=== PATIENT | female | born 1940 | race Native Hawaiian/Other Pacific Islander ===

== ENCOUNTER 2017-12-24 08:54 | Inpatient (IN) | payer MEDICARE, OTHER ==
[2017-12-24 10:58] LABS: BASO # 0.1 K/uL (0.0-0.2); BASO % 0.4 % (0.0-2.0); EOS % 0.1 % (0.0-4.0); HEMOGLOBIN 8.8 g/dL (12.0-16.0); LYMPH # 1.6 K/uL (1.0-4.3); LYMPH % 10.6 % (20.0-40.0); MEAN CELL VOLUME 83.2 fl (81.0-99.0); MEAN CORPUSCULAR HEMOGLOBIN 26.5 pg (27.0-31.0); MEAN CORPUSCULAR HGB CONC 31.9 g/dL (33.0-37.0); MEAN PLATELET VOLUME 9.1 fl (7.2-11.7); MONO # 0.5 K/uL (0.0-0.8); MONO % 3.7 % (0.0-10.0); NEUT # 12.5 K/uL (1.8-7.0); NEUT % 85.2 % (50.0-75.0); RBC 3.3 Mil/uL (3.80-5.20); RED CELL DISTRIBUTION WIDTH 20.7 % (11.5-14.5); WHITE BLOOD COUNT 14.6 K/uL (4.8-10.8)
[2017-12-24 11:05] LABS: PARTIAL THROMBOPLASTIN TIME 22.6 Seconds (25.6-37.1)
--- NOTE | 2017-12-24 11:16 | ED PDOC ---
Upper Extremity Pain/Injury Time Seen by Provider: 12/24/17 09:02 Chief Complaint (Nursing): Upper Extremity Problem/Injury Chief Complaint (Provider): Right Shoulder Pain, Right Arm Pain History Per: Patient History/Exam Limitations: no limitations Onset/Duration Of Symptoms: Days (x1) Current Symptoms Are (Timing): Still Present Additional Complaint(s): 70-year-old female presenting for evaluation of right shoulder and right arm pain s/p fall this morning. Of note, patient is not a [place] Amharic speaker and is hard of hearing. Translation service was ineffective because patient cannot hear. Difficult to obtain HPI and some information obtained from at bedside. Patient states shes been having episodes of dizziness, diaphoresis , abdominal pain, and diarrhea x2 weeks. Patient states she had an episode of diarrhea this morning, felt dizzy, fell, and her found her on the ground. Unclear if patient suffered LOC. Patients reports compliance with all medications and good follow up with PMD. PMD: Dr. Trevor Shields Past Medical History Reviewed: Historical Data, Nursing Documentation, Vital Signs Vital Signs: Last Vital Signs Temp 98.1 F 12/24/17 09:05 Pulse 70 12/24/17 09:05 Resp 18 12/24/17 09:05 BP 142/45 L 12/24/17 09:05 Pulse Ox 98 12/24/17 09:05 - Medical History PMH: Diabetes, HTN - Surgical History Other surgeries: Heart valve bypass - Family History Family History: States: Unknown Family Hx - Home Medications Home Medications: Ambulatory Orders Medication Instructions Recorded Atorvastatin Calcium [Lipitor] 80 mg PO DAILY 12/24/17 Cilostazol [Pletal] 100 mg PO BID 12/24/17 Clopidogrel [Plavix] 75 mg PO DAILY 12/24/17 Glimepiride [amaRYL] 4 mg PO BID 12/24/17 Labetalol [Trandate] 100 mg PO BID 12/24/17 Patiromer Calcium Sorbitex 8.4 gm PO BID 12/24/17 [Veltassa] Vitamin B Complex [Super B-50 1 tab PO DAILY 12/24/17 Complex] amLODIPine [Norvasc] 10 mg PO DAILY 12/24/17 metFORMIN [glucOPHAGE] 1,000 mg PO BID 12/24/17 - Allergies Allergies/Adverse Reactions: Allergies Allergy/AdvReac Type Severity Reaction Status Date / Time No Known Allergies Allergy Verified 12/24/17 09:25 Review of Systems ROS Statement: Except As Marked, All Systems Reviewed And Found Negative Constitutional: Positive for: Sweats Eyes: Negative for: Vision Change Cardiovascular: Negative for: Chest Pain, Palpitations, Light Headedness Gastrointestinal: Positive for: Abdominal Pain, Diarrhea Musculoskeletal: Positive for: Shoulder Pain (right), Arm Pain (right) Neurological: Positive for: Dizziness Physical Exam - Reviewed Nursing Documentation Reviewed: Yes Vital Signs Reviewed: Yes - Physical Exam Appears: Positive for: Non-toxic, No Acute Distress Head Exam: Positive for: ATRAUMATIC, NORMAL INSPECTION, NORMOCEPHALIC Skin: Positive for: Normal Color, Warm. Negative for: Rash Eye Exam: Positive for: Normal appearance, EOMI, PERRL Neck: Positive for: Normal, Painless ROM, Supple Cardiovascular/Chest: Positive for: Regular Rate, Rhythm. Negative for: Murmur Respiratory: Positive for: Normal Breath Sounds. Negative for: Respiratory Distress Pulses-Dorsalis Pedis (L): 2+ Pulses-Dorsalis Pedis (R): 2+ Pulses-Radial (L): 2+ Pulses-Radial (R): 2+ Gastrointestinal/Abdominal: Positive for: Normal Exam, Soft. Negative for: Tenderness Back: Positive for: Normal Inspection. Negative for: L CVA Tenderness, R CVA Tenderness, Vertebral Tenderness Extremity: Positive for: Tenderness (tenderness to palpation at right superior scapula, right shoulder (worse on anterior shoulder), right humerus, right elbow ; no tenderness to palpation over the right forearm, wrist, or hand), Other ( exam limited due to pain, patient refusing to move the arm or allow it to be moved) Neurologic/Psych: Positive for: Alert, Oriented (x3). Negative for: Motor/ Sensory Deficits - Laboratory Results Result Diagrams: 12/24/17 16:18 12/24/17 17:00 - ECG O2 Sat by Pulse Oximetry: 98 (RA) Pulse Ox Interpretation: Normal - Radiology X-Ray: Interpreted by Me, Read By Radiologist X-Ray Interpretation: No Acute Disease, Other (right humeral head fracture) - Critical Care Total Time (In Min): 120 Medical Decision Making Medical Decision Making: Plan: Workup for trauma injury to the right upper extremity, scapula, and clavicle. Syncope workup and infectious workup for episodes of dizziness, possible syncope , and diarrhea. Morphine for pain control. Will order X-rays of upper extremities, IV fluids, and reassess patient. During workup for right arm pain and dizziness the lab called and informed RN that the pt has potassium >7. RN and MD went bedside and noted the pt's HR dropped from upper 50s to low 30s. Pacer pads were placed, right EJ was placed. Pt given Calcium, D50, insulin, and bicarb with almost immediate improvement in rhythm and HR. Pt given I L of IV fluids. At this point, cardiology was paged (approximately 10:55am). Within several minutes, the pt's HR again dropped. With drop in HR, rhythm showed atrial fibrillation with QRS widening. Lasix was given and Hyper K meds (as above) were again pushed. ICU Dr. Deleon was consulted. A third round of Hyper K medications were pushed as HR dropped again. Pt was given rectal ASA. During each event of arrhythmia/ bradycardia, pt remained alert and responsive. During 3rd episode of arrhythmia , pt complained of chest pain. Pt was seen bedside by geothermal installer, Dr. Arellano, and coal deliverer Dr. Centeno. Manager Search was consulted at 12:58pm as labs showed renal failure with BUN 50/creat 2.3. POC ABG showed potassium of 4.6 and repeat BMP showed potassium of 5.2. Xrays showed right humeral comminuted fracture. Splint/sling placement was delayed as additional blood draws and EKGS were being performed. Orthopedics was paged at 2:23pm and Dr. Castaneda returned page at 4:00pm (delay in return page due to Dr. Castaneda being in OR). Dr. Garcia was consulted and pt admitted to the ICU. ECHO was arranged and would be performed in the unit. Nephrology and orthopedics to see the patient in the unit. Pt was in sinus rhythm with HR of 61 when leaving the ED. Scribe Attestation: Documented by Surinder Paez, acting as a scribe for Ana Garcia MD. Provider Scribe Attestation: All medical record entries made by the Scribe were at my direction and personally dictated by me. I have reviewed the chart and agree that the record accurately reflects my personal performance of the history, physical exam, medical decision making, and the department course for this patient. I have also personally directed, reviewed, and agree with the discharge instructions and disposition. Disposition - Clinical Impression Clinical Impression: Bradycardia, Hyperkalemia, Renal failure, Cardiac arrhythmia, Shoulder injury, Broken shoulder - Patient ED Disposition Is Patient to be Admitted: Yes - Disposition Disposition Time: 13:30 Condition: CRITICAL
[2017-12-24] MEDS ORDERED: Dextrose 50% SYRINGE Inj (50 ml) ONE (11:37)
[2017-12-24 11:54] LABS: ALB/GLOB RATIO 1.2 (1.0-2.1); CALCIUM 9.7 mg/dL (8.4-10.2)
[2017-12-24] MEDS ORDERED: Aspirin 325 mg EC Tablets PO STA (11:56)
[2017-12-24] MEDS ORDERED: Nitroglycerin 2% Ointment Foilpak UD TOP ONE (11:59)
[2017-12-24 12:08] LABS: INR 0.9; PROTHROMBIN TIME 10.2 Seconds (9.8-13.1)
[2017-12-24 12:12] LABS: ALB/GLOB RATIO 1.2 (1.0-2.1); ALBUMIN 3.8 g/dL (3.5-5.0); CALCIUM 9.6 mg/dL (8.4-10.2)
[2017-12-24] MEDS ORDERED: Calcium Chloride 1000 mg/10 ml Syringe IV STA ×2 (12:16→12:52)
[2017-12-24] MEDS ORDERED: Calcium Chloride 1000 mg/10 ml Syringe IV ONE (12:19)
[2017-12-24] MEDS ORDERED: Dextrose 50% SYRINGE Inj (50 ml) IVP ONE ×2 (12:22→12:54)
[2017-12-24 12:33] LABS: TROPONIN I 0.072 ng/mL (0.00-0.120)
[2017-12-24 12:52] LABS: ALB/GLOB RATIO 1.3 (1.0-2.1); ALBUMIN 3.7 g/dL (3.5-5.0); CALCIUM 9.3 mg/dL (8.4-10.2)
[2017-12-24] MEDS ORDERED: Sod Polystyrene Sulf 15 gm/60 ml Susp PO ONE (13:00)
[2017-12-24] MEDS ORDERED: Insulin Regular 100 units/ml IV STA ×2 (13:03→13:43)
[2017-12-24 13:04] LABS: URINE BACTERIA RARE (<OCC); URINE BILIRUBIN NEGATIVE (NEGATIVE); URINE BLOOD NEGATIVE (NEGATIVE); URINE CLARITY SLIGHTY-CLOUDY (Clear); URINE COLOR YELLOW (YELLOW); URINE GLUCOSE (UA) >=500 mg/dL (Normal); URINE HYALINE CAST 0-2 /hpf (0-2); URINE LEUKOCYTE ESTERASE NEG Leu/uL (Negative); URINE PROTEIN 30 mg/dL (NEGATIVE); URINE UROBILINOGEN 0.2-1.0 mg/dL (0.2-1.0)
[2017-12-24] MEDS ORDERED: Nitroglycerin 2% Ointment Foilpak UD TOP STA (13:04)
[2017-12-24] MEDS ORDERED: Sodium Bicarbonate 7.5% (0.9 MEQ/ML) 50ML INJ IV ONE ×3 (13:08→13:09)
[2017-12-24] MEDS ORDERED: Albuterol 0.083% Inhal Sol (2.5 mg/3 mL) UD INH ONE ×2 (13:10)
--- NOTE | 2017-12-24 13:21 | RAD ---
Date of service: 12/24/2017 HISTORY: abd pain COMPARISON: No prior. FINDINGS: BOWEL: Normal. No obstruction. No free air. Abdomen obscured partially by monitoring leads. BONES: Normal. OTHER FINDINGS: None. IMPRESSION: No active disease.
--- NOTE | 2017-12-24 13:23 | RAD ---
Date of service: 12/24/2017 HISTORY: bradycardia COMPARISON: No prior. FINDINGS: LUNGS: No active pulmonary disease. PLEURA: No significant pleural effusion identified, no pneumothorax apparent. CARDIOVASCULAR: Mild cardiomegaly. Sternotomy wires. CABG. OSSEOUS STRUCTURES: Comminuted displaced fracture right subcapital humerus and humeral head. VISUALIZED UPPER ABDOMEN: Normal. OTHER FINDINGS: None. IMPRESSION: Comminuted fracture right proximal humerus, displaced. No infiltrate.
[2017-12-24 14:09] LABS: CALCIUM 12.8 mg/dL (8.4-10.2)
--- NOTE | 2017-12-24 15:15 | CT ---
Date of service: 12/24/2017 PROCEDURE: CT HEAD WITHOUT CONTRAST. HISTORY: fall with dizziness COMPARISON: None available. TECHNIQUE: Axial computed tomography images were obtained through the head/brain without intravenous contrast. Radiation dose: Total exam DLP = 806.59 mGy-cm. This CT exam was performed using one or more of the following dose reduction techniques: Automated exposure control, adjustment of the mA and/or kV according to patient size, and/or use of iterative reconstruction technique. FINDINGS: HEMORRHAGE: No intracranial hemorrhage. BRAIN: No mass effect or edema. Mild atrophy. Moderate patchy and confluent periventricular and deep/ subcortical white matter lucency consistent with chronic microvascular ischemic change. No evidence of acute infarct. 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 VENTRICLES: Unremarkable. No hydrocephalus. CALVARIUM: Unremarkable. PARANASAL SINUSES: Chronic sphenoid sinusitis. MASTOID AIR CELLS: Unremarkable as visualized. No inflammatory changes. OTHER FINDINGS: None. IMPRESSION: No intracranial mass, hemorrhage or evidence of acute infarct. Age related involutional change. 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 Chronic sphenoid sinusitis.
--- NOTE | 2017-12-24 15:27 | RAD ---
Date of service: 12/24/2017 PROCEDURE: Radiographs of the right elbow. HISTORY: right arm/shoulder/clavicle pain s/p fall COMPARISON: No prior. FINDINGS: BONES: Normal. No fracture. JOINTS: Normal. No osteoarthritis. SOFT TISSUES: Normal. JOINT EFFUSION: None. OTHER FINDINGS: None. IMPRESSION: Unremarkable radiographs of the right elbow.
--- NOTE | 2017-12-24 15:28 | RAD ---
PROCEDURE: Radiographs of the right humerus. HISTORY: right arm/shoulder/clavicle pain s/p fall COMPARISON: None. FINDINGS: BONES: Displaced comminuted fracture right proximal humerus involving subcapital humerus and greater tuberosity. Large displaced fragment from greater tuberosity. No other fracture identified. SOFT TISSUES: Normal. OTHER FINDINGS: None. IMPRESSION: Comminuted displaced proximal humeral fracture.
--- NOTE | 2017-12-24 15:29 | RAD ---
Date of service: 12/24/2017 PROCEDURE: Right scapula HISTORY: right shoulder/scapula/arm pain s/p fall COMPARISON: Not available TECHNIQUE: Two views of the right scapula are provided. FINDINGS: There is no evidence of scapular fracture. No lytic or blastic osseous lesion is identified. IMPRESSION: No evidence of scapular fracture.
--- NOTE | 2017-12-24 15:30 | RAD ---
Date of service: 12/24/2017 PROCEDURE: Radiographs of the right clavicle. HISTORY: right shoulder/elbow/clavicle pain s/p fall COMPARISON: None. FINDINGS: RIGHT CLAVICLE: No fracture or focal lesion. JOINTS: Right acromioclavicular and glenohumeral joints are grossly unremarkable. SOFT TISSUES: Grossly unremarkable. OTHER FINDINGS: None. IMPRESSION: Normal radiographs of the right clavicle.
--- NOTE | 2017-12-24 15:30 | RAD ---
Date of service: 12/24/2017 PROCEDURE: Radiographs of the Right Shoulder HISTORY: right shoulder/clavicle/arm pain s/p fall COMPARISON: No prior. FINDINGS: BONES: Comminuted displaced fracture of the proximal humerus. There is a subcapital fracture. There is a displaced fracture of the greater tuberosity. There is probable fracture of the lesser tuberosity. There is a globular calcification adjacent to the greater tuberosity likely consistent with chronic calcific tendinitis. JOINTS: Normal. Glenohumeral and acromioclavicular joints preserved. No osteoarthritis. SOFT TISSUES: Normal. OTHER FINDINGS: None. IMPRESSION: Comminuted, displaced proximal humeral fracture as described.
--- NOTE | 2017-12-24 15:37 | CP.CCUPN ---
CCU Subjective - Physician Review Events Since Last Encounter (Free Text): 77 female with history of HTN, DM, CAD s/p CABG brought to ER because od dizziness, diarrhea for two weeks and Rt shoulder pain after falling down on her shoulder today, no chest pain, no fever, no reported LOC, patient found to have bradycaria, hyperkalemia, renal insufficiency and Rt humerus fracture, cardiology, renal and orthopedic consults catted from ER CCU Objective - Vital Signs / Intake & Output Vital Signs (Last 4 hours): Vital Signs Temp Pulse Resp BP Pulse Ox 12/24/17 15:05 97.8 F 56 L 16 202/73 H 12/24/17 15:00 61 18 188/73 H 12/24/17 14:00 61 18 188/73 H 100 12/24/17 13:54 60 196/65 H 12/24/17 12:00 52 L 181/61 H 12/24/17 11:48 172/51 H Intake and Output (Last 8hrs): Intake & Output 12/24/17 12/24/17 12/24/17 06:59 14:59 22:59 Output Total 800 Balance -800 Weight 105 lb Output: Urine 800 - Physical Exam Head: Positive for: Atraumatic, Normocephalic Pupils: Positive for: PERRL Conjunctiva: Positive for: Normal Mouth: Positive for: Dry Pharnyx: Positive for: Normal Nose (External): Positive for: Atraumatic Nose (Internal): Positive for: Normal Inspection Neck: Positive for: Normal Range of Motion Respiratory/Chest: Positive for: Clear to Auscultation Cardiovascular: Positive for: Bradycardic Abdomen: Positive for: Normal Bowel Sounds Upper Extremity: Positive for: Other (Rt shouder pain on movements) Neurological: Positive for: GCS=15, Speech Normal Skin: Positive for: Normal Color Psychiatric: Positive for: Alert - Medications Active Medications: Active Medications Generic Name Dose Route Start Last Admin Trade Name Freq PRN Reason Stop Dose Admin Sodium Chloride 1,000 ml/ IV 1,000 mls @ 250 mls/hr 12/24/17 14:09 12/24/17 14:22 SUPPLIES IV 12/24/17 18:08 250 mls/hr STAT STA Administration - Patient Studies Lab Studies: Lab Studies 08/18/18 08/18/18 08/18/18 Range/Units 13:39 12:45 12:25 WBC (4.8-10.8) K/uL RBC (3.80-5.20) Mil/uL Hgb (12.0-16.0) g/dL Hct (34.0-47.0) % MCV (81.0-99.0) fl MCH (27.0-31.0) pg MCHC (33.0-37.0) g/dL RDW (11.5-14.5) % Plt Count (130-400) K/uL MPV (7.2-11.7) fl Neut % (Auto) (50.0-75.0) % Lymph % (Auto) (20.0-40.0) % [place] % (Auto) (0.0-10.0) % Eos % (Auto) (0.0-4.0) % Baso % (Auto) (0.0-2.0) % Neut # (Auto) (1.8-7.0) K/uL Lymph # (Auto) (1.0-4.3) K/uL [place] # (Auto) (0.0-0.8) K/uL Eos # (Auto) (0.0-0.7) K/uL Baso # (Auto) (0.0-0.2) K/uL PT (9.8-13.1) Seconds INR APTT (25.6-37.1) Seconds Sodium 136 (132-148) mmol/l Potassium 5.2 H (3.6-5.0) MMOL/L Chloride 106 (98-107) mmol/L Carbon Dioxide 16 L (22-30) mmol/L Anion Gap 19 (10-20) BUN 48 H (7-17) mg/dl Creatinine 2.1 H (0.7-1.2) mg/dl Est GFR ( Amer) 27 Est GFR (Non-Af Amer) 23 Random Glucose 268 H (65-105) mg/dL Calcium 12.8 H (8.4-10.2) mg/dL Phosphorus (2.5-4.5) mg/dl Magnesium (1.6-2.3) MG/DL Total Bilirubin (0.2-1.3) mg/dl AST (14-36) U/L ALT (9-52) U/L Alkaline Phosphatase (38-126) U/L Troponin I (0.00-0.120) ng/mL Total Protein (6.3-8.2) G/DL Albumin (3.5-5.0) g/dL Globulin (2.2-3.9) gm/dL Albumin/Globulin Ratio (1.0-2.1) Urine Color Yellow (YELLOW) Urine Clarity Slighty-cloudy (Clear) Urine pH 5.0 (5.0-8.0) Ur Specific [place] 1.009 (1.003-1.030) Urine Protein 30 (NEGATIVE) mg/dL Urine Glucose (UA) >=500 (Normal) mg/dL Urine Ketones Negative (NEGATIVE) mg/dL Urine Blood Negative (NEGATIVE) Urine Nitrate Negative (NEGATIVE) Urine Bilirubin Negative (NEGATIVE) Urine Urobilinogen 0.2-1.0 (0.2-1.0) mg/dL Ur Leukocyte Esterase Neg (Negative) Karla/uL Urine RBC (Auto) < 1 (0-3) /hpf Urine Microscopic WBC < 1 (0-5) /hpf Urine Bacteria Rare (<OCC) Hyaline Casts 0-2 (0-2) /hpf Blood Type B POSITIVE Antibody Screen Negative BBK History Checked No verified bt 12/24/17 12/24/17 12/24/17 Range/Units 12:10 12:05 11:20 WBC 13.5 H (4.8-10.8) K/uL RBC 3.08 L (3.80-5.20) Mil/uL Hgb 8.1 L (12.0-16.0) g/dL Hct 25.3 L (34.0-47.0) % MCV 82.2 (81.0-99.0) fl MCH 26.5 L (27.0-31.0) pg MCHC 32.2 L (33.0-37.0) g/dL RDW 58.2 H (11.5-14.5) % Plt Count 252 (130-400) K/uL MPV 8.9 (7.2-11.7) fl Neut % (Auto) (50.0-75.0) % Lymph % (Auto) 10.6 L (20.0-40.0) % [place] % (Auto) 3.6 (0.0-10.0) % Eos % (Auto) 0.1 (0.0-4.0) % Baso % (Auto) 0.3 (0.0-2.0) % Neut # (Auto) (1.8-7.0) K/uL Lymph # (Auto) 1.4 (1.0-4.3) K/uL [place] # (Auto) 0.5 (0.0-0.8) K/uL Eos # (Auto) 0.0 (0.0-0.7) K/uL Baso # (Auto) 0.3 H (0.0-0.2) K/uL PT (9.8-13.1) Seconds INR APTT (25.6-37.1) Seconds Sodium 131 L 129 L (132-148) mmol/l Potassium 7.2 H* 7.1 H* (3.6-5.0) MMOL/L Chloride 103 104 (98-107) mmol/L Carbon Dioxide 16 L 12 L (22-30) mmol/L Anion Gap 19 20 (10-20) BUN 51 H 50 H (7-17) mg/dl Creatinine 2.2 H 2.3 H (0.7-1.2) mg/dl Est GFR ( Amer) 26 25 Est GFR (Non-Af Amer) 22 20 Random Glucose 267 H 265 H (65-105) mg/dL Calcium 9.3 9.6 (8.4-10.2) mg/dL Phosphorus (2.5-4.5) mg/dl Magnesium (1.6-2.3) MG/DL Total Bilirubin 0.5 0.7 (0.2-1.3) mg/dl AST 87 H 79 H (14-36) U/L ALT 110 H 104 H (9-52) U/L Alkaline Phosphatase 113 116 (38-126) U/L Troponin I 0.0720 (0.00-0.120) ng/mL Total Protein 6.6 7.1 (6.3-8.2) G/DL Albumin 3.7 3.8 (3.5-5.0) g/dL Globulin 2.9 3.3 (2.2-3.9) gm/dL Albumin/Globulin Ratio 1.3 1.2 (1.0-2.1) Urine Color (YELLOW) Urine Clarity (Clear) Urine pH (5.0-8.0) Ur Specific [place] (1.003-1.030) Urine Protein (NEGATIVE) mg/dL Urine Glucose (UA) (Normal) mg/dL Urine Ketones (NEGATIVE) mg/dL Urine Blood (NEGATIVE) Urine Nitrate (NEGATIVE) Urine Bilirubin (NEGATIVE) Urine Urobilinogen (0.2-1.0) mg/dL Ur Leukocyte Esterase (Negative) Karla/uL Urine RBC (Auto) (0-3) /hpf Urine Microscopic WBC (0-5) /hpf Urine Bacteria (<OCC) Hyaline Casts (0-2) /hpf Blood Type Antibody Screen BBK History Checked 12/24/17 12/24/17 12/24/17 Range/Units 10:30 10:30 10:30 WBC 14.6 H (4.8-10.8) K/uL RBC 3.30 L (3.80-5.20) Mil/uL Hgb 8.8 L (12.0-16.0) g/dL Hct 27.5 L (34.0-47.0) % MCV 83.2 (81.0-99.0) fl MCH 26.5 L (27.0-31.0) pg MCHC 31.9 L (33.0-37.0) g/dL RDW 20.7 H (11.5-14.5) % Plt Count 263 (130-400) K/uL MPV 9.1 (7.2-11.7) fl Neut % (Auto) 85.2 H (50.0-75.0) % Lymph % (Auto) 10.6 L (20.0-40.0) % [place] % (Auto) 3.7 (0.0-10.0) % Eos % (Auto) 0.1 (0.0-4.0) % Baso % (Auto) 0.4 (0.0-2.0) % Neut # (Auto) 12.5 H (1.8-7.0) K/uL Lymph # (Auto) 1.6 (1.0-4.3) K/uL [place] # (Auto) 0.5 (0.0-0.8) K/uL Eos # (Auto) 0.0 (0.0-0.7) K/uL Baso # (Auto) 0.1 (0.0-0.2) K/uL PT 10.2 (9.8-13.1) Seconds INR 0.9 APTT 22.6 L (25.6-37.1) Seconds Sodium 131 L (132-148) mmol/l Potassium 7.3 H* (3.6-5.0) MMOL/L Chloride 103 (98-107) mmol/L Carbon Dioxide 14 L (22-30) mmol/L Anion Gap 21 H (10-20) BUN 50 H (7-17) mg/dl Creatinine 2.3 H (0.7-1.2) mg/dl Est GFR ( Amer) 25 Est GFR (Non-Af Amer) 20 Random Glucose 256 H (65-105) mg/dL Calcium 9.7 (8.4-10.2) mg/dL Phosphorus 4.9 H (2.5-4.5) mg/dl Magnesium 2.3 (1.6-2.3) MG/DL Total Bilirubin 0.5 (0.2-1.3) mg/dl AST 77 H (14-36) U/L ALT 111 H (9-52) U/L Alkaline Phosphatase 124 (38-126) U/L Troponin I (0.00-0.120) ng/mL Total Protein 7.1 (6.3-8.2) G/DL Albumin 4.0 (3.5-5.0) g/dL Globulin 3.2 (2.2-3.9) gm/dL Albumin/Globulin Ratio 1.2 (1.0-2.1) Urine Color (YELLOW) Urine Clarity (Clear) Urine pH (5.0-8.0) Ur Specific [place] (1.003-1.030) Urine Protein (NEGATIVE) mg/dL Urine Glucose (UA) (Normal) mg/dL Urine Ketones (NEGATIVE) mg/dL Urine Blood (NEGATIVE) Urine Nitrate (NEGATIVE) Urine Bilirubin (NEGATIVE) Urine Urobilinogen (0.2-1.0) mg/dL Ur Leukocyte Esterase (Negative) Karla/uL Urine RBC (Auto) (0-3) /hpf Urine Microscopic WBC (0-5) /hpf Urine Bacteria (<OCC) Hyaline Casts (0-2) /hpf Blood Type Antibody Screen BBK History Checked Laboratory Results - last 24 hr 12/24/17 12/24/17 12/24/17 10:30 10:30 10:30 WBC 14.6 H RBC 3.30 L Hgb 8.8 L Hct 27.5 L MCV 83.2 MCH 26.5 L MCHC 31.9 L RDW 20.7 H Plt Count 263 MPV 9.1 Neut % (Auto) 85.2 H Lymph % (Auto) 10.6 L [place] % (Auto) 3.7 Eos % (Auto) 0.1 Baso % (Auto) 0.4 Neut # (Auto) 12.5 H Lymph # (Auto) 1.6 [place] # (Auto) 0.5 Eos # (Auto) 0.0 Baso # (Auto) 0.1 PT 10.2 INR 0.9 APTT 22.6 L Sodium 131 L Potassium 7.3 H* Chloride 103 Carbon Dioxide 14 L Anion Gap 21 H BUN 50 H Creatinine 2.3 H Est GFR ( Amer) 25 Est GFR (Non-Af Amer) 20 Random Glucose 256 H Calcium 9.7 Phosphorus 4.9 H Magnesium 2.3 Total Bilirubin 0.5 AST 77 H ALT 111 H Alkaline Phosphatase 124 Troponin I Total Protein 7.1 Albumin 4.0 Globulin 3.2 Albumin/Globulin Ratio 1.2 Urine Color Urine Clarity Urine pH Ur Specific [place] Urine Protein Urine Glucose (UA) Urine Ketones Urine Blood Urine Nitrate Urine Bilirubin Urine Urobilinogen Ur Leukocyte Esterase Urine RBC (Auto) Urine Microscopic WBC Urine Bacteria Hyaline Casts Blood Type Antibody Screen BBK History Checked 12/24/17 12/24/17 12/24/17 11:20 12:05 12:10 WBC 13.5 H RBC 3.08 L Hgb 8.1 L Hct 25.3 L MCV 82.2 MCH 26.5 L MCHC 32.2 L RDW 58.2 H Plt Count 252 MPV 8.9 Neut % (Auto) Lymph % (Auto) 10.6 L [place] % (Auto) 3.6 Eos % (Auto) 0.1 Baso % (Auto) 0.3 Neut # (Auto) Lymph # (Auto) 1.4 [place] # (Auto) 0.5 Eos # (Auto) 0.0 Baso # (Auto) 0.3 H PT INR APTT Sodium 129 L 131 L Potassium 7.1 H* 7.2 H* Chloride 104 103 Carbon Dioxide 12 L 16 L Anion Gap 20 19 BUN 50 H 51 H Creatinine 2.3 H 2.2 H Est GFR ( Amer) 25 26 Est GFR (Non-Af Amer) 20 22 Random Glucose 265 H 267 H Calcium 9.6 9.3 Phosphorus Magnesium Total Bilirubin 0.7 0.5 AST 79 H 87 H ALT 104 H 110 H Alkaline Phosphatase 116 113 Troponin I 0.0720 Total Protein 7.1 6.6 Albumin 3.8 3.7 Globulin 3.3 2.9 Albumin/Globulin Ratio 1.2 1.3 Urine Color Urine Clarity Urine pH Ur Specific [place] Urine Protein Urine Glucose (UA) Urine Ketones Urine Blood Urine Nitrate Urine Bilirubin Urine Urobilinogen Ur Leukocyte Esterase Urine RBC (Auto) Urine Microscopic WBC Urine Bacteria Hyaline Casts Blood Type Antibody Screen BBK History Checked 12/24/17 12/24/17 12/24/17 12:25 12:45 13:39 WBC RBC Hgb Hct MCV MCH MCHC RDW Plt Count MPV Neut % (Auto) Lymph % (Auto) [place] % (Auto) Eos % (Auto) Baso % (Auto) Neut # (Auto) Lymph # (Auto) [place] # (Auto) Eos # (Auto) Baso # (Auto) PT INR APTT Sodium 136 Potassium 5.2 H Chloride 106 Carbon Dioxide 16 L Anion Gap 19 BUN 48 H Creatinine 2.1 H Est GFR ( Amer) 27 Est GFR (Non-Af Amer) 23 Random Glucose 268 H Calcium 12.8 H Phosphorus Magnesium Total Bilirubin AST ALT Alkaline Phosphatase Troponin I Total Protein Albumin Globulin Albumin/Globulin Ratio Urine Color Yellow Urine Clarity Slighty-cloudy Urine pH 5.0 Ur Specific [place] 1.009 Urine Protein 30 Urine Glucose (UA) >=500 Urine Ketones Negative Urine Blood Negative Urine Nitrate Negative Urine Bilirubin Negative Urine Urobilinogen 0.2-1.0 Ur Leukocyte Esterase Neg Urine RBC (Auto) < 1 Urine Microscopic WBC < 1 Urine Bacteria Rare Hyaline Casts 0-2 Blood Type B POSITIVE Antibody Screen Negative BBK History Checked No verified bt EKG/Cardiology Studies: Cardiology / EKG Studies 12/24/17 09:50 EKG [ELECTROCARDIOGRAM] Stat Comment: Mode Of Transportation: Reason For Exam: chest pain 12/24/17 14:20 EKG [ELECTROCARDIOGRAM] Stat Comment: Mode Of Transportation: Reason For Exam: bradycardia 12/24/17 14:22 EKG [ELECTROCARDIOGRAM] Stat Comment: Mode Of Transportation: Reason For Exam: chest pain 12/24/17 14:23 EKG [ELECTROCARDIOGRAM] Stat Comment: Mode Of Transportation: Reason For Exam: chest pain EKG [ELECTROCARDIOGRAM] Stat Comment: Mode Of Transportation: Reason For Exam: chest pain EKG [ELECTROCARDIOGRAM] Stat Comment: Mode Of Transportation: Reason For Exam: chest pain 12/24/17 14:25 EKG [ELECTROCARDIOGRAM] Stat Comment: Mode Of Transportation: Reason For Exam: chest pain 12/24/17 14:26 EKG [ELECTROCARDIOGRAM] Stat Comment: Mode Of Transportation: Reason For Exam: chest pain EKG [ELECTROCARDIOGRAM] Stat Comment: Mode Of Transportation: Reason For Exam: chest pain 12/24/17 14:27 EKG [ELECTROCARDIOGRAM] Stat Comment: Mode Of Transportation: Reason For Exam: chest pain EKG [ELECTROCARDIOGRAM] Stat Comment: Mode Of Transportation: Reason For Exam: chest pain EKG [ELECTROCARDIOGRAM] Stat Comment: Mode Of Transportation: Reason For Exam: chest pain 12/24/17 14:28 EKG [ELECTROCARDIOGRAM] Stat Comment: Mode Of Transportation: Reason For Exam: chest pain 12/24/17 14:37 EKG [ELECTROCARDIOGRAM] Stat Comment: Mode Of Transportation: Reason For Exam: chest pain EKG [ELECTROCARDIOGRAM] Stat Comment: Mode Of Transportation: Reason For Exam: chest pain Fingerstick Blood Sugar Results: 262 Assessment/Plan - Assessment and Plan (Free Text) Assessment: A/P Dizziness, bradycardia ?sick sinus syndrome, hyperkalemia, renal insufficiency, Rt humerus fracture, HTN, DM, CAD s/p CABG, R/O MICardiac enzymes - Correct K - IV fluid - Echocardiogram - Cardiology follow up - Renal follow up - Orthopedic follow up - BP control - Cardiac enzymes - DVT prophylaxis Critical care 40 min
--- NOTE | 2017-12-24 15:51 | CP.PCM.CON ---
History of Present Illness - History of Present Illness History of Present Illness: RENAL CONSULT CC: ARF/Hyperkalemia 77 female with history of HTN, DM, CAD and ? CKD and hyperkalemia that presented intially to ER today w/ a fall. She had a fall at home -where she landed on her shoulder. She came in to the ER and became bradycardic. Her labs were significant for K of 7.2 and was subsequently given fluids, hyperkalemia cocktail and admitted to ICU. She endorses dizziness and diarrhea x 2 weeks or so. Its not clear if she was taking NSAID's at home as she had given her list to the ER and I can not find. Veltassa is on her home medication list but when I asked about this medication she could not tell me if she takes or not. She denies any fever or chills. A full detailed ROs is negative except as in my hpi pmh: as below famhx: no esrd in family sochx: no active smoke etoh or ivdu mes: as below nkda pe: vs as below gen: nad sclera: anicteric op: clear neck: supple no thyromegaly cv: +s1+s2 no rub lungs: cta b/l abd: soft nt/nd/ no r/g no organomegaly ext: no edema neuro: a+Ox3 no focal deficity psych: nml affect skin no rash ms: pain r shoulder limited ROM labs reviewed imp: ARF/Hyperkalemia/Acidosis/ Diabetes/ R shoulder fracture/Bradycardia/ Hypertensive kidney disease / hypercalcemia plan: CORDELIA v CKD - its still not clear to me if she has any baseline CKD. She is unaware of any however she is reportedly on veltassa at home which is a potassium lowering agent that is typically used in patients w/ chronic hyperkalemia and later stages of ckd. Recommend contact her PCP and get records to see what baseline renal function is. Its not clear if there was any degree obstruction in the ER - she had 800 cc of uop in ER and is still making quite a bit of urine at this point. Will check Urine prot and cr. Suspect she has some element of diabetic kidney disease. Will check renal US to assess for any echogenecity K is improving at this point would continue IVF as your doing will check cpk acidosis is improved suspect the hypercalcemia is related to ca being given during hyperkaelmic episode, will need to be recheck. Will check ipth. serial bmp. can resume home antihypertensives but would avoid NEL/ARB discused w/ ICU hopper attendant Past Patient History - Past Social History Smoking Status: Unknown If Ever Smoked - CARDIAC Hx Cardiac Disorders: Yes - ENDOCRINE/METABOLIC Hx Endocrine Disorders: Yes - MUSCULOSKELETAL/RHEUMATOLOGICAL Hx Falls: No - PSYCHIATRIC Hx Substance Use: No - SURGICAL HISTORY Other/Comment: Heart valve bypass - ANESTHESIA Hx Anesthesia: Yes Hx Anesthesia Reactions: No Meds Allergies/Adverse Reactions: Allergies Allergy/AdvReac Type Severity Reaction Status Date / Time No Known Allergies Allergy Verified 12/24/17 09:25 - Medications Medications: Current Medications Sodium Chloride 1,000 ml/ IV (SUPPLIES) 1,000 mls @ 250 mls/hr IV STAT STA Stop: 12/24/17 18:08 Last Admin: 12/24/17 14:22 Dose: 250 mls/hr Sodium Chloride (Sodium Chloride 0.9%) 1,000 mls @ 50 mls/hr IV .Q20H SHEILA Stop: 12/25/17 15:36 Results - Vital Signs Recent Vital Signs: Last Vital Signs Temp 97.8 F 12/24/17 15:05 Pulse 56 L 12/24/17 15:05 Resp 16 12/24/17 15:05 BP 202/73 H 12/24/17 15:05 Pulse Ox 100 12/24/17 14:00 - Labs Result Diagrams: 12/24/17 12:10 12/24/17 13:39 Labs: Laboratory Results - last 24 hr 12/24/17 12/24/17 12/24/17 10:30 10:30 10:30 WBC 14.6 H RBC 3.30 L Hgb 8.8 L Hct 27.5 L MCV 83.2 MCH 26.5 L MCHC 31.9 L RDW 20.7 H Plt Count 263 MPV 9.1 Neut % (Auto) 85.2 H Lymph % (Auto) 10.6 L [place] % (Auto) 3.7 Eos % (Auto) 0.1 Baso % (Auto) 0.4 Neut # (Auto) 12.5 H Lymph # (Auto) 1.6 [place] # (Auto) 0.5 Eos # (Auto) 0.0 Baso # (Auto) 0.1 PT 10.2 INR 0.9 APTT 22.6 L Sodium 131 L Potassium 7.3 H* Chloride 103 Carbon Dioxide 14 L Anion Gap 21 H BUN 50 H Creatinine 2.3 H Est GFR ( Amer) 25 Est GFR (Non-Af Amer) 20 Random Glucose 256 H Calcium 9.7 Phosphorus 4.9 H Magnesium 2.3 Total Bilirubin 0.5 AST 77 H ALT 111 H Alkaline Phosphatase 124 Troponin I Total Protein 7.1 Albumin 4.0 Globulin 3.2 Albumin/Globulin Ratio 1.2 Urine Color Urine Clarity Urine pH Ur Specific [place] Urine Protein Urine Glucose (UA) Urine Ketones Urine Blood Urine Nitrate Urine Bilirubin Urine Urobilinogen Ur Leukocyte Esterase Urine RBC (Auto) Urine Microscopic WBC Urine Bacteria Hyaline Casts Blood Type Antibody Screen BBK History Checked 12/24/17 12/24/17 12/24/17 11:20 12:05 12:10 WBC 13.5 H RBC 3.08 L Hgb 8.1 L Hct 25.3 L MCV 82.2 MCH 26.5 L MCHC 32.2 L RDW 58.2 H Plt Count 252 MPV 8.9 Neut % (Auto) Lymph % (Auto) 10.6 L [place] % (Auto) 3.6 Eos % (Auto) 0.1 Baso % (Auto) 0.3 Neut # (Auto) Lymph # (Auto) 1.4 [place] # (Auto) 0.5 Eos # (Auto) 0.0 Baso # (Auto) 0.3 H PT INR APTT Sodium 129 L 131 L Potassium 7.1 H* 7.2 H* Chloride 104 103 Carbon Dioxide 12 L 16 L Anion Gap 20 19 BUN 50 H 51 H Creatinine 2.3 H 2.2 H Est GFR ( Amer) 25 26 Est GFR (Non-Af Amer) 20 22 Random Glucose 265 H 267 H Calcium 9.6 9.3 Phosphorus Magnesium Total Bilirubin 0.7 0.5 AST 79 H 87 H ALT 104 H 110 H Alkaline Phosphatase 116 113 Troponin I 0.0720 Total Protein 7.1 6.6 Albumin 3.8 3.7 Globulin 3.3 2.9 Albumin/Globulin Ratio 1.2 1.3 Urine Color Urine Clarity Urine pH Ur Specific [place] Urine Protein Urine Glucose (UA) Urine Ketones Urine Blood Urine Nitrate Urine Bilirubin Urine Urobilinogen Ur Leukocyte Esterase Urine RBC (Auto) Urine Microscopic WBC Urine Bacteria Hyaline Casts Blood Type Antibody Screen BBK History Checked 12/24/17 12/24/17 12/24/17 12:25 12:45 13:39 WBC RBC Hgb Hct MCV MCH MCHC RDW Plt Count MPV Neut % (Auto) Lymph % (Auto) [place] % (Auto) Eos % (Auto) Baso % (Auto) Neut # (Auto) Lymph # (Auto) [place] # (Auto) Eos # (Auto) Baso # (Auto) PT INR APTT Sodium 136 Potassium 5.2 H Chloride 106 Carbon Dioxide 16 L Anion Gap 19 BUN 48 H Creatinine 2.1 H Est GFR ( Amer) 27 Est GFR (Non-Af Amer) 23 Random Glucose 268 H Calcium 12.8 H Phosphorus Magnesium Total Bilirubin AST ALT Alkaline Phosphatase Troponin I Total Protein Albumin Globulin Albumin/Globulin Ratio Urine Color Yellow Urine Clarity Slighty-cloudy Urine pH 5.0 Ur Specific [place] 1.009 Urine Protein 30 Urine Glucose (UA) >=500 Urine Ketones Negative Urine Blood Negative Urine Nitrate Negative Urine Bilirubin Negative Urine Urobilinogen 0.2-1.0 Ur Leukocyte Esterase Neg Urine RBC (Auto) < 1 Urine Microscopic WBC < 1 Urine Bacteria Rare Hyaline Casts 0-2 Blood Type B POSITIVE Antibody Screen Negative BBK History Checked No verified bt
[2017-12-24] MEDS ORDERED: Sodium Chloride 0.9% 1,000 ML IV SCH (16:00)
[2017-12-24] MEDS: Sodium Chloride 0.9% 1,000 ML IV SCH (16:08)
[2017-12-24 16:21] LABS: BASO % 0.3 % (0.0-2.0); EOS % 0.1 % (0.0-4.0); HEMOGLOBIN 8.1 g/dL (12.0-16.0); LYMPH # 1.4 K/uL (1.0-4.3); LYMPH % 10.6 % (20.0-40.0); MEAN CELL VOLUME 82.2 fl (81.0-99.0); MEAN CORPUSCULAR HEMOGLOBIN 26.5 pg (27.0-31.0); MEAN CORPUSCULAR HGB CONC 32.2 g/dL (33.0-37.0); MEAN PLATELET VOLUME 8.9 fl (7.2-11.7); MONO # 0.5 K/uL (0.0-0.8); MONO % 3.6 % (0.0-10.0); NEUT # 11.5 K/uL (1.8-7.0); NEUT % 85.4 % (50.0-75.0); RBC 3.08 Mil/uL (3.80-5.20); RED CELL DISTRIBUTION WIDTH 20.7 % (11.5-14.5); WHITE BLOOD COUNT 13.5 K/uL (4.8-10.8)
[2017-12-24 17:31] LABS: CALCIUM 12.4 mg/dL (8.4-10.2)
[2017-12-24 17:47] LABS: TROPONIN I 0.125 ng/mL (0.00-0.120)
--- NOTE | 2017-12-24 21:14 | CP.PCM.HP ---
History of Present Illness - History of Present Illness History of Present Illness: This is a 77 y/o female admitted through the ER for bradycardia, hyperkalemia and fracture of the right humerus. She apparently had a fall at home and sustained the fracture. Claims that she has been having diarrhea for almost two weeks and this morning had another episode of diarrhea , felt dizzy and fell. She was seen initially in another hospital and was sent home on medications however information is inadequate. She has a hx of DM 2 , HTN , CAD and CABG. At the ER she was noted to have a creatinine of 2.2 and GFR of 22.potassium of 7.7 and Hgb of 8.[address] scan of the head showed no evidence of trauma, hemorrhage or mass. Present on Admission - Present on Admission Any Indicators Present on Admission: No History of DVT/PE: No History of Uncontrolled Diabetes: No Urinary Catheter: No Decubitus Ulcer Present: No Past Patient History - Past Social History Smoking Status: Unknown If Ever Smoked - CARDIAC Hx Hypertension: Yes - ENDOCRINE/METABOLIC Hx Endocrine Disorders: Yes - MUSCULOSKELETAL/RHEUMATOLOGICAL Hx Falls: No - PSYCHIATRIC Hx Substance Use: No - SURGICAL HISTORY Other/Comment: Heart valve bypass - ANESTHESIA Hx Anesthesia: Yes Hx Anesthesia Reactions: No Meds Allergies/Adverse Reactions: Allergies Allergy/AdvReac Type Severity Reaction Status Date / Time No Known Allergies Allergy Verified 12/24/17 09:25 Physical Exam - Head Exam Head Exam: NORMAL INSPECTION - Eye Exam Eye Exam: Normal appearance - ENT Exam ENT Exam: Mucous Membranes Moist - Respiratory Exam Respiratory Exam: Clear to Auscultation Bilateral - Cardiovascular Exam Cardiovascular Exam: REGULAR RHYTHM - GI/Abdominal Exam GI & Abdominal Exam: Normal Bowel Sounds - Extremities Exam Extremities exam: Positive for: joint swelling Additional comments: right shoulder upper arm on cast - Neurological Exam Neurological exam: CN II-XII Intact - Psychiatric Exam Psychiatric exam: Normal Mood - Skin Skin Exam: Normal Color Results - Vital Signs Recent Vital Signs: Last Vital Signs Temp 98.7 F 12/24/17 20:00 Pulse 55 L 12/24/17 20:00 Resp 16 12/24/17 20:00 BP 154/48 H 12/24/17 20:00 Pulse Ox 100 12/24/17 20:00 - Labs Result Diagrams: 12/25/17 04:28 12/25/17 04:28 Labs: Laboratory Results - last 24 hr 12/24/17 12/24/17 12/24/17 10:30 10:30 10:30 WBC 14.6 H RBC 3.30 L Hgb 8.8 L Hct 27.5 L MCV 83.2 MCH 26.5 L MCHC 31.9 L RDW 20.7 H Plt Count 263 MPV 9.1 Gran % Neut % (Auto) 85.2 H Lymph % (Auto) 10.6 L [place] % (Auto) 3.7 Eos % (Auto) 0.1 Baso % (Auto) 0.4 Gran # Neut # (Auto) 12.5 H Lymph # (Auto) 1.6 [place] # (Auto) 0.5 Eos # (Auto) 0.0 Baso # (Auto) 0.1 PT 10.2 INR 0.9 APTT 22.6 L Sodium 131 L Potassium 7.3 H* Chloride 103 Carbon Dioxide 14 L Anion Gap 21 H BUN 50 H Creatinine 2.3 H Est GFR ( Amer) 25 Est GFR (Non-Af Amer) 20 Random Glucose 256 H Calcium 9.7 Phosphorus 4.9 H Magnesium 2.3 Total Bilirubin 0.5 AST 77 H ALT 111 H Alkaline Phosphatase 124 Total Creatine Kinase Troponin I Total Protein 7.1 Albumin 4.0 Globulin 3.2 Albumin/Globulin Ratio 1.2 Urine Color Urine Clarity Urine pH Ur Specific [place] Urine Protein Urine Glucose (UA) Urine Ketones Urine Blood Urine Nitrate Urine Bilirubin Urine Urobilinogen Ur Leukocyte Esterase Urine RBC (Auto) Urine Microscopic WBC Urine Bacteria Hyaline Casts Ur Random Creatinine Blood Type Antibody Screen BBK History Checked 12/24/17 12/24/17 12/24/17 11:20 12:05 12:10 WBC Cancelled RBC Cancelled Hgb Cancelled Hct Cancelled MCV Cancelled MCH Cancelled MCHC Cancelled RDW Cancelled Plt Count Cancelled MPV Cancelled Gran % Cancelled Neut % (Auto) Lymph % (Auto) Cancelled [place] % (Auto) Cancelled Eos % (Auto) Cancelled Baso % (Auto) Cancelled Gran # Cancelled Neut # (Auto) Lymph # (Auto) Cancelled [place] # (Auto) Cancelled Eos # (Auto) Cancelled Baso # (Auto) Cancelled PT INR APTT Sodium 129 L 131 L Potassium 7.1 H* 7.2 H* Chloride 104 103 Carbon Dioxide 12 L 16 L Anion Gap 20 19 BUN 50 H 51 H Creatinine 2.3 H 2.2 H Est GFR ( Amer) 25 26 Est GFR (Non-Af Amer) 20 22 Random Glucose 265 H 267 H Calcium 9.6 9.3 Phosphorus Magnesium Total Bilirubin 0.7 0.5 AST 79 H 87 H ALT 104 H 110 H Alkaline Phosphatase 116 113 Total Creatine Kinase Troponin I 0.0720 Total Protein 7.1 6.6 Albumin 3.8 3.7 Globulin 3.3 2.9 Albumin/Globulin Ratio 1.2 1.3 Urine Color Urine Clarity Urine pH Ur Specific [place] Urine Protein Urine Glucose (UA) Urine Ketones Urine Blood Urine Nitrate Urine Bilirubin Urine Urobilinogen Ur Leukocyte Esterase Urine RBC (Auto) Urine Microscopic WBC Urine Bacteria Hyaline Casts Ur Random Creatinine Blood Type Antibody Screen BBK History Checked 12/24/17 12/24/17 12/24/17 12:25 12:45 13:39 WBC RBC Hgb Hct MCV MCH MCHC RDW Plt Count MPV Gran % Neut % (Auto) Lymph % (Auto) [place] % (Auto) Eos % (Auto) Baso % (Auto) Gran # Neut # (Auto) Lymph # (Auto) [place] # (Auto) Eos # (Auto) Baso # (Auto) PT INR APTT Sodium 136 Potassium 5.2 H Chloride 106 Carbon Dioxide 16 L Anion Gap 19 BUN 48 H Creatinine 2.1 H Est GFR ( Amer) 27 Est GFR (Non-Af Amer) 23 Random Glucose 268 H Calcium 12.8 H Phosphorus Magnesium Total Bilirubin AST ALT Alkaline Phosphatase Total Creatine Kinase Troponin I Total Protein Albumin Globulin Albumin/Globulin Ratio Urine Color Yellow Urine Clarity Slighty-cloudy Urine pH 5.0 Ur Specific [place] 1.009 Urine Protein 30 Urine Glucose (UA) >=500 Urine Ketones Negative Urine Blood Negative Urine Nitrate Negative Urine Bilirubin Negative Urine Urobilinogen 0.2-1.0 Ur Leukocyte Esterase Neg Urine RBC (Auto) < 1 Urine Microscopic WBC < 1 Urine Bacteria Rare Hyaline Casts 0-2 Ur Random Creatinine Blood Type B POSITIVE Antibody Screen Negative BBK History Checked No verified bt 12/24/17 12/24/17 12/24/17 16:18 17:00 17:00 WBC 13.5 H RBC 3.08 L Hgb 8.1 L Hct 25.3 L MCV 82.2 MCH 26.5 L MCHC 32.2 L RDW 20.7 H Plt Count 252 MPV 8.9 Gran % Neut % (Auto) 85.4 H Lymph % (Auto) 10.6 L [place] % (Auto) 3.6 Eos % (Auto) 0.1 Baso % (Auto) 0.3 Gran # Neut # (Auto) 11.5 H Lymph # (Auto) 1.4 [place] # (Auto) 0.5 Eos # (Auto) 0.0 Baso # (Auto) 0.0 PT INR APTT Sodium 134 Potassium 5.9 H Chloride 105 Carbon Dioxide 19 L Anion Gap 16 BUN 49 H Creatinine 2.2 H Est GFR ( Amer) 26 Est GFR (Non-Af Amer) 22 Random Glucose 198 H Calcium 12.4 H Phosphorus 4.9 H Magnesium 2.1 Total Bilirubin AST ALT Alkaline Phosphatase Total Creatine Kinase 37 Troponin I 0.1250 H* Total Protein Albumin Globulin Albumin/Globulin Ratio Urine Color Urine Clarity Urine pH Ur Specific [place] Urine Protein Urine Glucose (UA) Urine Ketones Urine Blood Urine Nitrate Urine Bilirubin Urine Urobilinogen Ur Leukocyte Esterase Urine RBC (Auto) Urine Microscopic WBC Urine Bacteria Hyaline Casts Ur Random Creatinine Blood Type Antibody Screen BBK History Checked 12/24/17 19:00 WBC RBC Hgb Hct MCV MCH MCHC RDW Plt Count MPV Gran % Neut % (Auto) Lymph % (Auto) [place] % (Auto) Eos % (Auto) Baso % (Auto) Gran # Neut # (Auto) Lymph # (Auto) [place] # (Auto) Eos # (Auto) Baso # (Auto) PT INR APTT Sodium Potassium Chloride Carbon Dioxide Anion Gap BUN Creatinine Est GFR ( Amer) Est GFR (Non-Af Amer) Random Glucose Calcium Phosphorus Magnesium Total Bilirubin AST ALT Alkaline Phosphatase Total Creatine Kinase Troponin I Total Protein Albumin Globulin Albumin/Globulin Ratio Urine Color Urine Clarity Urine pH Ur Specific [place] Urine Protein Urine Glucose (UA) Urine Ketones Urine Blood Urine Nitrate Urine Bilirubin Urine Urobilinogen Ur Leukocyte Esterase Urine RBC (Auto) Urine Microscopic WBC Urine Bacteria Hyaline Casts Ur Random Creatinine 25.0 Blood Type Antibody Screen BBK History Checked Assessment & Plan (1) Cardiac arrhythmia Status: Acute (2) Bradycardia Status: Acute (3) Fracture, humerus Status: Acute (4) Hyperkalemia Status: Acute (5) CKD (chronic kidney disease) stage 4, GFR 15-29 ml/min Status: Acute - Assessment and Plan (Free Text) Plan: ICU lower potassium IV flluids pain meds Cardiology eval Renal eval will transfer to telemetry once stable. Ortho eval.
[2017-12-24] MEDS: Insulin Lispro (humaLOG) 100 Units/ml Inj SC SCH (21:30)
[2017-12-24] MEDS ORDERED: Insulin Lispro (humaLOG) 100 Units/ml Inj SC SCH (22:00)
[2017-12-25 00:17] LABS: CALCIUM 11.9 mg/dL (8.4-10.2)
[2017-12-25 00:19] LABS: TROPONIN I 0.399 ng/mL (0.00-0.120)
[2017-12-25] MEDS ORDERED: Sod Polystyrene Sulf 15 gm/60 ml Susp PO ONE (00:19)
--- NOTE | 2017-12-25 02:04 | CARD ---
APPROVED REPORT Date of service: 12/24/2017 <Conclusion> Idioventricular rhythm with occasional junctional narrow complexes Left bundle branch block Abnormal ECG
--- NOTE | 2017-12-25 02:07 | CARD ---
APPROVED REPORT Date of service: 12/24/2017 <Conclusion> Wide QRS rhythm/ junctional rhythm Right bundle branch block Left posterior fascicular block Bifascicular block Abnormal ECG
--- NOTE | 2017-12-25 02:08 | CARD ---
APPROVED REPORT Date of service: 12/24/2017 <Conclusion> Wide QRS rhythm/ accelerated junctional rhythm Right bundle branch block Left posterior fascicular block Bifascicular block Abnormal ECG
--- NOTE | 2017-12-25 02:08 | CON ---
Copied To: Wei Arellano MD Attending MD: Wei Arellano MD DATE: 12/24/2017 CARDIOLOGY CONSULTATION REASON FOR CONSULTATION: Bradycardia. HISTORY OF PRESENT ILLNESS: The patient is a 77-year-old [place] female who has a history of coronary artery disease, status post coronary artery bypass surgery in the past. She was recently evaluated in the hospital who was admitted for three days for diarrhea. The patient was brought into the emergency room today because of a fall that was witnessed by the and according to the emergency room team who spoke to the was not available at this time. The patient did not lose consciousness. The patient was experiencing right shoulder and arm pain. The patient denies any chest pain or abdominal pain, but she does report complaining of diarrhea; however since the patient's presentation to the emergency room a few hours ago, there was no reported incident of diarrhea. The patient was found to have significant renal insufficiency and was hyperkalemic. The initial potassium level was 7.3. The patient did receive calcium chloride, dextrose 50 and regular insulin and during that period, the patient was noted to have sinus bradycardia in the 30s, and a standby external pacemaker was placed. The patient denies any dizziness at this time. The patient is currently in sinus rhythm on the monitor, and admitting EKG revealed an ectopic atrial rhythm with a heart rate of 55 without any acute EKG changes pertaining to hyperkalemia. SOCIAL HISTORY: Nonsmoker. MEDICATIONS: The patient's home medications include Pletal 100 mg twice a day, Amaryl 4 mg twice a day, metformin 1 g twice a day, Lipitor 80 mg once a day, Plavix 75 mg once a day, Norvasc 10 mg once a day, and labetalol 100 mg once a day. REVIEW OF SYSTEMS: The patient complains of diarrhea. She denies any chest pain or dizziness. PHYSICAL EXAMINATION: GENERAL: The patient is an elderly female who does not appear to be in acute distress. VITAL SIGNS: Blood pressure 188/73, heart rate 61, respirations 18, and temperature 98.1. HEENT: Pale conjunctivae. NECK: No JVD. CHEST: Minimal rhonchi. HEART: S1, S2, regular. ABDOMEN: Soft. EXTREMITIES: No edema. DIAGNOSTIC DATA: Chest x-ray revealed cardiomegaly with prominent bronchovascular markings, no infiltrate or effusion noted. Abdomen x-ray, no active disease. Scapula x-ray, right shoulder, right humerus, right elbow x-rays and cervical x-ray were all performed, but the reports are still pending. LABORATORY DATA: Hemoglobin and hematocrit on admission 8.8 and 27.5, white count 14.6, platelet count 236,000. INR 0.9, PTT 22.6. The latest SMA-7 at 01:39 p.m. revealed the potassium level 5.2, compared to 7.3 on admission; BUN and creatinine are 48 and 2.1 respectively; calcium is elevated at 12.8, although calcium level was within normal limit on admission. INR 0.9, PTT 22.6. The most recent EKG at around 12 p.m. revealed junctional rhythm at rate of 30 with a period of atrioventricular escape rhythm; however following that when I saw the patient in the emergency room, she was in sinus rhythm in the 60s with normal QRS complex. EKG at 11:55 revealed an atrioventricular rhythm with a pause of about 3 seconds; however, that can also be an atrial fibrillation. ASSESSMENT: 1. Status post fall and comminuted right humerus head fracture 2. Periods of significant bradycardia and complete atrioventricular block. 3. Hyperkalemia. 4. Renal insufficiency, most likely a chronic one. 5. History of coronary artery disease, status post coronary artery bypass surgery. RECOMMENDATIONS: Case was discussed at length with emergency room physician. The patient will be admitted to the ICU with a standby external pacemaker. Electrophysiology consult will be requested. Nephrology consult has been requested. The patient will be given atropine 0.5 IV push for any periods of significant bradycardia and below 35 beats per minute. I will obtain an echocardiogram, TSH level as well as stool for C. difficile. Wei Arellano MD VIKKI
--- NOTE | 2017-12-25 02:10 | CARD ---
APPROVED REPORT Date of service: 12/24/2017 <Conclusion> Ventricular escape rhythm with occasional junctional beats Left bundle branch block Abnormal ECG
--- NOTE | 2017-12-25 02:13 | CARD ---
APPROVED REPORT Date of service: 12/24/2017 <Conclusion> Wide QRS rhythm Right bundle branch block Left posterior fascicular block Bifascicular block T wave abnormality, consider inferior ischemia Abnormal ECG
--- NOTE | 2017-12-25 02:13 | CARD ---
APPROVED REPORT Date of service: 12/24/2017 <Conclusion> Atrial fibrillation with slow ventricular response Left bundle branch block Abnormal ECG
--- NOTE | 2017-12-25 02:13 | CARD ---
APPROVED REPORT Date of service: 12/24/2017 <Conclusion> Atrial fibrillation with slow ventricular response with premature ventricular or aberrantly conducted complexes Nonspecific intraventricular block Cannot rule out Septal infarct, age undetermined Abnormal ECG
--- NOTE | 2017-12-25 02:14 | CARD ---
APPROVED REPORT Date of service: 12/24/2017 <Conclusion> Junctional bradycardia Incomplete right bundle branch block Abnormal ECG
--- NOTE | 2017-12-25 02:14 | CARD ---
APPROVED REPORT Date of service: 12/24/2017 <Conclusion> Junctional bradycardia Incomplete right bundle branch block Nonspecific ST abnormality Abnormal ECG
--- NOTE | 2017-12-25 02:15 | CARD ---
APPROVED REPORT Date of service: 12/24/2017 <Conclusion> Unusual P axis, possible ectopic atrial rhythm Incomplete right bundle branch block Abnormal ECG
--- NOTE | 2017-12-25 02:15 | CARD ---
APPROVED REPORT Date of service: 12/24/2017 <Conclusion> Idioventricular rhythm Right bundle branch block Abnormal ECG
--- NOTE | 2017-12-25 02:15 | CARD ---
APPROVED REPORT Date of service: 12/24/2017 <Conclusion> Idioventricular rhythm Right bundle branch block Abnormal ECG
--- NOTE | 2017-12-25 02:15 | CARD ---
APPROVED REPORT Date of service: 12/24/2017 <Conclusion> Unusual P axis, possible ectopic atrial rhythm Abnormal ECG
--- NOTE | 2017-12-25 02:16 | CARD ---
APPROVED REPORT Date of service: 12/24/2017 <Conclusion> Normal sinus rhythm Normal ECG
--- NOTE | 2017-12-25 02:16 | CARD ---
APPROVED REPORT Date of service: 12/24/2017 <Conclusion> Unusual P axis, possible ectopic atrial bradycardia Abnormal ECG
[2017-12-25] MEDS ORDERED: Dextrose 50% SYRINGE Inj (50 ml) IVP ONE (04:38)
[2017-12-25 05:38] LABS: BASO # 0.1 K/uL (0.0-0.2); BASO % 0.5 % (0.0-2.0); EOS % 0.1 % (0.0-4.0); HEMOGLOBIN 7.9 g/dL (12.0-16.0); LYMPH # 1.9 K/uL (1.0-4.3); LYMPH % 18.3 % (20.0-40.0); MEAN CELL VOLUME 80.7 fl (81.0-99.0); MEAN CORPUSCULAR HEMOGLOBIN 27.6 pg (27.0-31.0); MEAN CORPUSCULAR HGB CONC 34.2 g/dL (33.0-37.0); MEAN PLATELET VOLUME 8.8 fl (7.2-11.7); MONO # 1.1 K/uL (0.0-0.8); MONO % 10.3 % (0.0-10.0); NEUT # 7.3 K/uL (1.8-7.0); NEUT % 70.8 % (50.0-75.0); RBC 2.87 Mil/uL (3.80-5.20); WHITE BLOOD COUNT 10.4 K/uL (4.8-10.8)
[2017-12-25 06:00] LABS: ALB/GLOB RATIO 1.1 (1.0-2.1); ALBUMIN 3.4 g/dL (3.5-5.0); CALCIUM 11.3 mg/dL (8.4-10.2)
--- NOTE | 2017-12-25 07:15 | CP.CCUPN ---
CCU Subjective - Physician Review Events Since Last Encounter (Free Text): Patient awake, no distress, no fever, follow commands, events reviewed CCU Objective - Vital Signs / Intake & Output Vital Signs (Last 4 hours): Vital Signs Temp Pulse Resp BP Pulse Ox 12/25/17 06:00 66 12 171/57 H 100 12/25/17 05:00 68 12 180/55 H 100 12/25/17 04:00 98.3 F 77 16 166/52 H 100 Intake and Output (Last 8hrs): Intake & Output 12/24/17 12/25/17 12/25/17 22:59 06:59 14:59 Intake Total 750 460 Output Total 1600 800 Balance -850 -340 Intake: IV 700 400 Oral 50 60 Output: Urine 1600 800 Urethral (Barrera) 1600 800 - Physical Exam Head: Positive for: Atraumatic, Normocephalic Pupils: Positive for: PERRL Conjunctiva: Positive for: Normal Mouth: Positive for: Dry Pharnyx: Positive for: Normal Nose (External): Positive for: Atraumatic Nose (Internal): Positive for: Normal Inspection Neck: Positive for: Normal Range of Motion Respiratory/Chest: Positive for: Clear to Auscultation Cardiovascular: Positive for: Bradycardic Abdomen: Positive for: Normal Bowel Sounds Upper Extremity: Positive for: Other (Rt shouder pain on movements) Neurological: Positive for: GCS=15, Speech Normal Skin: Positive for: Normal Color Psychiatric: Positive for: Alert - Medications Active Medications: Active Medications Generic Name Dose Route Start Last Admin Trade Name Freq PRN Reason Stop Dose Admin Atorvastatin Calcium 80 mg 12/25/17 09:00 Lipitor PO DAILY SHEILA Cilostazol 100 mg 12/25/17 09:00 Pletal PO BID SHEILA Clopidogrel Bisulfate 75 mg 12/25/17 09:00 Plavix PO DAILY SHEILA Hydralazine HCl 10 mg 12/25/17 01:00 12/25/17 00:37 Apresoline PO 10 mg Q8 SHEILA Administration Sodium Chloride 1,000 mls @ 50 mls/hr 12/24/17 15:45 12/24/17 16:08 Sodium Chloride 0.9% IV 12/25/17 15:36 50 mls/hr .Q20H SHEILA Administration Sodium Chloride 1,000 mls @ 50 mls/hr 12/24/17 16:00 12/24/17 19:00 Sodium Chloride 0.9% IV 12/25/17 15:48 50 mls/hr .Q20H SHEILA Administration Insulin Human Lispro 0 units 12/24/17 22:00 12/24/17 21:30 Humalog SC Not Given ACHS [facility] Protocol Morphine Sulfate 2 mg 12/24/17 20:35 12/25/17 05:02 Morphine IVP 2 mg Q4 PRN Administration Pain, severe (8-10) Morphine Sulfate 1 mg 12/24/17 20:36 Morphine IVP Q4 PRN Pain, moderate (4-7) Pantoprazole Sodium 40 mg 12/24/17 17:48 12/24/17 18:01 Protonix Inj IVP 40 mg DAILY SHEILA Administration Pneumococcal Polyvalent Vaccine 0.5 ml 12/25/17 09:00 Pneumovax 23 Vaccine IM 12/25/17 09:01 .ONCE ONE - Patient Studies Lab Studies: Lab Studies 12/25/17 12/25/17 12/24/17 Range/Units 04:28 04:28 23:48 WBC 10.4 (4.8-10.8) K/uL RBC 2.87 L (3.80-5.20) Mil/uL Hgb 7.9 L (12.0-16.0) g/dL Hct 23.2 L (34.0-47.0) % MCV 80.7 L (81.0-99.0) fl MCH 27.6 (27.0-31.0) pg MCHC 34.2 (33.0-37.0) g/dL RDW 21.0 H (11.5-14.5) % Plt Count 248 (130-400) K/uL MPV 8.8 (7.2-11.7) fl Gran % Neut % (Auto) 70.8 (50.0-75.0) % Lymph % (Auto) 18.3 L (20.0-40.0) % Price % (Auto) 10.3 H (0.0-10.0) % Eos % (Auto) 0.1 (0.0-4.0) % Baso % (Auto) 0.5 (0.0-2.0) % Gran # Neut # (Auto) 7.3 H (1.8-7.0) K/uL Lymph # (Auto) 1.9 (1.0-4.3) K/uL Price # (Auto) 1.1 H (0.0-0.8) K/uL Eos # (Auto) 0.0 (0.0-0.7) K/uL Baso # (Auto) 0.1 (0.0-0.2) K/uL PT (9.8-13.1) Seconds INR APTT (25.6-37.1) Seconds Sodium 140 136 (132-148) mmol/l Potassium 5.2 H 5.8 H (3.6-5.0) MMOL/L Chloride 109 H 105 (98-107) mmol/L Carbon Dioxide 24 24 (22-30) mmol/L Anion Gap 12 13 (10-20) BUN 45 H 47 H (7-17) mg/dl Creatinine 2.4 H 2.4 H (0.7-1.2) mg/dl Est GFR ( Amer) 24 24 Est GFR (Non-Af Amer) 19 19 Random Glucose 51 L 124 H (65-105) mg/dL Calcium 11.3 H 11.9 H (8.4-10.2) mg/dL Phosphorus (2.5-4.5) mg/dl Magnesium (1.6-2.3) MG/DL Total Bilirubin 0.5 (0.2-1.3) mg/dl AST 57 H D (14-36) U/L ALT 88 H (9-52) U/L Alkaline Phosphatase 96 (38-126) U/L Total Creatine Kinase (30-135) U/L Troponin I 0.3990 H* (0.00-0.120) ng/mL Total Protein 6.4 (6.3-8.2) G/DL Albumin 3.4 L (3.5-5.0) g/dL Globulin 3.0 (2.2-3.9) gm/dL Albumin/Globulin Ratio 1.1 (1.0-2.1) Urine Color (YELLOW) Urine Clarity (Clear) Urine pH (5.0-8.0) Ur Specific [place] (1.003-1.030) Urine Protein (NEGATIVE) mg/dL Urine Glucose (UA) (Normal) mg/dL Urine Ketones (NEGATIVE) mg/dL Urine Blood (NEGATIVE) Urine Nitrate (NEGATIVE) Urine Bilirubin (NEGATIVE) Urine Urobilinogen (0.2-1.0) mg/dL Ur Leukocyte Esterase (Negative) Karla/uL Urine RBC (Auto) (0-3) /hpf Urine Microscopic WBC (0-5) /hpf Urine Bacteria (<OCC) Hyaline Casts (0-2) /hpf Ur Random Creatinine mg/dL Blood Type Antibody Screen BBK History Checked 12/24/17 12/24/17 12/24/17 Range/Units 19:00 17:00 17:00 WBC (4.8-10.8) K/uL RBC (3.80-5.20) Mil/uL Hgb (12.0-16.0) g/dL Hct (34.0-47.0) % MCV (81.0-99.0) fl MCH (27.0-31.0) pg MCHC (33.0-37.0) g/dL RDW (11.5-14.5) % Plt Count (130-400) K/uL MPV (7.2-11.7) fl Gran % Neut % (Auto) (50.0-75.0) % Lymph % (Auto) (20.0-40.0) % Price % (Auto) (0.0-10.0) % Eos % (Auto) (0.0-4.0) % Baso % (Auto) (0.0-2.0) % Gran # Neut # (Auto) (1.8-7.0) K/uL Lymph # (Auto) (1.0-4.3) K/uL Price # (Auto) (0.0-0.8) K/uL Eos # (Auto) (0.0-0.7) K/uL Baso # (Auto) (0.0-0.2) K/uL PT (9.8-13.1) Seconds INR APTT (25.6-37.1) Seconds Sodium 134 (132-148) mmol/l Potassium 5.9 H (3.6-5.0) MMOL/L Chloride 105 (98-107) mmol/L Carbon Dioxide 19 L (22-30) mmol/L Anion Gap 16 (10-20) BUN 49 H (7-17) mg/dl Creatinine 2.2 H (0.7-1.2) mg/dl Est GFR ( Amer) 26 Est GFR (Non-Af Amer) 22 Random Glucose 198 H (65-105) mg/dL Calcium 12.4 H (8.4-10.2) mg/dL Phosphorus 4.9 H (2.5-4.5) mg/dl Magnesium 2.1 (1.6-2.3) MG/DL Total Bilirubin (0.2-1.3) mg/dl AST (14-36) U/L ALT (9-52) U/L Alkaline Phosphatase (38-126) U/L Total Creatine Kinase 37 (30-135) U/L Troponin I 0.1250 H* (0.00-0.120) ng/mL Total Protein (6.3-8.2) G/DL Albumin (3.5-5.0) g/dL Globulin (2.2-3.9) gm/dL Albumin/Globulin Ratio (1.0-2.1) Urine Color (YELLOW) Urine Clarity (Clear) Urine pH (5.0-8.0) Ur Specific [place] (1.003-1.030) Urine Protein (NEGATIVE) mg/dL Urine Glucose (UA) (Normal) mg/dL Urine Ketones (NEGATIVE) mg/dL Urine Blood (NEGATIVE) Urine Nitrate (NEGATIVE) Urine Bilirubin (NEGATIVE) Urine Urobilinogen (0.2-1.0) mg/dL Ur Leukocyte Esterase (Negative) Karla/uL Urine RBC (Auto) (0-3) /hpf Urine Microscopic WBC (0-5) /hpf Urine Bacteria (<OCC) Hyaline Casts (0-2) /hpf Ur Random Creatinine 25.0 mg/dL Blood Type Antibody Screen BBK History Checked 12/24/17 12/24/17 12/24/17 Range/Units 16:18 13:39 12:45 WBC 13.5 H (4.8-10.8) K/uL RBC 3.08 L (3.80-5.20) Mil/uL Hgb 8.1 L (12.0-16.0) g/dL Hct 25.3 L (34.0-47.0) % MCV 82.2 (81.0-99.0) fl MCH 26.5 L (27.0-31.0) pg MCHC 32.2 L (33.0-37.0) g/dL RDW 20.7 H (11.5-14.5) % Plt Count 252 (130-400) K/uL MPV 8.9 (7.2-11.7) fl Gran % Neut % (Auto) 85.4 H (50.0-75.0) % Lymph % (Auto) 10.6 L (20.0-40.0) % Price % (Auto) 3.6 (0.0-10.0) % Eos % (Auto) 0.1 (0.0-4.0) % Baso % (Auto) 0.3 (0.0-2.0) % Gran # Neut # (Auto) 11.5 H (1.8-7.0) K/uL Lymph # (Auto) 1.4 (1.0-4.3) K/uL Price # (Auto) 0.5 (0.0-0.8) K/uL Eos # (Auto) 0.0 (0.0-0.7) K/uL Baso # (Auto) 0.0 (0.0-0.2) K/uL PT (9.8-13.1) Seconds INR APTT (25.6-37.1) Seconds Sodium 136 (132-148) mmol/l Potassium 5.2 H (3.6-5.0) MMOL/L Chloride 106 (98-107) mmol/L Carbon Dioxide 16 L (22-30) mmol/L Anion Gap 19 (10-20) BUN 48 H (7-17) mg/dl Creatinine 2.1 H (0.7-1.2) mg/dl Est GFR ( Amer) 27 Est GFR (Non-Af Amer) 23 Random Glucose 268 H (65-105) mg/dL Calcium 12.8 H (8.4-10.2) mg/dL Phosphorus (2.5-4.5) mg/dl Magnesium (1.6-2.3) MG/DL Total Bilirubin (0.2-1.3) mg/dl AST (14-36) U/L ALT (9-52) U/L Alkaline Phosphatase (38-126) U/L Total Creatine Kinase (30-135) U/L Troponin I (0.00-0.120) ng/mL Total Protein (6.3-8.2) G/DL Albumin (3.5-5.0) g/dL Globulin (2.2-3.9) gm/dL Albumin/Globulin Ratio (1.0-2.1) Urine Color Yellow (YELLOW) Urine Clarity Slighty-cloudy (Clear) Urine pH 5.0 (5.0-8.0) Ur Specific [place] 1.009 (1.003-1.030) Urine Protein 30 (NEGATIVE) mg/dL Urine Glucose (UA) >=500 (Normal) mg/dL Urine Ketones Negative (NEGATIVE) mg/dL Urine Blood Negative (NEGATIVE) Urine Nitrate Negative (NEGATIVE) Urine Bilirubin Negative (NEGATIVE) Urine Urobilinogen 0.2-1.0 (0.2-1.0) mg/dL Ur Leukocyte Esterase Neg (Negative) Karla/uL Urine RBC (Auto) < 1 (0-3) /hpf Urine Microscopic WBC < 1 (0-5) /hpf Urine Bacteria Rare (<OCC) Hyaline Casts 0-2 (0-2) /hpf Ur Random Creatinine mg/dL Blood Type Antibody Screen BBK History Checked 12/24/17 12/24/17 12/24/17 Range/Units 12:25 12:10 12:05 WBC Cancelled (4.8-10.8) K/uL RBC Cancelled (3.80-5.20) Mil/uL Hgb Cancelled (12.0-16.0) g/dL Hct Cancelled (34.0-47.0) % MCV Cancelled (81.0-99.0) fl MCH Cancelled (27.0-31.0) pg MCHC Cancelled (33.0-37.0) g/dL RDW Cancelled (11.5-14.5) % Plt Count Cancelled (130-400) K/uL MPV Cancelled (7.2-11.7) fl Gran % Cancelled Neut % (Auto) (50.0-75.0) % Lymph % (Auto) Cancelled (20.0-40.0) % Price % (Auto) Cancelled (0.0-10.0) % Eos % (Auto) Cancelled (0.0-4.0) % Baso % (Auto) Cancelled (0.0-2.0) % Gran # Cancelled Neut # (Auto) (1.8-7.0) K/uL Lymph # (Auto) Cancelled (1.0-4.3) K/uL Price # (Auto) Cancelled (0.0-0.8) K/uL Eos # (Auto) Cancelled (0.0-0.7) K/uL Baso # (Auto) Cancelled (0.0-0.2) K/uL PT (9.8-13.1) Seconds INR APTT (25.6-37.1) Seconds Sodium 131 L (132-148) mmol/l Potassium 7.2 H* (3.6-5.0) MMOL/L Chloride 103 (98-107) mmol/L Carbon Dioxide 16 L (22-30) mmol/L Anion Gap 19 (10-20) BUN 51 H (7-17) mg/dl Creatinine 2.2 H (0.7-1.2) mg/dl Est GFR ( Amer) 26 Est GFR (Non-Af Amer) 22 Random Glucose 267 H (65-105) mg/dL Calcium 9.3 (8.4-10.2) mg/dL Phosphorus (2.5-4.5) mg/dl Magnesium (1.6-2.3) MG/DL Total Bilirubin 0.5 (0.2-1.3) mg/dl AST 87 H (14-36) U/L ALT 110 H (9-52) U/L Alkaline Phosphatase 113 (38-126) U/L Total Creatine Kinase (30-135) U/L Troponin I 0.0720 (0.00-0.120) ng/mL Total Protein 6.6 (6.3-8.2) G/DL Albumin 3.7 (3.5-5.0) g/dL Globulin 2.9 (2.2-3.9) gm/dL Albumin/Globulin Ratio 1.3 (1.0-2.1) Urine Color (YELLOW) Urine Clarity (Clear) Urine pH (5.0-8.0) Ur Specific [place] (1.003-1.030) Urine Protein (NEGATIVE) mg/dL Urine Glucose (UA) (Normal) mg/dL Urine Ketones (NEGATIVE) mg/dL Urine Blood (NEGATIVE) Urine Nitrate (NEGATIVE) Urine Bilirubin (NEGATIVE) Urine Urobilinogen (0.2-1.0) mg/dL Ur Leukocyte Esterase (Negative) Karla/uL Urine RBC (Auto) (0-3) /hpf Urine Microscopic WBC (0-5) /hpf Urine Bacteria (<OCC) Hyaline Casts (0-2) /hpf Ur Random Creatinine mg/dL Blood Type B POSITIVE Antibody Screen Negative BBK History Checked No verified bt 12/24/17 12/24/17 12/24/17 Range/Units 11:20 10:30 10:30 WBC (4.8-10.8) K/uL RBC (3.80-5.20) Mil/uL Hgb (12.0-16.0) g/dL Hct (34.0-47.0) % MCV (81.0-99.0) fl MCH (27.0-31.0) pg MCHC (33.0-37.0) g/dL RDW (11.5-14.5) % Plt Count (130-400) K/uL MPV (7.2-11.7) fl Gran % Neut % (Auto) (50.0-75.0) % Lymph % (Auto) (20.0-40.0) % Price % (Auto) (0.0-10.0) % Eos % (Auto) (0.0-4.0) % Baso % (Auto) (0.0-2.0) % Gran # Neut # (Auto) (1.8-7.0) K/uL Lymph # (Auto) (1.0-4.3) K/uL Price # (Auto) (0.0-0.8) K/uL Eos # (Auto) (0.0-0.7) K/uL Baso # (Auto) (0.0-0.2) K/uL PT 10.2 (9.8-13.1) Seconds INR 0.9 APTT 22.6 L (25.6-37.1) Seconds Sodium 129 L 131 L (132-148) mmol/l Potassium 7.1 H* 7.3 H* (3.6-5.0) MMOL/L Chloride 104 103 (98-107) mmol/L Carbon Dioxide 12 L 14 L (22-30) mmol/L Anion Gap 20 21 H (10-20) BUN 50 H 50 H (7-17) mg/dl Creatinine 2.3 H 2.3 H (0.7-1.2) mg/dl Est GFR ( Amer) 25 25 Est GFR (Non-Af Amer) 20 20 Random Glucose 265 H 256 H (65-105) mg/dL Calcium 9.6 9.7 (8.4-10.2) mg/dL Phosphorus 4.9 H (2.5-4.5) mg/dl Magnesium 2.3 (1.6-2.3) MG/DL Total Bilirubin 0.7 0.5 (0.2-1.3) mg/dl AST 79 H 77 H (14-36) U/L ALT 104 H 111 H (9-52) U/L Alkaline Phosphatase 116 124 (38-126) U/L Total Creatine Kinase (30-135) U/L Troponin I (0.00-0.120) ng/mL Total Protein 7.1 7.1 (6.3-8.2) G/DL Albumin 3.8 4.0 (3.5-5.0) g/dL Globulin 3.3 3.2 (2.2-3.9) gm/dL Albumin/Globulin Ratio 1.2 1.2 (1.0-2.1) Urine Color (YELLOW) Urine Clarity (Clear) Urine pH (5.0-8.0) Ur Specific [place] (1.003-1.030) Urine Protein (NEGATIVE) mg/dL Urine Glucose (UA) (Normal) mg/dL Urine Ketones (NEGATIVE) mg/dL Urine Blood (NEGATIVE) Urine Nitrate (NEGATIVE) Urine Bilirubin (NEGATIVE) Urine Urobilinogen (0.2-1.0) mg/dL Ur Leukocyte Esterase (Negative) Karla/uL Urine RBC (Auto) (0-3) /hpf Urine Microscopic WBC (0-5) /hpf Urine Bacteria (<OCC) Hyaline Casts (0-2) /hpf Ur Random Creatinine mg/dL Blood Type Antibody Screen BBK History Checked 12/24/17 Range/Units 10:30 WBC 14.6 H (4.8-10.8) K/uL RBC 3.30 L (3.80-5.20) Mil/uL Hgb 8.8 L (12.0-16.0) g/dL Hct 27.5 L (34.0-47.0) % MCV 83.2 (81.0-99.0) fl MCH 26.5 L (27.0-31.0) pg MCHC 31.9 L (33.0-37.0) g/dL RDW 20.7 H (11.5-14.5) % Plt Count 263 (130-400) K/uL MPV 9.1 (7.2-11.7) fl Gran % Neut % (Auto) 85.2 H (50.0-75.0) % Lymph % (Auto) 10.6 L (20.0-40.0) % Price % (Auto) 3.7 (0.0-10.0) % Eos % (Auto) 0.1 (0.0-4.0) % Baso % (Auto) 0.4 (0.0-2.0) % Gran # Neut # (Auto) 12.5 H (1.8-7.0) K/uL Lymph # (Auto) 1.6 (1.0-4.3) K/uL Price # (Auto) 0.5 (0.0-0.8) K/uL Eos # (Auto) 0.0 (0.0-0.7) K/uL Baso # (Auto) 0.1 (0.0-0.2) K/uL PT (9.8-13.1) Seconds INR APTT (25.6-37.1) Seconds Sodium (132-148) mmol/l Potassium (3.6-5.0) MMOL/L Chloride (98-107) mmol/L Carbon Dioxide (22-30) mmol/L Anion Gap (10-20) BUN (7-17) mg/dl Creatinine (0.7-1.2) mg/dl Est GFR ( Amer) Est GFR (Non-Af Amer) Random Glucose (65-105) mg/dL Calcium (8.4-10.2) mg/dL Phosphorus (2.5-4.5) mg/dl Magnesium (1.6-2.3) MG/DL Total Bilirubin (0.2-1.3) mg/dl AST (14-36) U/L ALT (9-52) U/L Alkaline Phosphatase (38-126) U/L Total Creatine Kinase (30-135) U/L Troponin I (0.00-0.120) ng/mL Total Protein (6.3-8.2) G/DL Albumin (3.5-5.0) g/dL Globulin (2.2-3.9) gm/dL Albumin/Globulin Ratio (1.0-2.1) Urine Color (YELLOW) Urine Clarity (Clear) Urine pH (5.0-8.0) Ur Specific [place] (1.003-1.030) Urine Protein (NEGATIVE) mg/dL Urine Glucose (UA) (Normal) mg/dL Urine Ketones (NEGATIVE) mg/dL Urine Blood (NEGATIVE) Urine Nitrate (NEGATIVE) Urine Bilirubin (NEGATIVE) Urine Urobilinogen (0.2-1.0) mg/dL Ur Leukocyte Esterase (Negative) Karla/uL Urine RBC (Auto) (0-3) /hpf Urine Microscopic WBC (0-5) /hpf Urine Bacteria (<OCC) Hyaline Casts (0-2) /hpf Ur Random Creatinine mg/dL Blood Type Antibody Screen BBK History Checked Laboratory Results - last 24 hr 12/24/17 12/24/17 12/24/17 10:30 10:30 10:30 WBC 14.6 H RBC 3.30 L Hgb 8.8 L Hct 27.5 L MCV 83.2 MCH 26.5 L MCHC 31.9 L RDW 20.7 H Plt Count 263 MPV 9.1 Gran % Neut % (Auto) 85.2 H Lymph % (Auto) 10.6 L Price % (Auto) 3.7 Eos % (Auto) 0.1 Baso % (Auto) 0.4 Gran # Neut # (Auto) 12.5 H Lymph # (Auto) 1.6 Price # (Auto) 0.5 Eos # (Auto) 0.0 Baso # (Auto) 0.1 PT 10.2 INR 0.9 APTT 22.6 L Sodium 131 L Potassium 7.3 H* Chloride 103 Carbon Dioxide 14 L Anion Gap 21 H BUN 50 H Creatinine 2.3 H Est GFR ( Amer) 25 Est GFR (Non-Af Amer) 20 Random Glucose 256 H Calcium 9.7 Phosphorus 4.9 H Magnesium 2.3 Total Bilirubin 0.5 AST 77 H ALT 111 H Alkaline Phosphatase 124 Total Creatine Kinase Troponin I Total Protein 7.1 Albumin 4.0 Globulin 3.2 Albumin/Globulin Ratio 1.2 Urine Color Urine Clarity Urine pH Ur Specific [place] Urine Protein Urine Glucose (UA) Urine Ketones Urine Blood Urine Nitrate Urine Bilirubin Urine Urobilinogen Ur Leukocyte Esterase Urine RBC (Auto) Urine Microscopic WBC Urine Bacteria Hyaline Casts Ur Random Creatinine Blood Type Antibody Screen BBK History Checked 12/24/17 12/24/17 12/24/17 11:20 12:05 12:10 WBC Cancelled RBC Cancelled Hgb Cancelled Hct Cancelled MCV Cancelled MCH Cancelled MCHC Cancelled RDW Cancelled Plt Count Cancelled MPV Cancelled Gran % Cancelled Neut % (Auto) Lymph % (Auto) Cancelled Price % (Auto) Cancelled Eos % (Auto) Cancelled Baso % (Auto) Cancelled Gran # Cancelled Neut # (Auto) Lymph # (Auto) Cancelled Price # (Auto) Cancelled Eos # (Auto) Cancelled Baso # (Auto) Cancelled PT INR APTT Sodium 129 L 131 L Potassium 7.1 H* 7.2 H* Chloride 104 103 Carbon Dioxide 12 L 16 L Anion Gap 20 19 BUN 50 H 51 H Creatinine 2.3 H 2.2 H Est GFR ( Amer) 25 26 Est GFR (Non-Af Amer) 20 22 Random Glucose 265 H 267 H Calcium 9.6 9.3 Phosphorus Magnesium Total Bilirubin 0.7 0.5 AST 79 H 87 H ALT 104 H 110 H Alkaline Phosphatase 116 113 Total Creatine Kinase Troponin I 0.0720 Total Protein 7.1 6.6 Albumin 3.8 3.7 Globulin 3.3 2.9 Albumin/Globulin Ratio 1.2 1.3 Urine Color Urine Clarity Urine pH Ur Specific [place] Urine Protein Urine Glucose (UA) Urine Ketones Urine Blood Urine Nitrate Urine Bilirubin Urine Urobilinogen Ur Leukocyte Esterase Urine RBC (Auto) Urine Microscopic WBC Urine Bacteria Hyaline Casts Ur Random Creatinine Blood Type Antibody Screen BBK History Checked 12/24/17 12/24/17 12/24/17 12:25 12:45 13:39 WBC RBC Hgb Hct MCV MCH MCHC RDW Plt Count MPV Gran % Neut % (Auto) Lymph % (Auto) Price % (Auto) Eos % (Auto) Baso % (Auto) Gran # Neut # (Auto) Lymph # (Auto) Price # (Auto) Eos # (Auto) Baso # (Auto) PT INR APTT Sodium 136 Potassium 5.2 H Chloride 106 Carbon Dioxide 16 L Anion Gap 19 BUN 48 H Creatinine 2.1 H Est GFR ( Amer) 27 Est GFR (Non-Af Amer) 23 Random Glucose 268 H Calcium 12.8 H Phosphorus Magnesium Total Bilirubin AST ALT Alkaline Phosphatase Total Creatine Kinase Troponin I Total Protein Albumin Globulin Albumin/Globulin Ratio Urine Color Yellow Urine Clarity Slighty-cloudy Urine pH 5.0 Ur Specific [place] 1.009 Urine Protein 30 Urine Glucose (UA) >=500 Urine Ketones Negative Urine Blood Negative Urine Nitrate Negative Urine Bilirubin Negative Urine Urobilinogen 0.2-1.0 Ur Leukocyte Esterase Neg Urine RBC (Auto) < 1 Urine Microscopic WBC < 1 Urine Bacteria Rare Hyaline Casts 0-2 Ur Random Creatinine Blood Type B POSITIVE Antibody Screen Negative BBK History Checked No verified bt 12/24/17 12/24/17 12/24/17 16:18 17:00 17:00 WBC 13.5 H RBC 3.08 L Hgb 8.1 L Hct 25.3 L MCV 82.2 MCH 26.5 L MCHC 32.2 L RDW 20.7 H Plt Count 252 MPV 8.9 Gran % Neut % (Auto) 85.4 H Lymph % (Auto) 10.6 L Price % (Auto) 3.6 Eos % (Auto) 0.1 Baso % (Auto) 0.3 Gran # Neut # (Auto) 11.5 H Lymph # (Auto) 1.4 Price # (Auto) 0.5 Eos # (Auto) 0.0 Baso # (Auto) 0.0 PT INR APTT Sodium 134 Potassium 5.9 H Chloride 105 Carbon Dioxide 19 L Anion Gap 16 BUN 49 H Creatinine 2.2 H Est GFR ( Amer) 26 Est GFR (Non-Af Amer) 22 Random Glucose 198 H Calcium 12.4 H Phosphorus 4.9 H Magnesium 2.1 Total Bilirubin AST ALT Alkaline Phosphatase Total Creatine Kinase 37 Troponin I 0.1250 H* Total Protein Albumin Globulin Albumin/Globulin Ratio Urine Color Urine Clarity Urine pH Ur Specific [place] Urine Protein Urine Glucose (UA) Urine Ketones Urine Blood Urine Nitrate Urine Bilirubin Urine Urobilinogen Ur Leukocyte Esterase Urine RBC (Auto) Urine Microscopic WBC Urine Bacteria Hyaline Casts Ur Random Creatinine Blood Type Antibody Screen BBK History Checked 12/24/17 12/24/17 12/25/17 19:00 23:48 04:28 WBC 10.4 RBC 2.87 L Hgb 7.9 L Hct 23.2 L MCV 80.7 L MCH 27.6 MCHC 34.2 RDW 21.0 H Plt Count 248 MPV 8.8 Gran % Neut % (Auto) 70.8 Lymph % (Auto) 18.3 L Price % (Auto) 10.3 H Eos % (Auto) 0.1 Baso % (Auto) 0.5 Gran # Neut # (Auto) 7.3 H Lymph # (Auto) 1.9 Price # (Auto) 1.1 H Eos # (Auto) 0.0 Baso # (Auto) 0.1 PT INR APTT Sodium 136 Potassium 5.8 H Chloride 105 Carbon Dioxide 24 Anion Gap 13 BUN 47 H Creatinine 2.4 H Est GFR ( Amer) 24 Est GFR (Non-Af Amer) 19 Random Glucose 124 H Calcium 11.9 H Phosphorus Magnesium Total Bilirubin AST ALT Alkaline Phosphatase Total Creatine Kinase Troponin I 0.3990 H* Total Protein Albumin Globulin Albumin/Globulin Ratio Urine Color Urine Clarity Urine pH Ur Specific [place] Urine Protein Urine Glucose (UA) Urine Ketones Urine Blood Urine Nitrate Urine Bilirubin Urine Urobilinogen Ur Leukocyte Esterase Urine RBC (Auto) Urine Microscopic WBC Urine Bacteria Hyaline Casts Ur Random Creatinine 25.0 Blood Type Antibody Screen BBK History Checked 12/25/17 04:28 WBC RBC Hgb Hct MCV MCH MCHC RDW Plt Count MPV Gran % Neut % (Auto) Lymph % (Auto) Price % (Auto) Eos % (Auto) Baso % (Auto) Gran # Neut # (Auto) Lymph # (Auto) Price # (Auto) Eos # (Auto) Baso # (Auto) PT INR APTT Sodium 140 Potassium 5.2 H Chloride 109 H Carbon Dioxide 24 Anion Gap 12 BUN 45 H Creatinine 2.4 H Est GFR ( Amer) 24 Est GFR (Non-Af Amer) 19 Random Glucose 51 L Calcium 11.3 H Phosphorus Magnesium Total Bilirubin 0.5 AST 57 H D ALT 88 H Alkaline Phosphatase 96 Total Creatine Kinase Troponin I Total Protein 6.4 Albumin 3.4 L Globulin 3.0 Albumin/Globulin Ratio 1.1 Urine Color Urine Clarity Urine pH Ur Specific [place] Urine Protein Urine Glucose (UA) Urine Ketones Urine Blood Urine Nitrate Urine Bilirubin Urine Urobilinogen Ur Leukocyte Esterase Urine RBC (Auto) Urine Microscopic WBC Urine Bacteria Hyaline Casts Ur Random Creatinine Blood Type Antibody Screen BBK History Checked EKG/Cardiology Studies: Cardiology / EKG Studies 12/24/17 09:50 EKG [ELECTROCARDIOGRAM] Stat Comment: Mode Of Transportation: Reason For Exam: chest pain 12/24/17 14:20 EKG [ELECTROCARDIOGRAM] Stat Comment: Mode Of Transportation: Reason For Exam: bradycardia 12/24/17 14:22 EKG [ELECTROCARDIOGRAM] Stat Comment: Mode Of Transportation: Reason For Exam: chest pain 12/24/17 14:23 EKG [ELECTROCARDIOGRAM] Stat Comment: Mode Of Transportation: Reason For Exam: chest pain EKG [ELECTROCARDIOGRAM] Stat Comment: Mode Of Transportation: Reason For Exam: chest pain EKG [ELECTROCARDIOGRAM] Stat Comment: Mode Of Transportation: Reason For Exam: chest pain 12/24/17 14:25 EKG [ELECTROCARDIOGRAM] Stat Comment: Mode Of Transportation: Reason For Exam: chest pain 12/24/17 14:26 EKG [ELECTROCARDIOGRAM] Stat Comment: Mode Of Transportation: Reason For Exam: chest pain EKG [ELECTROCARDIOGRAM] Stat Comment: Mode Of Transportation: Reason For Exam: chest pain 12/24/17 14:27 EKG [ELECTROCARDIOGRAM] Stat Comment: Mode Of Transportation: Reason For Exam: chest pain EKG [ELECTROCARDIOGRAM] Stat Comment: Mode Of Transportation: Reason For Exam: chest pain EKG [ELECTROCARDIOGRAM] Stat Comment: Mode Of Transportation: Reason For Exam: chest pain 12/24/17 14:28 EKG [ELECTROCARDIOGRAM] Stat Comment: Mode Of Transportation: Reason For Exam: chest pain 12/24/17 14:37 EKG [ELECTROCARDIOGRAM] Stat Comment: Mode Of Transportation: Reason For Exam: chest pain EKG [ELECTROCARDIOGRAM] Stat Comment: Mode Of Transportation: Reason For Exam: chest pain Fingerstick Blood Sugar Results: 171 Critical Care Progress Note - Nutrition Nutrition: Nutrition Category Date Time Status Heart Healthy Diet [DIET] Diets 12/25/17 Breakfast Active Assessment/Plan - Assessment and Plan (Free Text) Assessment: A/P Dizziness, bradycardia ?sick sinus syndrome, hyperkalemia, renal insufficiency, Rt humerus fracture, HTN, DM, CAD s/p CABG, R/O PR, ?diarrhea - Correct K - IV fluid - Cardiology follow up - Renal follow up - Orthopedic follow up - BP control - Follow up stools studies - Cardiac enzymes - DVT prophylaxis
[2017-12-25] MEDS: Insulin Lispro (humaLOG) 100 Units/ml Inj SC SCH ×4 (08:46→22:25)
[2017-12-25] MEDS ORDERED: Cilostazol 50 mg Tab UD PO SCH (09:00)
[2017-12-25] MEDS ORDERED: Pneumococcal 23-Valent Vaccine IM ONE (09:00)
[2017-12-25] MEDS: Cilostazol 100 mg Tab UD PO SCH (10:27)
[2017-12-25] MEDS: Sodium Chloride 0.9% 1,000 ML IV SCH (12:17)
--- NOTE | 2017-12-25 13:14 | CP.PCM.PN ---
Subjective - Date & Time of Evaluation Date of Evaluation: 12/25/17 Time of Evaluation: 13:09 - Subjective Subjective: RENAL FOLLOW UP S: pt feels good she wants to go home pe: vs as below gen: nad sclera: anicteric op: clear neck: supple no thyromegaly cv: +s1+s2 no rub lungs: cta b/l abd: soft nt/nd/ no r/g no organomegaly ext: no edema neuro: a+Ox3 no focal deficity psych: nml affect skin no rash ms: pain r shoulder limited ROM labs reviewed imp: ARF/Hyperkalemia/Acidosis/ Diabetes/ R shoulder fracture/Bradycardia/ Hypertensive kidney disease / hypercalcemia plan: CORDELIA v CKD - suspect has underlying CKD Asked RN to contact PCP office tomorrow to get most recent outpt labs. Appears to have signficant proteinuria at least by dipstick. K appears to be controlled at this point awaiting renal US results awaiting upcr calcium remains elevated- awaiting pth level , received 3000 mg calcium gluconate in er calcium was normal on admission. Will also check spep and sflc avoid lizabeth/arb f/u cardiology re: [place] Objective - Vital Signs/Intake and Output Vital Signs (last 24 hours): Temp Pulse Resp BP Pulse Ox 98.7 F 76 13 159/61 H 95 12/25/17 12:00 12/25/17 12:00 12/25/17 12:00 12/25/17 12:00 12/25/17 12:00 Intake and Output: 12/25/17 12/25/17 06:59 18:59 Intake Total 660 Output Total 950 Balance -290 - Medications Medications: Current Medications Atorvastatin Calcium (Lipitor) 80 mg PO DAILY [facility] Last Admin: 12/25/17 08:45 Dose: 80 mg Cilostazol (Pletal) 100 mg PO BID [facility] Last Admin: 12/25/17 10:27 Dose: 100 mg Clopidogrel Bisulfate (Plavix) 75 mg PO DAILY [facility] Hydralazine HCl (Apresoline) 10 mg PO Q8 [facility] Last Admin: 12/25/17 08:45 Dose: 10 mg Sodium Chloride (Sodium Chloride 0.9%) 1,000 mls @ 50 mls/hr IV .Q20H [facility] Stop: 12/25/17 15:36 Last Admin: 12/25/17 12:17 Dose: 50 mls/hr Sodium Chloride (Sodium Chloride 0.9%) 1,000 mls @ 50 mls/hr IV .Q20H [facility] Stop: 12/25/17 15:48 Last Admin: 12/24/17 19:00 Dose: 50 mls/hr Insulin Human Lispro (Humalog) 0 units SC ACHS [facility] PRN Reason: Protocol Last Admin: 12/25/17 12:14 Dose: 2 units Morphine Sulfate (Morphine) 2 mg IVP Q4 PRN PRN Reason: Pain, severe (8-10) Last Admin: 12/25/17 05:02 Dose: 2 mg Morphine Sulfate (Morphine) 1 mg IVP Q4 PRN PRN Reason: Pain, moderate (4-7) Pantoprazole Sodium (Protonix Inj) 40 mg IVP DAILY [facility] Last Admin: 12/25/17 08:46 Dose: 40 mg - Labs Labs: 12/25/17 04:28 12/25/17 04:28 PT 10.2 Seconds (9.8-13.1) 12/24/17 10:30 INR 0.9 12/24/17 10:30 APTT 22.6 Seconds (25.6-37.1) L 12/24/17 10:30
--- NOTE | 2017-12-25 14:56 | US ---
Date of service: 12/25/2017 PROCEDURE: Ultrasound of the Kidneys HISTORY: arf COMPARISON: None available. TECHNIQUE: Sonogram of the kidneys. FINDINGS: RIGHT KIDNEY: Measures: 10.8 cm. Normal in size, contour and echogenicity. No stone, solid mass lesion or hydronephrosis visualized. LEFT KIDNEY: Measures: 9.5 cm. Normal in size, contour and echogenicity. No stone, solid mass lesion or hydronephrosis visualized. Simple mid renal cortical cyst, 6 mm. OTHER FINDINGS: None. IMPRESSION: 6 mm mid left renal cortical cyst. Otherwise unremarkable examination.
--- NOTE | 2017-12-25 15:07 | PN ---
Copied To: Wei Arellano MD Attending MD: Wei Arellano MD DATE: 12/25/2017 SUBJECTIVE: The patient has no reported significant bradycardia since her presentation to the ICU. However, she does complain of dizziness on and off while in bed. PHYSICAL EXAMINATION: VITAL SIGNS: Blood pressure 159/61, heart rate 76, temperature 98.7, respirations 13. HEENT: Pale conjunctivae. CHEST: Minimal rhonchi. HEART: S1 and S2 are regular. EXTREMITIES: No edema. LABORATORY DATA: Hemoglobin and hematocrit 7.9 and 23.2, white count 10.4, and platelet count 23,000. Today's SMA-7: Sodium 140, potassium 5.2, chloride 109, CO2 of 24, glucose 51, BUN 45, creatinine 2.4, and calcium is 11.3. Troponin 0.[address] scan without contrast. No acute findings. Right scapular x-ray. No evidence of scapular fracture. Right shoulder x-ray: Comminuted displaced proximal humerus fracture. Right leg x-ray is unremarkable. Cervical spine x-ray normal. Echocardiographic study was reviewed and it revealed normal ejection fraction and dilated left atrium and [id number] pulmonary hypertension. The aortic valve area was measured at 1.09 cm. ASSESSMENT: 1. Symptomatic bradycardia. 2. Status post fall, right humerus neck fracture. 3. Hypercalcemia, rule out metastatic carcinoma. 4. Hyperkalemia and acute renal insufficiency. 5. Borderline troponin elevation. RECOMMENDATIONS: Continue hydralazine 10 mg every 8 hours, Lipitor 80 mg once a day, morphine sulfate 2 mg/mL every 4 hours p.r.n. May discontinue Pletal for now. Continue Romycin infusion at 50 mL an hour. The plan is to have a permanent pacemaker placement on Tuesday. The case was discussed with the emergency specialist, Dr. Talbot and with the patient's at the bedside. Even though the patient was hyperkalemic on presentation, the sequence of resting event did not relate monitor hyperkalemia, but rather to sick sinus syndrome with periods of of junctional rhythm, atrial fibrillation, and slow ventricular rhythm at the heart rate of 30. Wei Arellano MD [facility] # [id number]
[2017-12-25] MEDS ORDERED: Artificial Tears Opht Soln OU PRN (16:12)
[2017-12-25] MEDS: Lubricant Eye Drops UD OU PRN (17:14)
--- NOTE | 2017-12-25 17:36 | CP.PCM.PN ---
Subjective - Date & Time of Evaluation Date of Evaluation: 12/25/17 Time of Evaluation: 13:00 - Subjective Subjective: Patient is much more awake. At times confused potassium is 5.2 BP m noted to be elevated On Hydralazine 10 mg tid Objective - Vital Signs/Intake and Output Vital Signs (last 24 hours): Temp Pulse Resp BP Pulse Ox 98.7 F 86 17 169/58 H 94 L 12/25/17 12:00 12/25/17 16:13 12/25/17 15:00 12/25/17 16:13 12/25/17 15:00 Intake and Output: 12/25/17 12/25/17 06:59 18:59 Intake Total 660 Output Total 950 Balance -290 - Medications Medications: Current Medications Amlodipine Besylate (Norvasc) 5 mg PO DAILY [facility] Artificial Tears (Refresh Opth Soln) 0.2 ml OU Q6 PRN PRN Reason: Dry eyes Last Admin: 12/25/17 17:14 Dose: 1 drop Atorvastatin Calcium (Lipitor) 80 mg PO DAILY [facility] Last Admin: 12/25/17 08:45 Dose: 80 mg Cilostazol (Pletal) 100 mg PO BID [facility] Last Admin: 12/25/17 10:27 Dose: 100 mg Clopidogrel Bisulfate (Plavix) 75 mg PO DAILY [facility] Hydralazine HCl (Apresoline) 10 mg PO Q8 [facility] Last Admin: 12/25/17 16:13 Dose: 10 mg Insulin Human Lispro (Humalog) 0 units SC ACHS [facility] PRN Reason: Protocol Last Admin: 12/25/17 16:13 Dose: Not Given Morphine Sulfate (Morphine) 2 mg IVP Q4 PRN PRN Reason: Pain, severe (8-10) Last Admin: 12/25/17 05:02 Dose: 2 mg Morphine Sulfate (Morphine) 1 mg IVP Q4 PRN PRN Reason: Pain, moderate (4-7) Pantoprazole Sodium (Protonix Inj) 40 mg IVP DAILY [facility] Last Admin: 12/25/17 08:46 Dose: 40 mg - Labs Labs: 12/25/17 04:28 12/25/17 04:28 PT 10.2 Seconds (9.8-13.1) 12/24/17 10:30 INR 0.9 12/24/17 10:30 APTT 22.6 Seconds (25.6-37.1) L 12/24/17 10:30 - Head Exam Head Exam: NORMAL INSPECTION - Eye Exam Eye Exam: Normal appearance - Respiratory Exam Respiratory Exam: Clear to Ausculation Bilateral - Cardiovascular Exam Cardiovascular Exam: REGULAR RHYTHM - GI/Abdominal Exam GI & Abdominal Exam: Soft, Normal Bowel Sounds - Neurological Exam Neurological Exam: Awake, Oriented x3 - Psychiatric Exam Psychiatric exam: Normal Mood Assessment and Plan (1) Cardiac arrhythmia Status: Acute (2) Bradycardia Status: Acute (3) Fracture, humerus Status: Acute (4) Hyperkalemia Status: Acute (5) CKD (chronic kidney disease) stage 4, GFR 15-29 ml/min Status: Acute - Assessment and Plan (Free Text) Plan: Con tmeds Con thydration start PT in am Add amlodipine to regimen Con ttx. transfer to telemetry
[2017-12-25 23:12] LABS: CALCIUM 9.6 mg/dL (8.4-10.2)
[2017-12-26 05:46] LABS: HEMOGLOBIN 9.1 g/dL (12.0-16.0); MEAN CELL VOLUME 81.8 fl (81.0-99.0); MEAN CORPUSCULAR HEMOGLOBIN 26.9 pg (27.0-31.0); MEAN CORPUSCULAR HGB CONC 32.9 g/dL (33.0-37.0); RBC 3.39 Mil/uL (3.80-5.20); RED CELL DISTRIBUTION WIDTH 21.1 % (11.5-14.5); WHITE BLOOD COUNT 11.6 K/uL (4.8-10.8)
[2017-12-26 05:49] LABS: PROTHROMBIN TIME 10.8 Seconds (9.8-13.1)
[2017-12-26 05:51] LABS: PARTIAL THROMBOPLASTIN TIME 29.8 Seconds (25.6-37.1)
[2017-12-26 05:53] LABS: ALB/GLOB RATIO 1.1 (1.0-2.1); ALBUMIN 3.3 g/dL (3.5-5.0); CALCIUM 9.3 mg/dL (8.4-10.2)
[2017-12-26] MEDS ORDERED: Liquid Adhesive TOP ONE (07:26)
[2017-12-26] MEDS ORDERED: Midazolam 2 MG/2 ML VIAL ONE (07:37)
[2017-12-26] MEDS ORDERED: Propofol 10 mg/ml Inj (20 ML) ONE (07:37)
[2017-12-26] MEDS ORDERED: Sodium Chloride 0.9% 500 ML IV ONE (07:50)
--- NOTE | 2017-12-26 08:05 | CP.PCM.CON ---
History of Present Illness - History of Present Illness History of Present Illness: Orthopedic consult Patient is a 77 y/o female with PMH of HTN, CAD, hypercholesterolemia, CABG and NIDDM admitted s/p fall on 12/24/17, being evaluated and treated for bradycardia and hyperkalemia. The patient c/o R shoulder after landing onto her R side. She denies LOC but notes dizziness recently following multiple episodes of diarrhea which caused her recent fall. Dr. Castaneda was consulted for orthopedic evaluation of her right proximal humerus fracture. Currently, her pain is moderate and located diffuse about the right shoulder. Any movement worsens the pain and rest and immobilization within her sling alleviates it. There is swelling associated with the pain. She denies any radiation of pain/ numbness/tingling. She also currently denies CP/SOB/N/V/fever/dysuria/melena. Review of Systems - Review of Systems All systems: reviewed and no additional remarkable complaints except Review of Systems: as per HPI Past Patient History - Past Medical History & Family History Past Family History: Reviewed and not pertinent - Past Social History Smoking Status: Unknown If Ever Smoked Alcohol: None Drugs: Denies - CARDIAC Hx Cardiac Disorders: Yes Hx Hypertension: Yes - PULMONARY Hx Respiratory Disorders: No - NEUROLOGICAL Hx Neurological Disorder: No - HEENT Hx HEENT Problems: Yes Other/Comment: Hard of hearing - ENDOCRINE/METABOLIC Hx Endocrine Disorders: Yes Hx Diabetes Mellitus Type 2: Yes - HEMATOLOGICAL/ONCOLOGICAL Hx Blood Disorders: No - INTEGUMENTARY Hx Dermatological Problems: No - MUSCULOSKELETAL/RHEUMATOLOGICAL Hx Falls: Yes - GASTROINTESTINAL Hx Gastrointestinal Disorders: No - GENITOURINARY/GYNECOLOGICAL Hx Genitourinary Disorders: No - PSYCHIATRIC Hx Psychophysiologic Disorder: No Hx Substance Use: No - SURGICAL HISTORY Hx Coronary Artery Bypass Graft: Yes Other/Comment: Heart valve bypass - ANESTHESIA Hx Anesthesia: Yes Hx Anesthesia Reactions: No Meds Allergies/Adverse Reactions: Allergies Allergy/AdvReac Type Severity Reaction Status Date / Time No Known Allergies Allergy Verified 12/24/17 09:25 - Medications Medications: Current Medications Amlodipine Besylate (Norvasc) 5 mg PO DAILY [facility] Artificial Tears (Refresh Opth Soln) 0.2 ml OU Q6 PRN PRN Reason: Dry eyes Last Admin: 12/25/17 17:14 Dose: 1 drop Atorvastatin Calcium (Lipitor) 80 mg PO DAILY [facility] Last Admin: 12/25/17 08:45 Dose: 80 mg Cilostazol (Pletal) 100 mg PO BID [facility] Last Admin: 12/25/17 10:27 Dose: 100 mg Clopidogrel Bisulfate (Plavix) 75 mg PO DAILY [facility] Hydralazine HCl (Apresoline) 10 mg PO Q8 [facility] Last Admin: 12/26/17 00:34 Dose: 10 mg Insulin Human Lispro (Humalog) 0 units SC ACHS [facility] PRN Reason: Protocol Last Admin: 12/25/17 22:25 Dose: Not Given Morphine Sulfate (Morphine) 2 mg IVP Q4 PRN PRN Reason: Pain, severe (8-10) Last Admin: 12/26/17 05:00 Dose: 2 mg Morphine Sulfate (Morphine) 1 mg IVP Q4 PRN PRN Reason: Pain, moderate (4-7) Pantoprazole Sodium (Protonix Inj) 40 mg IVP DAILY [facility] Last Admin: 12/25/17 08:46 Dose: 40 mg Physical Exam - Constitutional Appears: Well, No Acute Distress - Head Exam Head Exam: ATRAUMATIC, NORMOCEPHALIC - Eye Exam Eye Exam: EOMI, Normal appearance, PERRL - ENT Exam ENT Exam: Mucous Membranes Moist - Respiratory Exam Respiratory Exam: Clear to Auscultation Bilateral, NORMAL BREATHING PATTERN - GI/Abdominal Exam GI & Abdominal Exam: Normal Bowel Sounds, Soft - Extremities Exam Additional comments: RUE: sling intact mild shoulder swelling, diffuse shoulder tenderness sensation intact MN/UN/RN motor intact MN/UN/RN radial pulse intact LUE: no shoulder swelling, no shoulder tenderness sensation intact MN/UN/RN motor intact MN/UN/RN radial pulse intact - Neurological Exam Neurological exam: Alert, Oriented x3 - Psychiatric Exam Psychiatric exam: Normal Affect, Normal Mood - Skin Skin Exam: Normal Color, Warm Results - Vital Signs Recent Vital Signs: Last Vital Signs Temp 99.5 F 12/26/17 04:00 Pulse 80 12/26/17 07:00 Resp 25 H 12/26/17 07:00 BP 181/79 H 12/26/17 07:00 Pulse Ox 97 12/26/17 07:00 - Labs Result Diagrams: 12/26/17 04:40 12/26/17 04:40 Labs: Laboratory Results - last 24 hr 12/24/17 12/25/17 12/26/17 16:19 22:54 04:40 WBC 11.6 H RBC 3.39 L Hgb 9.1 L Hct 27.7 L MCV 81.8 MCH 26.9 L MCHC 32.9 L RDW 21.1 H Plt Count 275 PT INR APTT Sodium 137 Potassium 4.3 Chloride 105 Carbon Dioxide 25 Anion Gap 11 BUN 38 H Creatinine 2.1 H Est GFR ( Amer) 27 Est GFR (Non-Af Amer) 23 Random Glucose 119 H Calcium 9.6 Phosphorus 3.8 Magnesium 1.6 Total Bilirubin AST ALT Alkaline Phosphatase Total Protein Albumin Globulin Albumin/Globulin Ratio C. difficile Ag & Toxin Positive antigen 12/26/17 12/26/17 04:40 04:40 WBC RBC Hgb Hct MCV MCH MCHC RDW Plt Count PT 10.8 INR 1.0 APTT 29.8 Sodium 138 Potassium 4.0 Chloride 105 Carbon Dioxide 26 Anion Gap 11 BUN 33 H Creatinine 2.0 H Est GFR ( Amer) 29 Est GFR (Non-Af Amer) 24 Random Glucose 123 H Calcium 9.3 Phosphorus Magnesium Total Bilirubin 0.5 AST 46 H ALT 71 H Alkaline Phosphatase 100 Total Protein 6.4 Albumin 3.3 L Globulin 3.1 Albumin/Globulin Ratio 1.1 C. difficile Ag & Toxin Assessment & Plan (1) Proximal humeral fracture Assessment and Plan: Patient is a 77 y/o female with a proximal humerus fx -Surgical fixation is likely as per Dr. Castaneda. However, due to patient multiple comorbidities, she will need to be cleared medically prior to surgical intervention. -Scheduled for pacemaker today -CT R shoulder -Keep immobilized in sling -will follow -above d/w Dr. Castaneda in agreement Status: Acute Radiology Interpretation - Pipe Smoking Machine Offbearer Pipe Smoking Machine Offbearer:: Radiologist - Study type Study type:: Plain films - Notes: Notes:: Accession No. : [id number] Patient Name / ID : ARUNA Naik / [id number] Exam Date : 12/24/2017 10:27:25 ( Approved ) Study Comment : Sex / Age : F / 77Y Creator : Albaro Katz MD Dictator : Albaro Katz MD Lead Systems Analyst : Cushion Mat Maker : Albaro Katz MD Approver2 : Report Date : 12/24/2017 15:28:41 My Comment : Date of service: 12/24/2017 PROCEDURE: Radiographs of the Right Shoulder HISTORY: right shoulder/clavicle/arm pain s/p fall COMPARISON: No prior. FINDINGS: BONES: Comminuted displaced fracture of the proximal humerus. There is a subcapital fracture. There is a displaced fracture of the greater tuberosity. There is probable fracture of the lesser tuberosity. There is a globular calcification adjacent to the greater tuberosity likely consistent with chronic calcific tendinitis. JOINTS: Normal. Glenohumeral and acromioclavicular joints preserved. No osteoarthritis. SOFT TISSUES: Normal. OTHER FINDINGS: None. IMPRESSION: Comminuted, displaced proximal humeral fracture as described. - Radiology Interpretation #2 Interpretation: Accession No. : [id number] Patient Name / ID : ARUNA Naik / [id number] Exam Date : 12/24/2017 10:33:38 ( Approved ) Study Comment : Sex / Age : F / 77Y Creator : Albaro Katz MD Dictator : Albaro Katz MD Lead Systems Analyst : Cushion Mat Maker : Albaro Katz MD Approver2 : Report Date : 12/24/2017 15:26:14 My Comment : PROCEDURE: Radiographs of the right humerus. HISTORY: right arm/shoulder/clavicle pain s/p fall COMPARISON: None. FINDINGS: BONES: Displaced comminuted fracture right proximal humerus involving subcapital humerus and greater tuberosity. Large displaced fragment from greater tuberosity. No other fracture identified. SOFT TISSUES: Normal. OTHER FINDINGS: None. IMPRESSION: Comminuted displaced proximal humeral fracture.
[2017-12-26] MEDS ORDERED: Lidocaine 1% Inj (20ml) INFIL ONE ×2 (08:22)
[2017-12-26 08:45] LABS: ABG ALLEN TEST YES; ARTERIAL BLOOD GAS HCO3 34.5 mmol/L (21-28); ARTERIAL BLOOD GAS PCO2 42 mm/Hg (35-45); ARTERIAL BLOOD GAS PH 7.54 (7.35-7.45); ARTERIAL BLOOD GAS PO2 116 mm/Hg (80-100); ARTERIAL BLOOD GAS TCO2 37.2 mmol/L (22-28)
[2017-12-26] MEDS: Cilostazol 100 mg Tab UD PO SCH ×2 (09:00→16:10)
--- NOTE | 2017-12-26 11:38 | PN ---
Copied To: Willi Ryder MD Attending MD: Willi Ryder MD DATE: 12/26/2017 CRITICAL CARE PROGRESS NOTE LOCATION: The patient in ICU, bed 422. TIME SPENT: 35 minutes. The patient is seen and evaluated at the bedside. Case discussed in multidisciplinary a.m. rounds in ICU. Past medical, surgical and social and family history reviewed. SUBJECTIVE: 77-year-old female with diabetes type 2, hypertension, coronary artery disease status post CABG, admitted on 12/24/2017, status post fall at home, sustained fracture right humerus noted to be in hyperkalemia, renal insufficiency with wide QRS complex. The patient was then treated with IV fluid, kayexalate, calcium gluconate, with subsequent reduction in K+ leve. Seen by Nephrology and Cardiology consult. The patient underwent permanent pacemaker insertion. This morning remains alert and awake. Follows commands appropriately. Complaining of pain at the site of the permanent pacemaker insertion. Denies shortness of breath. No chest pain or palpitation. No abdominal pain. No further diarrhea noted. PHYSICAL EXAMINATION: VITAL SIGNS: Temperature 99.5, heart rate 80, blood pressure 163 to 181/108 to 79, respiratory rate 25, oxygen saturation 97% on room air. Intake 1620, output 2350. Negative balance,730, weight of 105 pounds. HEAD, EYES, EARS, NOSE AND THROAT: Pupils are reactive. Conjunctivae pink. Sclerae white. NECK: Supple. Trachea central. CHEST: Bilateral breath sounds. Clear to auscultation. HEART: Rhythm regular. S1 and S2 normal. ABDOMEN: Bowel sounds present. Soft. EXTREMITIES: No edema. NEUROLOGIC: Oriented to name, place, and time. PSYCHIATRIC: Normal affect. CURRENT MEDICATIONS: Norvasc 5 mg p.o. daily, Artificial Tears 0.2 mL OU every six p.r.n., Lipitor 80 mg daily, Pletal 100 mg p.o. twice daily, Plavix 75 mg daily, hydralazine 10 mg every 8 hours, Humalog based on Accu-Chek, Lopressor 25 mg p.o. every 6 hours, morphine 2 mg IV every 4 p.r.n., and Protonix 40 IV daily. LABORATORY DATA: WBC 11.6, hemoglobin 9.1, hematocrit 27.7, MCV 81.8, platelet count of 275,000. PT 10.8, INR 1, PTT 29.8. SMA-7: Sodium 138, potassium 40, chloride 105, CO2 of 26, blood urea nitrogen was 33, creatinine 2 random glucose 173, calcium 9.3, total bilirubin 0.05, AST 46, ALT 71, alkaline phosphatase 100, total protein 6.4, albumin 3.3. Urinalysis negative. Serology: C. diff antigen positive, toxin negative.. Renal ultrasound 6 mm midlevel renal cortical cyst, otherwise unremarkable. No stone, solid mass lesion, or hydronephrosis. Head CT unremarkable. Abdominal x-ray negative. NEUROLOGIC: Alert and awake, follows commands appropriately. PULMONARY: No acute issues noted. CARDIAC: Admitted with sick sinus syndrome, status post permanent pacemaker insertion. Dizziness resolved, history of hypertension and coronary artery disease status post coronary artery bypass graft surgery on hydralazine 10 mg p.o. every 8, Plavix 75 mg daily, amlodipine 5 mg daily, Lipitor 80 mg daily. GASTROINTESTINAL: Abnormal LFT, unclear the serology, trending down. Follow the course. RENAL: Status post hydration, improved renal function. Renal ultrasound negative. Appreciate Nephrology input. Closely monitor trending a BUN and creatinine. Calcium is within normal range. ENDOCRINE: history of for diabetes mellitus type 2 on Accu-Chek with regular insulin coverage. We will follow TSH, T3 and T4 level. PSYCHIATRIC: normal affect. INFECTIOUS DISEASE: Nasal smear MRSA negative. Serology shows positive C. diff antigen,but negative. The patient had a history of diarrhea. Consider adding Flagyl 500 mg p.o. every 8 hours, if diarrhea persists Willi Ryder MD MTDKomal
[2017-12-26] MEDS: Insulin Lispro (humaLOG) 100 Units/ml Inj SC SCH ×3 (11:47→21:28)
--- NOTE | 2017-12-26 11:48 | CARD ---
APPROVED REPORT Date of service: 12/26/2017 EKG Measurement Heart [id number] <Conclusion> Sinus rhythm with premature atrial complexes Nonspecific T wave abnormality Abnormal ECG
--- NOTE | 2017-12-26 12:54 | RAD ---
Date of service: 12/26/2017 PROCEDURE: CHEST RADIOGRAPH, 1 VIEW HISTORY: POST PPM COMPARISON: Comparison chest 12/24/2017 FINDINGS: LUNGS: Mild persistent the the the the the the the increased pulmonary vascularity likely related to chronic compensated pulmonary edema/ CHF. More confluent opacity in the left lower lobe could represent some mild atelectasis and or developing alveolar-type infiltrate. PLEURA: No pneumothorax or pleural fluid seen. CARDIOVASCULAR: Sternotomy wires and CABG clips again noted. Interval placement bipolar pacemaker/ defibrillator. Heart remains mildly enlarged OSSEOUS STRUCTURES: Comminuted fracture of right humerus poorly seen on this study due to patient positioning VISUALIZED UPPER ABDOMEN: Normal. OTHER FINDINGS: None. IMPRESSION: Interval placement bipolar pacemaker/defibrillator. Mild cardiomegaly. Mild persistent increased pulmonary vascularity likely related to chronic compensated pulmonary edema/ CHF. More confluent opacity in the left lower lobe could represent some mild atelectasis and or developing alveolar-type infiltrate.
--- NOTE | 2017-12-26 13:31 | OP ---
Copied To: Maurizio Talbot MD Attending MD: Maurizio Talbot MD PROCEDURE DATE: 12/26/2017 PREPROCEDURE DIAGNOSES: Sick sinus syndrome, symptomatic bradycardia. PROCEDURE: Implantation of dual chamber permanent pacemaker. SURGEON: Maurizio Talbot MD BRIEF HISTORY: Carlos Quijano is a pleasant 77-year-old Turkish female with past medical history significant for coronary artery disease, status post coronary artery bypass graft surgery, hypertension, severe peripheral vascular disease, hyperlipidemia, who presents to [facility] on the day of admission 12/24/2017, with intermittent symptoms of chest discomfort, shortness of breath, as well as a fall of unclear cause resulting ultimately in a right humeral fracture. The patient was found to have profound bradycardia, which appeared to be sinus in the 30s. In addition, the patient was found to have significant renal insufficiency and hyperkalemia with a presenting potassium of 7.3. The patient's electrolyte status was normalized using dextrose insulin despite normalization of electrolyte status. The patient remained bradycardic with both atrial and ventricular ectopy resulting in a slow rhythm in the 50s. The patient was seen by Dr. Wei Arellano, in Cardiology consultation and setting of noncoronary artery disease it was felt that the patient would require ongoing medical therapy, preoperative clearance, and would benefit from a permanent pacemaker. After a much discussion with the managing banbury operator, the patient's and the patient herself, it was felt we would proceed with permanent pacemaker implantation. The patient was able to give consent which was witnessed for the aforementioned procedure. DESCRIPTION OF PROCEDURE: Ms. Carlos Quijano was brought to the operating room at [facility] for the aforementioned procedure. The left pectoral area was draped and prepped in the sterile fashion. A 2% lidocaine solution was injected into the surgical site. A 3.5 cm incision was made two fingerbreadth below the clavicle using blunt dissection electrocautery. The fascial planes were dissected and cephalic vein was identified itself and cutdown was then performed without difficulty. A 0.035 guidewire was followed along its course to the superior vena cava. Subsequently, 9-Azerbaijani SafeSheath was then inserted without difficulty to the access point. The right ventricular lead, which is a 5076 Capsurefix lead, serial number [id number] was inserted via the sheath, manipulated into the left ventricular apex without difficulty. Active tip was extended. Parameters were obtained through the program system analyzer using 04:38 device are as follows: R-waves measured 13, threshold is 0.5 V to 0.4 milliseconds programmed output is 3.5 V to 0.4 milliseconds. Impedance on this lead was 530 ohms which is within normal limits. Similarly through routine access, a 7-Azerbaijani 6 sheath was inserted once the 9-Azerbaijani SafeSheath was torn, the right atrial lead which is a Medtronic 5076 Capsurefix lead, serial number [id number] was inserted via the sheath and manipulated into the right atrium. A few locations were trailed secondary to the patient being status post CABG and having amputation of her right atrial appendage. From his ultimate location which is again in the high right atrium, satisfactory parameters were obtained. Threshold is 1.25 Volts to 0.4 milliseconds. Output is set at 3.5 V at 0.4 milliseconds. Lead impedance is 342. P-waves were variable, last documented at 0.8 millivolts as high as 1.4 millivolts. Both leads were then finalized in terms of position under fluoroscopy. Both leads were tied down using multiple sutures. Additional ligatures were applied to achieve hemostasis. A subfascial pocket was made using blunt dissection with electrocautery. The device which is a [employer] DR device serial number [id number] was connected. The device and lead systems were then coiled and placed in the pocket. A retention suture was then applied without difficulty. The skin and fascial layers were then brought together using layers of 2-0 Vicryl. Final layer was closed with Mastisol and Steri-Strips. The patient remained hemodynamically stable throughout the procedure and was taken out of the room in hemodynamically stable and satisfactory condition. PLAN: The patient should undergo normal postop checks. We will go to the PACU. Subsequently, will go to the ICU from where she can be downgraded to telemetry floor. If everything is within normal limits, the patient can be discharged perhaps as early as tomorrow. My understanding is however the patient is to be medically optimized from an electrolyte and hematologic standpoint for possible right humeral fixation surgery. Further workup and recommendations will come from Dr. Wei Arellano. The patient's final setting is [id number] with a max sensor rate and track rate of 100. Thank you for allowing me to participate in the care of the patient. Please do not hesitate to call with further questions in regards to her care. Maurizio Talbot MD cc: Wei Arellano MD; Sesar Tang MD
--- NOTE | 2017-12-26 14:25 | CARD ---
APPROVED REPORT Date of service: 12/24/2017 EXAM: Two-dimensional and M-mode echocardiogram with Doppler and color Doppler. Other Information Quality : GoodRhythm : NSR INDICATION Abnormal EKG/Arrhythmia 2D DIMENSIONS IVSd0.90 (0.7-1.1cm)LVDd4.94 (3.9-5.9cm) LVOT Diameter2.03 (1.8-2.4cm)PWd0.85 (0.7-1.1cm) IVSs1.36 (0.8-1.2cm)LVDs2.84 (2.5-4.0cm) FS (%) 42.5 %PWs1.47 (0.8-1.2cm) M-Mode DIMENSIONS Left Atrium (MM)5.09 (2.5-4.0cm)IVSd0.82 (0.7-1.1cm) Aortic Root2.97 (2.2-3.7cm)LVDd5.26 (4.0-5.6cm) Aortic Cusp Exc.1.76 (1.5-2.0cm)PWd0.85 (0.7-1.1cm) IVSs1.50 cmFS (%) 56 % LVDs2.32 (2.0-3.8cm)PWs1.82 cm Aortic Valve AoV VTI46.4cmAO Peak GR.16mmHgLVOT Peak Vrcqrntj68.6cm/s LVOT VTI22.05cmAO Mean GR.8mmHg Mitral Valve MV E Jfcbzffb529.4cm/sMV DECEL BMUL861ysMC A Nypcugmc479.4cm/s MV JEV83anZ/A ratio1.4MVA (PHT)3.52cm2 TDI Lateral E' Peak V10.19cm/sMedial E' Peak V6.68cm/sE/Lateral E'14.5 E/Medial E'22.1 Pulmonary Valve PV Peak Uemvasgw865.3cm/s Tricuspid Valve TR Peak Whhwauqf610lr/sRAP EAOZQKLG84eyZnNG Peak Gr.37mmHg BUPK83etMq LEFT VENTRICLE The left ventricle is normal size. There is normal left ventricular wall thickness. The left ventricular ejection fraction is within the normal range. The Ejection Fraction is 60-65%. No regional wall motion abnormalities noted.. The left ventricular diastolic function is normal. No left ventricle thrombus noted on this study. There is no ventricular septal defect visualized. There is no mass noted in the left ventricle. RIGHT VENTRICLE The right ventricle is normal size. There is normal right ventricular wall thickness. The right ventricular systolic function is normal. ATRIA The left atrium size is moderately dilated The right atrium size is normal. The interatrial septum is intact with no evidence for an atrial septal defect. AORTIC VALVE The aortic valve is normal in structure. The aortic valve is mildly sclerotic. No aortic regurgitation is present. There is no aortic valvular stenosis. MITRAL VALVE The mitral valve is normal in structure. There is no mitral valve stenosis. There is mild mitral valve regurgitation noted. TRICUSPID VALVE The tricuspid valve is normal in structure. There is mild tricuspid valve regurgitation noted. Moderate pulmonary hypertension present PULMONIC VALVE The pulmonary valve is normal in structure. There is no pulmonic valvular regurgitation. GREAT VESSELS The aortic root is normal in size. The ascending aorta is normal in size. The pulmonary artery is normal. The IVC is normal in size and collapses >50% with inspiration. PERICARDIAL EFFUSION There is no pericardial effusion. <Conclusion> Mild mitral insufficiency Mild TR with moderate pulmonary hypertension Dilated left atrium Normal LV function The Ejection Fraction is 60-65%.
[2017-12-26 14:49] LABS: IRON 16 ug/dL (37-170)
[2017-12-26 14:59] LABS: % IRON SATURATION 5 % (20-55); TOTAL IRON BINDING CAPACITY 309 ug/dL (250-450)
--- NOTE | 2017-12-26 15:17 | RAD ---
Date of service: 12/26/2017 PROCEDURE: Intraoperative Fluoroscopy. HISTORY: PACEMAKER INSERTION FINDINGS: Fluoroscopic assistance was provided. Fluoroscopy time = 314.8 seconds. Radiation dose = 45.73 mGy-cm. Please refer to the operative report for additional details
[2017-12-26] MEDS: Lubricant Eye Drops UD OU PRN (16:11)
[2017-12-26] MEDS: Multivitamin Vitamin B Complex (Nephro-Vite) Tab PO SCH (16:16)
--- NOTE | 2017-12-26 16:25 | PN ---
Copied To: Wei Arellano MD Attending MD: Wei Arellano MD DATE: 12/26/2017 SUBJECTIVE: The patient underwent biventricular pacemaker placement by Dr. Carrillo this morning in the operating room. She is in the recovery room comfortable. No reported arrhythmia. PHYSICAL EXAMINATION: VITAL SIGNS: Blood pressure 181/79, heart rate 80, temperature 99.5, respirations 25. HEENT: Pale conjunctivae. CHEST: Clear. HEART: S1 and S2 regular. EXTREMITIES: No edema. LABORATORY DATA: Hemoglobin and hematocrit 9.1 and 27.7, white count 11.6, platelet count 175,000. Today's SMA-7; sodium 138, potassium 4, chloride 105, CO2 of 26, glucose 123, BUN 33, creatinine 2. Today's PT/INR and PTT are within normal limits. Today's EKG at 10:14 a.m. revealed sinus rhythm with APCs with nonspecific T-wave changes. ASSESSMENT: 1. Symptomatic bradycardia, status post fall with comminuted right fracture. 2. Chronic kidney disease, status post surgery. 3. Borderline troponin elevation. 4. Chronic renal insufficiency. 5. Anemia. 6. Hypertension. RECOMMENDATIONS: Increase hydralazine to 25 mg every eight hours. Continue Lipitor at 80 mg once a day, Lopressor 25 mg every six hours, Plavix 75 mg once a day, Pletal 100 mg twice a day. Wei Arellano MD
--- NOTE | 2017-12-26 16:47 | CP.PCM.PN ---
Subjective - Date & Time of Evaluation Date of Evaluation: 12/26/17 Time of Evaluation: 16:45 - Subjective Subjective: Nephrology Consultation Note Assessment: Stable Acute Kidney Injury (N17.9) improved hyperkalemia, bradycardia, left humeral fracture Diabetic chronic Kidney Disease (E11.22) Hypertensive Chronic Kidney Disease (I12.9) Chronic Kidney Disease (N18.4) Stage 4 with ? mg proteinuria (R80.9) likely due to DM/HTN Anemia (D64.9), HTN (I12.9) Plan No acute need for renal replacement therapy at this time. Hypertension control with meds as ordered. Maintain hemodynamics stable. Avoid hypotension. Patient not on ACEI/ARB due to recent CORDELIA and hyperkalemia. BP meds being adjusted Monitor Input/Output, daily weights and renal function with basic metabolic panel started iron supplement and MVI work up as ordered Dose meds/antibiotics for reduced GFR. Avoid fleets enema/magnesium based laxatives. Avoid nephrotoxins/NSAIDs/ iodinated contrast (unless needed emergently) Glycemic control. metformin contraindicated at this time due to low GFR Further work up for as per primary team Thanks for allowing me to participate in care of your patient. Will follow patient with you. Please call if any Qs Dr Ayo Taylor Office: [phone] Subjective: Noted events overnight. Patients feels okay. Denies chest pain, palpitation, shortness of breath, leg swelling. All other negative Physical Examination: General Appearance: Comfortable, in no acute respiratory distress, co-operative . Vitals reviewed and noted as below Head; Atraumatic, normocephalic ENT: no ulcers no thrush. Tongue is midline. Oropharynx: no rash or ulcers. EYES: Pupils are equal, round and reactive to light accommodation. Eye muscles and extraocular movement intact. Sclera is anicteric. Neck; supple no lymphadenopathy, no thyromegaly or bruit Lungs: Normal respiratory rate/effort. Breath sounds bilateral equal and clear Heart: Normal rate. s1s2 normal. No rub or gallop. Extremities: no edema. No varicose veins Neurological: Patient is alert, awake and oriented to person, place and time. No focal deficit. Strength bilateral appropriate and equal Skin: Warm and dry. Normal turgor. No rash. Palpitation: Normal elasticity for age Abdomen: Abdomen is soft. Bowel sounds +. There is no abdominal tenderness, no guarding/rigidity no organomegaly Psych: normal insight and normal affect/mood MSK: no joint tenderness or swelling. Digits and nails normal, no deformity : kidney or bladder not palpable Labs/imaging reviewed. Past medical history, past surgical history, family history, social history, allergy reviewed and noted as below Family hx: no hx of CKD. Rest non-contributory Objective - Vital Signs/Intake and Output Vital Signs (last 24 hours): Temp Pulse Resp BP Pulse Ox 98.7 F 84 16 176/75 H 100 12/26/17 16:00 12/26/17 16:12 12/26/17 16:00 12/26/17 16:12 12/26/17 16:00 Intake and Output: 12/26/17 12/26/17 06:59 18:59 Intake Total 600 1350 Output Total 1650 750 Balance -1050 600 - Medications Medications: Current Medications Amlodipine Besylate (Norvasc) 5 mg PO DAILY [facility] Last Admin: 12/26/17 11:48 Dose: 5 mg Artificial Tears (Refresh Opth Soln) 0.2 ml OU Q6 PRN PRN Reason: Dry eyes Last Admin: 12/26/17 16:11 Dose: 1 drop Atorvastatin Calcium (Lipitor) 80 mg PO DAILY [facility] Last Admin: 12/26/17 11:47 Dose: 80 mg Cilostazol (Pletal) 100 mg PO BID [facility] Last Admin: 12/26/17 16:10 Dose: 100 mg Clopidogrel Bisulfate (Plavix) 75 mg PO DAILY [facility] Ferrous Gluconate (Fergon) 324 mg PO TID [facility] Last Admin: 12/26/17 16:09 Dose: 324 mg Hydralazine HCl (Apresoline) 25 mg PO Q8 [facility] Last Admin: 12/26/17 16:09 Dose: 25 mg Insulin Human Lispro (Humalog) 0 units SC ACHS [facility] PRN Reason: Protocol Last Admin: 12/26/17 16:09 Dose: 2 units Metoprolol Tartrate (Lopressor) 25 mg PO Q6 [facility] Last Admin: 12/26/17 16:12 Dose: 25 mg Morphine Sulfate (Morphine) 2 mg IVP Q4 PRN PRN Reason: Pain, severe (8-10) Last Admin: 12/26/17 05:00 Dose: 2 mg Morphine Sulfate (Morphine) 1 mg IVP Q4 PRN PRN Reason: Pain, moderate (4-7) Pantoprazole Sodium (Protonix Inj) 40 mg IVP DAILY [facility] Last Admin: 12/26/17 11:49 Dose: 40 mg Vitamin B Complex/Vit C/Folic Acid (Nephro-Catrachito) 1 tab PO DAILY [facility] Last Admin: 12/26/17 16:16 Dose: 1 tab - Labs Labs: 12/26/17 04:40 12/26/17 04:40 PT 10.8 Seconds (9.8-13.1) 12/26/17 04:40 INR 1.0 12/26/17 04:40 APTT 29.8 Seconds (25.6-37.1) 12/26/17 04:40
[2017-12-27 05:32] LABS: HEMOGLOBIN 9.2 g/dL (12.0-16.0); MEAN CELL VOLUME 81.8 fl (81.0-99.0); RBC 3.4 Mil/uL (3.80-5.20); RED CELL DISTRIBUTION WIDTH 20.6 % (11.5-14.5); WHITE BLOOD COUNT 9.9 K/uL (4.8-10.8)
[2017-12-27 05:46] LABS: CALCIUM 8.7 mg/dL (8.4-10.2)
[2017-12-27] MEDS: Insulin Lispro (humaLOG) 100 Units/ml Inj SC SCH ×4 (06:34→21:42)
--- NOTE | 2017-12-27 08:13 | CP.PCM.PN ---
Subjective - Date & Time of Evaluation Date of Evaluation: 12/27/17 Time of Evaluation: 07:30 - Subjective Subjective: Patient seen and examined at bedside comfortable. Mild pain to right shoulder, controlled with medication. Tolerated pacemaker procedure well yesterday. No acute events overnight. Objective - Vital Signs/Intake and Output Vital Signs (last 24 hours): Temp Pulse Resp BP Pulse Ox 99.1 F 61 15 135/56 L 100 12/27/17 08:00 12/27/17 08:00 12/27/17 08:00 12/27/17 08:00 12/27/17 08:00 Intake and Output: 12/27/17 12/27/17 06:59 18:59 Intake Total 170 Output Total 1000 Balance -830 - Medications Medications: Current Medications Amlodipine Besylate (Norvasc) 5 mg PO DAILY [facility] Last Admin: 12/26/17 11:48 Dose: 5 mg Artificial Tears (Refresh Opth Soln) 0.2 ml OU Q6 PRN PRN Reason: Dry eyes Last Admin: 12/26/17 16:11 Dose: 1 drop Atorvastatin Calcium (Lipitor) 80 mg PO DAILY [facility] Last Admin: 12/26/17 11:47 Dose: 80 mg Cilostazol (Pletal) 100 mg PO BID [facility] Last Admin: 12/26/17 16:10 Dose: 100 mg Clopidogrel Bisulfate (Plavix) 75 mg PO DAILY [facility] Ferrous Gluconate (Fergon) 324 mg PO TID [facility] Last Admin: 12/26/17 16:09 Dose: 324 mg Hydralazine HCl (Apresoline) 25 mg PO Q8 [facility] Last Admin: 12/27/17 01:31 Dose: 25 mg Hydralazine HCl (Apresoline) 10 mg IV Q6 PRN PRN Reason: htn Insulin Human Lispro (Humalog) 0 units SC ACHS [facility] PRN Reason: Protocol Last Admin: 12/27/17 06:34 Dose: 2 units Metoprolol Tartrate (Lopressor) 25 mg PO Q6 [facility] Last Admin: 12/27/17 04:31 Dose: 25 mg Morphine Sulfate (Morphine) 2 mg IVP Q4 PRN PRN Reason: Pain, severe (8-10) Last Admin: 12/27/17 04:30 Dose: 2 mg Morphine Sulfate (Morphine) 1 mg IVP Q4 PRN PRN Reason: Pain, moderate (4-7) Last Admin: 12/26/17 19:53 Dose: 1 mg Pantoprazole Sodium (Protonix Inj) 40 mg IVP DAILY [facility] Last Admin: 12/26/17 11:49 Dose: 40 mg Vitamin B Complex/Vit C/Folic Acid (Nephro-Catrachito) 1 tab PO DAILY [facility] Last Admin: 12/26/17 16:16 Dose: 1 tab - Labs Labs: 12/27/17 04:30 12/27/17 04:30 PT 10.8 Seconds (9.8-13.1) 12/26/17 04:40 INR 1.0 12/26/17 04:40 APTT 29.8 Seconds (25.6-37.1) 12/26/17 04:40 - Extremities Exam Additional comments: RUE: sling intact mild shoulder swelling, diffuse shoulder tenderness sensation intact MN/UN/RN motor intact MN/UN/RN radial pulse intact Assessment and Plan (1) Proximal humeral fracture Assessment & Plan: Patient is a 77 y/o female with comminuted proximal humerus fx -CT R shoulder -awaiting medical clearance -Keep immobilized in sling -will continue follow -above d/w Dr. Castaneda in agreement Status: Acute
[2017-12-27] MEDS: Multivitamin Vitamin B Complex (Nephro-Vite) Tab PO SCH (08:21)
[2017-12-27] MEDS: Cilostazol 100 mg Tab UD PO SCH ×2 (08:22→16:26)
--- NOTE | 2017-12-27 10:15 | CP.PCM.PN ---
Subjective - Date & Time of Evaluation Date of Evaluation: 12/26/17 Time of Evaluation: 15:25 - Subjective Subjective: patient still with elevated BP Has no fever. Objective - Vital Signs/Intake and Output Vital Signs (last 24 hours): Temp Pulse Resp BP Pulse Ox 99.1 F 62 15 135/56 L 100 12/27/17 08:00 12/27/17 08:22 12/27/17 08:00 12/27/17 08:22 12/27/17 08:00 Intake and Output: 12/27/17 12/27/17 06:59 18:59 Intake Total 170 Output Total 1000 Balance -830 - Medications Medications: Current Medications Amlodipine Besylate (Norvasc) 5 mg PO DAILY [facility] Last Admin: 12/27/17 08:22 Dose: 5 mg Artificial Tears (Refresh Opth Soln) 0.2 ml OU Q6 PRN PRN Reason: Dry eyes Last Admin: 12/26/17 16:11 Dose: 1 drop Atorvastatin Calcium (Lipitor) 80 mg PO DAILY [facility] Last Admin: 12/27/17 08:22 Dose: 80 mg Cilostazol (Pletal) 100 mg PO BID [facility] Last Admin: 12/27/17 08:22 Dose: 100 mg Clopidogrel Bisulfate (Plavix) 75 mg PO DAILY [facility] Ferrous Gluconate (Fergon) 324 mg PO TID [facility] Last Admin: 12/27/17 08:22 Dose: 324 mg Hydralazine HCl (Apresoline) 10 mg IV Q6 PRN PRN Reason: htn Hydralazine HCl (Apresoline) 10 mg PO Q8 [facility] Insulin Human Lispro (Humalog) 0 units SC ACHS [facility] PRN Reason: Protocol Last Admin: 12/27/17 06:34 Dose: 2 units Metoprolol Tartrate (Lopressor) 25 mg PO Q6 [facility] Last Admin: 12/27/17 04:31 Dose: 25 mg Morphine Sulfate (Morphine) 2 mg IVP Q4 PRN PRN Reason: Pain, severe (8-10) Last Admin: 12/27/17 04:30 Dose: 2 mg Morphine Sulfate (Morphine) 1 mg IVP Q4 PRN PRN Reason: Pain, moderate (4-7) Last Admin: 12/26/17 19:53 Dose: 1 mg Pantoprazole Sodium (Protonix Inj) 40 mg IVP DAILY [facility] Last Admin: 12/27/17 08:21 Dose: 40 mg Vitamin B Complex/Vit C/Folic Acid (Nephro-Catrachito) 1 tab PO DAILY [facility] Last Admin: 12/27/17 08:21 Dose: 1 tab - Labs Labs: 12/27/17 04:30 12/27/17 04:30 PT 10.8 Seconds (9.8-13.1) 12/26/17 04:40 INR 1.0 12/26/17 04:40 APTT 29.8 Seconds (25.6-37.1) 12/26/17 04:40 - Head Exam Head Exam: NORMAL INSPECTION - Eye Exam Eye Exam: Normal appearance - ENT Exam ENT Exam: Mucous Membranes Moist - Respiratory Exam Respiratory Exam: Clear to Ausculation Bilateral - Cardiovascular Exam Cardiovascular Exam: REGULAR RHYTHM - Neurological Exam Neurological Exam: Awake, Oriented x3 Assessment and Plan (1) Cardiac arrhythmia Status: Acute (2) Bradycardia Status: Acute (3) Fracture, humerus Status: Acute (4) Hyperkalemia Status: Acute (5) CKD (chronic kidney disease) stage 4, GFR 15-29 ml/min Status: Acute - Assessment and Plan (Free Text) Plan: Cont meds Cont tx hydralazine tid cont tx.
--- NOTE | 2017-12-27 10:18 | CP.PCM.PN ---
Subjective - Date & Time of Evaluation Date of Evaluation: 12/27/17 Time of Evaluation: 10:15 - Subjective Subjective: Patient is noted too have some dizziness. Noted BP to be 110/70 On amlodipine 5 mg hydralazine 25 tid and metoprool. Has no headaches. Objective - Vital Signs/Intake and Output Vital Signs (last 24 hours): Temp Pulse Resp BP Pulse Ox 99.1 F 62 15 135/56 L 100 12/27/17 08:00 12/27/17 08:22 12/27/17 08:00 12/27/17 08:22 12/27/17 08:00 Intake and Output: 12/27/17 12/27/17 06:59 18:59 Intake Total 170 Output Total 1000 Balance -830 - Medications Medications: Current Medications Amlodipine Besylate (Norvasc) 5 mg PO DAILY [facility] Last Admin: 12/27/17 08:22 Dose: 5 mg Artificial Tears (Refresh Opth Soln) 0.2 ml OU Q6 PRN PRN Reason: Dry eyes Last Admin: 12/26/17 16:11 Dose: 1 drop Atorvastatin Calcium (Lipitor) 80 mg PO DAILY [facility] Last Admin: 12/27/17 08:22 Dose: 80 mg Cilostazol (Pletal) 100 mg PO BID [facility] Last Admin: 12/27/17 08:22 Dose: 100 mg Clopidogrel Bisulfate (Plavix) 75 mg PO DAILY [facility] Ferrous Gluconate (Fergon) 324 mg PO TID [facility] Last Admin: 12/27/17 08:22 Dose: 324 mg Hydralazine HCl (Apresoline) 10 mg IV Q6 PRN PRN Reason: htn Hydralazine HCl (Apresoline) 10 mg PO Q8 [facility] Insulin Human Lispro (Humalog) 0 units SC ACHS [facility] PRN Reason: Protocol Last Admin: 12/27/17 06:34 Dose: 2 units Metoprolol Tartrate (Lopressor) 25 mg PO Q6 [facility] Last Admin: 12/27/17 04:31 Dose: 25 mg Morphine Sulfate (Morphine) 2 mg IVP Q4 PRN PRN Reason: Pain, severe (8-10) Last Admin: 12/27/17 04:30 Dose: 2 mg Morphine Sulfate (Morphine) 1 mg IVP Q4 PRN PRN Reason: Pain, moderate (4-7) Last Admin: 12/26/17 19:53 Dose: 1 mg Pantoprazole Sodium (Protonix Inj) 40 mg IVP DAILY [facility] Last Admin: 12/27/17 08:21 Dose: 40 mg Vitamin B Complex/Vit C/Folic Acid (Nephro-Catrachito) 1 tab PO DAILY [facility] Last Admin: 12/27/17 08:21 Dose: 1 tab - Labs Labs: 12/27/17 04:30 12/27/17 04:30 PT 10.8 Seconds (9.8-13.1) 12/26/17 04:40 INR 1.0 12/26/17 04:40 APTT 29.8 Seconds (25.6-37.1) 12/26/17 04:40 - Head Exam Head Exam: NORMAL INSPECTION - Eye Exam Eye Exam: Normal appearance - ENT Exam ENT Exam: Mucous Membranes Moist - Respiratory Exam Respiratory Exam: Clear to Ausculation Bilateral - Cardiovascular Exam Cardiovascular Exam: REGULAR RHYTHM - GI/Abdominal Exam GI & Abdominal Exam: Normal Bowel Sounds - Neurological Exam Neurological Exam: Awake, Oriented x3 Assessment and Plan (1) Cardiac arrhythmia Status: Acute (2) Bradycardia Status: Acute (3) Fracture, humerus Status: Acute (4) Hyperkalemia Status: Acute (5) CKD (chronic kidney disease) stage 4, GFR 15-29 ml/min Status: Acute - Assessment and Plan (Free Text) Plan: Cont meds Cont tx Cont PT decerase hydralazine to 10 mg tid prn keep amlodipine and metoprolol Transfer to telemetry.
[2017-12-27] MEDS: Lubricant Eye Drops UD OU PRN (12:21)
--- NOTE | 2017-12-27 13:11 | PQF ---
PROVIDER RESPONSE TEXT: Diabetes with renal and hyperglycemic manifestations REVIEWER QUERY TEXT: Diabetic Associated Manifestations Please specify any manifestations associated / due to diabetes Such as: -- Diabetes with Hyperglycemia --Diabetes with Hypoglycemia -- Diabetes with renal manifestation -- Diabetes with neurologic manifestation -- Diabetes with ophthalmic manifestation -- Diabetes with peripheral circulatory manifestation -- Other, please specify The patient's Clinical Indicators include: Documentation of a history of DM II. Glucose runnin-- 268. Accuchecks with insulin coverage Query created by: Rosalva Gibbons on 12/26/2017 9:33 AM Electronically signed by: Rubén Garcia MD 12/27/2017 1:08 PM
--- NOTE | 2017-12-27 15:15 | PN ---
Copied To: Willi Ryder MD Attending MD: Willi Ryder MD DATE: 12/27/2017 CRITICAL CARE PROGRESS NOTE LOCATION: The patient is in ICU, bed 422. TIME SPENT: 35 minutes. SUBJECTIVE: The patient is seen and evaluated at the bedside. Case discussed in multidisciplinary a.m. rounds in ICU overnight status post permanent pacemaker insertion. Past medical, surgical, social, and family history are reviewed. A 77-year-old female with diabetes mellitus type 2, hypertension, coronary artery disease, status post coronary artery bypass graft surgery, admitted on 12/24/2017, status post fall at home, sustained comminuted fracture in right arm humerus, hyperkalemia, renal insufficiency, noted to have wide QRS complex and bradycardia. This morning, alert, awake, follows commands appropriate. Complaining of feeling dizzy. No pain in the chest. No palpitation. No abdominal pain or diarrhea. The patient is seen by [employer] and permanent pacemaker interrogated and within normal range. PHYSICAL EXAMINATION: VITAL SIGNS: Temperature 99.1, heart rate 62 and regular, blood pressure 135/56, respiratory rate 15 to 18, thoracoabdominal saturation 100% on oxygen supplement two liters nasal cannula. Intake 1520, output 1815, negative balance 330. Weight 105 pounds. HEAD, EYES, EARS, NOSE, AND THROAT: Pupils are reactive. Conjunctivae pink. Sclerae white. NECK: Supple. Pacemaker insertion site clean without drainage. Right arm in sling. Radialis pulse palpable. CHEST: Bilateral breath sounds. No subcutaneous emphysema. Clear to auscultation anteriorly and laterally. HEART: Rhythm regular. S1 and S2 normal in intensity. No S3, S4 or gallop. No audible murmur. ABDOMEN: Bowel sounds present. Soft. Liver and spleen not palpable. Abdomen nondistended. EXTREMITIES: As noted in sling. NEUROLOGIC: Nonfocal. PSYCHIATRIC: Normal affect. CURRENT MEDICATIONS: Include amlodipine 5 mg p.o. daily, artificial tears 0.2 mL both eyes every six hours p.r.n., Lipitor 80 mg p.o. daily, Pletal 100 mg b.i.d., Plavix 75 mg p.o. daily, ferrous gluconate 324 mg p.o. three times daily, hydralazine 25 mg p.o. every eight hours, Accu-Chek with Humalog coverage before meals and at bedtime, Lopressor 25 mg p.o. every six hours, morphine 2 mg IV every four hours p.r.n. for severe pain, Protonix 40 IV daily, Nephro-Catrachito one tablet p.o. daily. LABORATORY DATA: WBC 9.9, hemoglobin 9.2, hematocrit 27.8, platelet count of 260. PT 10.8, INR 1, PTT 29.8, serum lactate 2.9. SMA-7: Sodium 135, potassium 4.1, chloride 101, CO2 of 24 with normal anion gap, BUN 32, creatinine 2, random glucose 189, INR 16, TIBC 309, percentage iron saturation low_, ferritin 38.3. Urinalysis negative. Serology: C. diff antigen positive, toxin negative. MICROBIOLOGY DATA: Nasal smear MRSA negative. X-ray of clavicle, elbow, scapula unremarkable. X-ray of the humerus was displaced comminuted fracture. CT head negative. Chest x-ray, mild pulmonary vascular congestion. IMPRESSION AND PLAN: 1. Neurologic: Alert, awake, follows commands appropriate. 2. Pulmonary: No acute issues noted. 3. Orthopedic: Displaced comminuted fracture, right humerus. 4. Cardiac: Status post permanent pacemaker insertion. Possible sick sinus syndrome. History of coronary artery bypass graft surgery. Hypertension. Continue hydralazine 10 mg p.o. every eight hours. Hold Plavix until repair, open reduction and internal fixation of right humerus is completed. Amlodipine 5 mg p.o. daily, Lipitor 80 mg p.o. daily. 5. Gastrointestinal: Abnormal liver function test, unclear, trending down. Follow the course. 6. Renal: Status post hydration, renal function improved. Renal ultrasound negative. Possible chronic kidney disease. Appreciate Nephrology output. We would obtain renal evaluation prior to open reduction and internal fixation of right humerus. 7. Endocrine: History of diabetes mellitus type 2, on Accu-Chek with regular insulin coverage. Follow thyroid-stimulating hormone, T3, and T4. 8. Psychiatric: Normal affect. 9. Infectious disease: Nasal smear methicillin-resistant Staphylococcus aureus negative. Serology shows positive Clostridium difficile antigen, but negative toxin. No further diarrhea noted. Continue deep vein thrombosis and gastrointestinal prophylaxis. Willi Ryder MD [facility] # [id number]
--- NOTE | 2017-12-27 19:24 | PN ---
Copied To: Wei Arellano MD Attending MD: Wei Arellano MD DATE: 12/27/2017 SUBJECTIVE: The patient denies any chest pain or shortness of breath at this time. The patient required a single dose of hydralazine 10 mg IV for uncontrolled hypertension. PHYSICAL EXAMINATION VITAL SIGNS: Blood pressure 132/54, heart rate 72, temperature 98.3, and respirations 14. HEENT: Mild conjunctival pallor. NECK: No JVD. CHEST: Clear. HEART: S1 and S2 regular. ABDOMEN: Soft. EXTREMITIES: No edema. LABORATORY DATA: Today's SMA-7; sodium 135, potassium 4.1, chloride 101, CO2 of 24, glucose 181, BUN 32, and creatinine 2. Today's hemoglobin and hematocrit 9.2 and 27.8. White count and platelet count are within normal limits. Official echocardiographic study report revealed mild mitral insufficiency, moderate pulmonary hypertension, dilated left atrium, and normal ejection fraction. Today's calcium level is 8.7. ASSESSMENT: 1. Status post fall. 2. Symptomatic bradycardia, status post dual-chamber pacemaker placement. 3. Chronic renal insufficiency. 4. Coronary artery disease, status post coronary artery bypass surgery. 5. Mild anemia. 6. Improved hypercalcemia. RECOMMENDATIONS: Continue current hydralazine 10 mg every 8 hours, ferrous gluconate 325 mg t.i.d., iron sucrose infusion, Lipitor 8 mg once a day, Lopressor 25 mg every 6 hours, Norvasc 5 mg once a day, Plavix 75 mg once a day, and Pletal 100 mg twice a day. I will follow CT scan of the right upper extremity; however, the patient can undergo ortho surgery if needed with acceptable cardiac risks. Wei Arellano MD
--- NOTE | 2017-12-27 20:35 | CP.PCM.PN ---
Subjective - Date & Time of Evaluation Date of Evaluation: 12/27/17 Time of Evaluation: 20:31 - Subjective Subjective: Nephrology Consultation Note Assessment: Stable Acute Kidney Injury (N17.9) improved hyperkalemia, bradycardia, left humeral fracture Diabetic chronic Kidney Disease (E11.22) Hypertensive Chronic Kidney Disease (I12.9) Chronic Kidney Disease (N18.4) Stage 4 with ? mg proteinuria (R80.9) likely due to DM/HTN Anemia (D64.9), HTN (I12.9) Plan No acute need for renal replacement therapy at this time. renal function stable lytes ok anemia iron low, will start iv irong Hypertension control with meds as ordered. Maintain hemodynamics stable. Avoid hypotension. Patient not on ACEI/ARB due to recent CORDELIA and hyperkalemia. Physical Examination: General Appearance: Comfortable, in no acute respiratory distress, co-operative . Vitals reviewed Head; Atraumatic, normocephalic ENT: no ulcers no thrush. h or ulcers. EYES: Eye muscles and extraocular movement intact. Sclera is anicteric. Neck; supple no jvd Lungs: Normal respiratory rate/effort. Breath sounds bilateral equal and clear Heart: Normal rate. s1s2 normal. No rub or gallop. Extremities: no edema. Neurological: Patient is alert, awake and oriented to person, place and time. No focal deficit. Strength bilateral appropriate and equal Skin: Warm and dry. Normal turgor. Abdomen: Abdomen is soft. Bowel sounds +. There is no abdominal tenderness, no guarding/rigidity no organomegaly Psych: normal insight and normal affect/mood MSK: no joint tenderness Objective - Vital Signs/Intake and Output Vital Signs (last 24 hours): Temp Pulse Resp BP Pulse Ox 99.1 F 62 25 H 141/52 L 100 12/27/17 16:00 12/27/17 19:58 12/27/17 19:58 12/27/17 19:58 12/27/17 19:58 Intake and Output: 12/27/17 12/28/17 18:59 06:59 Intake Total 430 230 Output Total 650 100 Balance -220 130 - Medications Medications: Current Medications Amlodipine Besylate (Norvasc) 5 mg PO DAILY [facility] Last Admin: 12/27/17 08:22 Dose: 5 mg Artificial Tears (Refresh Opth Soln) 0.2 ml OU Q6 PRN PRN Reason: Dry eyes Last Admin: 12/27/17 12:21 Dose: 1 drop Atorvastatin Calcium (Lipitor) 80 mg PO DAILY [facility] Last Admin: 12/27/17 08:22 Dose: 80 mg Cilostazol (Pletal) 100 mg PO BID [facility] Last Admin: 12/27/17 16:26 Dose: 100 mg Clopidogrel Bisulfate (Plavix) 75 mg PO DAILY [facility] Ferrous Gluconate (Fergon) 324 mg PO TID [facility] Last Admin: 12/27/17 16:26 Dose: 324 mg Hydralazine HCl (Apresoline) 10 mg IV Q6 PRN PRN Reason: htn Hydralazine HCl (Apresoline) 10 mg PO Q8 [facility] Last Admin: 12/27/17 16:26 Dose: 10 mg Iron Sucrose 200 mg/ Sodium (Chloride) 110 mls @ 110 mls/hr IVPB DAILY [facility] Insulin Human Lispro (Humalog) 0 units SC ACHS [facility] PRN Reason: Protocol Last Admin: 12/27/17 17:03 Dose: 3 units Metoprolol Tartrate (Lopressor) 25 mg PO Q6 [facility] Last Admin: 12/27/17 16:27 Dose: 25 mg Morphine Sulfate (Morphine) 2 mg IVP Q4 PRN PRN Reason: Pain, severe (8-10) Last Admin: 12/27/17 04:30 Dose: 2 mg Morphine Sulfate (Morphine) 1 mg IVP Q4 PRN PRN Reason: Pain, moderate (4-7) Last Admin: 12/26/17 19:53 Dose: 1 mg Morphine Sulfate (Morphine) 1 mg IVP Q4 PRN PRN Reason: Pain, moderate (4-7) Pantoprazole Sodium (Protonix Inj) 40 mg IVP DAILY [facility] Last Admin: 12/27/17 08:21 Dose: 40 mg Vitamin B Complex/Vit C/Folic Acid (Nephro-Catrachito) 1 tab PO DAILY [facility] Last Admin: 12/27/17 08:21 Dose: 1 tab - Labs Labs: 12/27/17 04:30 12/27/17 04:30 PT 10.8 Seconds (9.8-13.1) 12/26/17 04:40 INR 1.0 12/26/17 04:40 APTT 29.8 Seconds (25.6-37.1) 12/26/17 04:40
[2017-12-28 05:49] LABS: HEMOGLOBIN 8.7 g/dL (12.0-16.0); MEAN CELL VOLUME 81.8 fl (81.0-99.0); MEAN CORPUSCULAR HEMOGLOBIN 27.3 pg (27.0-31.0); MEAN CORPUSCULAR HGB CONC 33.4 g/dL (33.0-37.0); RBC 3.18 Mil/uL (3.80-5.20); RED CELL DISTRIBUTION WIDTH 20.4 % (11.5-14.5); WHITE BLOOD COUNT 9.1 K/uL (4.8-10.8)
[2017-12-28 05:56] LABS: CALCIUM 8.1 mg/dL (8.4-10.2)
[2017-12-28] MEDS: Insulin Lispro (humaLOG) 100 Units/ml Inj SC SCH ×4 (06:52→22:00)
--- NOTE | 2017-12-28 08:11 | CP.PCM.PN ---
Subjective - Date & Time of Evaluation Date of Evaluation: 12/28/17 Time of Evaluation: 08:00 - Subjective Subjective: Patient seen and examined at bedside. Patient seems agitated this AM stating will take her home today. No acute events overnight. Awaiting transfer to telemetry. Objective - Vital Signs/Intake and Output Vital Signs (last 24 hours): Temp Pulse Resp BP Pulse Ox 98.3 F 70 16 161/81 H 100 12/28/17 04:00 12/28/17 06:00 12/28/17 06:00 12/28/17 06:00 12/28/17 06:00 Intake and Output: 12/28/17 12/28/17 06:59 18:59 Intake Total 900 Output Total 1400 Balance -500 - Medications Medications: Current Medications Amlodipine Besylate (Norvasc) 5 mg PO DAILY [facility] Last Admin: 12/27/17 08:22 Dose: 5 mg Artificial Tears (Refresh Opth Soln) 0.2 ml OU Q6 PRN PRN Reason: Dry eyes Last Admin: 12/27/17 12:21 Dose: 1 drop Atorvastatin Calcium (Lipitor) 80 mg PO DAILY [facility] Last Admin: 12/27/17 08:22 Dose: 80 mg Cilostazol (Pletal) 100 mg PO BID [facility] Last Admin: 12/27/17 16:26 Dose: 100 mg Clopidogrel Bisulfate (Plavix) 75 mg PO DAILY [facility] Ferrous Gluconate (Fergon) 324 mg PO TID [facility] Last Admin: 12/27/17 16:26 Dose: 324 mg Glipizide (Glucotrol Xl) 10 mg PO BRK [facility] Heparin Sodium (Porcine) (Heparin) 5,000 units SC Q8 [facility] PRN Reason: Protocol Last Admin: 12/28/17 00:33 Dose: 5,000 units Hydralazine HCl (Apresoline) 10 mg IV Q6 PRN PRN Reason: htn Hydralazine HCl (Apresoline) 10 mg PO Q8 [facility] Last Admin: 12/28/17 00:26 Dose: 10 mg Iron Sucrose 200 mg/ Sodium (Chloride) 110 mls @ 110 mls/hr IVPB DAILY [facility] Insulin Human Lispro (Humalog) 0 units SC ACHS [facility] PRN Reason: Protocol Last Admin: 12/28/17 06:52 Dose: 2 units Metoprolol Tartrate (Lopressor) 25 mg PO Q6 [facility] Last Admin: 12/28/17 04:13 Dose: 25 mg Morphine Sulfate (Morphine) 1 mg IVP Q4 PRN PRN Reason: Pain, moderate (4-7) Pantoprazole Sodium (Protonix Inj) 40 mg IVP DAILY [facility] Last Admin: 12/27/17 08:21 Dose: 40 mg Vitamin B Complex/Vit C/Folic Acid (Nephro-Catrachito) 1 tab PO DAILY [facility] Last Admin: 12/27/17 08:21 Dose: 1 tab - Labs Labs: 12/28/17 04:30 12/28/17 04:30 PT 10.8 Seconds (9.8-13.1) 12/26/17 04:40 INR 1.0 12/26/17 04:40 APTT 29.8 Seconds (25.6-37.1) 12/26/17 04:40 - Extremities Exam Additional comments: RUE: sling intact mild shoulder swelling, diffuse shoulder tenderness sensation intact MN/UN/RN motor intact MN/UN/RN radial pulse intact Assessment and Plan (1) Proximal humeral fracture Assessment & Plan: Patient is a 77 y/o female with comminuted proximal humerus fx -cardiac and renal clearance obtained -awaiting medical clearance, decreased Na and HGB, will receive 2 units PRBC's today -Keep immobilized in sling -plan for R reverse TSR vs proximal humerus fx ORIF tomorrow pending clearance -NPO pMN -above d/w Dr. Castaneda in agreement Status: Acute
[2017-12-28] MEDS: GlipiZIDE 10 mg SR Tab PO SCH (08:55)
[2017-12-28] MEDS: Cilostazol 100 mg Tab UD PO SCH (08:56)
[2017-12-28] MEDS: Multivitamin Vitamin B Complex (Nephro-Vite) Tab PO SCH (08:58)
--- NOTE | 2017-12-28 09:41 | CP.PCM.PN ---
Subjective - Date & Time of Evaluation Date of Evaluation: 12/28/17 Time of Evaluation: 09:39 - Subjective Subjective: Nephrology Consultation Note Assessment: Stable Acute Kidney Injury (N17.9) improved hyperkalemia, bradycardia, left humeral fracture Diabetic chronic Kidney Disease (E11.22) Hypertensive Chronic Kidney Disease (I12.9) Chronic Kidney Disease (N18.4) Stage 4 with ? mg proteinuria (R80.9) likely due to DM/HTN Anemia (D64.9), HTN (I12.9) agitation Plan No acute need for renal replacement therapy at this time. renal function stable likely her baseline k remains well controlled anemia - continue IV Iron will hold oral iron bp stable agitation will defer to primary team S: seen and examined, very agitated Physical Examination: General Appearance: Comfortable, in no acute respiratory distress, co-operative . Vitals reviewed Head; Atraumatic, normocephalic ENT: no ulcers no thrush. EYES: Eye muscles and extraocular movement intact. Sclera is anicteric. Neck; supple no jvd Lungs: Normal respiratory rate/effort. Breath sounds bilateral equal and clear Heart: Normal rate. s1s2 normal. No rub or gallop. Extremities: no edema. Neurological: Patient is alert, awake and oriented to person, place and time. No focal deficit. Skin: Warm and dry. Normal turgor. Abdomen: Abdomen is soft. Bowel sounds +. There is no abdominal tenderness, no guarding/rigidity no organomegaly Psych: very agitated MSK: no joint tenderness Objective - Vital Signs/Intake and Output Vital Signs (last 24 hours): Temp Pulse Resp BP Pulse Ox 99.4 F 71 27 H 151/63 H 100 12/28/17 08:00 12/28/17 08:57 12/28/17 08:00 12/28/17 08:57 12/28/17 08:00 Intake and Output: 12/28/17 12/28/17 06:59 18:59 Intake Total 900 Output Total 1400 Balance -500 - Medications Medications: Current Medications Amlodipine Besylate (Norvasc) 5 mg PO DAILY [facility] Last Admin: 12/28/17 08:57 Dose: 5 mg Artificial Tears (Refresh Opth Soln) 0.2 ml OU Q6 PRN PRN Reason: Dry eyes Last Admin: 12/27/17 12:21 Dose: 1 drop Atorvastatin Calcium (Lipitor) 80 mg PO DAILY [facility] Last Admin: 12/28/17 08:55 Dose: 80 mg Cilostazol (Pletal) 100 mg PO BID [facility] Last Admin: 12/28/17 08:56 Dose: 100 mg Clopidogrel Bisulfate (Plavix) 75 mg PO DAILY [facility] Ferrous Gluconate (Fergon) 324 mg PO TID [facility] Last Admin: 12/28/17 08:57 Dose: 324 mg Glipizide (Glucotrol Xl) 10 mg PO BRK [facility] Last Admin: 12/28/17 08:55 Dose: 10 mg Heparin Sodium (Porcine) (Heparin) 5,000 units SC Q8 [facility] PRN Reason: Protocol Last Admin: 12/28/17 00:33 Dose: 5,000 units Hydralazine HCl (Apresoline) 10 mg IV Q6 PRN PRN Reason: htn Hydralazine HCl (Apresoline) 10 mg PO Q8 [facility] Last Admin: 12/28/17 08:56 Dose: 10 mg Iron Sucrose 200 mg/ Sodium (Chloride) 110 mls @ 110 mls/hr IVPB DAILY [facility] Insulin Human Lispro (Humalog) 0 units SC ACHS [facility] PRN Reason: Protocol Last Admin: 12/28/17 06:52 Dose: 2 units Lorazepam (Ativan) 1 mg IVP ONCE PRN PRN Reason: Agitation Metoprolol Tartrate (Lopressor) 25 mg PO Q6 [facility] Last Admin: 12/28/17 04:13 Dose: 25 mg Morphine Sulfate (Morphine) 1 mg IVP Q4 PRN PRN Reason: Pain, moderate (4-7) Pantoprazole Sodium (Protonix Inj) 40 mg IVP DAILY [facility] Last Admin: 12/28/17 08:55 Dose: 40 mg Vitamin B Complex/Vit C/Folic Acid (Nephro-Catrachito) 1 tab PO DAILY [facility] Last Admin: 12/28/17 08:58 Dose: 1 tab - Labs Labs: 12/28/17 04:30 12/28/17 04:30 PT 10.8 Seconds (9.8-13.1) 12/26/17 04:40 INR 1.0 12/26/17 04:40 APTT 29.8 Seconds (25.6-37.1) 12/26/17 04:40
--- NOTE | 2017-12-28 12:18 | CP.PCM.PN ---
<Angelito Bradley - Last Filed: 12/28/17 12:11> Subjective - Date & Time of Evaluation Date of Evaluation: 12/28/17 Time of Evaluation: 09:00 - Subjective Subjective: 77 y/o F was evaluated this morning, ~8 am, due to agitation. Pt explained she wanted to go home and wanted to talk to . was reached an reported he will be coming after 10 am. -Pt still c/o of R shoulder and arm pain and inability to move her R arm. Pt afebrile overnight. Hgb is 8.7, needs to be at 10 for optimization of surgery. Consent for blood transfusion obtained and signed by with patient present next to him. Risk and benefits explained, with verbal confirmation of understanding by patient. Objective - Vital Signs/Intake and Output Vital Signs (last 24 hours): Temp Pulse Resp BP Pulse Ox 97.6 F 74 20 158/56 H 96 12/28/17 10:45 12/28/17 10:45 12/28/17 10:45 12/28/17 10:45 12/28/17 10:45 Intake and Output: 12/28/17 12/28/17 06:59 18:59 Intake Total 900 350 Output Total 1400 Balance -500 350 - Medications Medications: Current Medications Amlodipine Besylate (Norvasc) 5 mg PO DAILY [facility] Last Admin: 12/28/17 08:57 Dose: 5 mg Artificial Tears (Refresh Opth Soln) 0.2 ml OU Q6 PRN PRN Reason: Dry eyes Last Admin: 12/27/17 12:21 Dose: 1 drop Atorvastatin Calcium (Lipitor) 80 mg PO DAILY [facility] Last Admin: 12/28/17 08:55 Dose: 80 mg Cilostazol (Pletal) 100 mg PO BID [facility] Last Admin: 12/28/17 08:56 Dose: 100 mg Clopidogrel Bisulfate (Plavix) 75 mg PO DAILY [facility] Glipizide (Glucotrol Xl) 10 mg PO BRK [facility] Last Admin: 12/28/17 08:55 Dose: 10 mg Heparin Sodium (Porcine) (Heparin) 5,000 units SC Q8 [facility] PRN Reason: Protocol Last Admin: 12/28/17 09:43 Dose: Not Given Hydralazine HCl (Apresoline) 10 mg IV Q6 PRN PRN Reason: htn Hydralazine HCl (Apresoline) 10 mg PO Q8 [facility] Last Admin: 12/28/17 08:56 Dose: 10 mg Iron Sucrose 200 mg/ Sodium (Chloride) 110 mls @ 110 mls/hr IVPB DAILY [facility] Last Admin: 12/28/17 09:00 Dose: 110 mls/hr Insulin Human Lispro (Humalog) 0 units SC ACHS [facility] PRN Reason: Protocol Last Admin: 12/28/17 12:03 Dose: 4 units Lorazepam (Ativan) 1 mg IVP ONCE PRN PRN Reason: Agitation Metoprolol Tartrate (Lopressor) 25 mg PO Q6 [facility] Last Admin: 12/28/17 10:05 Dose: 25 mg Morphine Sulfate (Morphine) 1 mg IVP Q4 PRN PRN Reason: Pain, moderate (4-7) Pantoprazole Sodium (Protonix Inj) 40 mg IVP DAILY [facility] Last Admin: 12/28/17 08:55 Dose: 40 mg Vitamin B Complex/Vit C/Folic Acid (Nephro-Catrachito) 1 tab PO DAILY [facility] Last Admin: 12/28/17 08:58 Dose: 1 tab - Labs Labs: 12/28/17 04:30 12/28/17 04:30 PT 10.8 Seconds (9.8-13.1) 12/26/17 04:40 INR 1.0 12/26/17 04:40 APTT 29.8 Seconds (25.6-37.1) 12/26/17 04:40 - Constitutional Appears: No Acute Distress - Head Exam Head Exam: NORMAL INSPECTION - Eye Exam Eye Exam: EOMI - ENT Exam ENT Exam: Mucous Membranes Moist - Neck Exam Neck Exam: Full ROM. absent: Meningismus - Respiratory Exam Respiratory Exam: NORMAL BREATHING PATTERN. absent: Rhonchi, Wheezes - Cardiovascular Exam Cardiovascular Exam: +S1, +S2 - GI/Abdominal Exam GI & Abdominal Exam: Soft. absent: Distended, Guarding, Tenderness - Extremities Exam Additional comments: RUE: Presence of a sling, tender on R shoulder and upper arm, reduced ROM due to pain. SILT. - Neurological Exam Neurological Exam: Alert, Awake, Oriented x3 Assessment and Plan (1) Fracture, humerus Status: Acute (2) Bradycardia Status: Inactive (3) CKD (chronic kidney disease) stage 4, GFR 15-29 ml/min Status: Chronic - Assessment and Plan (Free Text) Assessment: 77 y/o F with a PMhx of DM 2 , HTN , CAD and CABG admitted for management bradycardia, hyperkalemia and right proximal humerus fracture. --Continue with hypertensive management. --Ativan 1mg PRN ordered for agitation. --Pt being optimized for surgical procedure. --2 PRBC's being transfused. --Heparin, Cilostazol adn Plavix on hold for upcoming surgery. --Continue management as ordered. <Rubén Garcia - Last Filed: 12/29/17 16:57> Objective - Vital Signs/Intake and Output Vital Signs (last 24 hours): Temp Pulse Resp BP Pulse Ox 97.8 F 69 20 170/62 H 97 12/29/17 15:37 12/29/17 16:55 12/29/17 15:37 12/29/17 16:55 12/29/17 15:37 Intake and Output: 12/29/17 12/29/17 06:59 18:59 Intake Total 1700 Balance 1700 - Medications Medications: Current Medications Amlodipine Besylate (Norvasc) 10 mg PO DAILY [facility] Artificial Tears (Refresh Opth Soln) 0.2 ml OU Q6 PRN PRN Reason: Dry eyes Last Admin: 12/27/17 12:21 Dose: 1 drop Atorvastatin Calcium (Lipitor) 80 mg PO DAILY [facility] Last Admin: 12/29/17 08:13 Dose: Not Given Cilostazol (Pletal) 100 mg PO BID [facility] Last Admin: 12/28/17 08:56 Dose: 100 mg Clopidogrel Bisulfate (Plavix) 75 mg PO DAILY [facility] Glipizide (Glucotrol Xl) 10 mg PO BRK [facility] Last Admin: 12/29/17 08:13 Dose: Not Given Heparin Sodium (Porcine) (Heparin) 5,000 units SC Q8 [facility] PRN Reason: Protocol Last Admin: 12/29/17 09:03 Dose: Not Given Hydralazine HCl (Apresoline) 10 mg IV Q6 PRN PRN Reason: htn Last Admin: 12/29/17 08:09 Dose: 10 mg Hydralazine HCl (Apresoline) 10 mg PO Q8 [facility] Last Admin: 12/29/17 16:55 Dose: 10 mg Iron Sucrose 200 mg/ Sodium (Chloride) 110 mls @ 110 mls/hr IVPB DAILY [facility] Last Admin: 12/29/17 12:32 Dose: 110 mls/hr Sodium Chloride (Sodium Chloride 0.9%) 1,000 mls @ 60 mls/hr IV .[id number] [facility] Stop: 12/30/17 06:24 Last Admin: 12/29/17 06:52 Dose: 60 mls/hr Insulin Human Lispro (Humalog) 0 units SC ACHS [facility] PRN Reason: Protocol Last Admin: 12/29/17 12:26 Dose: Not Given Lorazepam (Ativan) 1 mg IVP ONCE PRN PRN Reason: Agitation Metoprolol Tartrate (Lopressor) 25 mg PO Q6 [facility] Last Admin: 12/29/17 15:30 Dose: 25 mg Morphine Sulfate (Morphine) 1 mg IVP Q4 PRN PRN Reason: Pain, moderate (4-7) Last Admin: 12/28/17 18:30 Dose: 1 mg Pantoprazole Sodium (Protonix Inj) 40 mg IVP DAILY [facility] Last Admin: 12/29/17 08:13 Dose: 40 mg Vitamin B Complex/Vit C/Folic Acid (Nephro-Catrachito) 1 tab PO DAILY [facility] Last Admin: 12/29/17 08:13 Dose: Not Given - Labs Labs: 12/29/17 07:05 12/29/17 07:05 PT 10.8 Seconds (9.8-13.1) 12/26/17 04:40 INR 1.0 12/26/17 04:40 APTT 29.8 Seconds (25.6-37.1) 12/26/17 04:40 Assessment and Plan (1) Cardiac arrhythmia Status: Acute (2) Bradycardia Status: Inactive (3) Fracture, humerus Status: Acute (4) Hyperkalemia Status: Acute (5) CKD (chronic kidney disease) stage 4, GFR 15-29 ml/min Status: Chronic - Assessment and Plan (Free Text) Plan: I was present during evaluation and discussed with DR Deutsch re plans of care and mgt. Rubén Garcia M.D.
[2017-12-29] MEDS: Insulin Lispro (humaLOG) 100 Units/ml Inj SC SCH ×4 (06:30→21:27)
[2017-12-29] MEDS ORDERED: Sodium Chloride 0.9% 1,000 ML IV SCH (06:30)
[2017-12-29 07:11] LABS: HEMOGLOBIN 12.5 g/dL (12.0-16.0); MEAN CELL VOLUME 83.2 fl (81.0-99.0); MEAN CORPUSCULAR HEMOGLOBIN 27.5 pg (27.0-31.0); MEAN CORPUSCULAR HGB CONC 33.1 g/dL (33.0-37.0); RBC 4.53 Mil/uL (3.80-5.20); RED CELL DISTRIBUTION WIDTH 18.1 % (11.5-14.5); WHITE BLOOD COUNT 9.7 K/uL (4.8-10.8)
[2017-12-29 07:49] LABS: ALB/GLOB RATIO 1.1 (1.0-2.1); ALBUMIN 3.8 g/dL (3.5-5.0); CALCIUM 8.4 mg/dL (8.4-10.2)
[2017-12-29] MEDS: GlipiZIDE 10 mg SR Tab PO SCH (08:13)
[2017-12-29] MEDS: Multivitamin Vitamin B Complex (Nephro-Vite) Tab PO SCH (08:13)
[2017-12-29] MEDS ORDERED: Bacitracin Ointment 30 GM TUBE ONE (11:27)
[2017-12-29] MEDS ORDERED: Thrombin Topical 5,000 Int Units Spray Kit ONE (11:27)
[2017-12-29] MEDS ORDERED: Absorbable Gelatin Sponge Size 12-7 ONE (11:27)
[2017-12-29] MEDS ORDERED: Lidocaine 1% w Epi 1:100,000 Inj ONE (11:28)
[2017-12-29] MEDS ORDERED: EPINEPHrine 1 mg/ml (1:1000) Inj ONE (11:28)
[2017-12-29] MEDS ORDERED: Propofol 10 mg/ml Inj (20 ML) ONE (12:48)
[2017-12-29] MEDS ORDERED: Etomidate 20 mg/10ml Inj IV ONE (12:48)
[2017-12-29] MEDS ORDERED: Succinylcholine 200 mg/10 ml Inj IV ONE (12:48)
[2017-12-29] MEDS ORDERED: Lidocaine 1% 5ml Abboject IV ONE (12:53)
[2017-12-29] MEDS ORDERED: Lidocaine 2% Jelly (5 ml) TOP ONE (12:54)
[2017-12-29] MEDS ORDERED: Ropivacaine 0.5% 30ML IV ONE (12:58)
--- NOTE | 2017-12-29 15:21 | CP.PCM.PN ---
Subjective - Date & Time of Evaluation Date of Evaluation: 12/29/17 Time of Evaluation: 15:19 - Subjective Subjective: Nephrology Consultation Note Assessment: Stable Acute Kidney Injury (N17.9) improved hyperkalemia, bradycardia s/p PPM, left humeral fracture Diabetic chronic Kidney Disease (E11.22) Hypertensive Chronic Kidney Disease (I12.9) Chronic Kidney Disease (N18.4) Stage 4 with ? mg proteinuria (R80.9) likely due to DM/HTN Anemia (D64.9), HTN (I12.9) Plan No acute need for renal replacement therapy at this time. Hypertension control with meds as ordered. Maintain hemodynamics stable. Avoid hypotension. Patient not on ACEI/ARB due to recent CORDELIA and hyperkalemia. Increase norvasc to 10 mg Monitor Input/Output, daily weights and renal function with basic metabolic panel continue with iron supplement and MVI work up as ordered Dose meds/antibiotics for reduced GFR. Avoid fleets enema/magnesium based laxatives. Avoid nephrotoxins/NSAIDs/ iodinated contrast (unless needed emergently) Glycemic control. prefer to avoid metformin at this time due to low GFR Further work up for as per primary team Thanks for allowing me to participate in care of your patient. Will follow patient with you. Please call if any Qs Dr Ayo Taylor Office: [phone] Subjective: Noted events overnight. Patients feels okay. Denies chest pain, palpitation, shortness of breath, leg swelling. overall upset Physical Examination: General Appearance: Comfortable, in no acute respiratory distress, co-operative . Vitals reviewed and noted as below Head; Atraumatic, normocephalic ENT: no ulcers no thrush. Tongue is midline. Oropharynx: no rash or ulcers. EYES: Pupils are equal, round and reactive to light accommodation. Eye muscles and extraocular movement intact. Sclera is anicteric. Neck; supple no lymphadenopathy, no thyromegaly or bruit Lungs: Normal respiratory rate/effort. Breath sounds bilateral equal and clear Heart: Normal rate. s1s2 normal. No rub or gallop. left side PPM + Extremities: no edema. No varicose veins Neurological: Patient is alert, awake and oriented to person, place and time. No focal deficit. Strength bilateral appropriate and equal Skin: Warm and dry. Normal turgor. No rash. Palpitation: Normal elasticity for age Abdomen: Abdomen is soft. Bowel sounds +. There is no abdominal tenderness, no guarding/rigidity no organomegaly Psych: limited insight and upset affect/mood MSK: no joint tenderness or swelling. Digits and nails normal, no deformity : kidney or bladder not palpable Labs/imaging reviewed. Past medical history, past surgical history, family history, social history, allergy reviewed and noted as below Family hx: no hx of CKD. Rest non-contributory Objective - Vital Signs/Intake and Output Vital Signs (last 24 hours): Temp Pulse Resp BP Pulse Ox 98.7 F 70 20 149/69 99 12/29/17 12:00 12/29/17 12:30 12/29/17 12:00 12/29/17 12:30 12/29/17 12:00 Intake and Output: 12/29/17 12/29/17 06:59 18:59 Intake Total 1700 Balance 1700 - Medications Medications: Current Medications Amlodipine Besylate (Norvasc) 10 mg PO DAILY [facility] Artificial Tears (Refresh Opth Soln) 0.2 ml OU Q6 PRN PRN Reason: Dry eyes Last Admin: 12/27/17 12:21 Dose: 1 drop Atorvastatin Calcium (Lipitor) 80 mg PO DAILY [facility] Last Admin: 12/29/17 08:13 Dose: Not Given Cilostazol (Pletal) 100 mg PO BID [facility] Last Admin: 12/28/17 08:56 Dose: 100 mg Clopidogrel Bisulfate (Plavix) 75 mg PO DAILY [facility] Glipizide (Glucotrol Xl) 10 mg PO BRK [facility] Last Admin: 12/29/17 08:13 Dose: Not Given Heparin Sodium (Porcine) (Heparin) 5,000 units SC Q8 [facility] PRN Reason: Protocol Last Admin: 12/29/17 09:03 Dose: Not Given Hydralazine HCl (Apresoline) 10 mg IV Q6 PRN PRN Reason: htn Last Admin: 12/29/17 08:09 Dose: 10 mg Hydralazine HCl (Apresoline) 10 mg PO Q8 [facility] Last Admin: 12/29/17 08:13 Dose: Not Given Iron Sucrose 200 mg/ Sodium (Chloride) 110 mls @ 110 mls/hr IVPB DAILY [facility] Last Admin: 12/29/17 12:32 Dose: 110 mls/hr Sodium Chloride (Sodium Chloride 0.9%) 1,000 mls @ 60 mls/hr IV .[id number] [facility] Stop: 12/30/17 06:24 Last Admin: 12/29/17 06:52 Dose: 60 mls/hr Insulin Human Lispro (Humalog) 0 units SC ACHS [facility] PRN Reason: Protocol Last Admin: 12/29/17 12:26 Dose: Not Given Lorazepam (Ativan) 1 mg IVP ONCE PRN PRN Reason: Agitation Metoprolol Tartrate (Lopressor) 25 mg PO Q6 [facility] Last Admin: 12/29/17 12:30 Dose: 25 mg Morphine Sulfate (Morphine) 1 mg IVP Q4 PRN PRN Reason: Pain, moderate (4-7) Last Admin: 12/28/17 18:30 Dose: 1 mg Pantoprazole Sodium (Protonix Inj) 40 mg IVP DAILY [facility] Last Admin: 12/29/17 08:13 Dose: 40 mg Vitamin B Complex/Vit C/Folic Acid (Nephro-Catrachito) 1 tab PO DAILY [facility] Last Admin: 12/29/17 08:13 Dose: Not Given - Labs Labs: 12/29/17 07:05 12/29/17 07:05 PT 10.8 Seconds (9.8-13.1) 12/26/17 04:40 INR 1.0 12/26/17 04:40 APTT 29.8 Seconds (25.6-37.1) 12/26/17 04:40
--- NOTE | 2017-12-29 17:01 | CP.PCM.PN ---
Subjective - Date & Time of Evaluation Date of Evaluation: 12/29/17 Time of Evaluation: 13:20 - Subjective Subjective: patient remains stable Had two units of BT Hgb is more than 11. Medically stable for surgery. Objective - Vital Signs/Intake and Output Vital Signs (last 24 hours): Temp Pulse Resp BP Pulse Ox 97.8 F 69 20 170/62 H 97 12/29/17 15:37 12/29/17 16:55 12/29/17 15:37 12/29/17 16:55 12/29/17 15:37 Intake and Output: 12/29/17 12/29/17 06:59 18:59 Intake Total 1700 Balance 1700 - Medications Medications: Current Medications Amlodipine Besylate (Norvasc) 10 mg PO DAILY [facility]S [facility] Artificial Tears (Refresh Opth Soln) 0.2 ml OU Q6 PRN PRN Reason: Dry eyes Last Admin: 12/27/17 12:21 Dose: 1 drop Atorvastatin Calcium (Lipitor) 80 mg PO DAILY [facility] 234 [facility]S AT [facility] Last Admin: 12/29/17 08:13 Dose: Not Given Cilostazol (Pletal) 100 mg PO BID [facility] 234 BEDS AT [facility] Last Admin: 12/28/17 08:56 Dose: 100 mg Clopidogrel Bisulfate (Plavix) 75 mg PO DAILY [facility] 234 BEDS AT [facility] Glipizide (Glucotrol Xl) 10 mg PO BRK [facility] 234 B[facility]S AT [facility] Last Admin: 12/29/17 08:13 Dose: Not Given Heparin Sodium (Porcine) (Heparin) 5,000 units SC Q8 [facility] 234 BEDS AT [facility] PRN Reason: Protocol Last Admin: 12/29/17 09:03 Dose: Not Given Hydralazine HCl (Apresoline) 10 mg IV Q6 PRN PRN Reason: htn Last Admin: 12/29/17 08:09 Dose: 10 mg Hydralazine HCl (Apresoline) 10 mg PO Q8 [facility] 234 B[facility]S AT [facility] Last Admin: 12/29/17 16:55 Dose: 10 mg Iron Sucrose 200 mg/ Sodium (Chloride) 110 mls @ 110 mls/hr IVPB DAILY [facility] 234 BEDS AT [facility] Last Admin: 12/29/17 12:32 Dose: 110 mls/hr Sodium Chloride (Sodium Chloride 0.9%) 1,000 mls @ 60 mls/hr IV .[id number] [facility] 234 BEDS AT [facility] Stop: 12/30/17 06:24 Last Admin: 12/29/17 06:52 Dose: 60 mls/hr Insulin Human Lispro (Humalog) 0 units SC ACHS [facility] PRN Reason: Protocol Last Admin: 12/29/17 12:26 Dose: Not Given Lorazepam (Ativan) 1 mg IVP ONCE PRN PRN Reason: Agitation Metoprolol Tartrate (Lopressor) 25 mg PO Q6 [facility] 234 B[facility]S AT [facility] Last Admin: 12/29/17 15:30 Dose: 25 mg Morphine Sulfate (Morphine) 1 mg IVP Q4 PRN PRN Reason: Pain, moderate (4-7) Last Admin: 12/28/17 18:30 Dose: 1 mg Pantoprazole Sodium (Protonix Inj) 40 mg IVP DAILY [facility] 234 B[facility]S AT [facility] Last Admin: 12/29/17 08:13 Dose: 40 mg Vitamin B Complex/Vit C/Folic Acid (Nephro-Catrachito) 1 tab PO DAILY [facility] 234 BEDS AT [facility] Last Admin: 12/29/17 08:13 Dose: Not Given - Labs Labs: 12/29/17 07:05 12/29/17 07:05 PT 10.8 Seconds (9.8-13.1) 12/26/17 04:40 INR 1.0 12/26/17 04:40 APTT 29.8 Seconds (25.6-37.1) 12/26/17 04:40 - Head Exam Head Exam: NORMAL INSPECTION - Eye Exam Eye Exam: Normal appearance - ENT Exam ENT Exam: Mucous Membranes Moist - Respiratory Exam Respiratory Exam: Clear to Ausculation Bilateral - Cardiovascular Exam Cardiovascular Exam: REGULAR RHYTHM - GI/Abdominal Exam GI & Abdominal Exam: Normal Bowel Sounds Assessment and Plan (1) Cardiac arrhythmia Status: Acute (2) Bradycardia Status: Inactive (3) Fracture, humerus Status: Acute (4) Hyperkalemia Status: Acute (5) CKD (chronic kidney disease) stage 4, GFR 15-29 ml/min Assessment & Plan: Cont meds Cont NPO medically stable for surgey Status: Chronic
--- NOTE | 2017-12-29 17:50 | CP.PCM.PN ---
Subjective - Date & Time of Evaluation Date of Evaluation: 12/29/17 Time of Evaluation: 14:00 - Subjective Subjective: Patient seen and examined at bedside comfortable. Pain well controlled. Tolerated PRBC transfusion well. No acute events overnight. Objective - Vital Signs/Intake and Output Vital Signs (last 24 hours): Temp Pulse Resp BP Pulse Ox 97.8 F 69 20 170/62 H 97 12/29/17 15:37 12/29/17 16:55 12/29/17 15:37 12/29/17 16:55 12/29/17 15:37 Intake and Output: 12/29/17 12/29/17 06:59 18:59 Intake Total 1700 Balance 1700 - Medications Medications: Current Medications Amlodipine Besylate (Norvasc) 10 mg PO DAILY [facility] Artificial Tears (Refresh Opth Soln) 0.2 ml OU Q6 PRN PRN Reason: Dry eyes Last Admin: 12/27/17 12:21 Dose: 1 drop Atorvastatin Calcium (Lipitor) 80 mg PO DAILY [facility] Last Admin: 12/29/17 08:13 Dose: Not Given Cilostazol (Pletal) 100 mg PO BID [facility] Last Admin: 12/28/17 08:56 Dose: 100 mg Clopidogrel Bisulfate (Plavix) 75 mg PO DAILY [facility] Glipizide (Glucotrol Xl) 10 mg PO BRK [facility] Last Admin: 12/29/17 08:13 Dose: Not Given Heparin Sodium (Porcine) (Heparin) 5,000 units SC Q8 [facility] PRN Reason: Protocol Last Admin: 12/29/17 09:03 Dose: Not Given Hydralazine HCl (Apresoline) 25 mg PO TID PRN PRN Reason: Other Iron Sucrose 200 mg/ Sodium (Chloride) 110 mls @ 110 mls/hr IVPB DAILY [facility] Last Admin: 12/29/17 12:32 Dose: 110 mls/hr Sodium Chloride (Sodium Chloride 0.9%) 1,000 mls @ 60 mls/hr IV .[id number] [facility] Stop: 12/30/17 06:24 Last Admin: 12/29/17 06:52 Dose: 60 mls/hr Insulin Human Lispro (Humalog) 0 units SC ACHS [facility] PRN Reason: Protocol Last Admin: 12/29/17 17:00 Dose: 2 units Lorazepam (Ativan) 1 mg IVP ONCE PRN PRN Reason: Agitation Losartan Potassium (Cozaar) 100 mg PO DAILY [facility] Metoprolol Tartrate (Lopressor) 25 mg PO Q6 [facility] Last Admin: 12/29/17 15:30 Dose: 25 mg Morphine Sulfate (Morphine) 1 mg IVP Q4 PRN PRN Reason: Pain, moderate (4-7) Last Admin: 12/28/17 18:30 Dose: 1 mg Pantoprazole Sodium (Protonix Inj) 40 mg IVP DAILY [facility] Last Admin: 12/29/17 08:13 Dose: 40 mg Vitamin B Complex/Vit C/Folic Acid (Nephro-Catrachito) 1 tab PO DAILY [facility] Last Admin: 12/29/17 08:13 Dose: Not Given - Labs Labs: 12/29/17 07:05 12/29/17 07:05 PT 10.8 Seconds (9.8-13.1) 12/26/17 04:40 INR 1.0 12/26/17 04:40 APTT 29.8 Seconds (25.6-37.1) 12/26/17 04:40 - Extremities Exam Additional comments: RUE: sling intact mild shoulder swelling, diffuse shoulder tenderness sensation intact MN/UN/RN motor intact MN/UN/RN radial pulse intact Assessment and Plan (1) Proximal humeral fracture Assessment & Plan: Patient is a 77 y/o female with comminuted proximal humerus fx -medical clearance obtained, HGB stable -patient on Platel medication, last dose yesterday -Hold all anticoagulant medication -OR on hold due to anticoagulant medication until Tuesday for R reverse TSR vs proximal humerus fx ORIF -spoke to patient and who agree to hold until Tuesday for TSR -Keep immobilized in sling -above d/w Dr. Castaneda in agreement Status: Acute
--- NOTE | 2017-12-29 21:53 | PN ---
Copied To: Wei Arellano MD Attending MD: Wei Arellano MD DATE: 12/29/2017 FOLLOWUP SUBJECTIVE: The patient denies any dizziness, chest pain or shortness of breath. PHYSICAL EXAMINATION: VITAL SIGNS: Blood pressure 117/62, heart rate 69, temperature 97.8, and respirations 20. HEENT: Normocephalic. CHEST: Clear. HEART: S1 and S2 regular. EXTREMITIES: No edema. LABORATORY DATA: Today's SMA-7: Sodium 138, potassium 3.9, chloride 106, CO2 of 23, glucose 209, BUN 30, and creatinine 1.6. Today's hemoglobin and hematocrit after packed RBC transfusion are 12.5 and 37.7, both are within normal limits. Today's white count and platelet count are within normal limits. ASSESSMENT: 1. Coronary artery disease, status post coronary artery bypass surgery. 2. Symptomatic bradycardia, status post fall and comminuted right humerus fracture. 3. Status post dual-chamber pacemaker placement. 5. Hypertension and diabetes mellitus. RECOMMENDATIONS: Continue current iron sucrose infusion. Continue Lopressor 25 mg orally every 6 hours. Continue p.r.n. IV morphine sulfate. Continue Norvasc 10 mg once a day. Both Plavix and Pletal are on hold. The patient was expected to go to the operating room for her right humerus fracture today this afternoon. Wei Arellano MD
[2017-12-30] MEDS: Insulin Lispro (humaLOG) 100 Units/ml Inj SC SCH ×4 (06:58→21:42)
[2017-12-30] MEDS: Multivitamin Vitamin B Complex (Nephro-Vite) Tab PO SCH (08:22)
[2017-12-30] MEDS: GlipiZIDE 10 mg SR Tab PO SCH (08:23)
--- NOTE | 2017-12-30 10:52 | CP.PCM.PN ---
Subjective - Date & Time of Evaluation Date of Evaluation: 12/30/17 Time of Evaluation: 10:50 - Subjective Subjective: Patient states pain is controlled. Patient offers no new complaints. Objective - Vital Signs/Intake and Output Vital Signs (last 24 hours): Temp Pulse Resp BP Pulse Ox 97.8 F 66 20 168/83 H 98 12/30/17 08:00 12/30/17 08:22 12/30/17 08:00 12/30/17 08:22 12/30/17 08:00 - Medications Medications: Current Medications Amlodipine Besylate (Norvasc) 10 mg PO DAILY [facility] Last Admin: 12/30/17 08:22 Dose: 10 mg Artificial Tears (Refresh Opth Soln) 0.2 ml OU Q6 PRN PRN Reason: Dry eyes Last Admin: 12/27/17 12:21 Dose: 1 drop Atorvastatin Calcium (Lipitor) 80 mg PO DAILY [facility] Last Admin: 12/30/17 08:23 Dose: 80 mg Cilostazol (Pletal) 100 mg PO BID [facility] Last Admin: 12/28/17 08:56 Dose: 100 mg Clopidogrel Bisulfate (Plavix) 75 mg PO DAILY [facility] Glipizide (Glucotrol Xl) 10 mg PO BRK [facility] Last Admin: 12/30/17 08:23 Dose: 10 mg Hydralazine HCl (Apresoline) 25 mg PO TID PRN PRN Reason: Other Iron Sucrose 200 mg/ Sodium (Chloride) 110 mls @ 110 mls/hr IVPB DAILY [facility] Last Admin: 12/30/17 10:16 Dose: 110 mls/hr Insulin Human Lispro (Humalog) 0 units SC ACHS [facility] PRN Reason: Protocol Last Admin: 12/30/17 06:58 Dose: 4 units Lorazepam (Ativan) 1 mg IVP ONCE PRN PRN Reason: Agitation Losartan Potassium (Cozaar) 100 mg PO DAILY [facility] Last Admin: 12/30/17 08:22 Dose: 100 mg Metoprolol Tartrate (Lopressor) 25 mg PO Q6 [facility] Last Admin: 12/30/17 04:07 Dose: 25 mg Morphine Sulfate (Morphine) 1 mg IVP Q4 PRN PRN Reason: Pain, moderate (4-7) Last Admin: 12/30/17 04:01 Dose: 1 mg Pantoprazole Sodium (Protonix Inj) 40 mg IVP DAILY [facility] Last Admin: 12/30/17 08:23 Dose: 40 mg Vitamin B Complex/Vit C/Folic Acid (Nephro-Catrachito) 1 tab PO DAILY [facility] Last Admin: 12/30/17 08:22 Dose: 1 tab - Labs Labs: 12/29/17 07:05 12/29/17 07:05 PT 10.8 Seconds (9.8-13.1) 12/26/17 04:40 INR 1.0 12/26/17 04:40 APTT 29.8 Seconds (25.6-37.1) 12/26/17 04:40 - Extremities Exam Additional comments: RUE: sling intact, +ROM fingers/wirst, sensation intact, +radial pulse, mild swelling to shoulder Assessment and Plan (1) Closed fracture of right proximal humerus Assessment & Plan: plan for OR 01/02 surgery cancelled yesterday as pletal was resumed in error (held for surgery on Tuesday, with restart date of tuesday postop, when surgery was cancelled no new hold order. Pletal now held last dose 12/28) sling pain medication t&C prior to OR d/w Dr. Castaneda, agrees with above Status: Acute
--- NOTE | 2017-12-30 13:13 | CP.PCM.PN ---
Subjective - Date & Time of Evaluation Date of Evaluation: 12/30/17 Time of Evaluation: 13:09 - Subjective Subjective: Nephrology Consultation Note Assessment: Stable Acute Kidney Injury (N17.9) hyperkalemia, bradycardia s/p PPM, left humeral fracture Diabetic chronic Kidney Disease (E11.22) Hypertensive Chronic Kidney Disease (I12.9) Chronic Kidney Disease (N18.4) Stage 4 with ? mg proteinuria (R80.9) likely due to DM/HTN Anemia (D64.9), HTN (I12.9) Plan No acute need for renal replacement therapy at this time. Hypertension control with meds as ordered. Maintain hemodynamics stable. Avoid hypotension. Patient not on ACEI/ARB due to recent CORDELIA and hyperkalemia. norvasc was inc to 10, if bp remains high can inc hydralazine as well Monitor Input/Output, daily weights and renal function with basic metabolic panel continue with iron supplement and MVI f/u ortho Subjective: seen and examined agitated wants pain medication Physical Examination: General Appearance: Comfortable, in no acute respiratory distress. Vitals reviewed and noted as below Head; Atraumatic, normocephalic ENT: no ulcers no thrush. Tongue is midline. Oropharynx: no rash or ulcers. EYES: Pupils are equal, round and reactive to light accommodation. Eye muscles and extraocular movement intact. Sclera is anicteric. Neck; supple no lymphadenopathy, no thyromegaly or bruit Lungs: Normal respiratory rate/effort. Breath sounds bilateral equal and clear Heart: Normal rate. s1s2 normal. No rub or gallop. left side PPM + Extremities: no edema. No varicose veins Neurological: Patient is alert, and oriented, no appreciable focal defecit Skin: Warm and dry. Normal turgor. No rash. Palpitation: Normal elasticity for age Abdomen: Abdomen is soft. Bowel sounds +. There is no abdominal tenderness, no guarding/rigidity no organomegaly Psych: agitated MSK: R shoulder in sling : kidney or bladder not palpable Labs/imaging reviewed. Past medical history, past surgical history, family history, social history, allergy reviewed and noted as below Family hx: no hx of CKD. Rest non-contributory Objective - Vital Signs/Intake and Output Vital Signs (last 24 hours): Temp Pulse Resp BP Pulse Ox 97.7 F 63 20 175/61 H 100 12/30/17 12:00 12/30/17 13:06 12/30/17 12:00 12/30/17 13:06 12/30/17 12:00 - Medications Medications: Current Medications Acetaminophen (Tylenol 325mg Tab) 650 mg PO Q6 PRN PRN Reason: Headache Last Admin: 12/30/17 12:04 Dose: 650 mg Amlodipine Besylate (Norvasc) 10 mg PO DAILY [facility] Last Admin: 12/30/17 08:22 Dose: 10 mg Artificial Tears (Refresh Opth Soln) 0.2 ml OU Q6 PRN PRN Reason: Dry eyes Last Admin: 12/27/17 12:21 Dose: 1 drop Atorvastatin Calcium (Lipitor) 80 mg PO DAILY [facility] Last Admin: 12/30/17 08:23 Dose: 80 mg Cilostazol (Pletal) 100 mg PO BID [facility] Last Admin: 12/28/17 08:56 Dose: 100 mg Clopidogrel Bisulfate (Plavix) 75 mg PO DAILY [facility] Glipizide (Glucotrol Xl) 10 mg PO BRK [facility] Last Admin: 12/30/17 08:23 Dose: 10 mg Hydralazine HCl (Apresoline) 50 mg PO TID PRN PRN Reason: Other Last Admin: 12/30/17 13:06 Dose: 50 mg Iron Sucrose 200 mg/ Sodium (Chloride) 110 mls @ 110 mls/hr IVPB DAILY [facility] Last Admin: 12/30/17 10:16 Dose: 110 mls/hr Insulin Human Lispro (Humalog) 0 units SC ACHS [facility] PRN Reason: Protocol Last Admin: 12/30/17 12:01 Dose: 8 units Lorazepam (Ativan) 1 mg IVP ONCE PRN PRN Reason: Agitation Losartan Potassium (Cozaar) 100 mg PO DAILY [facility] Last Admin: 12/30/17 08:22 Dose: 100 mg Metoprolol Tartrate (Lopressor) 25 mg PO Q6 [facility] Last Admin: 12/30/17 09:02 Dose: 25 mg Morphine Sulfate (Morphine) 1 mg IVP Q4 PRN PRN Reason: Pain, moderate (4-7) Last Admin: 12/30/17 04:01 Dose: 1 mg Pantoprazole Sodium (Protonix Inj) 40 mg IVP DAILY [facility] Last Admin: 12/30/17 08:23 Dose: 40 mg Vitamin B Complex/Vit C/Folic Acid (Nephro-Catrachito) 1 tab PO DAILY [facility] Last Admin: 12/30/17 08:22 Dose: 1 tab - Labs Labs: 12/29/17 07:05 12/29/17 07:05 PT 10.8 Seconds (9.8-13.1) 12/26/17 04:40 INR 1.0 12/26/17 04:40 APTT 29.8 Seconds (25.6-37.1) 12/26/17 04:40
--- NOTE | 2017-12-30 16:05 | PN ---
Copied To: Wei Arellano MD Attending MD: Wei Arellano MD DATE: 12/30/2017 SUBJECTIVE: Orthopedic surgery was postponed until Tuesday because the patient was on Plavix and Pletal and the patient denies any chest pain. She complains of headache. PHYSICAL EXAMINATION: VITAL SIGNS: Blood pressure 168/83, heart rate 66, temperature 97.8, and respiration 20. HEENT: Normocephalic. CHEST: Clear. HEART: S1, S2 regular. EXTREMITIES: No edema. LABORATORY DATA: Today's blood sugar is 273. ASSESSMENT AND PLAN: 1. Coronary artery disease status post coronary artery bypass surgery in the past. 2. Status post recent dual-chamber pacemaker placement for symptomatic bradycardia. 3. Status post fall and comminuted right humerus neck fracture. 4. Chronic insufficiency. 5. Peripheral vascular disease. 6. Uncontrolled hypertension. RECOMMENDATIONS: Increase hydralazine to 50 mg thrice a day, continue Cozaar 100 mg once a day, Glucotrol-XL 10 mg once a day, Lipitor 80 mg once a day, Lopressor 25 mg every 6 hours, Norvasc 10 mg once a day. Wei Arellano MD
--- NOTE | 2017-12-30 16:11 | CP.PCM.PN ---
<Angelito Bradley - Last Filed: 12/30/17 16:09> Subjective - Date & Time of Evaluation Date of Evaluation: 12/30/17 Time of Evaluation: 10:00 - Subjective Subjective: 77 y/o F evaluated and examined by bedside with Dr Garcia. Pt reports feeling well, pain is controlled with medications. Pt is stable, afebrile with No acute events overnight. Objective - Vital Signs/Intake and Output Vital Signs (last 24 hours): Temp Pulse Resp BP Pulse Ox 98.5 F 57 L 16 113/49 L 98 12/30/17 15:58 12/30/17 15:58 12/30/17 15:58 12/30/17 15:58 12/30/17 15:58 - Medications Medications: Current Medications Acetaminophen (Tylenol 325mg Tab) 650 mg PO Q6 PRN PRN Reason: Headache Last Admin: 12/30/17 12:04 Dose: 650 mg Amlodipine Besylate (Norvasc) 10 mg PO DAILY [facility] Last Admin: 12/30/17 08:22 Dose: 10 mg Artificial Tears (Refresh Opth Soln) 0.2 ml OU Q6 PRN PRN Reason: Dry eyes Last Admin: 12/27/17 12:21 Dose: 1 drop Atorvastatin Calcium (Lipitor) 80 mg PO DAILY [facility] Last Admin: 12/30/17 08:23 Dose: 80 mg Cilostazol (Pletal) 100 mg PO BID [facility] Last Admin: 12/28/17 08:56 Dose: 100 mg Clopidogrel Bisulfate (Plavix) 75 mg PO DAILY [facility] Glipizide (Glucotrol Xl) 10 mg PO BRK [facility] Last Admin: 12/30/17 08:23 Dose: 10 mg Hydralazine HCl (Apresoline) 50 mg PO TID PRN PRN Reason: Other Last Admin: 12/30/17 13:06 Dose: 50 mg Iron Sucrose 200 mg/ Sodium (Chloride) 110 mls @ 110 mls/hr IVPB DAILY [facility] Last Admin: 12/30/17 10:16 Dose: 110 mls/hr Insulin Human Lispro (Humalog) 0 units SC ACHS [facility] PRN Reason: Protocol Last Admin: 12/30/17 12:01 Dose: 8 units Lorazepam (Ativan) 1 mg IVP ONCE PRN PRN Reason: Agitation Losartan Potassium (Cozaar) 100 mg PO DAILY [facility] Last Admin: 12/30/17 08:22 Dose: 100 mg Metoprolol Tartrate (Lopressor) 25 mg PO Q6 [facility] Last Admin: 12/30/17 09:02 Dose: 25 mg Morphine Sulfate (Morphine) 1 mg IVP Q4 PRN PRN Reason: Pain, moderate (4-7) Last Admin: 12/30/17 04:01 Dose: 1 mg Pantoprazole Sodium (Protonix Inj) 40 mg IVP DAILY [facility] Last Admin: 12/30/17 08:23 Dose: 40 mg Vitamin B Complex/Vit C/Folic Acid (Nephro-Catrachito) 1 tab PO DAILY [facility] Last Admin: 12/30/17 08:22 Dose: 1 tab - Labs Labs: 12/29/17 07:05 12/29/17 07:05 PT 10.8 Seconds (9.8-13.1) 12/26/17 04:40 INR 1.0 12/26/17 04:40 APTT 29.8 Seconds (25.6-37.1) 12/26/17 04:40 - Constitutional Appears: No Acute Distress - Head Exam Head Exam: NORMAL INSPECTION - Eye Exam Eye Exam: EOMI - ENT Exam ENT Exam: Mucous Membranes Moist - Neck Exam Neck Exam: Full ROM. absent: Meningismus - Respiratory Exam Respiratory Exam: NORMAL BREATHING PATTERN. absent: Rhonchi, Wheezes - Cardiovascular Exam Cardiovascular Exam: +S1, +S2 - GI/Abdominal Exam GI & Abdominal Exam: Soft, Normal Bowel Sounds. absent: Guarding, Tenderness - Neurological Exam Neurological Exam: Alert, Awake, Oriented x3 Assessment and Plan (1) Fracture, humerus Status: Acute (2) CKD (chronic kidney disease) stage 4, GFR 15-29 ml/min Status: Chronic (3) Anemia, unspecified Assessment & Plan: Most probably due to chronic renal disease vs nutritional vs iron deficiency. Status: Acute - Assessment and Plan (Free Text) Assessment: 77 y/o F with a PMhx of DM 2 , HTN , CAD and CABG admitted for management bradycardia, hyperkalemia and right proximal humerus fracture. --Stable --Anemia, normocytic, low iron levels. Cause may be multifactorial as patient has CKD, iron deficiency may due to nutritional factors. --Plan is to have R humerus fracture repaired on Tuesday01/02/18. --Continue with management as ordered. --Ativan 1mg PRN ordered for agitation. --Heparin, Cilostazol adn Plavix on hold for upcoming surgery. --Continue management as ordered. <Rubén Garcia - Last Filed: 01/02/18 06:33> Objective - Vital Signs/Intake and Output Vital Signs (last 24 hours): Temp Pulse Resp BP Pulse Ox 98.4 F 65 18 193/71 H 98 01/02/18 05:25 01/02/18 05:25 01/02/18 05:25 01/02/18 05:25 01/02/18 05:25 Intake and Output: 01/01/18 01/02/18 18:59 06:59 Intake Total 200 Output Total 1000 Balance -800 - Medications Medications: Current Medications Acetaminophen (Tylenol 325mg Tab) 650 mg PO Q6 PRN PRN Reason: Headache Last Admin: 12/30/17 12:04 Dose: 650 mg Amlodipine Besylate (Norvasc) 10 mg PO DAILY [facility] Last Admin: 01/01/18 09:59 Dose: 10 mg Artificial Tears (Refresh Opth Soln) 0.2 ml OU Q6 PRN PRN Reason: Dry eyes Last Admin: 12/27/17 12:21 Dose: 1 drop Atorvastatin Calcium (Lipitor) 80 mg PO DAILY [facility] Last Admin: 01/01/18 09:58 Dose: 80 mg Cilostazol (Pletal) 100 mg PO BID [facility] Last Admin: 12/28/17 08:56 Dose: 100 mg Clopidogrel Bisulfate (Plavix) 75 mg PO DAILY [facility] Docusate Sodium (Colace) 100 mg PO TID [facility] Last Admin: 01/01/18 17:53 Dose: Not Given Ferrous Gluconate (Fergon) 324 mg PO TID [facility] Last Admin: 01/01/18 17:58 Dose: 324 mg Glipizide (Glucotrol Xl) 10 mg PO BRK [facility] Last Admin: 01/01/18 09:58 Dose: 10 mg Hydralazine HCl (Apresoline) 50 mg PO TID PRN PRN Reason: Other Last Admin: 12/31/17 21:14 Dose: 50 mg Insulin Human Lispro (Humalog) 0 units SC [facility] PRN Reason: Protocol Last Admin: 01/01/18 21:33 Dose: Not Given Losartan Potassium (Cozaar) 100 mg PO DAILY [facility] Last Admin: 01/01/18 09:57 Dose: 100 mg Metoprolol Tartrate (Lopressor) 25 mg PO Q6 [facility] Last Admin: 01/02/18 04:54 Dose: 25 mg Morphine Sulfate (Morphine) 1 mg IVP Q4 PRN PRN Reason: Pain, moderate (4-7) Last Admin: 01/01/18 10:06 Dose: 1 mg Pantoprazole Sodium (Protonix Ec Tab) 40 mg PO DAILY [facility] Last Admin: 01/01/18 10:00 Dose: 40 mg Vitamin B Complex/Vit C/Folic Acid (Nephro-Catrachito) 1 tab PO DAILY [facility] Last Admin: 01/01/18 18:01 Dose: 1 tab - Labs Labs: 01/01/18 06:30 01/01/18 06:30 PT 10.3 Seconds (9.8-13.1) 01/01/18 06:30 INR 0.9 01/01/18 06:30 APTT 34.1 Seconds (25.6-37.1) 01/01/18 06:30 Assessment and Plan (1) Cardiac arrhythmia Status: Acute (2) Bradycardia Status: Inactive (3) Fracture, humerus Status: Acute (4) Hyperkalemia Status: Acute (5) CKD (chronic kidney disease) stage 4, GFR 15-29 ml/min Status: Chronic - Assessment and Plan (Free Text) Plan: I was present during evaluation and discussed with Dr Bradley re plans of care and tx. Rubén Garcia M.D.
[2017-12-31] MEDS: Insulin Lispro (humaLOG) 100 Units/ml Inj SC SCH ×5 (06:41→22:35)
[2017-12-31] MEDS: GlipiZIDE 10 mg SR Tab PO SCH (09:55)
[2017-12-31] MEDS: Multivitamin Vitamin B Complex (Nephro-Vite) Tab PO SCH (09:56)
--- NOTE | 2017-12-31 14:03 | CP.PCM.PN ---
Subjective - Date & Time of Evaluation Date of Evaluation: 12/31/17 Time of Evaluation: 13:50 - Subjective Subjective: S- tp comfortable, but very frustrated- awaiting definitive mgmt of L proximal humerus fx (pathologic- osteopenia) Objective - Vital Signs/Intake and Output Vital Signs (last 24 hours): Temp Pulse Resp BP Pulse Ox 98.2 F 63 20 158/55 H 98 12/31/17 12:37 12/31/17 12:37 12/31/17 12:37 12/31/17 12:37 12/31/17 12:37 Intake and Output: 12/31/17 12/31/17 06:59 18:59 Intake Total 720 Output Total 550 Balance 170 - Medications Medications: Current Medications Acetaminophen (Tylenol 325mg Tab) 650 mg PO Q6 PRN PRN Reason: Headache Last Admin: 12/30/17 12:04 Dose: 650 mg Amlodipine Besylate (Norvasc) 10 mg PO DAILY [facility] Last Admin: 12/30/17 08:22 Dose: 10 mg Artificial Tears (Refresh Opth Soln) 0.2 ml OU Q6 PRN PRN Reason: Dry eyes Last Admin: 12/27/17 12:21 Dose: 1 drop Atorvastatin Calcium (Lipitor) 80 mg PO DAILY [facility] Last Admin: 12/31/17 09:55 Dose: 80 mg Cilostazol (Pletal) 100 mg PO BID [facility] Last Admin: 12/28/17 08:56 Dose: 100 mg Clopidogrel Bisulfate (Plavix) 75 mg PO DAILY [facility] Glipizide (Glucotrol Xl) 10 mg PO BRK [facility] Last Admin: 12/31/17 09:55 Dose: 10 mg Hydralazine HCl (Apresoline) 50 mg PO TID PRN PRN Reason: Other Last Admin: 12/31/17 04:29 Dose: 50 mg Iron Sucrose 200 mg/ Sodium (Chloride) 110 mls @ 110 mls/hr IVPB DAILY [facility] Last Admin: 12/31/17 09:56 Dose: 110 mls/hr Insulin Human Lispro (Humalog) 0 units SC ACHS [facility] PRN Reason: Protocol Last Admin: 12/31/17 13:31 Dose: 4 units Lorazepam (Ativan) 1 mg IVP ONCE PRN PRN Reason: Agitation Losartan Potassium (Cozaar) 100 mg PO DAILY [facility] Last Admin: 12/31/17 09:54 Dose: 100 mg Metoprolol Tartrate (Lopressor) 25 mg PO Q6 [facility] Last Admin: 12/31/17 09:55 Dose: Not Given Morphine Sulfate (Morphine) 1 mg IVP Q4 PRN PRN Reason: Pain, moderate (4-7) Last Admin: 12/31/17 04:30 Dose: 1 mg Pantoprazole Sodium (Protonix Ec Tab) 40 mg PO DAILY [facility] Vitamin B Complex/Vit C/Folic Acid (Nephro-Catrachito) 1 tab PO DAILY [facility] Last Admin: 12/31/17 09:56 Dose: 1 tab - Labs Labs: 12/29/17 07:05 12/29/17 07:05 PT 10.8 Seconds (9.8-13.1) 12/26/17 04:40 INR 1.0 12/26/17 04:40 APTT 29.8 Seconds (25.6-37.1) 12/26/17 04:40 - Additional Findings Additional findings: Objective systemic- wnl Musciylosjejltal- unchaged- sling adjusted N/ V intact pt despartely seeking L shoulder rpelacement aime Assessment and Plan - Assessment and Plan (Free Text) Assessment: A- 3 part path fx L prox humerus P- to OR for L shouldr replacemnt in AM
[2017-12-31] MEDS: Pantoprazole 40 mg EC Tab PO SCH (16:36)
--- NOTE | 2017-12-31 17:51 | CP.PCM.PN ---
Subjective - Date & Time of Evaluation Date of Evaluation: 12/31/17 Time of Evaluation: 17:50 - Subjective Subjective: Nephrology Consultation Note Assessment: Stable Acute Kidney Injury (N17.9) improved hyperkalemia, bradycardia s/p PPM, left humeral fracture Diabetic chronic Kidney Disease (E11.22) Hypertensive Chronic Kidney Disease (I12.9) Chronic Kidney Disease (N18.4) Stage 4 with ? mg proteinuria (R80.9) likely due to DM/HTN Anemia (D64.9), HTN (I12.9) Plan No acute need for renal replacement therapy at this time. Hypertension control with meds as ordered. started on raas blcoker, tolerating well. Monitor Input/Output, daily weights and renal function with basic metabolic panel continue with iron supplement and MVI work up as ordered Dose meds/antibiotics for reduced GFR. Avoid fleets enema/magnesium based laxatives. Avoid nephrotoxins/NSAIDs/ iodinated contrast (unless needed emergently) Glycemic control. prefer to avoid metformin at this time due to low GFR Further work up for as per primary team Thanks for allowing me to participate in care of your patient. Will follow patient with you. Please call if any Qs Dr Ayo Taylor Office: [phone] Subjective: Noted events overnight. Patients feels okay. Denies chest pain, palpitation, shortness of breath, leg swelling. overall upset Physical Examination: General Appearance: Comfortable, in no acute respiratory distress, co-operative . Vitals reviewed and noted as below Head; Atraumatic, normocephalic ENT: no ulcers no thrush. Tongue is midline. Oropharynx: no rash or ulcers. she hs hard of hearing EYES: Pupils are equal, round and reactive to light accommodation. Eye muscles and extraocular movement intact. Sclera is anicteric. Neck; supple no lymphadenopathy, no thyromegaly or bruit Lungs: Normal respiratory rate/effort. Breath sounds bilateral equal and clear Heart: Normal rate. s1s2 normal. No rub or gallop. left side PPM + Extremities: no edema. No varicose veins Neurological: Patient is alert, awake and oriented to person, place and time. No focal deficit. Strength bilateral appropriate and equal Skin: Warm and dry. Normal turgor. No rash. Palpitation: Normal elasticity for age Abdomen: Abdomen is soft. Bowel sounds +. There is no abdominal tenderness, no guarding/rigidity no organomegaly Psych: limited insight and upset affect/mood MSK: no joint tenderness or swelling. Digits and nails normal, no deformity : kidney or bladder not palpable Labs/imaging reviewed. Past medical history, past surgical history, family history, social history, allergy reviewed and noted as below Family hx: no hx of CKD. Rest non-contributory Objective - Vital Signs/Intake and Output Vital Signs (last 24 hours): Temp Pulse Resp BP Pulse Ox 98.7 F 62 18 146/69 98 12/31/17 16:00 12/31/17 16:00 12/31/17 16:00 12/31/17 16:00 12/31/17 16:00 Intake and Output: 12/31/17 12/31/17 06:59 18:59 Intake Total 720 Output Total 550 Balance 170 - Medications Medications: Current Medications Acetaminophen (Tylenol 325mg Tab) 650 mg PO Q6 PRN PRN Reason: Headache Last Admin: 12/30/17 12:04 Dose: 650 mg Amlodipine Besylate (Norvasc) 10 mg PO DAILY [facility] Last Admin: 12/31/17 09:00 Dose: Not Given Artificial Tears (Refresh Opth Soln) 0.2 ml OU Q6 PRN PRN Reason: Dry eyes Last Admin: 12/27/17 12:21 Dose: 1 drop Atorvastatin Calcium (Lipitor) 80 mg PO DAILY [facility] Last Admin: 12/31/17 09:55 Dose: 80 mg Cilostazol (Pletal) 100 mg PO BID [facility] Last Admin: 12/28/17 08:56 Dose: 100 mg Clopidogrel Bisulfate (Plavix) 75 mg PO DAILY [facility] Glipizide (Glucotrol Xl) 10 mg PO BRK [facility] Last Admin: 12/31/17 09:55 Dose: 10 mg Hydralazine HCl (Apresoline) 50 mg PO TID PRN PRN Reason: Other Last Admin: 12/31/17 04:29 Dose: 50 mg Iron Sucrose 200 mg/ Sodium (Chloride) 110 mls @ 110 mls/hr IVPB DAILY [facility] Last Admin: 12/31/17 09:56 Dose: 110 mls/hr Insulin Human Lispro (Humalog) 0 units SC ACHS [facility] PRN Reason: Protocol Last Admin: 12/31/17 16:34 Dose: 3 units Lorazepam (Ativan) 1 mg IVP ONCE PRN PRN Reason: Agitation Losartan Potassium (Cozaar) 100 mg PO DAILY [facility] Last Admin: 12/31/17 09:54 Dose: 100 mg Metoprolol Tartrate (Lopressor) 25 mg PO Q6 [facility] Last Admin: 12/31/17 16:36 Dose: 25 mg Morphine Sulfate (Morphine) 1 mg IVP Q4 PRN PRN Reason: Pain, moderate (4-7) Last Admin: 12/31/17 04:30 Dose: 1 mg Pantoprazole Sodium (Protonix Ec Tab) 40 mg PO DAILY [facility] Last Admin: 12/31/17 16:36 Dose: 40 mg Vitamin B Complex/Vit C/Folic Acid (Nephro-Catrachito) 1 tab PO DAILY [facility] Last Admin: 12/31/17 09:56 Dose: 1 tab - Labs Labs: 12/29/17 07:05 12/29/17 07:05 PT 10.8 Seconds (9.8-13.1) 12/26/17 04:40 INR 1.0 12/26/17 04:40 APTT 29.8 Seconds (25.6-37.1) 12/26/17 04:40
[2018-01-01] MEDS: Insulin Lispro (humaLOG) 100 Units/ml Inj SC SCH ×4 (06:32→21:33)
[2018-01-01 07:10] LABS: HEMOGLOBIN 12.2 g/dL (12.0-16.0); MEAN CELL VOLUME 83.4 fl (81.0-99.0); MEAN CORPUSCULAR HEMOGLOBIN 27.9 pg (27.0-31.0); MEAN CORPUSCULAR HGB CONC 33.4 g/dL (33.0-37.0); RBC 4.39 Mil/uL (3.80-5.20); RED CELL DISTRIBUTION WIDTH 19.1 % (11.5-14.5); WHITE BLOOD COUNT 10.5 K/uL (4.8-10.8)
[2018-01-01 07:21] LABS: INR 0.9; PROTHROMBIN TIME 10.3 Seconds (9.8-13.1)
[2018-01-01 07:24] LABS: PARTIAL THROMBOPLASTIN TIME 34.1 Seconds (25.6-37.1)
[2018-01-01 07:38] LABS: CALCIUM 8.2 mg/dL (8.4-10.2)
[2018-01-01] MEDS: GlipiZIDE 10 mg SR Tab PO SCH (09:58)
[2018-01-01] MEDS: Pantoprazole 40 mg EC Tab PO SCH (10:00)
--- NOTE | 2018-01-01 12:09 | CARD ---
APPROVED REPORT Date of service: 12/31/2017 <Conclusion> Normal sinus rhythm Normal ECG
--- NOTE | 2018-01-01 12:13 | CP.PCM.PN ---
Subjective - Date & Time of Evaluation Date of Evaluation: 01/01/18 Time of Evaluation: 12:12 - Subjective Subjective: Nephrology Consultation Note Assessment: Stable Acute Kidney Injury (N17.9) improved hyperkalemia, bradycardia s/p PPM, left humeral fracture Diabetic chronic Kidney Disease (E11.22) Hypertensive Chronic Kidney Disease (I12.9) Chronic Kidney Disease (N18.4) Stage 4 with 2 gram albuminuria (R80.9) likely due to DM/HTN Anemia (D64.9), HTN (I12.9) Plan No acute need for renal replacement therapy at this time. Hypertension control with meds as ordered. started on raas blcoker, tolerating well. Monitor Input/Output, daily weights and renal function with basic metabolic panel continue with iron supplement and MVI low K diet Dose meds/antibiotics for reduced GFR. Avoid fleets enema/magnesium based laxatives. Avoid nephrotoxins/NSAIDs/ iodinated contrast (unless needed emergently) Glycemic control. prefer to avoid metformin at this time due to low GFR Further work up for as per primary team Thanks for allowing me to participate in care of your patient. Will follow patient with you. Please call if any Qs Dr Ayo Taylor Office: [phone] Subjective: Noted events overnight. Patients feels okay. Denies chest pain, palpitation, shortness of breath, leg swelling. overall upset and not coperative. plan for shoulder surgery tomorrow Physical Examination: General Appearance: Comfortable, in no acute respiratory distress, somewhat unco -operative . Vitals reviewed and noted as below Head; Atraumatic, normocephalic ENT: no ulcers no thrush. Tongue is midline. Oropharynx: no rash or ulcers. she hs hard of hearing EYES: Pupils are equal, round and reactive to light accommodation. Eye muscles and extraocular movement intact. Sclera is anicteric. Neck; supple no lymphadenopathy, no thyromegaly or bruit Lungs: Normal respiratory rate/effort. Breath sounds bilateral equal and clear Heart: Normal rate. s1s2 normal. No rub or gallop. left side PPM + Extremities: no edema. No varicose veins Neurological: Patient is alert, awake and oriented to person, place and time. No focal deficit. Strength bilateral appropriate and equal Skin: Warm and dry. Normal turgor. No rash. Palpitation: Normal elasticity for age Abdomen: Abdomen is soft. Bowel sounds +. There is no abdominal tenderness, no guarding/rigidity no organomegaly Psych: limited insight and upset affect/mood MSK: no joint tenderness or swelling. Digits and nails normal, no deformity : kidney or bladder not palpable Labs/imaging reviewed. Past medical history, past surgical history, family history, social history, allergy reviewed and noted as below Family hx: no hx of CKD. Rest non-contributory Objective - Vital Signs/Intake and Output Vital Signs (last 24 hours): Temp Pulse Resp BP Pulse Ox 97.7 F 59 L 20 142/55 L 98 01/01/18 08:35 01/01/18 08:35 01/01/18 08:35 01/01/18 08:35 01/01/18 08:35 Intake and Output: 01/01/18 01/01/18 06:59 18:59 Intake Total 200 Output Total 1000 Balance -800 - Medications Medications: Current Medications Acetaminophen (Tylenol 325mg Tab) 650 mg PO Q6 PRN PRN Reason: Headache Last Admin: 12/30/17 12:04 Dose: 650 mg Amlodipine Besylate (Norvasc) 10 mg PO DAILY [facility] Last Admin: 01/01/18 09:59 Dose: 10 mg Artificial Tears (Refresh Opth Soln) 0.2 ml OU Q6 PRN PRN Reason: Dry eyes Last Admin: 12/27/17 12:21 Dose: 1 drop Atorvastatin Calcium (Lipitor) 80 mg PO DAILY [facility] Last Admin: 01/01/18 09:58 Dose: 80 mg Cilostazol (Pletal) 100 mg PO BID [facility] Last Admin: 12/28/17 08:56 Dose: 100 mg Clopidogrel Bisulfate (Plavix) 75 mg PO DAILY [facility] Docusate Sodium (Colace) 100 mg PO TID [facility] Last Admin: 01/01/18 09:57 Dose: Not Given Ferrous Gluconate (Fergon) 324 mg PO TID [facility] Glipizide (Glucotrol Xl) 10 mg PO BRK [facility] Last Admin: 01/01/18 09:58 Dose: 10 mg Hydralazine HCl (Apresoline) 50 mg PO TID PRN PRN Reason: Other Last Admin: 12/31/17 21:14 Dose: 50 mg Insulin Human Lispro (Humalog) 0 units SC ACHS [facility] PRN Reason: Protocol Last Admin: 01/01/18 06:32 Dose: 2 units Lorazepam (Ativan) 1 mg IVP ONCE PRN PRN Reason: Agitation Losartan Potassium (Cozaar) 100 mg PO DAILY [facility] Last Admin: 01/01/18 09:57 Dose: 100 mg Metoprolol Tartrate (Lopressor) 25 mg PO Q6 [facility] Last Admin: 01/01/18 09:59 Dose: Not Given Morphine Sulfate (Morphine) 1 mg IVP Q4 PRN PRN Reason: Pain, moderate (4-7) Last Admin: 01/01/18 10:06 Dose: 1 mg Pantoprazole Sodium (Protonix Ec Tab) 40 mg PO DAILY [facility] Last Admin: 01/01/18 10:00 Dose: 40 mg Vitamin B Complex/Vit C/Folic Acid (Nephro-Catrachito) 1 tab PO DAILY [facility] Last Admin: 12/31/17 09:56 Dose: 1 tab - Labs Labs: 01/01/18 06:30 01/01/18 06:30 PT 10.3 Seconds (9.8-13.1) 01/01/18 06:30 INR 0.9 01/01/18 06:30 APTT 34.1 Seconds (25.6-37.1) 01/01/18 06:30
--- NOTE | 2018-01-01 15:58 | PN ---
Copied To: Wei Arellano MD Attending MD: Wei Arellano MD DATE: 01/01/2018 SUBJECTIVE: The patient denied any chest pain, headache, or shortness of breath. Yesterday's EKG revealed normal sinus rhythm. PHYSICAL EXAMINATION: VITAL SIGNS: Blood pressure 142/59, heart rate 60, temperature 98.2, and respirations 18. HEENT: Normocephalic. NECK: No JVD. CHEST: Clear. HEART: S1 and S2 regular. EXTREMITIES: No pedal edema. LABORATORY DATA: Today's SMA-7 showed sodium 136, potassium 4.5, chloride 106, CO2 22, glucose 188, BUN 29, and creatinine 1.6. Calcium is slightly below normal at 8.2. Today's hemoglobin, hematocrit, white count, and platelet count are all within normal limits. ASSESSMENT: 1. Symptomatic bradycardia, and status post fall. 2. Status post permanent dual-chamber pacemaker placement. 3. Comminuted right humerus head fracture. 4. Coronary artery disease, status post coronary artery bypass surgery. 5. Anemia, status post packed RBC transfusion. 6. Chronic renal insufficiency. 7. Hypertension. 8. Diabetes mellitus. RECOMMENDATIONS: Continue hydralazine 50 mg t.i.d., Glucotrol XL 10 mg once a day, Lipitor at 80 mg daily. Plavix and Pletal are on hold. Continue Norvasc 10 mg once a day. The patient will undergo her ortho surgery tomorrow. I recommend close perioperative blood pressure with monitoring with postoperative ICU or telemetry depending on the outcome. Wei Arellano MD
[2018-01-01] MEDS: Multivitamin Vitamin B Complex (Nephro-Vite) Tab PO SCH (18:01)
--- NOTE | 2018-01-02 06:35 | CP.PCM.PN ---
Subjective - Date & Time of Evaluation Date of Evaluation: 12/31/17 Time of Evaluation: 10:00 - Subjective Subjective: Patient is fairly stable Has no chest pain or SOB Labs are normal. Objective - Vital Signs/Intake and Output Vital Signs (last 24 hours): Temp Pulse Resp BP Pulse Ox 98.4 F 65 18 193/71 H 98 01/02/18 05:25 01/02/18 05:25 01/02/18 05:25 01/02/18 05:25 01/02/18 05:25 Intake and Output: 01/01/18 01/02/18 18:59 06:59 Intake Total 200 Output Total 1000 Balance -800 - Medications Medications: Current Medications Acetaminophen (Tylenol 325mg Tab) 650 mg PO Q6 PRN PRN Reason: Headache Last Admin: 12/30/17 12:04 Dose: 650 mg Amlodipine Besylate (Norvasc) 10 mg PO DAILY [facility] Last Admin: 01/01/18 09:59 Dose: 10 mg Artificial Tears (Refresh Opth Soln) 0.2 ml OU Q6 PRN PRN Reason: Dry eyes Last Admin: 12/27/17 12:21 Dose: 1 drop Atorvastatin Calcium (Lipitor) 80 mg PO DAILY [facility] Last Admin: 01/01/18 09:58 Dose: 80 mg Cilostazol (Pletal) 100 mg PO BID [facility] Last Admin: 12/28/17 08:56 Dose: 100 mg Clopidogrel Bisulfate (Plavix) 75 mg PO DAILY [facility] Docusate Sodium (Colace) 100 mg PO TID [facility] Last Admin: 01/01/18 17:53 Dose: Not Given Ferrous Gluconate (Fergon) 324 mg PO TID [facility] Last Admin: 01/01/18 17:58 Dose: 324 mg Glipizide (Glucotrol Xl) 10 mg PO BRK [facility] Last Admin: 01/01/18 09:58 Dose: 10 mg Hydralazine HCl (Apresoline) 50 mg PO TID PRN PRN Reason: Other Last Admin: 12/31/17 21:14 Dose: 50 mg Insulin Human Lispro (Humalog) 0 units SC ACHS [facility] PRN Reason: Protocol Last Admin: 01/01/18 21:33 Dose: Not Given Losartan Potassium (Cozaar) 100 mg PO DAILY [facility] Last Admin: 01/01/18 09:57 Dose: 100 mg Metoprolol Tartrate (Lopressor) 25 mg PO Q6 [facility] Last Admin: 01/02/18 04:54 Dose: 25 mg Morphine Sulfate (Morphine) 1 mg IVP Q4 PRN PRN Reason: Pain, moderate (4-7) Last Admin: 01/01/18 10:06 Dose: 1 mg Pantoprazole Sodium (Protonix Ec Tab) 40 mg PO DAILY [facility] Last Admin: 01/01/18 10:00 Dose: 40 mg Vitamin B Complex/Vit C/Folic Acid (Nephro-Catrachito) 1 tab PO DAILY [facility] Last Admin: 01/01/18 18:01 Dose: 1 tab - Labs Labs: 01/01/18 06:30 01/01/18 06:30 PT 10.3 Seconds (9.8-13.1) 01/01/18 06:30 INR 0.9 01/01/18 06:30 APTT 34.1 Seconds (25.6-37.1) 01/01/18 06:30 - Head Exam Head Exam: NORMAL INSPECTION - Eye Exam Eye Exam: Normal appearance - Respiratory Exam Respiratory Exam: Clear to Ausculation Bilateral - Cardiovascular Exam Cardiovascular Exam: REGULAR RHYTHM - GI/Abdominal Exam GI & Abdominal Exam: Normal Bowel Sounds - Neurological Exam Neurological Exam: Awake, Oriented x3 Assessment and Plan (1) Cardiac arrhythmia Status: Acute (2) Bradycardia Status: Inactive (3) Fracture, humerus Status: Acute (4) Hyperkalemia Status: Acute (5) CKD (chronic kidney disease) stage 4, GFR 15-29 ml/min Status: Chronic - Assessment and Plan (Free Text) Plan: Cont meds Cont tx Cont PT Medically stable for surgery
--- NOTE | 2018-01-02 06:36 | CP.PCM.PN ---
Subjective - Date & Time of Evaluation Date of Evaluation: 01/01/18 Time of Evaluation: 11:00 - Subjective Subjective: Patient remains stable Has minimal pain Labs are normal Noted slightly elevated FBS Objective - Vital Signs/Intake and Output Vital Signs (last 24 hours): Temp Pulse Resp BP Pulse Ox 98.4 F 65 18 193/71 H 98 01/02/18 05:25 01/02/18 05:25 01/02/18 05:25 01/02/18 05:25 01/02/18 05:25 Intake and Output: 01/01/18 01/02/18 18:59 06:59 Intake Total 200 Output Total 1000 Balance -800 - Medications Medications: Current Medications Acetaminophen (Tylenol 325mg Tab) 650 mg PO Q6 PRN PRN Reason: Headache Last Admin: 12/30/17 12:04 Dose: 650 mg Amlodipine Besylate (Norvasc) 10 mg PO DAILY [facility] Last Admin: 01/01/18 09:59 Dose: 10 mg Artificial Tears (Refresh Opth Soln) 0.2 ml OU Q6 PRN PRN Reason: Dry eyes Last Admin: 12/27/17 12:21 Dose: 1 drop Atorvastatin Calcium (Lipitor) 80 mg PO DAILY [facility] Last Admin: 01/01/18 09:58 Dose: 80 mg Cilostazol (Pletal) 100 mg PO BID [facility] Last Admin: 12/28/17 08:56 Dose: 100 mg Clopidogrel Bisulfate (Plavix) 75 mg PO DAILY [facility] Docusate Sodium (Colace) 100 mg PO TID [facility] Last Admin: 01/01/18 17:53 Dose: Not Given Ferrous Gluconate (Fergon) 324 mg PO TID [facility] Last Admin: 01/01/18 17:58 Dose: 324 mg Glipizide (Glucotrol Xl) 10 mg PO BRK [facility] Last Admin: 01/01/18 09:58 Dose: 10 mg Hydralazine HCl (Apresoline) 50 mg PO TID PRN PRN Reason: Other Last Admin: 12/31/17 21:14 Dose: 50 mg Insulin Human Lispro (Humalog) 0 units SC ACHS [facility] PRN Reason: Protocol Last Admin: 01/01/18 21:33 Dose: Not Given Losartan Potassium (Cozaar) 100 mg PO DAILY [facility] Last Admin: 01/01/18 09:57 Dose: 100 mg Metoprolol Tartrate (Lopressor) 25 mg PO Q6 [facility] Last Admin: 01/02/18 04:54 Dose: 25 mg Morphine Sulfate (Morphine) 1 mg IVP Q4 PRN PRN Reason: Pain, moderate (4-7) Last Admin: 01/01/18 10:06 Dose: 1 mg Pantoprazole Sodium (Protonix Ec Tab) 40 mg PO DAILY [facility] Last Admin: 01/01/18 10:00 Dose: 40 mg Vitamin B Complex/Vit C/Folic Acid (Nephro-Catrachito) 1 tab PO DAILY [facility] Last Admin: 01/01/18 18:01 Dose: 1 tab - Labs Labs: 01/01/18 06:30 01/01/18 06:30 PT 10.3 Seconds (9.8-13.1) 01/01/18 06:30 INR 0.9 01/01/18 06:30 APTT 34.1 Seconds (25.6-37.1) 01/01/18 06:30 - Head Exam Head Exam: NORMAL INSPECTION - Eye Exam Eye Exam: Normal appearance - ENT Exam ENT Exam: Mucous Membranes Moist - Respiratory Exam Respiratory Exam: Clear to Ausculation Bilateral - Cardiovascular Exam Cardiovascular Exam: REGULAR RHYTHM - GI/Abdominal Exam GI & Abdominal Exam: Normal Bowel Sounds - Neurological Exam Neurological Exam: Awake, Oriented x3 Assessment and Plan (1) Cardiac arrhythmia Status: Acute (2) Bradycardia Status: Inactive (3) Fracture, humerus Status: Acute (4) Hyperkalemia Status: Acute (5) CKD (chronic kidney disease) stage 4, GFR 15-29 ml/min Status: Chronic - Assessment and Plan (Free Text) Plan: Cont meds Cont tx Cont PT Pain meds Medically stable for surgey
[2018-01-02] MEDS: Insulin Lispro (humaLOG) 100 Units/ml Inj SC SCH ×4 (06:44→21:46)
[2018-01-02] MEDS: GlipiZIDE 10 mg SR Tab PO SCH (08:27)
[2018-01-02] MEDS: Multivitamin Vitamin B Complex (Nephro-Vite) Tab PO SCH (08:28)
[2018-01-02] MEDS: Pantoprazole 40 mg EC Tab PO SCH (08:28)
--- NOTE | 2018-01-02 08:31 | PN ---
Copied To: Wei Arellano MD Attending MD: Wei Arellano MD DATE: 12/31/2017 SUBJECTIVE: The patient denies headache today. She denies any chest pain or shortness of breath. PHYSICAL EXAMINATION VITAL SIGNS: Blood pressure 156/55, heart rate 63, temperature 98.2, and respirations 20. HEENT: Normocephalic. CHEST: Clear. HEART: S1, S2, regular. ABDOMEN: Soft. EXTREMITIES: No edema. LABORATORY DATA: Today's blood sugars are 243 and 295 respectively. The patient was evaluated by Dr. Castaneda today and the plan is to go to the OR in a.m. ASSESSMENT: 1. Status post fall and comminuted right humerus head fracture. 2. Uncontrolled diabetes mellitus. 3. Symptomatic bradycardia, status post dual-chamber pacemaker placement. 4. Coronary artery disease, status post coronary artery bypass surgery. 5. Hypertension. 6. Occasional PVCs RECOMMENDATIONS: Continue hydralazine 50 mg t.i.d., Cozaar 100 mg once a day, Lipitor 80 mg once a day, and Toprol XL 25 mg every 6 hours. Both Plavix and Pletal are on hold. The patient can undergo surgery under general anesthesia from the cardiac point of view with postoperative telemetry monitoring. Wei Arellano MD [facility]
--- NOTE | 2018-01-02 09:12 | CP.PCM.PN ---
Subjective - Date & Time of Evaluation Date of Evaluation: 01/02/18 Time of Evaluation: 09:12 - Subjective Subjective: patient in bed No nausea no vomiting No acute events reported Objective - Vital Signs/Intake and Output Vital Signs (last 24 hours): Temp Pulse Resp BP Pulse Ox 98.3 F 62 20 186/68 H 98 01/02/18 08:24 01/02/18 08:24 01/02/18 08:24 01/02/18 08:24 01/02/18 08:24 - Medications Medications: Current Medications Acetaminophen (Tylenol 325mg Tab) 650 mg PO Q6 PRN PRN Reason: Headache Last Admin: 12/30/17 12:04 Dose: 650 mg Amlodipine Besylate (Norvasc) 10 mg PO DAILY [facility] Last Admin: 01/01/18 09:59 Dose: 10 mg Artificial Tears (Refresh Opth Soln) 0.2 ml OU Q6 PRN PRN Reason: Dry eyes Last Admin: 12/27/17 12:21 Dose: 1 drop Atorvastatin Calcium (Lipitor) 80 mg PO DAILY [facility] Last Admin: 01/02/18 08:28 Dose: Not Given Cilostazol (Pletal) 100 mg PO BID [facility] Last Admin: 12/28/17 08:56 Dose: 100 mg Clopidogrel Bisulfate (Plavix) 75 mg PO DAILY [facility] Docusate Sodium (Colace) 100 mg PO TID [facility] Last Admin: 01/02/18 08:27 Dose: Not Given Ferrous Gluconate (Fergon) 324 mg PO TID [facility] Last Admin: 01/02/18 08:27 Dose: Not Given Glipizide (Glucotrol Xl) 10 mg PO BRK [facility] Last Admin: 01/02/18 08:27 Dose: Not Given Hydralazine HCl (Apresoline) 50 mg PO TID PRN PRN Reason: Other Last Admin: 12/31/17 21:14 Dose: 50 mg Insulin Human Lispro (Humalog) 0 units SC [facility] PRN Reason: Protocol Last Admin: 01/02/18 06:44 Dose: Not Given Losartan Potassium (Cozaar) 100 mg PO DAILY [facility] Last Admin: 01/01/18 09:57 Dose: 100 mg Metoprolol Tartrate (Lopressor) 25 mg PO Q6 [facility] Last Admin: 01/02/18 04:54 Dose: 25 mg Pantoprazole Sodium (Protonix Ec Tab) 40 mg PO DAILY [facility] Last Admin: 01/02/18 08:28 Dose: Not Given Vitamin B Complex/Vit C/Folic Acid (Nephro-Catrachito) 1 tab PO DAILY [facility] Last Admin: 01/02/18 08:28 Dose: Not Given - Labs Labs: 01/01/18 06:30 01/01/18 06:30 PT 10.3 Seconds (9.8-13.1) 01/01/18 06:30 INR 0.9 01/01/18 06:30 APTT 34.1 Seconds (25.6-37.1) 01/01/18 06:30 - Constitutional Appears: No Acute Distress - ENT Exam ENT Exam: Mucous Membranes Moist - Respiratory Exam Respiratory Exam: absent: Chest Wall Tenderness, Rhonchi - Cardiovascular Exam Cardiovascular Exam: absent: Gallop, JVD, Rubs - GI/Abdominal Exam GI & Abdominal Exam: Soft, Normal Bowel Sounds - Extremities Exam Extremities Exam: absent: Calf Tenderness - Back Exam Back Exam: absent: CVA tenderness (L), CVA tenderness (R) - Neurological Exam Neurological Exam: Alert - Psychiatric Exam Psychiatric exam: Normal Affect - Skin Skin Exam: absent: Cyanosis Assessment and Plan - Assessment and Plan (Free Text) Assessment: Assessment: Stable Acute Kidney Injury (N17.9) improved perhaps superimposed on CK D stage III hyperkalemia, bradycardia s/p PPM, left humeral fracture Diabetic chronic Kidney Disease (E11.22) Hypertensive Chronic Kidney Disease (I12.9) Chronic Kidney Disease Stage with 2 gram albuminuria (R80.9) likely due to DM/ HTN Anemia (D64.9), HTN (I12.9) Plan No acute need for renal replacement therapy at this time. Hypertension control with meds as ordered. started on raas blcoker, tolerating well. Monitor Input/Output, daily weights and renal function with basic metabolic panel continue with iron supplement and MVI low K diet Dose meds/antibiotics for reduced GFR. Avoid fleets enema/magnesium based laxatives. Avoid nephrotoxins/NSAIDs/ iodinated contrast (unless needed emergently) Glycemic control. prefer to avoid metformin at this time due to low GFR Further work up for as per primary team
[2018-01-02] MEDS ORDERED: Propofol 10 mg/ml Inj (20 ML) ONE (13:21)
[2018-01-02] MEDS ORDERED: Bupivacaine HCl 0.25% PF (30 ml) Inj ONE (13:24)
[2018-01-02] MEDS ORDERED: Dexamethasone 4 mg/1 ml ONE (13:25)
[2018-01-02] MEDS ORDERED: Thrombin Topical 5,000 Int Units Spray Kit ONE (13:27)
[2018-01-02] MEDS ORDERED: Bacitracin Ointment 30 GM TUBE ONE ×2 (13:27→13:52)
[2018-01-02] MEDS ORDERED: EPINEPHrine 1 mg/ml (1:1000) Inj ONE (13:27)
[2018-01-02] MEDS ORDERED: GELATIN SPONGE,ABSORB/PORCINE 1 EACH SPONGE TP ONE (13:27)
[2018-01-02] MEDS ORDERED: Rocuronium 10 mg/ml (5 ml) ONE (13:34)
[2018-01-02] MEDS ORDERED: ceFAZolin IV 1 gm in Dextrose 2 GM/100 ML BAG IVPB ONE (13:52)
[2018-01-02] MEDS ORDERED: Lidocaine 1% 5ml Abboject IV ONE ×2 (13:53→17:51)
[2018-01-02] MEDS ORDERED: Neostigmine 1:1000 (1 mg/ml) Inj ONE (14:07)
[2018-01-02] MEDS ORDERED: Sodium Chloride 0.9% 1,000 ML IV ONE ×2 (14:35→16:00)
[2018-01-02] MEDS ORDERED: Succinylcholine 200 mg/10 ml Inj IV ONE (14:41)
[2018-01-02] MEDS ORDERED: ePHEDrine 50 mg/ml Inj ONE (15:06)
[2018-01-02] MEDS ORDERED: Ciprofloxacin 400mg/200ml D5W IVPB ONE (15:25)
[2018-01-02] MEDS ORDERED: Ciprofloxacin 400mg/200ml D5W 400 MG/200 ML BAG IVPB ONE (15:27)
[2018-01-02] MEDS ORDERED: EPINEPHrine 1 mg/ml (1:1000) Inj IV ONE (15:31)
--- NOTE | 2018-01-02 17:17 | PCM.SURG1 ---
Surgeon's Initial Post Op Note - Surgeon's Notes Surgeon: Leonel Surgical Pathologist: PURA Hampton Type of Anesthesia: General Endo, Block Regional Anesthesia Administered By: DR Dean Lindsay Pre-Operative Diagnosis: Displaced/comminuted proximal humerus fracture ( pathologic- severe osteopenia) Operative Findings: as above. Rotator cuff injury. Biceps tendon attenuation Post-Operative Diagnosis: as above Operation Performed: R Reverse Total shoulder replacement arthroplasty. repair R rotator cuff. intrarticular biceps tenodesis. appl;x shoulder immobilizer Specimen/Specimens Removed: bone humeral head and tuberosity Estimated Blood Loss: EBL {In ML}: 170 Blood Products Given: N/A Drains Used: No Drains Post-Op Condition: Fair Date of Surgery/Procedure: 01/02/18 Time of Surgery/Procedure: 15:40 (time in room 1425/aneasthesia indcution time 1425)
[2018-01-02] MEDS ORDERED: HYDROmorphone 1 mg/ml ISec IVP PRN (17:37)
[2018-01-02] MEDS ORDERED: Sodium Chloride 0.9% 1,000 ML IV SCH (17:45)
[2018-01-02] MEDS ORDERED: Ropivacaine 0.5% 30ML IV ONE (17:48)
--- NOTE | 2018-01-02 18:03 | RAD ---
Date of service: 01/02/2018 PROCEDURE: Radiographs of the Right Shoulder HISTORY: s/p R reverse TSR COMPARISON: Right shoulder radiographs dated 12/24/2017. FINDINGS: The patient is status post reverse total shoulder arthroplasty with prosthetic components seen in good alignment. A small amount expected air and fluid is seen adjacent to the surgical bed. IMPRESSION: Interval reverse right total shoulder arthroplasty.
--- NOTE | 2018-01-02 18:12 | PCM.ANESB1 ---
Interscalene Block - Brachial Plexus Date of Procedure: 01/02/18 Anesthesiologist: Boby Fine Pre-Procedure Diagnosis: R shoulder replacement Post-Procedure Diagnosis: same Procedure Performed: Interscalene Block of Brachial Plexus Right - Procedure Interscalene Block of Brachial Plexus: This procedure was explained to the patient that it is for post-operative pain management. Consent was obtained after a thorough discussion with the patient regarding the benefits and possible complications of local anesthetic block of the Brachial Plexus at the Interscalene area. The patient was brought to the Operating Room and standard monitors were applied. Time out was held with the circulating nurse to confirm the correct surgery and appropriate block. After applying Oxygen by nasal cannula and administering IV Sedation, the patient's head was gently rotated away from the _right operative shoulder and the anterior scalene groove was carefully palpated. The ultrasound transducer was then applied to the skin in the transverse plane and the brachial plexus was visualized lateral to the carotid artery and in between the anterior and middle scalene muscles. After identification,the anterior lateral portion of the neck was prepped with Betadine solution three times and Lidocaine 1% was injected subcutaneously for topical analgesia. At this point, a # 22 gauge Stimuplex 2 inches insulated needle was inserted into the interscalene groove and directed in a caudal and midline direction. The needle was inserted lateral to the ultrasound transducer in-plane towards the brachial plexus in a [id number] direction. Needle advancement was performed carefully under direct ultrasound visualization. Nerve stimulator was used and twitched of the affected extremity including the hand brachialis muscles, biceps and the deltoid was obtained at a current of _0.3____MA. After repeated negative aspiration,__5___cc of__0.25%___,__bupiv were injected and this was followed with __25___cc of _0.25____% __bupiv . Under ultrasound guidance the local anesthetics were observed surrounding the roots of the brachial plexus. The needle was removed intact and sterile dressing was applied. The patient had stable vital signs, was conscious and in no apparent distress. The patient tolerated the interscalene block of the bracheal plexus well with stable vital signs and was prepared for subsequent surgery.
[2018-01-02] MEDS: Sodium Chloride 0.9% 1,000 ML IV SCH (20:00)
[2018-01-03] MEDS ORDERED: ceFAZolin 2 GM in Sodium Chloride 0.9% 100 ML IVPB SCH (01:00)
[2018-01-03 06:14] LABS: CALCIUM 8.1 mg/dL (8.4-10.2)
[2018-01-03 06:25] LABS: HEMOGLOBIN 10.6 g/dL (12.0-16.0); MEAN CELL VOLUME 83.6 fl (81.0-99.0); MEAN CORPUSCULAR HEMOGLOBIN 27.8 pg (27.0-31.0); MEAN CORPUSCULAR HGB CONC 33.3 g/dL (33.0-37.0); RBC 3.82 Mil/uL (3.80-5.20); RED CELL DISTRIBUTION WIDTH 18.4 % (11.5-14.5); WHITE BLOOD COUNT 9.9 K/uL (4.8-10.8)
[2018-01-03] MEDS: Insulin Lispro (humaLOG) 100 Units/ml Inj SC SCH ×4 (07:37→22:32)
[2018-01-03] MEDS: GlipiZIDE 10 mg SR Tab PO SCH (09:10)
[2018-01-03] MEDS: Sodium Chloride 0.9% 1,000 ML IV SCH ×2 (09:11→21:56)
[2018-01-03] MEDS: Multivitamin Vitamin B Complex (Nephro-Vite) Tab PO SCH (09:11)
[2018-01-03] MEDS: Pantoprazole 40 mg EC Tab PO SCH (09:11)
[2018-01-03] MEDS: Oxycodone/Acetaminophen 5/325 mg Tab PO PRN ×3 (09:15→21:52)
--- NOTE | 2018-01-03 09:28 | CP.PCM.PN ---
Subjective - Date & Time of Evaluation Date of Evaluation: 01/03/18 Time of Evaluation: 07:30 - Subjective Subjective: Patient seen and examined at bedside comfortable. Pain well controlled. C/o numbness and inability to move finger overnight likely due to nerve block. Symptoms have improved this AM. No other complaints. Denies CP/SOB/N/V/D/fever. Objective - Vital Signs/Intake and Output Vital Signs (last 24 hours): Temp Pulse Resp BP Pulse Ox 97.7 F 60 20 178/69 H 98 01/03/18 08:56 01/03/18 09:11 01/03/18 08:56 01/03/18 09:11 01/03/18 08:56 Intake and Output: 01/03/18 01/03/18 06:59 18:59 Intake Total 897 Output Total 650 Balance 247 - Medications Medications: Current Medications Acetaminophen (Tylenol 325mg Tab) 650 mg PO Q6 PRN PRN Reason: Headache Last Admin: 12/30/17 12:04 Dose: 650 mg Amlodipine Besylate (Norvasc) 10 mg PO DAILY [facility] Last Admin: 01/03/18 09:11 Dose: 10 mg Artificial Tears (Refresh Opth Soln) 0.2 ml OU Q6 PRN PRN Reason: Dry eyes Last Admin: 12/27/17 12:21 Dose: 1 drop Atorvastatin Calcium (Lipitor) 80 mg PO DAILY [facility] Last Admin: 01/03/18 09:11 Dose: 80 mg Cilostazol (Pletal) 100 mg PO BID [facility] Last Admin: 12/28/17 08:56 Dose: 100 mg Clopidogrel Bisulfate (Plavix) 75 mg PO DAILY [facility] Docusate Sodium (Colace) 100 mg PO TID [facility] Last Admin: 01/03/18 09:10 Dose: 100 mg Ferrous Gluconate (Fergon) 324 mg PO TID [facility] Last Admin: 01/03/18 09:10 Dose: 324 mg Glipizide (Glucotrol Xl) 10 mg PO BRK [facility] Last Admin: 01/03/18 09:10 Dose: 10 mg Hydralazine HCl (Apresoline) 50 mg PO TID PRN PRN Reason: Other Last Admin: 12/31/17 21:14 Dose: 50 mg Hydromorphone HCl (Dilaudid) 2 mg IVP Q4 PRN PRN Reason: Pain, severe (8-10) Sodium Chloride (Sodium Chloride 0.9%) 1,000 mls @ 75 mls/hr IV .[id number] [facility] Last Admin: 01/03/18 09:11 Dose: 75 mls/hr Cefazolin Sodium 2 gm/ Sodium (Chloride) 100 mls @ 100 mls/hr IVPB Q8 [facility] PRN Reason: Protocol Stop: 01/03/18 17:59 Last Admin: 01/03/18 01:55 Dose: 100 mls/hr Sodium Chloride (Sodium Chloride 0.9%) 1,000 mls @ 75 mls/hr IV .[id number] [facility] Stop: 01/03/18 17:37 Last Admin: 01/03/18 09:12 Dose: Not Given Insulin Human Lispro (Humalog) 0 units SC ACHS [facility] PRN Reason: Protocol Last Admin: 01/03/18 07:37 Dose: 6 units Losartan Potassium (Cozaar) 100 mg PO DAILY [facility] Last Admin: 01/03/18 09:10 Dose: 100 mg Metoprolol Tartrate (Lopressor) 25 mg PO Q6 [facility] Last Admin: 01/03/18 09:10 Dose: 25 mg Ondansetron HCl (Zofran Inj) 4 mg IVP ONCE PRN PRN Reason: Nausea/Vomiting Oxycodone/Acetaminophen (Percocet 5/325 Mg Tab) 2 tab PO Q4 PRN PRN Reason: Pain, moderate (4-7) Stop: 01/05/18 17:46 Last Admin: 01/03/18 09:15 Dose: 2 tab Pantoprazole Sodium (Protonix Ec Tab) 40 mg PO DAILY [facility] Last Admin: 01/03/18 09:11 Dose: 40 mg Vitamin B Complex/Vit C/Folic Acid (Nephro-Catrachito) 1 tab PO DAILY [facility] Last Admin: 01/03/18 09:11 Dose: 1 tab - Labs Labs: 01/03/18 04:20 01/03/18 04:20 PT 10.3 Seconds (9.8-13.1) 01/01/18 06:30 INR 0.9 01/01/18 06:30 APTT 34.1 Seconds (25.6-37.1) 01/01/18 06:30 - Extremities Exam Additional comments: RUE: sling intact, Aquacel dressings CDI + shoulder swelling and diffuse shoulder tenderness secondary to surgery sensation diminished but intact MN/UN/RN motor intact MN/UN/RN radial pulse intact, 2 sec cap refill all fingers Assessment and Plan (1) Proximal humeral fracture Assessment & Plan: POD#1 s/p R reverse TSR -Keep immobilized in sling -effects of nerve block wearing off, will check NV status for continued improvement -PT/OT NWB RUE, encourage OOB with assistance -UA, urine culture, d/c moody this AM, ID on consult Dr. Hitchcock for UTI -orthopedically stable -above d/w Dr. Castaneda in agreement Status: Acute
--- NOTE | 2018-01-03 11:08 | CP.PCM.PN ---
Subjective - Date & Time of Evaluation Date of Evaluation: 01/03/18 Time of Evaluation: 11:07 - Subjective Subjective: patient M bed she appeared to be comfortable complaining of pain in the right shoulder Objective - Vital Signs/Intake and Output Vital Signs (last 24 hours): Temp Pulse Resp BP Pulse Ox 97.7 F 60 20 178/69 H 98 01/03/18 08:56 01/03/18 09:11 01/03/18 08:56 01/03/18 09:11 01/03/18 08:56 Intake and Output: 01/03/18 01/03/18 06:59 18:59 Intake Total 897 Output Total 650 Balance 247 - Medications Medications: Current Medications Acetaminophen (Tylenol 325mg Tab) 650 mg PO Q6 PRN PRN Reason: Headache Last Admin: 12/30/17 12:04 Dose: 650 mg Amlodipine Besylate (Norvasc) 10 mg PO DAILY [facility] Last Admin: 01/03/18 09:11 Dose: 10 mg Artificial Tears (Refresh Opth Soln) 0.2 ml OU Q6 PRN PRN Reason: Dry eyes Last Admin: 12/27/17 12:21 Dose: 1 drop Atorvastatin Calcium (Lipitor) 80 mg PO DAILY [facility] Last Admin: 01/03/18 09:11 Dose: 80 mg Cilostazol (Pletal) 100 mg PO BID [facility] Last Admin: 12/28/17 08:56 Dose: 100 mg Clopidogrel Bisulfate (Plavix) 75 mg PO DAILY [facility] Docusate Sodium (Colace) 100 mg PO TID [facility] Last Admin: 01/03/18 09:10 Dose: 100 mg Ferrous Gluconate (Fergon) 324 mg PO TID [facility] Last Admin: 01/03/18 09:10 Dose: 324 mg Glipizide (Glucotrol Xl) 10 mg PO BRK [facility] Last Admin: 01/03/18 09:10 Dose: 10 mg Hydralazine HCl (Apresoline) 50 mg PO TID PRN PRN Reason: Other Last Admin: 12/31/17 21:14 Dose: 50 mg Hydromorphone HCl (Dilaudid) 2 mg IVP Q4 PRN PRN Reason: Pain, severe (8-10) Last Admin: 01/03/18 10:42 Dose: 2 mg Sodium Chloride (Sodium Chloride 0.9%) 1,000 mls @ 75 mls/hr IV .[id number] [facility] Last Admin: 01/03/18 09:11 Dose: 75 mls/hr Sodium Chloride (Sodium Chloride 0.9%) 1,000 mls @ 75 mls/hr IV .[id number] [facility] Stop: 01/03/18 17:37 Last Admin: 01/03/18 09:12 Dose: Not Given Cefazolin Sodium 0.5 gm/ (Sodium Chloride) 100 mls @ 100 mls/hr IVPB Q12 [facility] PRN Reason: Protocol Stop: 01/04/18 09:59 Insulin Human Lispro (Humalog) 0 units SC ACHS [facility] PRN Reason: Protocol Last Admin: 01/03/18 07:37 Dose: 6 units Metoprolol Tartrate (Lopressor) 25 mg PO Q6 [facility] Last Admin: 01/03/18 09:10 Dose: 25 mg Ondansetron HCl (Zofran Inj) 4 mg IVP ONCE PRN PRN Reason: Nausea/Vomiting Oxycodone/Acetaminophen (Percocet 5/325 Mg Tab) 2 tab PO Q4 PRN PRN Reason: Pain, moderate (4-7) Stop: 01/05/18 17:46 Last Admin: 01/03/18 09:15 Dose: 2 tab Pantoprazole Sodium (Protonix Ec Tab) 40 mg PO DAILY [facility] Last Admin: 01/03/18 09:11 Dose: 40 mg Vitamin B Complex/Vit C/Folic Acid (Nephro-Catrachito) 1 tab PO DAILY [facility] Last Admin: 01/03/18 09:11 Dose: 1 tab - Labs Labs: 01/03/18 04:20 01/03/18 04:20 PT 10.3 Seconds (9.8-13.1) 01/01/18 06:30 INR 0.9 01/01/18 06:30 APTT 34.1 Seconds (25.6-37.1) 01/01/18 06:30 - Constitutional Appears: No Acute Distress - Eye Exam Eye Exam: Conjunctival injection - ENT Exam ENT Exam: Mucous Membranes Moist - Neck Exam Neck Exam: absent: Lymphadenopathy - Respiratory Exam Respiratory Exam: NORMAL BREATHING PATTERN. absent: Chest Wall Tenderness - Cardiovascular Exam Cardiovascular Exam: absent: Gallop, JVD, Rubs - GI/Abdominal Exam GI & Abdominal Exam: Soft, Normal Bowel Sounds - Extremities Exam Extremities Exam: absent: Calf Tenderness - Back Exam Back Exam: absent: CVA tenderness (L), CVA tenderness (R) - Neurological Exam Neurological Exam: Alert - Psychiatric Exam Psychiatric exam: Normal Affect - Skin Skin Exam: absent: Cyanosis Assessment and Plan (1) Hyperkalemia Assessment & Plan: Acute Kidney Injury (N17.9) improved perhaps superimposed on CK D stage III hyperkalemia, left humeral fracture/status post repair of the shoulder January 02 Diabetic chronic Kidney Disease (E11.22) Hypertensive Chronic Kidney Disease (I12.9) Chronic Kidney Disease Stage with 2 gram albuminuria (R80.9) likely due to DM/ HTN Anemia (D64.9), HTN (I12.9) the plan Patient appears to have hyperkalemia this morning we will give Kayexalate stat also it was discussed with the nurse practitioner the patient receiving 2 gram Ancef every 8 hours which appeared to be somewhat high to the level of the renal failure tocall Orthopedic and see if they can decrease the dose of the Ancef as per renal doses perhaps 1 gram every 12 hours Status: Acute
[2018-01-03] MEDS ORDERED: Sod Polystyrene Sulf 15 gm/60 ml Susp PO ONE (11:28)
[2018-01-03 12:19] LABS: URINE BACTERIA RARE (<OCC); URINE BILIRUBIN NEGATIVE (NEGATIVE); URINE BLOOD SMALL (NEGATIVE); URINE CLARITY CLOUDY (Clear); URINE COLOR YELLOW (YELLOW); URINE GLUCOSE (UA) >=500 mg/dL (Normal); URINE LEUKOCYTE ESTERASE LARGE Leu/uL (Negative); URINE PROTEIN 100 mg/dL (NEGATIVE); URINE UROBILINOGEN 0.2-1.0 mg/dL (0.2-1.0)
--- NOTE | 2018-01-03 16:44 | CP.PCM.PN ---
Subjective - Date & Time of Evaluation Date of Evaluation: 01/02/18 Time of Evaluation: 16:38 - Subjective Subjective: I D NOTE DISCUSSED c URINE CULTURES SENT CEFEPEME STARTED IN ADJUSTED RENAL DOSE Objective - Vital Signs/Intake and Output Vital Signs (last 24 hours): Temp Pulse Resp BP Pulse Ox 97.6 F 59 L 17 165/67 H 98 01/03/18 16:21 01/03/18 16:21 01/03/18 16:21 01/03/18 16:21 01/03/18 16:21 Intake and Output: 01/03/18 01/03/18 06:59 18:59 Intake Total 897 Output Total 650 Balance 247 - Medications Medications: Current Medications Acetaminophen (Tylenol 325mg Tab) 650 mg PO Q6 PRN PRN Reason: Headache Last Admin: 12/30/17 12:04 Dose: 650 mg Amlodipine Besylate (Norvasc) 10 mg PO DAILY [facility] Last Admin: 01/03/18 09:11 Dose: 10 mg Artificial Tears (Refresh Opth Soln) 0.2 ml OU Q6 PRN PRN Reason: Dry eyes Last Admin: 12/27/17 12:21 Dose: 1 drop Atorvastatin Calcium (Lipitor) 80 mg PO DAILY [facility] Last Admin: 01/03/18 09:11 Dose: 80 mg Cilostazol (Pletal) 100 mg PO BID [facility] Last Admin: 12/28/17 08:56 Dose: 100 mg Clopidogrel Bisulfate (Plavix) 75 mg PO DAILY [facility] Docusate Sodium (Colace) 100 mg PO TID [facility] Last Admin: 01/03/18 13:31 Dose: 100 mg Ferrous Gluconate (Fergon) 324 mg PO TID [facility] Last Admin: 01/03/18 13:31 Dose: 324 mg Glipizide (Glucotrol Xl) 10 mg PO BRK [facility] Last Admin: 01/03/18 09:10 Dose: 10 mg Hydralazine HCl (Apresoline) 50 mg PO TID PRN PRN Reason: Other Last Admin: 01/03/18 13:32 Dose: 50 mg Hydromorphone HCl (Dilaudid) 2 mg IVP Q4 PRN PRN Reason: Pain, severe (8-10) Last Admin: 01/03/18 10:42 Dose: 2 mg Sodium Chloride (Sodium Chloride 0.9%) 1,000 mls @ 75 mls/hr IV .[id number] [facility] Last Admin: 01/03/18 09:11 Dose: 75 mls/hr Sodium Chloride (Sodium Chloride 0.9%) 1,000 mls @ 75 mls/hr IV .[id number] [facility] Stop: 01/03/18 17:37 Last Admin: 01/03/18 09:12 Dose: Not Given Cefepime HCl 1 gm/ Sodium (Chloride) 100 mls @ 100 mls/hr IVPB DAILY [facility] PRN Reason: Protocol Insulin Human Lispro (Humalog) 0 units SC ACHS [facility] PRN Reason: Protocol Last Admin: 01/03/18 13:31 Dose: 4 units Metoprolol Tartrate (Lopressor) 25 mg PO Q6 [facility] Last Admin: 01/03/18 09:10 Dose: 25 mg Ondansetron HCl (Zofran Inj) 4 mg IVP ONCE PRN PRN Reason: Nausea/Vomiting Oxycodone/Acetaminophen (Percocet 5/325 Mg Tab) 2 tab PO Q4 PRN PRN Reason: Pain, moderate (4-7) Stop: 01/05/18 17:46 Last Admin: 01/03/18 09:15 Dose: 2 tab Pantoprazole Sodium (Protonix Ec Tab) 40 mg PO DAILY [facility] Last Admin: 01/03/18 09:11 Dose: 40 mg Vitamin B Complex/Vit C/Folic Acid (Nephro-Catrachito) 1 tab PO DAILY [facility] Last Admin: 01/03/18 09:11 Dose: 1 tab - Labs Labs: 01/03/18 04:20 01/03/18 04:20 PT 10.3 Seconds (9.8-13.1) 01/01/18 06:30 INR 0.9 01/01/18 06:30 APTT 34.1 Seconds (25.6-37.1) 01/01/18 06:30
--- NOTE | 2018-01-03 17:48 | CP.PCM.PN ---
Subjective - Date & Time of Evaluation Date of Evaluation: 01/03/18 Time of Evaluation: 09:00 - Subjective Subjective: 77 y/o F seen adn examined by bedside. Pt complains of pain in her R shoulder, medications help. Pt afebrile overnight. After moody catheter was extracted, bad strong odor came from urine. Urinalysis showed UTI. Pt afebrile with No acute events overnight. Objective - Vital Signs/Intake and Output Vital Signs (last 24 hours): Temp Pulse Resp BP Pulse Ox 97.6 F 59 L 17 165/67 H 98 01/03/18 16:21 01/03/18 16:21 01/03/18 16:21 01/03/18 16:21 01/03/18 16:21 Intake and Output: 01/03/18 01/03/18 06:59 18:59 Intake Total 897 Output Total 650 Balance 247 - Medications Medications: Current Medications Acetaminophen (Tylenol 325mg Tab) 650 mg PO Q6 PRN PRN Reason: Headache Last Admin: 12/30/17 12:04 Dose: 650 mg Amlodipine Besylate (Norvasc) 10 mg PO DAILY [facility] Last Admin: 01/03/18 09:11 Dose: 10 mg Artificial Tears (Refresh Opth Soln) 0.2 ml OU Q6 PRN PRN Reason: Dry eyes Last Admin: 12/27/17 12:21 Dose: 1 drop Atorvastatin Calcium (Lipitor) 80 mg PO DAILY [facility] Last Admin: 01/03/18 09:11 Dose: 80 mg Cilostazol (Pletal) 100 mg PO BID [facility] Last Admin: 12/28/17 08:56 Dose: 100 mg Clopidogrel Bisulfate (Plavix) 75 mg PO DAILY [facility] Docusate Sodium (Colace) 100 mg PO TID [facility] Last Admin: 01/03/18 13:31 Dose: 100 mg Ferrous Gluconate (Fergon) 324 mg PO TID [facility] Last Admin: 01/03/18 13:31 Dose: 324 mg Glipizide (Glucotrol Xl) 10 mg PO BRK [facility] Last Admin: 01/03/18 09:10 Dose: 10 mg Hydralazine HCl (Apresoline) 50 mg PO TID PRN PRN Reason: Other Last Admin: 01/03/18 13:32 Dose: 50 mg Hydromorphone HCl (Dilaudid) 2 mg IVP Q4 PRN PRN Reason: Pain, severe (8-10) Last Admin: 01/03/18 10:42 Dose: 2 mg Sodium Chloride (Sodium Chloride 0.9%) 1,000 mls @ 75 mls/hr IV .[id number] [facility] Last Admin: 01/03/18 09:11 Dose: 75 mls/hr Cefepime HCl 1 gm/ Sodium (Chloride) 100 mls @ 100 mls/hr IVPB DAILY [facility] PRN Reason: Protocol Insulin Human Lispro (Humalog) 0 units SC ACHS [facility] PRN Reason: Protocol Last Admin: 01/03/18 13:31 Dose: 4 units Metoprolol Tartrate (Lopressor) 25 mg PO Q6 [facility] Last Admin: 01/03/18 09:10 Dose: 25 mg Ondansetron HCl (Zofran Inj) 4 mg IVP ONCE PRN PRN Reason: Nausea/Vomiting Oxycodone/Acetaminophen (Percocet 5/325 Mg Tab) 2 tab PO Q4 PRN PRN Reason: Pain, moderate (4-7) Stop: 01/05/18 17:46 Last Admin: 01/03/18 09:15 Dose: 2 tab Pantoprazole Sodium (Protonix Ec Tab) 40 mg PO DAILY [facility] Last Admin: 01/03/18 09:11 Dose: 40 mg Vitamin B Complex/Vit C/Folic Acid (Nephro-Catrachito) 1 tab PO DAILY [facility] Last Admin: 01/03/18 09:11 Dose: 1 tab - Labs Labs: 01/03/18 04:20 01/03/18 04:20 PT 10.3 Seconds (9.8-13.1) 01/01/18 06:30 INR 0.9 01/01/18 06:30 APTT 34.1 Seconds (25.6-37.1) 01/01/18 06:30 - Constitutional Appears: No Acute Distress - Head Exam Head Exam: ATRAUMATIC, NORMAL INSPECTION - Eye Exam Eye Exam: EOMI, Normal appearance - ENT Exam ENT Exam: Mucous Membranes Dry - Neck Exam Neck Exam: Full ROM. absent: Meningismus - Respiratory Exam Respiratory Exam: NORMAL BREATHING PATTERN. absent: Rhonchi, Wheezes - Cardiovascular Exam Cardiovascular Exam: +S1, +S2 - GI/Abdominal Exam GI & Abdominal Exam: Soft. absent: Guarding, Rigid, Tenderness - Extremities Exam Extremities Exam: Full ROM. absent: Calf Tenderness, Pedal Edema - Neurological Exam Neurological Exam: Alert, Awake Assessment and Plan (1) Fracture, humerus Status: Acute (2) CKD (chronic kidney disease) stage 4, GFR 15-29 ml/min Status: Chronic (3) Anemia, unspecified Status: Acute (4) UTI (urinary tract infection), bacterial Status: Acute - Assessment and Plan (Free Text) Assessment: --ID consult, Dr Hitchcock. on board. --Cefepime initiated by ID. --POD #1 --Hypokalemia today, Kayexalate given. --Orthopedic Surgery team on board --Continue management as ordered. --F/U labs.
[2018-01-03] MEDS: Cefepime 1 GM in Sodium Chloride 0.9% 100 ML IVPB SCH (18:44)
--- NOTE | 2018-01-03 19:03 | PN ---
Copied To: Wei Arellano MD Attending MD: Wei Arellano MD DATE: 01/03/2018 SUBJECTIVE: The patient underwent total right shoulder replacement yesterday. She denies any chest pain. She is experiencing pain at the surgical site as well as dizziness. PHYSICAL EXAMINATION: VITAL SIGNS: Blood pressure 182/74, heart rate 80, temperature 97.1, respirations 18. HEENT: Pale conjunctiva. CHEST: Clear. HEART: S1 and S2 regular. EXTREMITIES: No edema. LABORATORY DATA: Today's SMA-7 showed sodium 133, potassium 5.6, chloride 109, CO2 of 19, glucose 337, BUN 39, and creatinine 1.4. Today's hemoglobin and hematocrit are 10.6 and 32. White count and platelet count are within normal limit. ASSESSMENT: 1. Status post total right shoulder replacement for comminuted fracture of the right humeral head. 2. Uncontrolled hypertension. 3. Coronary artery disease status post coronary artery bypass surgery in the past. RECOMMENDATIONS: Continue hydralazine 50 mg t.i.d., cefazolin 0.5 mg intravenously every 12 hours, glipizide XL 10 mg once a day, Lipitor 80 mg once a day, Lopressor 25 mg every 6 hours, Norvasc 10 mg once a day. Obtain 12-lead EKG. Wei Arellano MD
[2018-01-03] MEDS ORDERED: Cefepime 1 GM in Sodium Chloride 0.9% 100 ML IVPB SCH (21:00)
[2018-01-04 05:29] LABS: HEMOGLOBIN 10.5 g/dL (12.0-16.0); MEAN CELL VOLUME 84.7 fl (81.0-99.0); MEAN CORPUSCULAR HEMOGLOBIN 27.6 pg (27.0-31.0); MEAN CORPUSCULAR HGB CONC 32.6 g/dL (33.0-37.0); RBC 3.79 Mil/uL (3.80-5.20); RED CELL DISTRIBUTION WIDTH 18.8 % (11.5-14.5); WHITE BLOOD COUNT 12.3 K/uL (4.8-10.8)
[2018-01-04] MEDS: Insulin Lispro (humaLOG) 100 Units/ml Inj SC SCH ×4 (06:33→21:42)
[2018-01-04] MEDS ORDERED: Cefepime 1 GM in Sodium Chloride 0.9% 100 ML IVPB SCH (09:00)
[2018-01-04] MEDS: Multivitamin Vitamin B Complex (Nephro-Vite) Tab PO SCH (09:41)
[2018-01-04] MEDS: Pantoprazole 40 mg EC Tab PO SCH (09:43)
[2018-01-04] MEDS: GlipiZIDE 10 mg SR Tab PO SCH (09:43)
[2018-01-04] MEDS: Cefepime 1 GM in Sodium Chloride 0.9% 100 ML IVPB SCH (09:44)
[2018-01-04] MEDS: Sodium Chloride 0.9% 1,000 ML IV SCH (09:46)
--- NOTE | 2018-01-04 10:11 | CP.PCM.PN ---
Subjective - Date & Time of Evaluation Date of Evaluation: 01/04/18 Time of Evaluation: 10:11 - Subjective Subjective: patient awake and conscious not in acute distress appears to be comfortable no nausea no vomiting Objective - Vital Signs/Intake and Output Vital Signs (last 24 hours): Temp Pulse Resp BP Pulse Ox 98.3 F 60 20 178/65 H 97 01/04/18 08:00 01/04/18 09:45 01/04/18 08:00 01/04/18 09:45 01/04/18 08:00 - Medications Medications: Current Medications Acetaminophen (Tylenol 325mg Tab) 650 mg PO Q6 PRN PRN Reason: Headache Last Admin: 12/30/17 12:04 Dose: 650 mg Amlodipine Besylate (Norvasc) 10 mg PO DAILY [facility] Last Admin: 01/04/18 09:41 Dose: 10 mg Artificial Tears (Refresh Opth Soln) 0.2 ml OU Q6 PRN PRN Reason: Dry eyes Last Admin: 12/27/17 12:21 Dose: 1 drop Atorvastatin Calcium (Lipitor) 80 mg PO DAILY [facility] Last Admin: 01/04/18 09:45 Dose: 80 mg Cilostazol (Pletal) 100 mg PO BID [facility] Last Admin: 12/28/17 08:56 Dose: 100 mg Clopidogrel Bisulfate (Plavix) 75 mg PO DAILY [facility] Docusate Sodium (Colace) 100 mg PO TID [facility] Last Admin: 01/04/18 09:41 Dose: 100 mg Ferrous Gluconate (Fergon) 324 mg PO TID [facility] Last Admin: 01/04/18 09:41 Dose: 324 mg Glipizide (Glucotrol Xl) 10 mg PO BRK [facility] Last Admin: 01/04/18 09:43 Dose: 10 mg Hydralazine HCl (Apresoline) 50 mg PO TID PRN PRN Reason: Other Last Admin: 01/03/18 13:32 Dose: 50 mg Hydromorphone HCl (Dilaudid) 2 mg IVP Q4 PRN PRN Reason: Pain, severe (8-10) Last Admin: 01/03/18 10:42 Dose: 2 mg Sodium Chloride (Sodium Chloride 0.9%) 1,000 mls @ 75 mls/hr IV .[id number] [facility] Last Admin: 01/04/18 09:46 Dose: 75 mls/hr Cefepime HCl 1 gm/ Sodium (Chloride) 100 mls @ 100 mls/hr IVPB DAILY [facility] PRN Reason: Protocol Last Admin: 01/04/18 09:44 Dose: 100 mls/hr Insulin Human Lispro (Humalog) 0 units SC ACHS [facility] PRN Reason: Protocol Last Admin: 01/04/18 06:33 Dose: 2 units Metoprolol Tartrate (Lopressor) 25 mg PO Q6 [facility] Last Admin: 01/04/18 09:45 Dose: 25 mg Ondansetron HCl (Zofran Inj) 4 mg IVP ONCE PRN PRN Reason: Nausea/Vomiting Last Admin: 01/03/18 17:54 Dose: 4 mg Oxycodone/Acetaminophen (Percocet 5/325 Mg Tab) 2 tab PO Q4 PRN PRN Reason: Pain, moderate (4-7) Stop: 01/05/18 17:46 Last Admin: 01/03/18 21:52 Dose: 2 tab Pantoprazole Sodium (Protonix Ec Tab) 40 mg PO DAILY [facility] Last Admin: 01/04/18 09:43 Dose: 40 mg Vitamin B Complex/Vit C/Folic Acid (Nephro-Catrachito) 1 tab PO DAILY [facility] Last Admin: 01/04/18 09:41 Dose: 1 tab - Labs Labs: 01/04/18 04:20 01/04/18 04:20 PT 10.3 Seconds (9.8-13.1) 01/01/18 06:30 INR 0.9 01/01/18 06:30 APTT 34.1 Seconds (25.6-37.1) 01/01/18 06:30 - Constitutional Appears: No Acute Distress - ENT Exam ENT Exam: Mucous Membranes Moist - Neck Exam Neck Exam: absent: Lymphadenopathy - Respiratory Exam Respiratory Exam: NORMAL BREATHING PATTERN - Cardiovascular Exam Cardiovascular Exam: absent: JVD, Rubs - GI/Abdominal Exam GI & Abdominal Exam: Normal Bowel Sounds - Extremities Exam Extremities Exam: absent: Calf Tenderness - Back Exam Back Exam: absent: CVA tenderness (L), CVA tenderness (R) - Neurological Exam Neurological Exam: Alert - Psychiatric Exam Psychiatric exam: Normal Affect - Skin Skin Exam: absent: Cyanosis Assessment and Plan (1) Hyperkalemia Assessment & Plan: hyperkalemia,corrected serum potassium is normal this morning left humeral fracture/status post repair of the shoulder January 02 Diabetic chronic Kidney Disease (E11.22) Hypertensive Chronic Kidney Disease (I12.9) Chronic Kidney Disease Stage with 2 gram albuminuria (R80.9) likely due to DM/ HTN Anemia (D64.9), HTN (I12.9) acute kidney injury appears to be recovering serum creatinine continued to come down. Antibiotics as ordered per infectious disease Status: Acute
[2018-01-04] MEDS: Oxycodone/Acetaminophen 5/325 mg Tab PO PRN ×2 (10:31→19:32)
--- NOTE | 2018-01-04 11:25 | CT ---
Date of service: 12/27/2017 PROCEDURE: RIGHT HUMERUS CT WITHOUT CONTRAST HISTORY: R proximal humerus fx COMPARISON: Right humerus and shoulder radiographs 12/24/2017. TECHNIQUE: A volumetric CT acquisition was performed through the right humerus from the shoulder to elbow without intravenous contrast as requested. Reformatted datasets have been performed in multiple planes using various techniques. Radiation dose:Total exam DLP = mGy-cm. This CT exam was performed using one or more of the following dose reduction techniques: Automated exposure control, adjustment of the mA and/or kV according to patient size, and/or use of iterative reconstruction technique. FINDINGS: There is a comminuted mildly impacted fracture of the right humeral head into 6 parts with the largest fragment impacted at the proximal metaphysis right humerus. No underlying destructive bony lesion identified. There is no subluxation or dislocation identified at the glenohumeral joint with the acromioclavicular joint intact though moderately degenerated. No prominent osteophyte development at the acromioclavicular or glenohumeral joints however. There is a mild subacromial subdeltoid effusion and edema is extending into the local soft tissues circumferentially at the right shoulder including the right axilla as well as dorsal lateral proximal right upper extremity subcutaneous fat. A mild hemorrhagic glenohumeral joint effusion is appreciated. The visualized scapula appears intact without fracture as well as the distal clavicle. IMPRESSION: Comminuted impacted right humeral head fracture without dislocation or subluxation. Visualized distal clavicle and scapula appear intact without fracture. Mild subacromial subdeltoid bursal effusion is identified and limited hemarthrosis seen at the glenohumeral joint as well.
--- NOTE | 2018-01-04 13:12 | CP.PCM.PN ---
Subjective - Date & Time of Evaluation Date of Evaluation: 01/04/18 Time of Evaluation: 12:00 - Subjective Subjective: Patient seen and examined at bedside comfortable. Pain well controlled. No acute events overnight. Denies CP/SOB/N/V/D/fever/dysuria/melena. Objective - Vital Signs/Intake and Output Vital Signs (last 24 hours): Temp Pulse Resp BP Pulse Ox 98.3 F 60 20 178/65 H 97 01/04/18 08:00 01/04/18 09:45 01/04/18 08:00 01/04/18 09:45 01/04/18 08:00 - Medications Medications: Current Medications Acetaminophen (Tylenol 325mg Tab) 650 mg PO Q6 PRN PRN Reason: Headache Last Admin: 12/30/17 12:04 Dose: 650 mg Amlodipine Besylate (Norvasc) 10 mg PO DAILY [facility] Last Admin: 01/04/18 09:41 Dose: 10 mg Artificial Tears (Refresh Opth Soln) 0.2 ml OU Q6 PRN PRN Reason: Dry eyes Last Admin: 12/27/17 12:21 Dose: 1 drop Atorvastatin Calcium (Lipitor) 80 mg PO DAILY [facility] Last Admin: 01/04/18 09:45 Dose: 80 mg Cilostazol (Pletal) 100 mg PO BID [facility] Last Admin: 12/28/17 08:56 Dose: 100 mg Clopidogrel Bisulfate (Plavix) 75 mg PO DAILY [facility] Docusate Sodium (Colace) 100 mg PO TID [facility] Last Admin: 01/04/18 09:41 Dose: 100 mg Ferrous Gluconate (Fergon) 324 mg PO TID [facility] Last Admin: 01/04/18 09:41 Dose: 324 mg Glipizide (Glucotrol Xl) 10 mg PO BRK [facility] Last Admin: 01/04/18 09:43 Dose: 10 mg Hydralazine HCl (Apresoline) 50 mg PO TID PRN PRN Reason: Other Last Admin: 01/03/18 13:32 Dose: 50 mg Hydromorphone HCl (Dilaudid) 2 mg IVP Q4 PRN PRN Reason: Pain, severe (8-10) Last Admin: 01/03/18 10:42 Dose: 2 mg Sodium Chloride (Sodium Chloride 0.9%) 1,000 mls @ 75 mls/hr IV .[id number] [facility] Last Admin: 01/04/18 09:46 Dose: 75 mls/hr Cefepime HCl 1 gm/ Sodium (Chloride) 100 mls @ 100 mls/hr IVPB DAILY [facility] PRN Reason: Protocol Last Admin: 01/04/18 09:44 Dose: 100 mls/hr Insulin Human Lispro (Humalog) 0 units SC ACHS [facility] PRN Reason: Protocol Last Admin: 01/04/18 06:33 Dose: 2 units Metoprolol Tartrate (Lopressor) 25 mg PO Q6 [facility] Last Admin: 01/04/18 09:45 Dose: 25 mg Ondansetron HCl (Zofran Inj) 4 mg IVP ONCE PRN PRN Reason: Nausea/Vomiting Last Admin: 01/03/18 17:54 Dose: 4 mg Oxycodone/Acetaminophen (Percocet 5/325 Mg Tab) 2 tab PO Q4 PRN PRN Reason: Pain, moderate (4-7) Stop: 01/05/18 17:46 Last Admin: 01/04/18 10:31 Dose: 2 tab Pantoprazole Sodium (Protonix Ec Tab) 40 mg PO DAILY [facility] Last Admin: 01/04/18 09:43 Dose: 40 mg Vitamin B Complex/Vit C/Folic Acid (Nephro-Catrachito) 1 tab PO DAILY [facility] Last Admin: 01/04/18 09:41 Dose: 1 tab - Labs Labs: 01/04/18 04:20 01/04/18 04:20 PT 10.3 Seconds (9.8-13.1) 01/01/18 06:30 INR 0.9 01/01/18 06:30 APTT 34.1 Seconds (25.6-37.1) 01/01/18 06:30 - Extremities Exam Additional comments: RUE: sling intact, Aquacel dressings CDI, dressings removed revealing wound CDI with carline sensation intact MN/UN/RN motor intact MN/UN/RN radial pulse intact, 2 sec cap refill all fingers Assessment and Plan (1) Proximal humeral fracture Assessment & Plan: POD#2 s/p R reverse TSR -Dressings changed to dry dressings -Keep immobilized in sling -pain control -PT/OT NWB RUE, encourage OOB with assistance -abx as per ID -orthopedically stable for discharge to TCU -above d/w Dr. Castaneda in agreement Status: Acute
[2018-01-04 15:53] VITALS: RESP 18; O2SAT 96
--- NOTE | 2018-01-04 15:53 | OP ---
Copied To: Shimon Castaneda MD Attending MD: Shimon Castaneda MD PROCEDURE DATE: 01/02/2018 LOCATION: [facility]. PREOPERATIVE DIAGNOSIS: Displaced comminuted three-part proximal humeral fracture (pathologic secondary to severe osteopenia). OPERATIVE FINDINGS: As above. 1. Displaced comminuted three-part proximal humerus fracture. 2. Rotator cuff tear. 3. Biceps tendon attenuation. SURGEON: Shimon Castaneda MD PERSONNEL PLACEMENT SPECIALIST: SOPHIA Lopez, certified registered nursing appeals assistant. SECOND PAPERHANGER SUPERVISOR: Sesar Gomez PA-C. ANESTHESIA: General endotracheal anesthesia and regional block. ANESTHESIA ADMINISTERED BY: Dean Fine DO OPERATIONS PERFORMED: 1. Right reverse total shoulder replacement arthroplasty. 2. Repair of right rotator cuff. 3. Intra-articular biceps tenodesis. 4. Application of shoulder immobilizer. BLOOD LOSS: Approximately 170 mL. BLOOD PRODUCTS: No blood products given. DRAINS: No drains used. POSTOPERATIVE CONDITION: Stable/fair. TIME OF SURGERY: Time in the room 14:25, incision time 15:40. OPERATIVE INDICATION: Carlos Quijano is a 77-year-old woman who sustained a fall on an outstretched upper extremity, presented to the emergency room at [facility] with a displaced comminuted three-part proximal humerus fracture. Pros, cons, risks and benefits of surgical approach were discussed. Possibility of mechanical failure, infection, thromboembolic disease, possibility of secondary or tertiary surgery is discussed. The patient can no longer withstand the discomfort. Pros, cons, risks and benefits of open reduction and internal fixation versus primary reverse replacement arthroplasty were discussed. The possibility of secondary or tertiary surgery was discussed. The concept that open reduction and internal fixation of such osteopenic bone may be difficult was discussed. Possibility of mechanical failure, infection, thromboembolic disease, nerve injury, secondary or tertiary surgery was discussed. OPERATIVE PROCEDURE: After having obtained informed consent from the patient and from her , after having identified side, site and procedure and a critical pause/time-out, after the satisfactory induction of the anesthetic, the patient identified as Carlos Quijano, in the modified [place] chair position. The right upper extremity was prepped and free draped in usual fashion for upper extremity surgery. All bony prominences were well padded. The topographic anatomy of the shoulder was marked in scapula, lateral aspect of the acromion, coracoid process. An incision was described from the distal third of the clavicle to the point of the acromion. The skin incision was insufflated with a solution of 1:1000 epinephrine in 250 mL of saline. The skin incision was insufflated. The skin incision was carried down through the skin and subcutaneous tissue. The arm was placed in some external rotation. Dissection was carried out superficial to the fascia to the area of the deltopectoral interval. This having been accomplished, it should be noted that informed consent had been obtained in the above fashion. Stay sutures were placed. The deltopectoral interval was identified and was developed. Great care was taken because of the age of the fracture. It should be noted that the surgery was delayed twice, once because the patient had been on Plavix and the second time because the patient had been involved on a secondary antiplatelet medication, which had not been stopped. This having been accomplished after finding the deltopectoral interval, the clavipectoral fascia was divided. The strap muscles were identified and the retraction was offered at this point in time with the interval having been identified. An incision was accomplished in the area of the greater tuberosity and with external rotation, the rotator cuff was elevated. There was found to be a tear of the rotator cuff as well. Using #1 Vicryl, the rotator cuff was elevated and the biceps tendon was found to be attenuated. A biceps tenotomy was accomplished. The biceps tendon was tagged. At this point in time with further external rotation and upward delivery of the humerus into the wound, retractors were placed and at this point in time, there was found to be a displaced comminuted three-part pathologic fracture of the proximal humerus. There was no attempt to salvage the head since it was very, very osteopenic and gone. The greater tuberosity was very, very osteopenic as well. The rotator cuff attachment to the greater tuberosity was identified and tagged. The bone was carefully debrided since it cannot hold and was extremely osteopenic and crumbly. The osteotomy having been accomplished, the biceps tendon was tagged. The rotator cuff was tagged and at this point in time, attention was turned to the preparation of the glenoid for the glenosphere. This having been accomplished, the wound was thoroughly irrigated. The retractor was placed posteriorly. The retractor was placed anteriorly. The bur was used to smooth the somewhat hook nature of the superior aspect of the glenoid. The small glenoid was used and the guidewire was placed in essentially the bull's-eye position at the intersection of the vectors from the caudad to cephalad plane and the medial and lateral. This having been accomplished, reaming was accomplished with the reamers. The 36-mm glenosphere was chosen, reaming was accomplished into the scapula. Articular cartilage was burred as well to make sure it was down to bleeding bone and subchondral bone. The 36-mm glenosphere was impacted. The wire was removed and screws were placed in the superior aspect of the glenoid and the inferior aspect, 20 mm superiorly, 25 mm inferiorly. The glenoid was attached, impacted and held with the maintenance screw. The humeral shaft at this point in time was prepared with the bur. It was extremely narrow and great care was taken because of the osteopenic nature of the bone. A 14-mm broach was applied, the +3.5 head and the polyethylene insert. The shoulder was reduced and was found to be stable in all planes. At this point in time, the trial was removed and the definitive [place] size 14 mm stem, which is actually 1 mm was introduced in the Press-Fit mode. The position was found to be excellent and the stability was found to be excellent. The proximal aspect of the fracture stem had been impacted and is fixed with a screw. At this point in time, the size 3 polyethylene was impacted. The shoulder was reduced and found to be stable in total elevation, internal and external rotation, actually a very good fit. At this point in time, the rotator cuff was repaired. The wound was thoroughly irrigated with the Pulsavac. The wound was thoroughly irrigated and at that point with the arm in essentially neutral, the posterior leaf of the rotator cuff, which had been attached to the greater tuberosity fragment was placed through the fenestrations in the fracture stem and this was accomplished with the medial aspect of the rotator cuff as well. The rotator cuff repair was found to be excellent. Due to the prosthesis at this point in time, the intra-articular biceps tenodesis was accomplished with the biceps tendon using the #1 Vicryl. Intra-articular biceps tenodesis having been accomplished, bone grafting of the humeral component was accomplished and at this point in time, the construct was reduced and found to be stable in all planes. Rotator cuff having been repaired, intra-articular biceps tenodesis having been accomplished. Closure of the deltopectoral interval was with 0 Quill followed by Vicryl and 2-0 Quill and carline for skin. No drain was employed. Hemostasis had been controlled. Richy Ingram compression dressing and shoulder immobilizers applied. Shimon Castaneda MD
--- NOTE | 2018-01-04 16:06 | CP.PCM.DIS ---
Provider - Provider Date of Admission: 12/24/17 13:32 Attending physician: Rubén Garcia MD Consults: Orthopedics: Dr Castaneda Nephrology: Dr Romero Cardiology: Dr Arellano Time Spent in preparation of Discharge (in minutes): 30 Diagnosis - Discharge Diagnosis (1) Fracture, humerus Status: Acute (2) CKD (chronic kidney disease) stage 4, GFR 15-29 ml/min Status: Chronic (3) Anemia, unspecified Status: Acute (4) UTI (urinary tract infection), bacterial Status: Acute Hospital Course - Lab Results Lab Results: Micro Results 12/28/17 16:09 Naris MRSA Culture (Admit) - Final MRSA NOT DETECTED 12/24/17 16:56 Naris MRSA Culture (Admit) - Final MRSA NOT DETECTED Most Recent Lab Values WBC 12.3 K/uL (4.8-10.8) H 01/04/18 04:20 RBC 3.79 Mil/uL (3.80-5.20) L 01/04/18 04:20 Hgb 10.5 g/dL (12.0-16.0) L 01/04/18 04:20 Hct 32.1 % (34.0-47.0) L 01/04/18 04:20 MCV 84.7 fl (81.0-99.0) 01/04/18 04:20 MCH 27.6 pg (27.0-31.0) 01/04/18 04:20 MCHC 32.6 g/dL (33.0-37.0) L 01/04/18 04:20 RDW 18.8 % (11.5-14.5) H 01/04/18 04:20 Plt Count 228 K/uL (130-400) 01/04/18 04:20 MPV 8.8 fl (7.2-11.7) 12/25/17 04:28 Gran % Cancelled 12/24/17 12:10 Neut % (Auto) 70.8 % (50.0-75.0) 12/25/17 04:28 Lymph % (Auto) 18.3 % (20.0-40.0) L 12/25/17 04:28 [place] % (Auto) 10.3 % (0.0-10.0) H 12/25/17 04:28 Eos % (Auto) 0.1 % (0.0-4.0) 12/25/17 04:28 Baso % (Auto) 0.5 % (0.0-2.0) 12/25/17 04:28 Gran # Cancelled 12/24/17 12:10 Neut # (Auto) 7.3 K/uL (1.8-7.0) H 12/25/17 04:28 Lymph # (Auto) 1.9 K/uL (1.0-4.3) 12/25/17 04:28 [place] # (Auto) 1.1 K/uL (0.0-0.8) H 12/25/17 04:28 Eos # (Auto) 0.0 K/uL (0.0-0.7) 12/25/17 04:28 Baso # (Auto) 0.1 K/uL (0.0-0.2) 12/25/17 04:28 PT 10.3 Seconds (9.8-13.1) 01/01/18 06:30 INR 0.9 01/01/18 06:30 APTT 34.1 Seconds (25.6-37.1) 01/01/18 06:30 pCO2 42 mm/Hg (35-45) 12/24/17 13:11 pO2 116 mm/Hg (80-100) H 12/24/17 13:11 HCO3 34.5 mmol/L (21-28) H 12/24/17 13:11 ABG pH 7.54 (7.35-7.45) H 12/24/17 13:11 ABG Total CO2 37.2 mmol/L (22-28) H 12/24/17 13:11 ABG O2 Saturation 101.0 % (95-98) H 12/24/17 13:11 ABG Base Excess 12.2 mmol/L (-2.0-3.0) H 12/24/17 13:11 Silvano Test Yes 12/24/17 13:11 ABG Potassium 4.6 mmol/L (3.6-5.2) 12/24/17 13:11 A-a O2 Difference 117.0 mm/Hg 12/24/17 13:11 Sodium 141.0 mmol/L (132-148) 12/24/17 13:11 Chloride 108.0 mmol/L (98-107) H 12/24/17 13:11 Glucose 430 mg/dL (65-105) H* 12/24/17 13:11 Lactate 2.9 mmol/L (0.7-2.1) H 12/24/17 13:11 FiO2 40.0 % 12/24/17 13:11 Blood Gas Comments Lac=2.9 12/24/17 13:11 Crit Value Called To rosalee Gomez 12/24/17 13:11 Crit Value Called By 22 12/24/17 13:11 Crit Value Read Back Y 12/24/17 13:11 Blood Gas Notified Time 1243 12/24/17 13:11 Sodium 137 mmol/l (132-148) 01/04/18 04:20 Potassium 4.2 MMOL/L (3.6-5.0) 01/04/18 04:20 Chloride 111 mmol/L (98-107) H 01/04/18 04:20 Carbon Dioxide 17 mmol/L (22-30) L 01/04/18 04:20 Anion Gap 13 (10-20) 01/04/18 04:20 BUN 29 mg/dl (7-17) H 01/04/18 04:20 Creatinine 1.1 mg/dl (0.7-1.2) 01/04/18 04:20 Est GFR ( Amer) 58 01/04/18 04:20 Est GFR (Non-Af Amer) 48 01/04/18 04:20 POC Glucose (mg/dL) 223 mg/dL (65-110) H 01/03/18 22:25 Random Glucose 186 mg/dL (65-105) H 01/04/18 04:20 Hemoglobin A1c 6.1 % (4.2-6.5) 12/29/17 17:23 Calcium 8.0 mg/dL (8.4-10.2) L 01/04/18 04:20 Phosphorus 3.8 mg/dl (2.5-4.5) 12/25/17 22:54 Magnesium 1.6 MG/DL (1.6-2.3) 12/25/17 22:54 Iron 16 ug/dL (37-170) L 12/26/17 12:54 TIBC 309 ug/dL (250-450) 12/26/17 12:54 % Saturation 5 % (20-55) L 12/26/17 12:54 Ferritin 38.3 ng/Ml (11.1-264.0) 12/26/17 12:54 Total Bilirubin 0.8 mg/dl (0.2-1.3) 12/29/17 07:05 AST 43 U/L (14-36) H 12/29/17 07:05 ALT 39 U/L (9-52) 12/29/17 07:05 Alkaline Phosphatase 127 U/L (38-126) H D 12/29/17 07:05 Total Creatine Kinase 37 U/L (30-135) 12/24/17 17:00 Troponin I 0.3990 ng/mL (0.00-0.120) H* 12/24/17 23:48 Total Protein 7.2 G/DL (6.3-8.2) 12/29/17 07:05 Albumin 3.8 g/dL (3.5-5.0) 12/29/17 07:05 Globulin 3.4 gm/dL (2.2-3.9) 12/29/17 07:05 Albumin/Globulin Ratio 1.1 (1.0-2.1) 12/29/17 07:05 25-OH Vitamin D Total 40.9 NG/ML (30.0-100.0) 12/27/17 04:30 PTH Intact Whole Mole[place] 11 pg/mL (14-64) L 12/24/17 17:00 Arterial Blood Potassium 4.6 mmol/L (3.6-5.2) 12/24/17 13:11 Urine Color Yellow (YELLOW) 01/03/18 12:03 Urine Clarity Cloudy (Clear) 01/03/18 12:03 Urine pH 6.0 (5.0-8.0) 01/03/18 12:03 Ur Specific [place] 1.015 (1.003-1.030) 01/03/18 12:03 Urine Protein 100 mg/dL (NEGATIVE) 01/03/18 12:03 Urine Glucose (UA) >=500 mg/dL (Normal) 01/03/18 12:03 Urine Ketones Negative mg/dL (NEGATIVE) 01/03/18 12:03 Urine Blood Small (NEGATIVE) 01/03/18 12:03 Urine Nitrate Positive (NEGATIVE) H 01/03/18 12:03 Urine Bilirubin Negative (NEGATIVE) 01/03/18 12:03 Urine Urobilinogen 0.2-1.0 mg/dL (0.2-1.0) 01/03/18 12:03 Ur Leukocyte Esterase Large Karla/uL (Negative) 01/03/18 12:03 Urine RBC (Auto) 7 /hpf (0-3) H 01/03/18 12:03 Urine Microscopic WBC 106 /hpf (0-5) H 01/03/18 12:03 Urine Bacteria Rare (<OCC) 01/03/18 12:03 Hyaline Casts 0-2 /hpf (0-2) 12/24/17 12:45 Urine Yeast (Budding) Rare /hpf (NEGATIVE) H 01/03/18 12:03 Ur Random Creatinine 32 mg/dL (20-320) 12/26/17 17:00 U Random Total Protein 62 mg/L 12/24/17 04:00 Urine Total Volume 66.5 mg/dL 12/26/17 17:00 Microalb/Creat Ratio 2103 (<30) H 12/26/17 17:00 Stool Sodium TNP 12/24/17 13:32 Stool Potassium TNP 12/24/17 13:32 Stool Chloride TNP 12/24/17 13:32 Serum Immunofixation TNP 12/25/17 15:00 Tot [place]/Lambda Ratio TNP 12/25/17 15:00 [place] Light Chain Anal TNP 12/25/17 15:00 Lambda Light Chain Anal TNP 12/25/17 15:00 C. difficile Ag & Toxin Positive antigen (NEGATIVE) 12/24/17 16:19 Blood Type B POSITIVE 01/01/18 06:30 Antibody Screen Negative 01/01/18 06:30 Crossmatch See Detail 01/01/18 06:30 BBK History Checked Patient has bt 01/01/18 06:30 - Hospital Course Hospital Course: 77 y/o F with a PMhx of DM 2 , HTN , CAD, CKD, and CABG admitted for management normocytic anemia, bradycardia, hyperkalemia and right proximal humerus fracture. Pt received 2 PRBC's. Right reverse total shoulder replacement arthrosplasty and repair of right rotator cuff were perfromed. Pt developed an UTI nd currently receiving IV antibiotics. Pt will be discharged to TCU for IV antibiotics administration and physical therapy as rehabilitation adter orthopedic surgery. - Date & Time of H&P Date of H&P: 12/24/17 Time of H&P: 15:12 Discharge Exam - Head Exam Head Exam: ATRAUMATIC, NORMAL INSPECTION Discharge Plan - Follow Up Plan Condition: CRITICAL Disposition: REHAB FACILITY/REHAB UNIT Additional Instructions: -D/C to TCU for physical therapy and rehab
--- NOTE | 2018-01-04 19:30 | PN ---
Copied To: Wei Arellano MD Attending MD: Wei Arellano MD DATE: 01/04/2018 SUBJECTIVE: The patient denies chest pain. She complains of headache. She denies any dizziness. PHYSICAL EXAMINATION: VITAL SIGNS: Blood pressure 160/53, heart rate 60, temperature 97.8, respirations 20. HEENT: Pale conjunctiva. CHEST: Clear. HEART: S1 and S2 regular. EXTREMITIES: No edema. LABORATORY DATA: Today's SMA-7 showed sodium 137, potassium 4.2, chloride 111, CO2 of 17, glucose 186, BUN 29, and creatinine 1.1. Today's hemoglobin and hematocrit are 10.5 and 32.1. White count 12.3 and platelet count are 128,000. I did ordered an EKG yesterday; however, there is no record of that EKG either in the chart or in the [facility] database. ASSESSMENT: 1. Status post total right shoulder replacement for comminuted right humerus hip fracture. 2. Coronary artery disease status post coronary artery bypass surgery in the past. 3. Status post recent permanent dual-chamber pacemaker placement during this admission for symptomatic bradycardia and complete atrioventricular block. 4. Anemia. 5. Improved hyperkalemia. 6. Improved renal insufficiency. RECOMMENDATIONS: Continue hydralazine 50 mg t.i.d., cefepime at 1 g intravenously daily, Dilaudid 2 g intravenously every 4 hours p.r.n. for pain, Glucophage 30 mg once a day, Lopressor 25 mg every 6 hours, Lipitor 80 mg once a day, Norvasc 10 mg once a day. Start clonidine at 0.1 mg twice a day. Plan is to transfer the patient to Rehab. Wei Arellano MD
[2018-01-04 20:07] VITALS: BP 142/51; PULSE 53; TEMP 98.8
--- NOTE | 2018-01-04 22:46 | CARD ---
APPROVED REPORT Date of service: 01/04/2018 EKG Measurement Heart [id number] <Conclusion> Atrial-paced rhythm with occasional premature ventricular complexes Abnormal ECG
== END 2018-01-05 07:28 | DRG 243 ==
LOC: H.ER 08:54 → H.ERHOLD 13:32 → H.ICU/CCU 15:06 → H.TEL 12-28 10:24
PROVIDERS: ADMIT Family Medicine; ATTEND Family Medicine
PROC: 3E0234Z Introduction of Serum, Toxoid and Vaccine into Muscle, Percutaneous Approach (ICD-10-PCS; 2017-12-25)
PROC: 02H63JZ Insertion of Pacemaker Lead into Right Atrium, Percutaneous Approach (ICD-10-PCS; 2017-12-26)
PROC: 02HK3JZ Insertion of Pacemaker Lead into Right Ventricle, Percutaneous Approach (ICD-10-PCS; 2017-12-26)
PROC: 0JH606Z Insertion of Pacemaker, Dual Chamber into Chest Subcutaneous Tissue and Fascia, Open Approach (ICD-10-PCS; principal; 2017-12-26 07:30)
PROC: 30233N1 Transfusion of Nonautologous Red Blood Cells into Peripheral Vein, Percutaneous Approach (ICD-10-PCS; 2017-12-28)
PROC: 0RRJ00Z Replacement of Right Shoulder Joint with Reverse Ball and Socket Synthetic Substitute, Open Approach (ICD-10-PCS; 2018-01-02)
PROC: 0LS30ZZ Reposition Right Upper Arm Tendon, Open Approach (ICD-10-PCS; 2018-01-02)
PROC: 3E0T3BZ Introduction of Anesthetic Agent into Peripheral Nerves and Plexi, Percutaneous Approach (ICD-10-PCS; 2018-01-02)
PROC: 3E0T33Z Introduction of Anti-inflammatory into Peripheral Nerves and Plexi, Percutaneous Approach (ICD-10-PCS; 2018-01-02)
DX: I44.2 Atrioventricular block, complete (principal); S42.291A Other displaced fracture of upper end of right humerus, initial encounter for closed fracture; N18.4 Chronic kidney disease, stage 4 (severe); N17.9 Acute kidney failure, unspecified; N39.0 Urinary tract infection, site not specified; E87.2 Acidosis; I49.5 Sick sinus syndrome; I25.10 Atherosclerotic heart disease of native coronary artery without angina pectoris; I12.9 Hypertensive chronic kidney disease with stage 1 through stage 4 chronic kidney disease, or unspecified chronic kidney disease; E87.6 Hypokalemia; E87.5 Hyperkalemia; E11.65 Type 2 diabetes mellitus with hyperglycemia; M85.811 Other specified disorders of bone density and structure, right shoulder; E11.22 Type 2 diabetes mellitus with diabetic chronic kidney disease; E11.51 Type 2 diabetes mellitus with diabetic peripheral angiopathy without gangrene; D50.9 Iron deficiency anemia, unspecified; E83.52 Hypercalcemia; E78.5 Hyperlipidemia, unspecified; E78.00 Pure hypercholesterolemia, unspecified; H91.90 Unspecified hearing loss, unspecified ear; W18.30XA Fall on same level, unspecified, initial encounter; Z23 Encounter for immunization; Z95.1 Presence of aortocoronary bypass graft; Z79.84 Long term (current) use of oral hypoglycemic drugs; Z79.02 Long term (current) use of antithrombotics/antiplatelets; Y92.099 Unspecified place in other non-institutional residence as the place of occurrence of the external cause

== ENCOUNTER 2018-01-04 16:28 | Inpatient (IN) | payer MEDICARE, OTHER ==
[2018-01-04 20:54] VITALS: BMI 20.5
[2018-01-04] MEDS: Oxycodone/Acetaminophen 5/325 mg Tab PO PRN (23:48)
[2018-01-05] MEDS: Oxycodone/Acetaminophen 5/325 mg Tab PO PRN ×4 (05:40→22:25)
[2018-01-05] MEDS: Insulin Lispro (humaLOG) 100 Units/ml Inj SC SCH ×4 (07:39→22:18)
[2018-01-05 08:00] VITALS: RESP 20
[2018-01-05] MEDS: GlipiZIDE 10 mg SR Tab PO SCH (08:26)
[2018-01-05] MEDS: Multivitamin Vitamin B Complex (Nephro-Vite) Tab PO SCH (08:26)
[2018-01-05] MEDS: Pantoprazole 40 mg EC Tab PO SCH (08:27)
[2018-01-05 10:56] LABS: BASO % 0.4 % (0.0-2.0); EOS # 0.2 K/uL (0.0-0.7); EOS % 1.8 % (0.0-4.0); HEMOGLOBIN 10.2 g/dL (12.0-16.0); LYMPH # 1.7 K/uL (1.0-4.3); MEAN CELL VOLUME 85.2 fl (81.0-99.0); MEAN CORPUSCULAR HEMOGLOBIN 28.3 pg (27.0-31.0); MEAN CORPUSCULAR HGB CONC 33.2 g/dL (33.0-37.0); MEAN PLATELET VOLUME 8.7 fl (7.2-11.7); MONO # 0.9 K/uL (0.0-0.8); MONO % 8.1 % (0.0-10.0); NEUT # 7.8 K/uL (1.8-7.0); NEUT % 73.7 % (50.0-75.0); NRBC % 0.1 % (0.0-0.0); RBC 3.6 Mil/uL (3.80-5.20); RED CELL DISTRIBUTION WIDTH 19.3 % (11.5-14.5); WHITE BLOOD COUNT 10.6 K/uL (4.8-10.8)
[2018-01-05 11:00] LABS: ALBUMIN 3.1 g/dL (3.5-5.0); ALT/SGPT 28 U/L (9-52); AST/SGOT 81 U/L (14-36); BLOOD UREA NITROGEN 20 mg/dl (7-17); GFR NON-AFRICAN AMERICAN > 60
[2018-01-05] MEDS: Lubricant Eye Drops UD OU PRN (13:08)
--- NOTE | 2018-01-05 16:07 | CP.PCM.PN ---
Subjective - Date & Time of Evaluation Date of Evaluation: 01/05/18 Time of Evaluation: 08:00 - Subjective Subjective: Patient seen and examined at bedside comfortable. Pain well controlled. No new complaints. Objective - Vital Signs/Intake and Output Vital Signs (last 24 hours): Temp Pulse Resp BP Pulse Ox 96.6 F L 61 20 182/60 H 98 01/05/18 07:59 01/05/18 11:18 01/05/18 07:59 01/05/18 11:18 01/05/18 07:59 - Medications Medications: Current Medications Amlodipine Besylate (Norvasc) 10 mg PO DAILY [facility] Last Admin: 01/05/18 10:46 Dose: 10 mg Artificial Tears (Refresh Opth Soln) 0.2 ml OU Q6 PRN PRN Reason: Dry eyes Last Admin: 01/05/18 13:08 Dose: 1 drop Atorvastatin Calcium (Lipitor) 80 mg PO DAILY@2100 [facility] Clonidine HCl (Catapres) 0.1 mg PO BID [facility] Last Admin: 01/05/18 10:46 Dose: 0.1 mg Clopidogrel Bisulfate (Plavix) 75 mg PO DAILY [facility] Last Admin: 01/05/18 08:27 Dose: 75 mg Docusate Sodium (Colace) 100 mg PO TID [facility] Last Admin: 01/05/18 12:15 Dose: 100 mg Ferrous Gluconate (Fergon) 324 mg PO TID [facility] Last Admin: 01/05/18 12:15 Dose: 324 mg Glipizide (Glucotrol Xl) 10 mg PO BRK [facility] Last Admin: 01/05/18 08:26 Dose: 10 mg Cefepime HCl 1 gm/ Sodium (Chloride) 100 mls @ 100 mls/hr IVPB DAILY@1700 [facility] PRN Reason: Protocol Insulin Human Lispro (Humalog) 0 units SC ACHS [facility] PRN Reason: Protocol Last Admin: 01/05/18 12:15 Dose: 2 u Metoprolol Tartrate (Lopressor) 25 mg PO Q6 [facility] Last Admin: 01/05/18 11:18 Dose: 25 mg Oxycodone/Acetaminophen (Percocet 5/325 Mg Tab) 2 tab PO Q4 PRN PRN Reason: Pain, moderate (4-7) Stop: 01/07/18 23:08 Last Admin: 01/05/18 15:08 Dose: 2 tab Pantoprazole Sodium (Protonix Ec Tab) 40 mg PO DAILY [facility] Last Admin: 01/05/18 08:27 Dose: 40 mg Vitamin B Complex/Vit C/Folic Acid (Nephro-Catrachito) 1 tab PO DAILY [facility] Last Admin: 01/05/18 08:26 Dose: 1 tab - Labs Labs: 01/05/18 10:35 01/05/18 10:35 - Extremities Exam Additional comments: RUE: sling intact, dressings CDI sensation intact MN/UN/RN motor intact MN/UN/RN radial pulse intact, 2 sec cap refill all fingers Assessment and Plan (1) Status post total replacement of right shoulder Assessment & Plan: POD#3 s/p R reverse TSR -Maintain dry dressings -Keep immobilized in sling -PT/OT NWB RUE, encourage OOB with assistance -abx as per ID -orthopedically stable -above d/w Dr. Castaneda in agreement Status: Acute
[2018-01-05] MEDS: Cefepime 1 GM in Sodium Chloride 0.9% 100 ML IVPB SCH (16:49)
--- NOTE | 2018-01-05 17:59 | CP.PCM.HP ---
History of Present Illness - History of Present Illness History of Present Illness: 77 y/o F with a PMhx of DM 2 , HTN , CAD, CKD, and CABG admitted for rehabilitation after Right reverse total shoulder replacement arthrosplasty and repair of right rotator cuff. Pt developed an UTI and currently receiving IV antibiotics. --Today, pt was evaluated and examined with Dr Garcia by bedside. Pt reports feeling well, afebrile, tolerating PO, pain is well controlled with medications , no acute events overnight. Present on Admission - Present on Admission Any Indicators Present on Admission: No Review of Systems - Constitutional Constitutional: absent: Chills, Fever - EENT Nose/Mouth/Throat: absent: Nasal Congestion, Hoarsness, Sore Throat, Neck Mass - Cardiovascular Cardiovascular: absent: Chest Pain - Respiratory Respiratory: absent: Cough, Dyspnea - Gastrointestinal Gastrointestinal: absent: Abdominal Pain, Diarrhea, Nausea, Vomiting Past Patient History - Past Social History Smoking Status: Never Smoked - CARDIAC Hx Cardiac Disorders: Yes Hx Hypertension: Yes Hx Pacemaker: Yes - PULMONARY Hx Respiratory Disorders: No - NEUROLOGICAL Hx Neurological Disorder: No - HEENT Hx HEENT Problems: Yes Other/Comment: Hard of hearing - RENAL Hx Chronic Kidney Disease: No - ENDOCRINE/METABOLIC Hx Diabetes Mellitus Type 2: Yes - HEMATOLOGICAL/ONCOLOGICAL Hx Blood Disorders: No - INTEGUMENTARY Hx Dermatological Problems: No - MUSCULOSKELETAL/RHEUMATOLOGICAL Hx Falls: Yes - GASTROINTESTINAL Hx Gastrointestinal Disorders: No - GENITOURINARY/GYNECOLOGICAL Hx Genitourinary Disorders: No - PSYCHIATRIC Hx Psychophysiologic Disorder: No Hx Substance Use: No - SURGICAL HISTORY Hx Coronary Artery Bypass Graft: Yes Other/Comment: Heart valve bypass - ANESTHESIA Hx Anesthesia: Yes Hx Anesthesia Reactions: No Meds Allergies/Adverse Reactions: Allergies Allergy/AdvReac Type Severity Reaction Status Date / Time No Known Allergies Allergy Verified 12/24/17 09:25 Physical Exam - Constitutional Appears: Well, No Acute Distress - Head Exam Head Exam: ATRAUMATIC, NORMAL INSPECTION - Eye Exam Eye Exam: EOMI - ENT Exam ENT Exam: Mucous Membranes Moist - Neck Exam Neck exam: Positive for: Full Rom, Normal Inspection. Negative for: Meningismus - Respiratory Exam Respiratory Exam: Clear to Auscultation Bilateral, NORMAL BREATHING PATTERN - Cardiovascular Exam Cardiovascular Exam: +S1, +S2 - GI/Abdominal Exam GI & Abdominal Exam: Soft. absent: Distended, Firm, Guarding, Tenderness - Extremities Exam Extremities exam: Negative for: calf tenderness, pedal edema - Neurological Exam Neurological exam: Alert, Oriented x3 Results - Vital Signs Recent Vital Signs: Last Vital Signs Temp 98.1 F 01/05/18 16:24 Pulse 60 01/05/18 16:24 Resp 20 01/05/18 16:24 BP 143/67 01/05/18 16:24 Pulse Ox 98 01/05/18 16:24 - Labs Result Diagrams: 01/05/18 10:35 01/05/18 10:35 Labs: Laboratory Results - last 24 hr 01/05/18 01/05/18 01/05/18 05:35 10:35 10:35 WBC 10.6 RBC 3.60 L Hgb 10.2 L Hct 30.7 L MCV 85.2 MCH 28.3 MCHC 33.2 RDW 19.3 H Plt Count 204 MPV 8.7 Neut % (Auto) 73.7 Lymph % (Auto) 16.0 L [place] % (Auto) 8.1 Eos % (Auto) 1.8 Baso % (Auto) 0.4 Neut # (Auto) 7.8 H Lymph # (Auto) 1.7 [place] # (Auto) 0.9 H Eos # (Auto) 0.2 Baso # (Auto) 0.0 Sodium 135 Potassium 4.8 Chloride 108 H Carbon Dioxide 20 L Anion Gap 12 BUN 20 H Creatinine 0.9 Est GFR ( Amer) > 60 Est GFR (Non-Af Amer) > 60 POC Glucose (mg/dL) 182 H Random Glucose 162 H Calcium 8.0 L Total Bilirubin 1.2 AST 81 H D ALT 28 Alkaline Phosphatase 119 Total Protein 6.2 L Albumin 3.1 L Globulin 3.1 Albumin/Globulin Ratio 1.0 01/05/18 01/05/18 01/05/18 10:58 13:06 16:17 WBC RBC Hgb Hct MCV MCH MCHC RDW Plt Count MPV Neut % (Auto) Lymph % (Auto) [place] % (Auto) Eos % (Auto) Baso % (Auto) Neut # (Auto) Lymph # (Auto) [place] # (Auto) Eos # (Auto) Baso # (Auto) Sodium Potassium Chloride Carbon Dioxide Anion Gap BUN Creatinine Est GFR ( Amer) Est GFR (Non-Af Amer) POC Glucose (mg/dL) 158 H 202 H 232 H Random Glucose Calcium Total Bilirubin AST ALT Alkaline Phosphatase Total Protein Albumin Globulin Albumin/Globulin Ratio Assessment & Plan - Assessment and Plan (Free Text) Assessment: 77 y/o F with a PMhx of DM 2 , HTN , CAD, CKD, and CABG admitted for rehabilitation S/P right reverse total shoulder replacement arthrosplasty and repair of right rotator cuff, and completion of IV antibiotics for UTI --Stable --Continue with physical therapy --orthopedic Surgery on board, Dr Castaneda. --Home meds resumed --Continue management as ordered. - Date & Time Date: 01/05/18 Time: 10:00
--- NOTE | 2018-01-06 02:25 | CON ---
Copied To: Wei Arellano MD Attending MD: Wei Arellano MD DATE: 01/05/2018 CARDIOLOGY CONSULTATION HISTORY OF PRESENT ILLNESS: The patient is a 77-year-old [place] female who has a history of hypertension, history of coronary artery disease, status post coronary artery bypass surgery who was admitted on 12/24/2017 because of a fall and comminuted right humerus head fracture. The patient was found to be in periods of complete AV block and required permanent dual-chamber pacemaker placement. Following that, the patient underwent total right shoulder replacement and was transferred to TCU for rehab. The patient has been experiencing uncontrolled hypertension since her presentation to the hospital. She denies any chest pain or shortness of breath. The patient did report dizziness this morning. PAST MEDICAL HISTORY: Hypertension, diabetes mellitus, and coronary artery disease, status post coronary artery bypass surgery. REVIEW OF SYSTEMS: No fever or chills. No nausea or vomiting and no diarrhea. No retrosternal chest pain and no shortness of breath. MEDICATIONS: Clonidine mg once a day, cefepime 1 g intravenously daily,Colace 100 mg t.i.d., Glucotrol XL 10 mg once a day, Lipitor 80 mg once a day, Lopressor 25 mg every 6 hours, Norvasc 10 mg once a day, and Plavix 75 mg once a day. PHYSICAL EXAMINATION: GENERAL: The patient is an elderly female who does not appear to be in acute distress. VITAL SIGNS: Earlier blood pressure was 179/57, the latest one was 140/52 as the patient was undergoing occupational therapy; heart rate 60; temperature 96.6; and respirations 20. HEENT: Normocephalic. NECK: No JVD. CHEST: Clear. HEART: S1 and S2 are regular. ABDOMEN: Soft. EXTREMITIES: No edema. LABORATORY DATA: SMA-7: Sodium 135, potassium 4.8, chloride 108, CO2 of 20, glucose 162, BUN 20, and creatinine 0.9. Today's hemoglobin and hematocrit 10.2 and 30.7. White count and platelet count are 10.6 and 204 respectively. ASSESSMENT: 1. Uncontrolled hypertension. 2. Coronary artery disease, status post coronary artery bypass surgery. 3. Improved renal insufficiency. 4. Status post fall with resulting comminuted right humerus head fracture. 5. Status post dual-chamber pacemaker placement for symptomatic bradycardia. 6. Status post total right shoulder replacement. 7. Mild anemia. RECOMMENDATIONS: Continue clonidine mg twice a day, cefepime 1 g intravenously daily, Glucotrol XL 10 mg once a day, Lipitor 80 mg once a day, Lopressor 25 mg every 6 hours, Norvasc 10 mg once a day, and Plavix 75 mg once a day. If blood pressure remains uncontrolled, I will consider initiating an oral diuretic agent. Wei Arellano MD
[2018-01-06] MEDS: Oxycodone/Acetaminophen 5/325 mg Tab PO PRN ×4 (03:00→17:18)
[2018-01-06] MEDS: Insulin Lispro (humaLOG) 100 Units/ml Inj SC SCH ×4 (07:03→21:36)
[2018-01-06] MEDS: Pantoprazole 40 mg EC Tab PO SCH (08:54)
[2018-01-06] MEDS: GlipiZIDE 10 mg SR Tab PO SCH (08:54)
[2018-01-06] MEDS: Multivitamin Vitamin B Complex (Nephro-Vite) Tab PO SCH (08:54)
--- NOTE | 2018-01-06 11:39 | CP.PCM.PN ---
Subjective - Date & Time of Evaluation Date of Evaluation: 01/06/18 Time of Evaluation: 11:37 - Subjective Subjective: Patient seen at completion of PT. She is refusing to allow immobilizer to be applied. Explained to patient she just had surgery and that she needs to protect arm at this time, she verbalized understanding and again refuses. WIll attempt sling at a minimum, but patient refusing. Denies numbess/tingling. Complaining of shoulder pain. Demonstrated to patient she at least needs to keep her hand elevated and encourage ROM fingers/wrist/elbow Objective - Vital Signs/Intake and Output Vital Signs (last 24 hours): Temp Pulse Resp BP Pulse Ox 98.2 F 60 20 142/51 L 98 01/06/18 10:04 01/06/18 10:04 01/06/18 10:04 01/06/18 10:14 01/06/18 10:04 - Medications Medications: Current Medications Amlodipine Besylate (Norvasc) 10 mg PO DAILY [facility] Last Admin: 01/06/18 08:54 Dose: 10 mg Artificial Tears (Refresh Opth Soln) 0.2 ml OU Q6 PRN PRN Reason: Dry eyes Last Admin: 01/05/18 13:08 Dose: 1 drop Atorvastatin Calcium (Lipitor) 80 mg PO DAILY@2100 [facility] Last Admin: 01/05/18 22:19 Dose: 80 mg Clonidine HCl (Catapres) 0.1 mg PO BID [facility] Last Admin: 01/06/18 08:55 Dose: 0.1 mg Clopidogrel Bisulfate (Plavix) 75 mg PO DAILY [facility] Last Admin: 01/06/18 08:55 Dose: 75 mg Docusate Sodium (Colace) 100 mg PO TID [facility] Last Admin: 01/06/18 08:54 Dose: 100 mg Ferrous Gluconate (Fergon) 324 mg PO TID [facility] Last Admin: 01/06/18 08:54 Dose: 324 mg Glipizide (Glucotrol Xl) 10 mg PO BRK [facility] Last Admin: 01/06/18 08:54 Dose: 10 mg Cefepime HCl 1 gm/ Sodium (Chloride) 100 mls @ 100 mls/hr IVPB DAILY@1700 [facility] PRN Reason: Protocol Last Admin: 01/05/18 16:49 Dose: 100 mls/hr Insulin Human Lispro (Humalog) 0 units SC ACHS [facility] PRN Reason: Protocol Last Admin: 01/06/18 07:03 Dose: 2 u Metoprolol Tartrate (Lopressor) 25 mg PO Q6 [facility] Last Admin: 01/06/18 10:53 Dose: 25 mg Oxycodone/Acetaminophen (Percocet 5/325 Mg Tab) 2 tab PO Q4 PRN PRN Reason: Pain, moderate (4-7) Stop: 01/07/18 23:08 Last Admin: 01/06/18 08:53 Dose: 2 tab Pantoprazole Sodium (Protonix Ec Tab) 40 mg PO DAILY [facility] Last Admin: 01/06/18 08:54 Dose: 40 mg Vitamin B Complex/Vit C/Folic Acid (Nephro-Catrachito) 1 tab PO DAILY [facility] Last Admin: 01/06/18 08:54 Dose: 1 tab - Labs Labs: 01/05/18 10:35 01/05/18 10:35 - Extremities Exam Additional comments: incision intact, dry, no erythema +ROM fingers/wrist/sensation intact, +Radial pulse Assessment and Plan (1) Proximal humeral fracture Assessment & Plan: POD#4 s/p reverse TSA orthopedically stable shoulder immobilizer at all times, patient refused to PT/RN/myself, attempted to reapply and patient refused ice PT/OT encourage OOB d/w DR. Castaneda, agrees with above Status: Acute
--- NOTE | 2018-01-06 12:39 | CP.PCM.CON ---
History of Present Illness - History of Present Illness History of Present Illness: 77 year old female with Right Rotater reverse arthroplasty with history of DM, HTN,CAD,CABG Review of Systems - Musculoskeletal Musculoskeletal: Muscle Weakness Past Patient History - Past Social History Smoking Status: Never Smoked - CARDIAC Hx Cardiac Disorders: Yes Hx Hypertension: Yes Hx Pacemaker: Yes - PULMONARY Hx Respiratory Disorders: No - NEUROLOGICAL Hx Neurological Disorder: No - HEENT Hx HEENT Problems: Yes Other/Comment: Hard of hearing - RENAL Hx Chronic Kidney Disease: No - ENDOCRINE/METABOLIC Hx Diabetes Mellitus Type 2: Yes - HEMATOLOGICAL/ONCOLOGICAL Hx Blood Disorders: No - INTEGUMENTARY Hx Dermatological Problems: No - MUSCULOSKELETAL/RHEUMATOLOGICAL Hx Falls: Yes - GASTROINTESTINAL Hx Gastrointestinal Disorders: No - GENITOURINARY/GYNECOLOGICAL Hx Genitourinary Disorders: No - PSYCHIATRIC Hx Psychophysiologic Disorder: No Hx Substance Use: No - SURGICAL HISTORY Hx Coronary Artery Bypass Graft: Yes Other/Comment: Heart valve bypass - ANESTHESIA Hx Anesthesia: Yes Hx Anesthesia Reactions: No Meds Allergies/Adverse Reactions: Allergies Allergy/AdvReac Type Severity Reaction Status Date / Time No Known Allergies Allergy Verified 12/24/17 09:25 - Medications Medications: Current Medications Amlodipine Besylate (Norvasc) 10 mg PO DAILY [facility] Last Admin: 01/06/18 08:54 Dose: 10 mg Artificial Tears (Refresh Opth Soln) 0.2 ml OU Q6 PRN PRN Reason: Dry eyes Last Admin: 01/05/18 13:08 Dose: 1 drop Atorvastatin Calcium (Lipitor) 80 mg PO DAILY@2100 [facility] Last Admin: 01/05/18 22:19 Dose: 80 mg Clonidine HCl (Catapres) 0.1 mg PO BID [facility] Last Admin: 01/06/18 08:55 Dose: 0.1 mg Clopidogrel Bisulfate (Plavix) 75 mg PO DAILY [facility] Last Admin: 01/06/18 08:55 Dose: 75 mg Docusate Sodium (Colace) 100 mg PO TID [facility] Last Admin: 01/06/18 12:28 Dose: 100 mg Ferrous Gluconate (Fergon) 324 mg PO TID [facility] Last Admin: 01/06/18 12:28 Dose: 324 mg Glipizide (Glucotrol Xl) 10 mg PO BRK [facility] Last Admin: 01/06/18 08:54 Dose: 10 mg Cefepime HCl 1 gm/ Sodium (Chloride) 100 mls @ 100 mls/hr IVPB DAILY@1700 [facility] PRN Reason: Protocol Last Admin: 01/05/18 16:49 Dose: 100 mls/hr Insulin Human Lispro (Humalog) 0 units SC ACHS [facility] PRN Reason: Protocol Last Admin: 01/06/18 12:28 Dose: 2 u Metoprolol Tartrate (Lopressor) 25 mg PO Q6 [facility] Last Admin: 01/06/18 10:53 Dose: 25 mg Oxycodone/Acetaminophen (Percocet 5/325 Mg Tab) 2 tab PO Q4 PRN PRN Reason: Pain, moderate (4-7) Stop: 01/07/18 23:08 Last Admin: 01/06/18 08:53 Dose: 2 tab Pantoprazole Sodium (Protonix Ec Tab) 40 mg PO DAILY [facility] Last Admin: 01/06/18 08:54 Dose: 40 mg Vitamin B Complex/Vit C/Folic Acid (Nephro-Catrachito) 1 tab PO DAILY [facility] Last Admin: 01/06/18 08:54 Dose: 1 tab Physical Exam - Head Exam Head Exam: ATRAUMATIC, NORMAL INSPECTION, NORMOCEPHALIC - Eye Exam Eye Exam: EOMI, Normal appearance, PERRL Pupil Exam: NORMAL ACCOMODATION - ENT Exam ENT Exam: Mucous Membranes Moist, Normal Exam - Neck Exam Neck exam: Positive for: Normal Inspection - Respiratory Exam Respiratory Exam: Clear to Auscultation Bilateral, NORMAL BREATHING PATTERN - Cardiovascular Exam Cardiovascular Exam: REGULAR RHYTHM - GI/Abdominal Exam GI & Abdominal Exam: Normal Bowel Sounds - Rectal Exam Rectal Exam: NORMAL INSPECTION - Exam External exam: NORMAL EXTERNAL EXAM - Extremities Exam Extremities exam: Positive for: normal inspection - Back Exam Back exam: NORMAL INSPECTION Additional comments: right arm weakness - Neurological Exam Neurological exam: Alert, CN II-XII Intact, Normal Gait Results - Vital Signs Recent Vital Signs: Last Vital Signs Temp 98.2 F 01/06/18 10:04 Pulse 60 01/06/18 10:04 Resp 20 01/06/18 10:04 BP 142/51 L 01/06/18 10:14 Pulse Ox 98 01/06/18 10:04 - Labs Result Diagrams: 01/05/18 10:35 01/05/18 10:35 Labs: Laboratory Results - last 24 hr 01/05/18 01/05/18 01/05/18 13:06 16:17 21:20 POC Glucose (mg/dL) 202 H 232 H 114 H 01/06/18 01/06/18 05:41 12:02 POC Glucose (mg/dL) 163 H 173 H Assessment & Plan (1) Status post total replacement of right shoulder Assessment and Plan: plan for physical, occupational therapy program NWB of arm, TCU for patien, use immmobilizer Status: Acute (2) Anemia, unspecified Status: Acute (3) Broken shoulder Status: Acute (4) CKD (chronic kidney disease) Status: Acute (5) CKD (chronic kidney disease) stage 3, GFR 30-59 ml/min Status: Acute (6) Cardiac arrhythmia Status: Acute (7) Closed fracture of right proximal humerus Status: Acute (8) Fracture, humerus Status: Acute
--- NOTE | 2018-01-06 12:49 | CP.PCM.PN ---
Subjective - Date & Time of Evaluation Date of Evaluation: 01/06/18 Time of Evaluation: 12:00 - Subjective Subjective: no acute complaints at present Objective - Vital Signs/Intake and Output Vital Signs (last 24 hours): Temp Pulse Resp BP Pulse Ox 98.2 F 60 20 142/51 L 98 01/06/18 10:04 01/06/18 10:04 01/06/18 10:04 01/06/18 10:14 01/06/18 10:04 - Medications Medications: Current Medications Amlodipine Besylate (Norvasc) 10 mg PO DAILY [facility] Last Admin: 01/06/18 08:54 Dose: 10 mg Artificial Tears (Refresh Opth Soln) 0.2 ml OU Q6 PRN PRN Reason: Dry eyes Last Admin: 01/05/18 13:08 Dose: 1 drop Atorvastatin Calcium (Lipitor) 80 mg PO DAILY@2100 [facility] Last Admin: 01/05/18 22:19 Dose: 80 mg Clonidine HCl (Catapres) 0.1 mg PO BID [facility] Last Admin: 01/06/18 08:55 Dose: 0.1 mg Clopidogrel Bisulfate (Plavix) 75 mg PO DAILY [facility] Last Admin: 01/06/18 08:55 Dose: 75 mg Docusate Sodium (Colace) 100 mg PO TID [facility] Last Admin: 01/06/18 12:28 Dose: 100 mg Ferrous Gluconate (Fergon) 324 mg PO TID [facility] Last Admin: 01/06/18 12:28 Dose: 324 mg Glipizide (Glucotrol Xl) 10 mg PO BRK [facility] Last Admin: 01/06/18 08:54 Dose: 10 mg Cefepime HCl 1 gm/ Sodium (Chloride) 100 mls @ 100 mls/hr IVPB DAILY@1700 [facility] PRN Reason: Protocol Last Admin: 01/05/18 16:49 Dose: 100 mls/hr Insulin Human Lispro (Humalog) 0 units SC ACHS [facility] PRN Reason: Protocol Last Admin: 01/06/18 12:28 Dose: 2 u Metoprolol Tartrate (Lopressor) 25 mg PO Q6 [facility] Last Admin: 01/06/18 10:53 Dose: 25 mg Oxycodone/Acetaminophen (Percocet 5/325 Mg Tab) 2 tab PO Q4 PRN PRN Reason: Pain, moderate (4-7) Stop: 01/07/18 23:08 Last Admin: 01/06/18 08:53 Dose: 2 tab Pantoprazole Sodium (Protonix Ec Tab) 40 mg PO DAILY [facility] Last Admin: 01/06/18 08:54 Dose: 40 mg Vitamin B Complex/Vit C/Folic Acid (Nephro-Catrachito) 1 tab PO DAILY [facility] Last Admin: 01/06/18 08:54 Dose: 1 tab - Labs Labs: 01/05/18 10:35 01/05/18 10:35 - Head Exam Head Exam: ATRAUMATIC, NORMAL INSPECTION, NORMOCEPHALIC - Eye Exam Eye Exam: EOMI, Normal appearance, PERRL Pupil Exam: NORMAL ACCOMODATION - ENT Exam ENT Exam: Mucous Membranes Moist, Normal Exam - Neck Exam Neck Exam: Normal Inspection - Respiratory Exam Respiratory Exam: Clear to Ausculation Bilateral, NORMAL BREATHING PATTERN - Cardiovascular Exam Cardiovascular Exam: REGULAR RHYTHM - GI/Abdominal Exam GI & Abdominal Exam: Soft, Normal Bowel Sounds - Rectal Exam Rectal Exam: NORMAL INSPECTION - Exam External exam: NORMAL EXTERNAL EXAM - Extremities Exam Extremities Exam: Full ROM, Normal Capillary Refill - Back Exam Back Exam: NORMAL INSPECTION - Neurological Exam Neurological Exam: Alert, Awake Neuro motor strength exam: Right Lower Extremity: 3 - Psychiatric Exam Psychiatric exam: Normal Affect, Normal Mood - Skin Skin Exam: Dry, Intact Assessment and Plan (1) Status post total replacement of right shoulder Assessment & Plan: plan for physical, occupational therapy continue with rehab program and still maintain NWB monitor skin and pain Status: Acute (2) Anemia, unspecified Status: Acute (3) Broken shoulder Status: Acute (4) CKD (chronic kidney disease) Status: Acute (5) CKD (chronic kidney disease) stage 3, GFR 30-59 ml/min Status: Acute (6) Cardiac arrhythmia Status: Acute (7) Closed fracture of right proximal humerus Status: Acute (8) Fracture, humerus Status: Acute
[2018-01-06] MEDS: Cefepime 1 GM in Sodium Chloride 0.9% 100 ML IVPB SCH (17:08)
--- NOTE | 2018-01-06 23:15 | PN ---
Copied To: Wei Arellano MD Attending MD: Wei Arellano MD DATE: 01/06/2018 SUBJECTIVE: The patient did physical therapy today without any limiting symptoms. She denies any headache or dizziness. PHYSICAL EXAMINATION: VITAL SIGNS: Most recent blood pressure is 166/60 with heart rate of 61 earlier at 10 o'clock it was 142/61, temperature 97.9, respiration 20. HEENT: Normocephalic. CHEST: Clear. HEART: S1 and S2 regular. ABDOMEN: Soft. EXTREMITIES: No edema. LABORATORY DATA: Today's blood sugars are 163, 173, 235 and 255. ASSESSMENT: 1. Hypertension which is better controlled now. 2. Status post permanent dual-chamber pacemaker placement for symptomatic bradycardia. 3. Status post total right shoulder replacement for comminuted right humerus head fracture. 4. Uncontrolled diabetes mellitus. 5. Mild anemia. 6. Coronary artery disease with history of coronary artery bypass surgery. RECOMMENDATIONS: Continue clonidine 0.1 mg twice a day, IV cefepime 1 gm daily, glipizide 10 mg daily, Lipitor 80 mg once a day, Lopressor 25 mg every 6 hours, Norvasc 10 mg once a day, Plavix 75 mg once a day. Wei Arellano MD
[2018-01-07] MEDS: Oxycodone/Acetaminophen 5/325 mg Tab PO PRN ×6 (00:29→21:04)
[2018-01-07] MEDS: Insulin Lispro (humaLOG) 100 Units/ml Inj SC SCH ×4 (06:47→23:09)
[2018-01-07] MEDS: Multivitamin Vitamin B Complex (Nephro-Vite) Tab PO SCH (08:43)
[2018-01-07] MEDS: GlipiZIDE 10 mg SR Tab PO SCH (08:44)
[2018-01-07] MEDS: Pantoprazole 40 mg EC Tab PO SCH (08:45)
--- NOTE | 2018-01-07 13:13 | CP.PCM.PN ---
Subjective - Date & Time of Evaluation Date of Evaluation: 01/07/18 Time of Evaluation: 13:00 - Subjective Subjective: s- pt imn excellent spirits- has NOT been compliant with shoudr immobilizer Objective - Vital Signs/Intake and Output Vital Signs (last 24 hours): Temp Pulse Resp BP Pulse Ox 98.2 F 62 20 158/55 H 100 01/07/18 08:03 01/07/18 12:21 01/07/18 08:03 01/07/18 12:21 01/07/18 08:03 - Medications Medications: Current Medications Amlodipine Besylate (Norvasc) 10 mg PO DAILY [facility] Last Admin: 01/07/18 08:44 Dose: 10 mg Artificial Tears (Refresh Opth Soln) 0.2 ml OU Q6 PRN PRN Reason: Dry eyes Last Admin: 01/05/18 13:08 Dose: 1 drop Atorvastatin Calcium (Lipitor) 80 mg PO DAILY@2100 [facility] Last Admin: 01/06/18 22:06 Dose: 80 mg Clonidine HCl (Catapres) 0.1 mg PO BID [facility] Last Admin: 01/07/18 08:43 Dose: 0.1 mg Clopidogrel Bisulfate (Plavix) 75 mg PO DAILY [facility] Last Admin: 01/07/18 08:43 Dose: 75 mg Docusate Sodium (Colace) 100 mg PO TID [facility] Last Admin: 01/07/18 12:21 Dose: 100 mg Ferrous Gluconate (Fergon) 324 mg PO TID [facility] Last Admin: 01/07/18 12:21 Dose: 324 mg Glipizide (Glucotrol Xl) 10 mg PO BRK [facility] Last Admin: 01/07/18 08:44 Dose: 10 mg Cefepime HCl 1 gm/ Sodium (Chloride) 100 mls @ 100 mls/hr IVPB DAILY@1700 [facility] PRN Reason: Protocol Last Admin: 01/06/18 17:08 Dose: 100 mls/hr Insulin Human Lispro (Humalog) 0 units SC ACHS [facility] PRN Reason: Protocol Last Admin: 01/07/18 12:20 Dose: 3 u Metoprolol Tartrate (Lopressor) 25 mg PO Q6 [facility] Last Admin: 01/07/18 11:10 Dose: 25 mg Oxycodone/Acetaminophen (Percocet 5/325 Mg Tab) 2 tab PO Q4 PRN PRN Reason: Pain, moderate (4-7) Stop: 01/07/18 23:08 Last Admin: 01/07/18 12:40 Dose: 2 tab Pantoprazole Sodium (Protonix Ec Tab) 40 mg PO DAILY [facility] Last Admin: 01/07/18 08:45 Dose: 40 mg Vitamin B Complex/Vit C/Folic Acid (Nephro-Catrachito) 1 tab PO DAILY [facility] Last Admin: 01/07/18 08:43 Dose: 1 tab - Labs Labs: 01/05/18 10:35 01/05/18 10:35 - Additional Findings Additional findings: [id number] wn; MUSCULOSKELETAL STANCE/GAIT DEFERRED ORTHOPEDICALLY STABLE r SHOULDR WOUND BENIGN n/v INTACT ORTHOPEDICALLYS STABLE Assessment and Plan - Assessment and Plan (Free Text) Assessment: a- S/P l tsr p ORTHOPEDICALLY STABLE FOR D/C
[2018-01-07] MEDS: Cefepime 1 GM in Sodium Chloride 0.9% 100 ML IVPB SCH (16:41)
--- NOTE | 2018-01-07 20:43 | PN ---
Copied To: Wei Arlelano MD Attending MD: Wei Arellano MD DATE: 01/07/2018 SUBJECTIVE: The patient is still hypertensive. She complains of headache at times. She denies any dizziness. PHYSICAL EXAMINATION: VITAL SIGNS: Blood pressure 167/74, heart rate 60, temperature 97.9, respirations 20. HEENT: Normocephalic. CHEST: Clear. HEART: S1 and S2 regular. EXTREMITIES: No edema. LABORATORY DATA: Today's blood sugar is 223 and 224. ASSESSMENT: 1. Uncontrolled hypertension. 2. Status post total right shoulder replacement. 3. Uncontrolled diabetes mellitus. 4. Coronary artery disease, status post coronary artery bypass surgery. 5. Symptomatic bradycardia, status post dual-chamber pacemaker placement. RECOMMENDATIONS: Continue Lipitor at 80 mg once a day, Lopressor 25 mg every 6 hours, Norvasc 10 mg once a day, Plavix 75 mg once a day, clonidine 0.1 mg twice a day, cefepime 1 g intravenously daily. Start hydrochlorothiazide 12.5 mg orally daily with one dose now. Wei Arellano MD
[2018-01-08] MEDS: Oxycodone/Acetaminophen 5/325 mg Tab PO PRN ×5 (00:54→19:20)
[2018-01-08] MEDS: Insulin Lispro (humaLOG) 100 Units/ml Inj SC SCH ×4 (07:54→21:26)
[2018-01-08] MEDS: Pantoprazole 40 mg EC Tab PO SCH (08:10)
[2018-01-08] MEDS: Multivitamin Vitamin B Complex (Nephro-Vite) Tab PO SCH (08:10)
[2018-01-08] MEDS: GlipiZIDE 10 mg SR Tab PO SCH (08:13)
--- NOTE | 2018-01-08 16:24 | PN ---
Copied To: Wei Arellano MD Attending MD: Wei Arellano MD DATE: 01/08/2018 SUBJECTIVE: The patient denied any headache, dizziness, or chest pain. PHYSICAL EXAMINATION: VITAL SIGNS: Blood pressure 162/84, earlier it was 182/66, heart rate 65, temperature 97.7, respirations 20. HEENT: Normocephalic. CHEST: Clear. HEART: S1, S2 regular. EXTREMITIES: No edema. ASSESSMENT: 1. Uncontrolled hypertension. 2. Coronary artery disease, status post coronary artery bypass surgery in the past. 3. Status post total right shoulder replacement. 4. Comminuted right humerus head fracture. 5. Symptomatic bradycardia, status post permanent dual-chamber pacemaker placement. RECOMMENDATIONS: Continue hydralazine 25 mg t.i.d., increase clonidine to 0.1 mg t.i.d., continue IV cefepime at 1 g daily, continue Glucophage 500 mg twice a day, Glucotrol-XL 10 mg once a day, Lipitor 80 mg once a day, Lopressor 50 mg once a day, Norvasc 10 mg once a day. Wei Arellano MD
[2018-01-08] MEDS: Cefepime 1 GM in Sodium Chloride 0.9% 100 ML IVPB SCH (16:40)
[2018-01-08] MEDS: Lubricant Eye Drops UD OU PRN (18:01)
[2018-01-09] MEDS: Oxycodone/Acetaminophen 5/325 mg Tab PO PRN ×3 (01:09→11:34)
[2018-01-09 07:37] VITALS: BP 110/55; PULSE 60; TEMP 97.8; O2SAT 100
[2018-01-09] MEDS: Insulin Lispro (humaLOG) 100 Units/ml Inj SC SCH ×2 (08:02→12:30)
[2018-01-09] MEDS: Multivitamin Vitamin B Complex (Nephro-Vite) Tab PO SCH (08:09)
[2018-01-09] MEDS: Pantoprazole 40 mg EC Tab PO SCH (08:10)
[2018-01-09] MEDS: GlipiZIDE 10 mg SR Tab PO SCH (09:30)
--- NOTE | 2018-01-09 12:33 | CP.PCM.DIS ---
Provider - Provider Date of Admission: 01/04/18 23:00 Attending physician: Rubén Garcia MD Hospital Course - Lab Results Lab Results: Most Recent Lab Values WBC 10.6 K/uL (4.8-10.8) 01/05/18 10:35 RBC 3.60 Mil/uL (3.80-5.20) L 01/05/18 10:35 Hgb 10.2 g/dL (12.0-16.0) L 01/05/18 10:35 Hct 30.7 % (34.0-47.0) L 01/05/18 10:35 MCV 85.2 fl (81.0-99.0) 01/05/18 10:35 MCH 28.3 pg (27.0-31.0) 01/05/18 10:35 MCHC 33.2 g/dL (33.0-37.0) 01/05/18 10:35 RDW 19.3 % (11.5-14.5) H 01/05/18 10:35 Plt Count 204 K/uL (130-400) 01/05/18 10:35 MPV 8.7 fl (7.2-11.7) 01/05/18 10:35 Neut % (Auto) 73.7 % (50.0-75.0) 01/05/18 10:35 Lymph % (Auto) 16.0 % (20.0-40.0) L 01/05/18 10:35 [place] % (Auto) 8.1 % (0.0-10.0) 01/05/18 10:35 Eos % (Auto) 1.8 % (0.0-4.0) 01/05/18 10:35 Baso % (Auto) 0.4 % (0.0-2.0) 01/05/18 10:35 Neut # (Auto) 7.8 K/uL (1.8-7.0) H 01/05/18 10:35 Lymph # (Auto) 1.7 K/uL (1.0-4.3) 01/05/18 10:35 [place] # (Auto) 0.9 K/uL (0.0-0.8) H 01/05/18 10:35 Eos # (Auto) 0.2 K/uL (0.0-0.7) 01/05/18 10:35 Baso # (Auto) 0.0 K/uL (0.0-0.2) 01/05/18 10:35 Sodium 135 mmol/l (132-148) 01/05/18 10:35 Potassium 4.8 MMOL/L (3.6-5.0) 01/05/18 10:35 Chloride 108 mmol/L (98-107) H 01/05/18 10:35 Carbon Dioxide 20 mmol/L (22-30) L 01/05/18 10:35 Anion Gap 12 (10-20) 01/05/18 10:35 BUN 20 mg/dl (7-17) H 01/05/18 10:35 Creatinine 0.9 mg/dl (0.7-1.2) 01/05/18 10:35 Est GFR ( Amer) > 60 01/05/18 10:35 Est GFR (Non-Af Amer) > 60 01/05/18 10:35 POC Glucose (mg/dL) 222 mg/dL (65-110) H 01/09/18 10:58 Random Glucose 162 mg/dL (65-105) H 01/05/18 10:35 Calcium 8.0 mg/dL (8.4-10.2) L 01/05/18 10:35 Total Bilirubin 1.2 mg/dl (0.2-1.3) 01/05/18 10:35 AST 81 U/L (14-36) H D 01/05/18 10:35 ALT 28 U/L (9-52) 01/05/18 10:35 Alkaline Phosphatase 119 U/L (38-126) 01/05/18 10:35 Total Protein 6.2 G/DL (6.3-8.2) L 01/05/18 10:35 Albumin 3.1 g/dL (3.5-5.0) L 01/05/18 10:35 Globulin 3.1 gm/dL (2.2-3.9) 01/05/18 10:35 Albumin/Globulin Ratio 1.0 (1.0-2.1) 01/05/18 10:35 - Hospital Course Hospital Course: This is a 77 y/o female admitted for further PT after a right shoulder fracture repair. Discharge Exam - Head Exam Head Exam: ATRAUMATIC, NORMAL INSPECTION, NORMOCEPHALIC Discharge Plan - Follow Up Plan Condition: GOOD Disposition: HOME/ ROUTINE
[2018-01-09] MEDS ORDERED: GlipiZIDE 5 mg SR Tab PO SCH (12:45)
== END 2018-01-09 14:10 | disposition home or self-care (01) | DRG 560 ==
LOC: H.TCU 23:00
PROVIDERS: ADMIT Family Medicine; ATTEND Family Medicine
PROC: F08Z4FZ Home Management Treatment using Assistive, Adaptive, Supportive or Protective Equipment (ICD-10-PCS; principal; 2018-01-05)
PROC: F07M6FZ Therapeutic Exercise Treatment of Musculoskeletal System - Whole Body using Assistive, Adaptive, Supportive or Protective Equipment (ICD-10-PCS; 2018-01-05)
DX: Z47.1 Aftercare following joint replacement surgery (principal); I44.2 Atrioventricular block, complete; N39.0 Urinary tract infection, site not specified; Z96.611 Presence of right artificial shoulder joint; W19.XXXD Unspecified fall, subsequent encounter; R00.1 Bradycardia, unspecified; D64.9 Anemia, unspecified; E11.22 Type 2 diabetes mellitus with diabetic chronic kidney disease; E11.65 Type 2 diabetes mellitus with hyperglycemia; H91.90 Unspecified hearing loss, unspecified ear; I12.9 Hypertensive chronic kidney disease with stage 1 through stage 4 chronic kidney disease, or unspecified chronic kidney disease; I25.10 Atherosclerotic heart disease of native coronary artery without angina pectoris; N18.3 Chronic kidney disease, stage 3 (moderate); S42.201D Unspecified fracture of upper end of right humerus, subsequent encounter for fracture with routine healing; Z91.19 Patient's noncompliance with other medical treatment and regimen; Z95.0 Presence of cardiac pacemaker; Z95.1 Presence of aortocoronary bypass graft

== ENCOUNTER 2018-03-24 10:31 | Inpatient (IN) | payer MEDICARE, OTHER ==
[2018-03-24 10:32] VITALS: BMI 20.5
[2018-03-24] MEDS ORDERED: Sodium Chloride 0.9% 1,000 ML IV STA (11:24)
[2018-03-24] MEDS ORDERED: Sodium Chloride 0.9% 50 ML IV ONE (12:03)
[2018-03-24] MEDS ORDERED: Iohexol 300 100 ML IJ ONE (12:03)
[2018-03-24 12:05] LABS: BASO # 0.1 K/uL (0.0-0.2); BASO % 0.8 % (0.0-2.0); EOS # 0.1 K/uL (0.0-0.7); HEMOGLOBIN 11.1 g/dL (12.0-16.0); LYMPH # 1.3 K/uL (1.0-4.3); LYMPH % 14.3 % (20.0-40.0); MEAN CELL VOLUME 92.5 fl (81.0-99.0); MEAN CORPUSCULAR HGB CONC 33.5 g/dL (33.0-37.0); MEAN PLATELET VOLUME 8.5 fl (7.2-11.7); MONO # 0.4 K/uL (0.0-0.8); NEUT # 7.1 K/uL (1.8-7.0); NEUT % 78.9 % (50.0-75.0); RBC 3.6 Mil/uL (3.80-5.20); RED CELL DISTRIBUTION WIDTH 15.8 % (11.5-14.5)
--- NOTE | 2018-03-24 12:22 | ED PDOC ---
HPI: General Adult Time Seen by Provider: 03/24/18 10:58 Chief Complaint (Nursing): Shortness Of Breath Chief Complaint (Provider): Abdominal Pain, Shortness Of Breath History Per: Patient History/Exam Limitations: no limitations Onset/Duration Of Symptoms: Days (x2) Current Symptoms Are (Timing): Still Present Additional Complaint(s): 77 year old female presenting via EMS for evaluation of chest pain and shortness of breath x2 days. Patient reports she was just discharged form [facility] on 03/22/2018 after 5 days for diarrhea. Patient otherwise denies any current cough or fever. Patient is also complaining of residual abdominal pain. PMD: Dr. Jim Shields Past Medical History Vital Signs: Last Vital Signs Temp 98.4 F 03/24/18 10:44 Pulse 65 03/24/18 10:44 Resp 20 03/24/18 10:44 BP 111/55 L 03/24/18 10:44 Pulse Ox 100 03/24/18 12:01 - Medical History PMH: CAD, Diabetes, HTN Denies: Chronic Kidney Disease - Surgical History Surgical History: CABG, Pacemaker - Family History Family History: States: Unknown Family Hx - Home Medications Home Medications: Ambulatory Orders Medication Instructions Recorded Calcium Carbonate [Oscal] 500 mg PO DAILY 03/24/18 Cilostazol [Pletal] 50 mg PO Q12 03/24/18 Clopidogrel [Plavix] 75 mg PO DAILY 03/24/18 Labetalol [Trandate] 100 mg PO Q12 03/24/18 Pantoprazole Sodium [Protonix] 40 mg PO DAILY 03/24/18 Vancomycin [Vancocin 25 mg/ml 125 mg PO Q6 03/24/18 (Oral Use)] amLODIPine [Norvasc] 10 mg PO DAILY 03/24/18 hydrALAZINE [Apresoline] 50 mg PO Q12 03/24/18 - Allergies Allergies/Adverse Reactions: Allergies Allergy/AdvReac Type Severity Reaction Status Date / Time No Known Allergies Allergy Verified 03/24/18 11:02 Review of Systems ROS Statement: Except As Marked, All Systems Reviewed And Found Negative Constitutional: Negative for: Fever Cardiovascular: Positive for: Chest Pain Respiratory: Positive for: Shortness of Breath. Negative for: Cough Gastrointestinal: Positive for: Abdominal Pain Physical Exam - Reviewed Nursing Documentation Reviewed: Yes Vital Signs Reviewed: Yes - Physical Exam Appears: Positive for: Non-toxic, No Acute Distress Head Exam: Positive for: ATRAUMATIC, NORMAL INSPECTION, NORMOCEPHALIC Skin: Positive for: Normal Color, Warm, Dry. Negative for: Rash Eye Exam: Positive for: EOMI, Normal appearance, PERRL ENT: Positive for: Other (mucuous membranes dry) Neck: Positive for: Normal, Painless ROM, Supple Cardiovascular/Chest: Positive for: Regular Rate, Rhythm. Negative for: Murmur Respiratory: Positive for: Normal Breath Sounds. Negative for: Respiratory Distress Gastrointestinal/Abdominal: Positive for: Soft, Tenderness (mild RLQ tenderness). Negative for: Guarding, Rebound Back: Positive for: Normal Inspection. Negative for: L CVA Tenderness, Vertebral Tenderness Extremity: Positive for: Normal ROM. Negative for: Pedal Edema Neurologic/Psych: Positive for: Alert, Oriented (x3). Negative for: Motor/Sensory Deficits - Laboratory Results Result Diagrams: 03/24/18 11:59 03/24/18 12:45 - ECG O2 Sat by Pulse Oximetry: 100 (RA) Pulse Ox Interpretation: Normal Medical Decision Making Medical Decision Makin Initial Impression: Chest pain, shortness of breath. Plan: -CT Abdomen and pelvis -EKG -CMP -Troponin -Urine dip -CBC -PTT/PT -CXR -Glucose level -1L NS at 125mL/hour -Blood culture -Urinalysis -Reevaluation Scribe Attestation: Documented by Surinder Paez, acting as a scribe for April Diop MD. Provider Scribe Attestation: All medical record entries made by the Scribe were at my direction and personally dictated by me. I have reviewed the chart and agree that the record accurately reflects my personal performance of the history, physical exam, medical decision making, and the department course for this patient. I have also personally directed, reviewed, and agree with the discharge instructions and disposition. Disposition - Clinical Impression Clinical Impression: NSTEMI (non-ST elevated myocardial infarction), CHF (congestive heart failure), Acute on chronic renal failure - Patient ED Disposition Is Patient to be Admitted: Yes - Disposition Disposition Time: 14:27 Condition: GUARDED - Pt Status Changed To: Hospital Disposition Of: Inpatient - Admit Certification Admit to Inpatient:: After my assessment, the patient will require hospitalization for at least two midnights. This is because of the severity of symptoms shown, intensity of services needed, and/or the medical risk in this patient being treated as an outpatient. - POA Present On Arrival: None
[2018-03-24 13:05] LABS: PROTHROMBIN TIME 10.9 Seconds (9.8-13.1)
[2018-03-24 13:06] LABS: ALB/GLOB RATIO 1.3 (1.0-2.1); ALBUMIN 4.2 g/dL (3.5-5.0); CALCIUM 9.6 mg/dL (8.4-10.2)
[2018-03-24 13:08] LABS: PARTIAL THROMBOPLASTIN TIME 23.5 Seconds (25.6-37.1)
--- NOTE | 2018-03-24 13:19 | RAD ---
Date of service: 03/24/2018 HISTORY: Chest pain. COMPARISON: 12/26/2017 FINDINGS: LUNGS: Pulmonary vascular congestion. PLEURA: No significant pleural effusion identified, no pneumothorax apparent. CARDIOVASCULAR: Cardiomegaly/mild CH Position/ configuration of pacemaker Atherosclerotic calcifications identified primarily aortic arch. OSSEOUS STRUCTURES: No significant abnormalities. VISUALIZED UPPER ABDOMEN: Normal. OTHER FINDINGS: None. IMPRESSION: Acute CH
[2018-03-24 13:26] LABS: TROPONIN I 0.135 ng/mL (0.00-0.120)
[2018-03-24] MEDS ORDERED: Enoxaparin 60 mg Syringe SC STA (13:31)
--- NOTE | 2018-03-24 17:35 | CP.PCM.HP ---
History of Present Illness - History of Present Illness History of Present Illness: CC: Chest Pain History of Present Illness: A 77 year old female presenting via EMS for evaluation of chest pain 12/16, continuous and aggravated by twisting the body and taking deep breath associated with shortness of breath. Patient reports she was just discharged form [facility] on 03/22/2018 after 5 days for diarrhea. Patient otherwise denies any current cough or fever. Patient is also complaining of residual abdominal pain. In the ER, she was found to have Acute on Chronic Renal Failure and NSTEMI, and started on ACS protocol. Present on Admission - Present on Admission Any Indicators Present on Admission: No Review of Systems - Review of Systems All systems: reviewed and no additional remarkable complaints except Review of Systems: as per HPI Past Patient History - Past Medical History & Family History Past Medical History?: Yes Past Family History: Reviewed and not pertinent - Past Social History Smoking Status: Never Smoked Alcohol: None Drugs: Denies - CARDIAC Hx Hypertension: Yes Hx Pacemaker: Yes - PULMONARY Hx Respiratory Disorders: No - NEUROLOGICAL Hx Neurological Disorder: No - HEENT Hx HEENT Problems: Yes Other/Comment: Hard of hearing - RENAL Hx Chronic Kidney Disease: No - ENDOCRINE/METABOLIC Hx Diabetes Mellitus Type 2: Yes - HEMATOLOGICAL/ONCOLOGICAL Hx Blood Disorders: No - INTEGUMENTARY Hx Dermatological Problems: No - MUSCULOSKELETAL/RHEUMATOLOGICAL Hx Falls: Yes - GASTROINTESTINAL Hx Gastrointestinal Disorders: No - GENITOURINARY/GYNECOLOGICAL Hx Genitourinary Disorders: No - PSYCHIATRIC Hx Psychophysiologic Disorder: No Hx Substance Use: No - SURGICAL HISTORY Hx Coronary Artery Bypass Graft: Yes - ANESTHESIA Hx Anesthesia: Yes Hx Anesthesia Reactions: No Meds Allergies/Adverse Reactions: Allergies Allergy/AdvReac Type Severity Reaction Status Date / Time No Known Allergies Allergy Verified 03/24/18 11:02 Physical Exam - Constitutional Appears: Well, No Acute Distress - Head Exam Head Exam: ATRAUMATIC, NORMAL INSPECTION, NORMOCEPHALIC - Eye Exam Eye Exam: EOMI, Normal appearance, PERRL Pupil Exam: NORMAL ACCOMODATION, PERRL - ENT Exam ENT Exam: Mucous Membranes Moist, Normal Exam - Neck Exam Neck exam: Positive for: Normal Inspection - Respiratory Exam Respiratory Exam: Clear to Auscultation Bilateral, NORMAL BREATHING PATTERN - Cardiovascular Exam Cardiovascular Exam: REGULAR RHYTHM, +S1, +S2 - GI/Abdominal Exam GI & Abdominal Exam: Normal Bowel Sounds, Soft. absent: Tenderness - Extremities Exam Extremities exam: Positive for: normal capillary refill, normal inspection - Back Exam Back exam: NORMAL INSPECTION - Neurological Exam Neurological exam: Alert, CN II-XII Intact, Normal Gait, Oriented x3, Reflexes Normal - Psychiatric Exam Psychiatric exam: Normal Affect, Normal Mood - Skin Skin Exam: Dry, Intact, Normal Color, Warm Results - Vital Signs Recent Vital Signs: Last Vital Signs Temp 998.3 F H 03/24/18 15:23 Pulse 64 03/24/18 15:23 Resp 14 03/24/18 15:23 BP 123/54 L 03/24/18 15:23 Pulse Ox 100 03/24/18 15:34 - Labs Result Diagrams: 03/27/18 04:30 03/27/18 04:30 Labs: Laboratory Results - last 24 hr 03/24/18 03/24/18 03/24/18 11:16 11:59 12:45 WBC 9.0 RBC 3.60 L Hgb 11.1 L Hct 33.3 L MCV 92.5 D MCH 31.0 MCHC 33.5 RDW 15.8 H Plt Count 283 MPV 8.5 Neut % (Auto) 78.9 H Lymph % (Auto) 14.3 L [place] % (Auto) 5.0 Eos % (Auto) 1.0 Baso % (Auto) 0.8 Neut # (Auto) 7.1 H Lymph # (Auto) 1.3 [place] # (Auto) 0.4 Eos # (Auto) 0.1 Baso # (Auto) 0.1 PT INR APTT Sodium 135 Potassium 4.4 Chloride 106 Carbon Dioxide 16 L Anion Gap 17 BUN 40 H Creatinine 4.4 H Est GFR ( Amer) 12 Est GFR (Non-Af Amer) 10 POC Glucose (mg/dL) 161 H Random Glucose 175 H Calcium 9.6 Total Bilirubin 0.6 AST 34 ALT 25 Alkaline Phosphatase 129 H Troponin I 0.1350 H* NT-Pro-B Natriuret Pep Total Protein 7.5 Albumin 4.2 Globulin 3.3 Albumin/Globulin Ratio 1.3 03/24/18 03/24/18 12:50 13:51 WBC RBC Hgb Hct MCV MCH MCHC RDW Plt Count MPV Neut % (Auto) Lymph % (Auto) [place] % (Auto) Eos % (Auto) Baso % (Auto) Neut # (Auto) Lymph # (Auto) [place] # (Auto) Eos # (Auto) Baso # (Auto) PT 10.9 INR 1.0 APTT 23.5 L Sodium Potassium Chloride Carbon Dioxide Anion Gap BUN Creatinine Est GFR ( Amer) Est GFR (Non-Af Amer) POC Glucose (mg/dL) Random Glucose Calcium Total Bilirubin AST ALT Alkaline Phosphatase Troponin I NT-Pro-B Natriuret Pep 80475 H Total Protein Albumin Globulin Albumin/Globulin Ratio - Imaging and Cardiology Chest x-ray Status: Report reviewed by me Additional comment: Date of service: 03/24/2018 HISTORY: Chest pain. COMPARISON: 12/26/2017 FINDINGS: LUNGS: Pulmonary vascular congestion. PLEURA: No significant pleural effusion identified, no pneumothorax apparent. CARDIOVASCULAR: Cardiomegaly/mild CH Position/ configuration of pacemaker\AICD device: Satisfactory. Atherosclerotic calcifications identified primarily aortic arch. OSSEOUS STRUCTURES: No significant abnormalities. VISUALIZED UPPER ABDOMEN: Normal. OTHER FINDINGS: None. IMPRESSION: Acute CH CT scan - abdomen Status: Report reviewed by me Additional comment: Date of service: 03/24/2018 PROCEDURE: CT Abdomen and Pelvis with contrast HISTORY: RLQ pain COMPARISON: None. TECHNIQUE: Unenhanced study. Neither oral nor intravenous contrast administered. Radiation dose: Total exam DLP = 216.87 mGy-cm. This CT exam was performed using one or more of the following dose reduction techniques: Automated exposure control, adjustment of the mA and/or kV according to patient size, and/or use of iterative reconstruction technique. FINDINGS: LOWER THORAX: Trace bilateral pleural effusions. Cardiomegaly without pericardial effusion as visualized. LIVER: Unremarkable. No gross lesion or ductal dilatation. GALLBLADDER AND BILE DUCTS: Unremarkable. PANCREAS: Unremarkable. No gross lesion or ductal dilatation. SPLEEN: Unremarkable. ADRENALS: Unremarkable. No mass. KIDNEYS AND URETERS: Unremarkable. No hydronephrosis. No solid mass. VASCULATURE: No aortic aneurysm. Atherosclerotic calcification and mural plaque present. Findings are seen throughout the aorta BOWEL: Fluid-filled colon and small bowel. No obstruction. No gross mural thickening. APPENDIX: Normal appendix is not visible. No abnormalities to suggest acute appendicitis. No right lower quadrant inflammatory processes identified. PERITONEUM: Trace right upper quadrant ascites.. No free air. LYMPH NODES: Unremarkable. No enlarged lymph nodes. BLADDER: Unremarkable. REPRODUCTIVE: Unremarkable. BONES: No acute fracture. OTHER FINDINGS: Innumerable calcified subcutaneous granuloma both gluteal regions IMPRESSION: Cholelithiasis without CT evidence of acute cholecystitis. Assessment & Plan (1) Acute on chronic renal failure Status: Acute Priority: High (2) CHF (congestive heart failure) Status: Acute Priority: High (3) NSTEMI (non-ST elevated myocardial infarction) Status: Acute Priority: High - Assessment and Plan (Free Text) Plan: O2 Via [place] Continue Current Care
[2018-03-24] MEDS ORDERED: Heparin 25,000units in D5W 25,000 UNITS/250 ML BAG IV SCH ×2 (17:45→18:00)
[2018-03-24 17:52] LABS: SQUAMOUS EPITHIAL 2 /hpf (0-5); URINE BILIRUBIN NEGATIVE (NEGATIVE); URINE BLOOD NEGATIVE (NEGATIVE); URINE CLARITY CLOUDY (Clear); URINE COLOR YELLOW (YELLOW); URINE GLUCOSE (UA) 50 mg/dL (Normal); URINE PROTEIN 30 mg/dL (NEGATIVE); URINE UROBILINOGEN 0.2-1.0 mg/dL (0.2-1.0)
[2018-03-24 17:54] LABS: URINE LEUKOCYTE ESTERASE SMALL Leu/uL (Negative)
[2018-03-24] MEDS ORDERED: Heparin 25,000units in D5W 25,000 UNITS/250 ML BAG IV ONE (18:21)
--- NOTE | 2018-03-24 19:25 | CARD ---
APPROVED REPORT Date of service: 03/24/2018 EKG Measurement Heart [id number] <Conclusion> Sinus rhythm with sinus arrhythmia with occasional premature ventricular complexes Nonspecific ST changes Abnormal ECG
[2018-03-24] MEDS: Cilostazol 50 mg Tab UD PO SCH (21:49)
[2018-03-25 09:00] LABS: HEMOGLOBIN 10.6 g/dL (12.0-16.0); MEAN CELL VOLUME 92.7 fl (81.0-99.0); MEAN CORPUSCULAR HEMOGLOBIN 30.8 pg (27.0-31.0); MEAN CORPUSCULAR HGB CONC 33.3 g/dL (33.0-37.0); RBC 3.45 Mil/uL (3.80-5.20); RED CELL DISTRIBUTION WIDTH 15.4 % (11.5-14.5); WHITE BLOOD COUNT 7.2 K/uL (4.8-10.8)
[2018-03-25 09:10] LABS: ALB/GLOB RATIO 1.2 (1.0-2.1); CALCIUM 9.5 mg/dL (8.4-10.2)
[2018-03-25] MEDS: Cilostazol 50 mg Tab UD PO SCH (09:22)
[2018-03-25] MEDS: Pantoprazole 40 mg EC Tab PO SCH (09:23)
--- NOTE | 2018-03-25 13:41 | CARD ---
APPROVED REPORT Date of service: 03/24/2018 EKG Measurement Heart [id number] <Conclusion> Atrial-paced rhythm with occasional sinus complexes and premature ventricular complexes Nonspecific T wave abnormality Abnormal ECG
--- NOTE | 2018-03-25 15:25 | CP.PCM.CON ---
History of Present Illness - History of Present Illness History of Present Illness: ASKED TO SEE PT BY PCP DR STOCK FOR CC OF CHEST PAIN. 77 Y/O HERE SECONDARY TO CP X 3 DAYS. PT DENIES RADIATION OF PAIN. PAIN IS 6/10 AT WORST. COMES ON WITH TWISTING OF UPPER BODY. NO ALLEVIATING FACTORS. NO ASSOCIATED SOB, PALP, DIZZINESS, COUGH, F/C/N/V. PT RECENTLY D/C FROM [facility] WHERE SHE WAS ADMITTED WITH DIARRHEA NAUSEA VOMITING LOSS OF APPETITE AND DEHYDRATION. DENIES CONTINUED N/V/D/C. PT HAS A DRUG AND ALCOHOL COUNSELLOR AT [place]. HER ECHO FROM Dec REVIEWED PERSONALLY AND REVEALS NML EF WITH MR. EKG SHOWS SR WITH PVCS. TROP X 1 BORDERLINE. PT HAS NEW ONSET RENAL FAILURE. SHE STATES THIS WAS DIAGNOSED AT [place]. Review of Systems - Constitutional Constitutional: As Per HPI. absent: Anorexia, Chills, Daytime Sleepiness, Excessive Sweating, Fatigue, Fever, Frequent Falls, Headache, Increased Appetite, Lethargy, Malaise, Night Sweats, Snoring, Sleep Apnea, Weight Gain, Weight Loss, Weakness, Other - EENT Eyes: As Per HPI. absent: Blind Spots, Blurred Vision, Change in Vision, D ecreased Night Vision, Diplopia, Discharge, Dry Eye, Exophthalmos, Floaters, Irritation, Itchy Eyes, Loss of Peripheral Vision, Pain, Photophobia, Requires Corrective Lenses, Sees Flashes, Spots in Vision, Tunnel Vision, Other Visual Disturbances, Loss of Vision, Other Ears: As Per HPI. absent: Decreased Hearing, Ear Discharge, Ear Pain, Tinnitus, Abnormal Hearing, Disequilibrium, Dizziness, Other Nose/Mouth/Throat: As Per HPI. absent: Epistaxis, Nasal Congestion, Nasal Discharge, Nasal Obstruction, Nasal Trauma, Nose Pain, Post Nasal Drip, Sinus Pain, Sinus Pressure, Bleeding Gums, Change in Voice, Dental Pain, Dry Mouth, Dysphagia, Halitosis, Hoarsness, Lip Swelling, Mouth Lesions, Mouth Pain, Odynophagia, Sore Throat, Throat Swelling, Tongue Swelling, Facial Pain, Neck Pain, Neck Mass, Other - Breasts Breasts: As Per HPI. absent: Change in Shape, Mass, Pain, Nipple Discharge, Nipple Inversion, Skin Changes, Swelling, Other - Cardiovascular Cardiovascular: As Per HPI, Chest Pain at Rest. absent: Acrocyanosis, Chest Pain, Chest Pain with Activity, Claudication, Diaphoresis, Dyspnea, Dyspnea on Exertion, Edema, Irregular Heart Rhythm, Pain Radiating to Arm/Neck/Jaw, Leg Edema, Leg Ulcers, Lightheadedness, Orthopnea, Palpitations, Paroxysmal [place] Dyspnea, Pedal Edema, Radiating Pain, Rapid Heart Rate, Slow Heart Rate, Syncope, Other - Respiratory Respiratory: As Per HPI. absent: Cough, Dyspnea, Hemoptysis, Dyspnea on Exertion, Wheezing, Snoring, Stridor, Pain on Inspiration, Chest Congestion, Excessive Mucous Production, Change in Mucous Color, Pain with Coughing, Other - Gastrointestinal Gastrointestinal: As Per HPI. absent: Abdominal Pain, Belching, Bloating, Change in Bowel Habits, Change in Stool Character, Coffee Ground Emesis, Constipation, Cramping, Diarrhea, Dyspepsia, Dysphagia, Early Satiety, Excessive Flatus, Fecal Incontinence, Heartburn, Hematemesis, Hematochezia, Loose Stools, Melena, Nausea, Odynophagia, Temesmus, Vomiting, Other Additional comments: LOSS OF APPETITE - Genitourinary Genitourinary: As Per HPI. absent: Change in Urinary Stream, Difficulty Urinating, Dysuria, Flank Pain, Hematuria, Pyuria, Nocturia, Urinary Incontinence, Urinary Frequency, Urinary Hesitance, Urinary Urgency, Voiding Freq/Small Amts, Freq UTI, Hx Renal/Bladder Calculi, Hx /Renal Surgery, Bladder Distension, Other - Reproductive: Female Reproductive:Female: As Per HPI. absent: Amenorrhea, Amenorrhea/ Control, Currently Menstual, Cycle <21 Days, Cycle >35 Days, Cycle Variable, Menses 1-7 Days, Menses >/= 8 Days, Menses Variable, Cycle > 4 Weeks Between, No Menses for 6 Months, Heavy Menses, Light Menses, Normal Menses, Spotting Between Cycles, S/P Hysterectomy, Menopausal, Post Menopausal, Premenarche, Abnormal Vaginal Bleeding, Dysmenorrhea, Dyspareunia, Genital Lesions, Genital Pruritis, Pelvic Pain, Prolapse Symptoms, Sexual Dysfunction, Vaginal Discharge, Vaginal Dryness, Vaginal Odor, Vaginal Pruritis, Other - Menstruation Menstruation: As Per HPI. absent: Amenorrhea, Amenorrhea/ Control, Currently Menstual, Cycle <21 Days, Cycle >35 Days, Cycle Variable, Menses 1-7 Days, Menses >/= 8 Days, Menses Variable, Cycle > 4 Weeks Between, No Menses for 6 Months, Heavy Menses, Light Menses, Normal Menses, Spotting Between Cycles, S/P Hysterectomy, Menopausal, Post Menopausal, Premenarche, Abnormal Vaginal Bleeding, Dysmenorrhea, Other - Musculoskeletal Musculoskeletal: As Per HPI. absent: Abnormal Gait, Arthralgias, Atrophy, Back Pain, Deformity, Joint Swelling, Limited Range of Motion, Loss of Height, Muscle Cramps, Muscle Weakness, Myalgias, Neck Pain, Numbness, Radiating Pain into Limb, Stiffness, Tingling, Other - Integumentary Integumentary: As Per HPI. absent: Acne, Alopecia, Bleeding Lesions, Change in Hair, Change in Nails, Change in Pigmentation, Changing Lesions, Dry Skin, Er ythema, Furuncle, Hirsutism, Lesions, New Lesions, Non-Healing Lesions, Photosensitivity, Pruritus, Rash, Skin Pain, Skin Ulcer, Sores, Striae, Swelling, Unusual Bruising, Wounds, Jaundice, Other - Neurological Neurological: As Per HPI. absent: Abnormal Gait, Abnormal Hearing, Abnormal Movements, Abnormal Speech, Behavioral Changes, Burning Sensations, Confusion, Convulsions, Disequilibrium, Dizziness, Numbness, Focal Weakness, Frequent Falls, Headaches, Lack of Coordination, Loss of Vision, Memory Loss, Paresthesias, Radicular Pain, Restless Legs, Sensory Deficit, Syncope, Tingling, Tremor, Vertigo, Weakness, Other Visual Disturbances, Other - Psychiatric Psychiatric: As Per HPI. absent: Abnormal Sleep Pattern, Anhedonia, Anxiety, Auditory Hallucinations, Behavioral Changes, Change in Appetite, Change in Paz rachid, Confusion, Depression, Difficulty Concentrating, Hallucinations, Homicidal Ideation, Hopelessness, Irritability, Memory Loss, Mood Swings, Panic Attacks, Paranoia, Suicidal Ideation, Visual Hallucinations, Tactile Hallucinations, Other - Endocrine Endocrine: As Per HPI. absent: Change in Body Appearance, Change in Libido, Cold Intolorance, Deepening of Voice, Excessive Sweating, Fatigue, Flushing, Heat Intolorance, Increase in Ring/Shoe/Hat Size, Palpitations, Polydipsia, Polyphagia, Polyuria, Other - Hematologic/Lymphatic Hematologic: As Per HPI. absent: Easy Bleeding, Easy Bruising, Lymphadenopathy, Other Past Patient History - Tetanus Immunizations Tetanus Immunization: Unknown - Past Medical History & Family History Past Medical History?: Yes - Past Social History Smoking Status: Never Smoked Chewing Tobacco Use: No Cigar Use: No Alcohol: None Drugs: Denies Home Situation {Lives}: With Family Domestic Violence: Negative - CARDIAC Hx Cardiac Disorders: Yes Hx Hypertension: Yes Hx Pacemaker: Yes Hx Peripheral Vascular Disease: Yes Other/Comment: CABG 15 YEARS AGO - PULMONARY Hx Respiratory Disorders: No - NEUROLOGICAL Hx Neurological Disorder: No - HEENT Hx HEENT Problems: Yes Hx Deafness: Yes (left) Other/Comment: [place] right ear - RENAL Hx Chronic Kidney Disease: Yes - ENDOCRINE/METABOLIC Hx Endocrine Disorders: Yes Hx Diabetes Mellitus Type 2: Yes - HEMATOLOGICAL/ONCOLOGICAL Hx Blood Disorders: No Hx AIDS: No Hx Human Immunodeficiency Virus (HIV): No - INTEGUMENTARY Hx Dermatological Problems: No - MUSCULOSKELETAL/RHEUMATOLOGICAL Hx Falls: Yes - GASTROINTESTINAL Hx Gastrointestinal Disorders: No - GENITOURINARY/GYNECOLOGICAL Hx Genitourinary Disorders: No - PSYCHIATRIC Hx Psychophysiologic Disorder: No Hx Substance Use: No - SURGICAL HISTORY Hx Surgeries: Yes Hx Coronary Artery Bypass Graft: Yes Hx Orthopedic Surgery: Yes (right shoulder) Other/Comment: Pacemaker placement - ANESTHESIA Hx Anesthesia: Yes Hx Anesthesia Reactions: No Meds Allergies/Adverse Reactions: Allergies Allergy/AdvReac Type Severity Reaction Status Date / Time No Known Allergies Allergy Verified 03/24/18 11:02 - Medications Medications: Current Medications Amlodipine Besylate (Norvasc) 10 mg PO DAILY [facility] Last Admin: 03/25/18 09:22 Dose: 10 mg Aspirin (Aspirin) 325 mg PO DAILY [facility] Last Admin: 03/25/18 09:20 Dose: 325 mg Atorvastatin Calcium (Lipitor) 40 mg PO DAILY [facility] Last Admin: 03/25/18 09:21 Dose: 40 mg Calcium Carbonate (Oscal) 500 mg PO DAILY [facility] Last Admin: 03/25/18 09:22 Dose: 500 mg Clopidogrel Bisulfate (Plavix) 75 mg PO DAILY [facility] Last Admin: 03/25/18 09:22 Dose: 75 mg Hydralazine HCl (Apresoline) 50 mg PO Q12 [facility] Last Admin: 03/25/18 09:20 Dose: 50 mg Heparin Sodium/Dextrose (Heparin 25,000 Units/250ml In D5w) 25,000 units in 250 mls @ 5 mls/hr IV .Q24H [facility]; Protocol Last Titration: 03/25/18 10:52 Dose: 3 mls/hr Labetalol HCl (Trandate) 100 mg PO Q12 [facility] Last Admin: 03/25/18 09:23 Dose: 100 mg Pantoprazole Sodium (Protonix Ec Tab) 40 mg PO DAILY [facility] Last Admin: 03/25/18 09:23 Dose: 40 mg Physical Exam - Constitutional Appears: Well - Head Exam Head Exam: ATRAUMATIC, NORMAL INSPECTION, NORMOCEPHALIC - Eye Exam Eye Exam: EOMI, Normal appearance, PERRL. absent: Conjunctival injection, Nystagmus, Periorbital swelling, Periorbital tenderness, Scleral icterus Pupil Exam: NORMAL ACCOMODATION, PERRL. absent: Fixed, Irregular, Miosis, Mydriatic, Unequal - ENT Exam ENT Exam: Mucous Membranes Moist, Normal Exam. absent: Mucous Membranes Dry, Normal External Ear Exam, Normal Oropharynx, TM's Normal Bilaterally - Neck Exam Neck exam: Positive for: Normal Inspection. Negative for: Full Rom, Lymphadenopathy, Meningismus, Tenderness, Thyromegaly - Respiratory Exam Respiratory Exam: Chest Wall Tenderness, Clear to Auscultation Bilateral, NORMAL BREATHING PATTERN. absent: Accessory Muscle Use, Decreased Breath Sounds, Prolonged Expiratory Phase, Rales, Rhonchi, Wheezes, Respiratory Distress, Stridor - Cardiovascular Exam Cardiovascular Exam: REGULAR RHYTHM, +S1, +S2, Systolic Murmur. absent: Bradycardia, Tachycardia, Clicks, Diastolic murmur, Gallop, Irregular Rhythm, JVD, RRR, Rubs, +S4 - GI/Abdominal Exam GI & Abdominal Exam: Normal Bowel Sounds, Soft. absent: Bruit, Diminished Bowel Sounds, Distended, Firm, Guarding, Hernia, Hyperactive Bowel Sounds, Hypoactive Bowel Sounds, Mass, Organomegaly, Pulsatile Mass, Rebound, Rigid, Tenderness - Rectal Exam Rectal Exam: Deferred - Extremities Exam Extremities exam: Positive for: normal inspection, pedal pulses present Additional comments: UE PULSES 2+ LE 1+ - Back Exam Back exam: NORMAL INSPECTION. absent: CVA tenderness (L), CVA tenderness (R), FULL ROM, muscle spasm, paraspinal tenderness, rash noted, tenderness, vertebral tenderness - Neurological Exam Neurological exam: Alert, CN II-XII Intact, Normal Gait, Oriented x3, Reflexes Normal - Skin Skin Exam: Dry, Intact, Normal Color, Warm Results - Vital Signs Recent Vital Signs: Last Vital Signs Temp 98.3 F 03/25/18 12:21 Pulse 76 03/25/18 12:21 Resp 18 03/25/18 12:21 BP 130/58 L 03/25/18 12:21 Pulse Ox 97 03/25/18 12:21 - Labs Result Diagrams: 03/25/18 08:45 03/25/18 08:45 Labs: Laboratory Results - last 24 hr 03/24/18 03/24/18 03/24/18 17:40 20:33 21:42 WBC RBC Hgb Hct MCV MCH MCHC RDW Plt Count APTT Sodium Potassium Chloride Carbon Dioxide Anion Gap BUN Creatinine Est GFR ( Amer) Est GFR (Non-Af Amer) POC Glucose (mg/dL) 175 H Random Glucose Calcium Phosphorus Magnesium Total Bilirubin AST ALT Alkaline Phosphatase Troponin I 0.1140 Total Protein Albumin Globulin Albumin/Globulin Ratio Urine Color Yellow Urine Clarity Cloudy Urine pH 5.0 Ur Specific [place] 1.012 Urine Protein 30 Urine Glucose (UA) 50 Urine Ketones Negative Urine Blood Negative Urine Nitrate Negative Urine Bilirubin Negative Urine Urobilinogen 0.2-1.0 Ur Leukocyte Esterase Small Urine RBC (Auto) 2 Urine Microscopic WBC 8 H Ur Squamous Epith Cells 2 03/25/18 03/25/18 03/25/18 00:50 05:14 08:45 WBC RBC Hgb Hct MCV MCH MCHC RDW Plt Count APTT 134.5 H 40.6 H Sodium Potassium Chloride Carbon Dioxide Anion Gap BUN Creatinine Est GFR ( Amer) Est GFR (Non-Af Amer) POC Glucose (mg/dL) 95 Random Glucose Calcium Phosphorus Magnesium Total Bilirubin AST ALT Alkaline Phosphatase Troponin I Total Protein Albumin Globulin Albumin/Globulin Ratio Urine Color Urine Clarity Urine pH Ur Specific [place] Urine Protein Urine Glucose (UA) Urine Ketones Urine Blood Urine Nitrate Urine Bilirubin Urine Urobilinogen Ur Leukocyte Esterase Urine RBC (Auto) Urine Microscopic WBC Ur Squamous Epith Cells 03/25/18 03/25/18 03/25/18 08:45 08:45 10:56 WBC 7.2 RBC 3.45 L Hgb 10.6 L Hct 32.0 L MCV 92.7 MCH 30.8 MCHC 33.3 RDW 15.4 H Plt Count 278 APTT Sodium 137 Potassium 4.2 Chloride 109 H Carbon Dioxide 18 L Anion Gap 14 BUN 36 H Creatinine 3.3 H Est GFR ( Amer) 16 Est GFR (Non-Af Amer) 13 POC Glucose (mg/dL) 259 H Random Glucose 116 H Calcium 9.5 Phosphorus 3.6 Magnesium 1.6 Total Bilirubin 0.7 AST 41 H D ALT 29 Alkaline Phosphatase 123 Troponin I Total Protein 7.3 Albumin 4.0 Globulin 3.3 Albumin/Globulin Ratio 1.2 Urine Color Urine Clarity Urine pH Ur Specific [place] Urine Protein Urine Glucose (UA) Urine Ketones Urine Blood Urine Nitrate Urine Bilirubin Urine Urobilinogen Ur Leukocyte Esterase Urine RBC (Auto) Urine Microscopic WBC Ur Squamous Epith Cells - EKG Data EKG Interpreted by: Myself EKG shows normal: Sinus rhythm Rate: Normal Assessment & Plan (1) Chest pain syndrome Status: Acute (2) Elevated troponin Status: Acute (3) Hx of CABG Status: Acute (4) Carotid bruit Status: Acute (5) Acute on chronic renal failure Status: Acute - Assessment and Plan (Free Text) Plan: D/C CILOSTAZOL PT ON ASA PLAVIX AND NO CLAUDICATIONS D/C HEPARIN INCREASED/BORDERLINE TROP DUE TO RENAL DISEASE CP IS REPRODUCIBLE WITH [facility]P AND IS [facility] PT STABLE FOR D/C F/U WITH HER DRUG AND ALCOHOL COUNSELLOR
[2018-03-26 07:07] LABS: HEMOGLOBIN 10.7 g/dL (12.0-16.0); MEAN CELL VOLUME 93.6 fl (81.0-99.0); MEAN CORPUSCULAR HEMOGLOBIN 31.1 pg (27.0-31.0); MEAN CORPUSCULAR HGB CONC 33.2 g/dL (33.0-37.0); RBC 3.43 Mil/uL (3.80-5.20); RED CELL DISTRIBUTION WIDTH 15.8 % (11.5-14.5); WHITE BLOOD COUNT 5.7 K/uL (4.8-10.8)
[2018-03-26 07:30] LABS: ALB/GLOB RATIO 1.2 (1.0-2.1); ALBUMIN 3.6 g/dL (3.5-5.0); CALCIUM 9.2 mg/dL (8.4-10.2)
[2018-03-26] MEDS: Pantoprazole 40 mg EC Tab PO SCH (08:58)
[2018-03-26] MEDS: Sodium Chloride 0.45% 1,000 ML IV SCH (16:39)
--- NOTE | 2018-03-26 20:00 | CP.PCM.PN ---
Subjective - Date & Time of Evaluation Date of Evaluation: 03/26/18 Time of Evaluation: 20:00 - Subjective Subjective: PT WITH CONTINUED MSK CP. ADMITS TO COUGH AND PAIN WITH COUGH. Objective - Vital Signs/Intake and Output Vital Signs (last 24 hours): Temp Pulse Resp BP Pulse Ox 98.6 F 52 L 20 157/66 H 96 03/26/18 15:48 03/26/18 15:48 03/26/18 15:48 03/26/18 15:48 03/26/18 15:48 Intake and Output: 03/26/18 03/27/18 18:59 06:59 Intake Total 200 Balance 200 - Medications Medications: Current Medications Amlodipine Besylate (Norvasc) 10 mg PO DAILY [facility] Last Admin: 03/26/18 08:56 Dose: 10 mg Aspirin (Aspirin) 325 mg PO DAILY [facility] Last Admin: 03/26/18 08:55 Dose: 325 mg Atorvastatin Calcium (Lipitor) 40 mg PO DAILY [facility] Last Admin: 03/26/18 08:55 Dose: 40 mg Calcium Carbonate (Oscal) 500 mg PO DAILY [facility] Last Admin: 03/26/18 08:56 Dose: 500 mg Clopidogrel Bisulfate (Plavix) 75 mg PO DAILY [facility] Last Admin: 03/26/18 08:57 Dose: 75 mg Hydralazine HCl (Apresoline) 50 mg PO Q12 [facility] Last Admin: 03/26/18 08:55 Dose: 50 mg Sodium Chloride (Sodium Chloride 0.45%) 1,000 mls @ 100 mls/hr IV .Q10H [facility] Stop: 03/27/18 16:22 Last Admin: 03/26/18 16:39 Dose: 100 mls/hr Labetalol HCl (Trandate) 100 mg PO Q12 [facility] Last Admin: 03/26/18 08:57 Dose: 100 mg Pantoprazole Sodium (Protonix Ec Tab) 40 mg PO DAILY [facility] Last Admin: 03/26/18 08:58 Dose: 40 mg - Labs Labs: 03/26/18 05:27 03/26/18 05:27 PT 10.9 Seconds (9.8-13.1) 03/24/18 12:50 INR 1.0 03/24/18 12:50 APTT 43.0 Seconds (25.6-37.1) H 03/25/18 17:07 - Constitutional Appears: Well - Head Exam Head Exam: ATRAUMATIC, NORMAL INSPECTION, NORMOCEPHALIC - Eye Exam Eye Exam: EOMI, Normal appearance, PERRL. absent: Conjunctival injection, Nysta gmus, Periorbital swelling, Periorbital tenderness, Scleral icterus Pupil Exam: NORMAL ACCOMODATION, PERRL - ENT Exam ENT Exam: Mucous Membranes Moist, Normal Exam. absent: Mucous Membranes Dry, Normal External Ear Exam, Normal Oropharynx, TM's Normal Bilaterally - Neck Exam Neck Exam: Full ROM, Normal Inspection. absent: Lymphadenopathy, Meningismus, Tenderness, Thyromegaly - Respiratory Exam Respiratory Exam: Clear to Ausculation Bilateral, NORMAL BREATHING PATTERN. absent: Accessory Muscle Use, Chest Wall Tenderness, Decreased Breath Sounds, Prolonged Expiratory Phase, Rales, Rhonchi, Wheezes, Respiratory Distress, Stridor - Cardiovascular Exam Cardiovascular Exam: REGULAR RHYTHM, +S1, +S2, Murmur. absent: Bradycardia, Tachycardia, Clicks, Diastolic murmur, Gallop, Irregular Rhythm, JVD, RRR, Rubs, +S4 - GI/Abdominal Exam GI & Abdominal Exam: Soft, Normal Bowel Sounds. absent: Bruit, Distended, Firm, Guarding, Rigid, Tenderness, Diminished Bowel Sounds, Hernia, Hyperactive Bowel Sounds, Hypoactive Bowel Sounds, Organomegaly, Pulsatile Mass, Rebound, Mass - Rectal Exam Rectal Exam: Deferred - Extremities Exam Extremities Exam: Full ROM, Normal Capillary Refill, Normal Inspection. absent: Calf Tenderness, Joint Swelling, Pedal Edema, Tenderness - Back Exam Back Exam: NORMAL INSPECTION. absent: CVA tenderness (L), CVA tenderness (R), Full ROM, muscle spasm, paraspinal tenderness, rash noted, tenderness, vertebral tenderness - Neurological Exam Neurological Exam: Alert, Awake, CN II-XII Intact, Normal Gait, Oriented x3. absent: Abnormal Gait, Altered, Motor Sensory Deficit, Reflexes Normal - Psychiatric Exam Psychiatric exam: Normal Affect, Normal Mood. absent: Agitated, Anxious, Depressed, Flat Affect, Homicidal Ideation, Manic, Suicidal Ideation - Skin Skin Exam: Dry, Intact, Normal Color, Warm. absent: Abrasion, Cyanosis, Diaphoretic, Erythema, Mottled, Pallor, Pallor, Petechiae, Rash, Urticaria, Vesi cles Assessment and Plan (1) Chest pain syndrome Status: Acute (2) Elevated troponin Status: Acute (3) Hx of CABG Status: Acute (4) Carotid bruit Status: Acute (5) Acute on chronic renal failure Status: Acute - Assessment and Plan (Free Text) Plan: PT HAS NML EF. IVF STARTED GIVEN RENAL FAILURE. PTS WITH IMPROVED APPETITE. TROP NORMALIZED DESPITE CONTINUED CP (THUS LIKELY DUE TO RENAL FAILURE). CONT MED THERAPY.
--- NOTE | 2018-03-26 20:57 | CP.PCM.PN ---
Subjective - Date & Time of Evaluation Date of Evaluation: 03/25/18 Time of Evaluation: 18:40 - Subjective Subjective: Seen and examined at the bed side. Continue to complain Chest Pain. Renal Function is improving. Cardiology Consulted and awaiting impute. Objective - Vital Signs/Intake and Output Vital Signs (last 24 hours): Temp Pulse Resp BP Pulse Ox 98.4 F 56 L 20 164/55 H 96 03/26/18 20:27 03/26/18 20:27 03/26/18 20:27 03/26/18 20:27 03/26/18 20:27 Intake and Output: 03/26/18 03/27/18 18:59 06:59 Intake Total 200 Balance 200 - Medications Medications: Current Medications Amlodipine Besylate (Norvasc) 10 mg PO DAILY [facility] Last Admin: 03/26/18 08:56 Dose: 10 mg Aspirin (Aspirin) 325 mg PO DAILY [facility] Last Admin: 03/26/18 08:55 Dose: 325 mg Atorvastatin Calcium (Lipitor) 40 mg PO DAILY [facility] Last Admin: 03/26/18 08:55 Dose: 40 mg Calcium Carbonate (Oscal) 500 mg PO DAILY [facility] Last Admin: 03/26/18 08:56 Dose: 500 mg Clopidogrel Bisulfate (Plavix) 75 mg PO DAILY [facility] Last Admin: 03/26/18 08:57 Dose: 75 mg Hydralazine HCl (Apresoline) 50 mg PO Q12 [facility] Last Admin: 03/26/18 08:55 Dose: 50 mg Sodium Chloride (Sodium Chloride 0.45%) 1,000 mls @ 100 mls/hr IV .Q10H [facility] Stop: 03/27/18 16:22 Last Admin: 03/26/18 16:39 Dose: 100 mls/hr Labetalol HCl (Trandate) 100 mg PO Q12 [facility] Last Admin: 03/26/18 08:57 Dose: 100 mg Pantoprazole Sodium (Protonix Ec Tab) 40 mg PO DAILY [facility] Last Admin: 03/26/18 08:58 Dose: 40 mg - Labs Labs: 03/26/18 05:27 03/26/18 05:27 PT 10.9 Seconds (9.8-13.1) 03/24/18 12:50 INR 1.0 03/24/18 12:50 APTT 43.0 Seconds (25.6-37.1) H 03/25/18 17:07 - Constitutional Appears: Well, No Acute Distress - Head Exam Head Exam: ATRAUMATIC, NORMAL INSPECTION, NORMOCEPHALIC - Eye Exam Eye Exam: EOMI, Normal appearance, PERRL Pupil Exam: NORMAL ACCOMODATION, PERRL - ENT Exam ENT Exam: Mucous Membranes Moist, Normal Exam Additional comments: B/L Decreased Hearing. - Neck Exam Neck Exam: Full ROM, Normal Inspection. absent: Lymphadenopathy - Respiratory Exam Respiratory Exam: Clear to Ausculation Bilateral, NORMAL BREATHING PATTERN - Cardiovascular Exam Cardiovascular Exam: REGULAR RHYTHM, +S1, +S2. absent: Murmur Additional comments: Left Chest PPM. - GI/Abdominal Exam GI & Abdominal Exam: Soft, Normal Bowel Sounds. absent: Tenderness - Extremities Exam Extremities Exam: Normal Capillary Refill. absent: Joint Swelling, Pedal Edema - Neurological Exam Neurological Exam: Alert, Awake, CN II-XII Intact, Normal Gait, Oriented x3 - Psychiatric Exam Psychiatric exam: Normal Affect, Normal Mood - Skin Skin Exam: Dry, Intact, Normal Color, Warm Assessment and Plan (1) Acute on chronic renal failure Status: Acute (2) CHF (congestive heart failure) Status: Acute (3) NSTEMI (non-ST elevated myocardial infarction) Status: Acute - Assessment and Plan (Free Text) Plan: Improving Continue Current Care
--- NOTE | 2018-03-26 20:58 | CP.PCM.PN ---
Subjective - Date & Time of Evaluation Date of Evaluation: 03/26/18 Time of Evaluation: 18:25 - Subjective Subjective: Seen and examined at the bed side. Continue to complain Chest Pain. Renal Function is improving. Cardiology Consulted and awaiting impute. Objective - Vital Signs/Intake and Output Vital Signs (last 24 hours): Temp Pulse Resp BP Pulse Ox 98.4 F 56 L 20 164/55 H 96 03/26/18 20:27 03/26/18 20:27 03/26/18 20:27 03/26/18 20:27 03/26/18 20:27 Intake and Output: 03/26/18 03/27/18 18:59 06:59 Intake Total 200 Balance 200 - Medications Medications: Current Medications Amlodipine Besylate (Norvasc) 10 mg PO DAILY [facility] Last Admin: 03/26/18 08:56 Dose: 10 mg Aspirin (Aspirin) 325 mg PO DAILY [facility] Last Admin: 03/26/18 08:55 Dose: 325 mg Atorvastatin Calcium (Lipitor) 40 mg PO DAILY [facility] Last Admin: 03/26/18 08:55 Dose: 40 mg Calcium Carbonate (Oscal) 500 mg PO DAILY [facility] Last Admin: 03/26/18 08:56 Dose: 500 mg Clopidogrel Bisulfate (Plavix) 75 mg PO DAILY [facility] Last Admin: 03/26/18 08:57 Dose: 75 mg Hydralazine HCl (Apresoline) 50 mg PO Q12 [facility] Last Admin: 03/26/18 08:55 Dose: 50 mg Sodium Chloride (Sodium Chloride 0.45%) 1,000 mls @ 100 mls/hr IV .Q10H [facility] Stop: 03/27/18 16:22 Last Admin: 03/26/18 16:39 Dose: 100 mls/hr Labetalol HCl (Trandate) 100 mg PO Q12 [facility] Last Admin: 03/26/18 08:57 Dose: 100 mg Pantoprazole Sodium (Protonix Ec Tab) 40 mg PO DAILY [facility] Last Admin: 03/26/18 08:58 Dose: 40 mg - Labs Labs: 03/26/18 05:27 03/26/18 05:27 PT 10.9 Seconds (9.8-13.1) 03/24/18 12:50 INR 1.0 03/24/18 12:50 APTT 43.0 Seconds (25.6-37.1) H 03/25/18 17:07 Assessment and Plan (1) Acute on chronic renal failure Status: Acute (2) CHF (congestive heart failure) Status: Acute (3) NSTEMI (non-ST elevated myocardial infarction) Status: Acute - Assessment and Plan (Free Text) Plan: Continue Current Care Repeat BMP and CBC with diff
[2018-03-27 01:08] VITALS: O2SAT 97
[2018-03-27] MEDS: Sodium Chloride 0.45% 1,000 ML IV SCH (06:05)
[2018-03-27 06:20] LABS: ALB/GLOB RATIO 1.2 (1.0-2.1); ALBUMIN 3.6 g/dL (3.5-5.0); CALCIUM 9.1 mg/dL (8.4-10.2)
[2018-03-27 06:27] LABS: BASO # 0.1 K/uL (0.0-0.2); BASO % 1.2 % (0.0-2.0); EOS # 0.2 K/uL (0.0-0.7); EOS % 4.8 % (0.0-4.0); HEMOGLOBIN 10.8 g/dL (12.0-16.0); LYMPH # 1.2 K/uL (1.0-4.3); LYMPH % 23.7 % (20.0-40.0); MEAN CELL VOLUME 96.2 fl (81.0-99.0); MEAN CORPUSCULAR HGB CONC 32.2 g/dL (33.0-37.0); MEAN PLATELET VOLUME 8.3 fl (7.2-11.7); MONO # 0.6 K/uL (0.0-0.8); MONO % 13.2 % (0.0-10.0); NEUT # 2.8 K/uL (1.8-7.0); NEUT % 57.1 % (50.0-75.0); NRBC % 0.1 % (0.0-0.0); RBC 3.49 Mil/uL (3.80-5.20); RED CELL DISTRIBUTION WIDTH 15.8 % (11.5-14.5); WHITE BLOOD COUNT 4.9 K/uL (4.8-10.8)
[2018-03-27 07:53] VITALS: BP 162/63; PULSE 86; RESP 18; TEMP 98.4
[2018-03-27] MEDS: Pantoprazole 40 mg EC Tab PO SCH (08:50)
--- NOTE | 2018-03-27 11:28 | CT ---
Date of service: 03/24/2018 PROCEDURE: CT Abdomen and Pelvis with contrast HISTORY: RLQ pain COMPARISON: None. TECHNIQUE: Unenhanced study. Neither oral nor intravenous contrast administered. Radiation dose: Total exam DLP = 216.87 mGy-cm. This CT exam was performed using one or more of the following dose reduction techniques: Automated exposure control, adjustment of the mA and/or kV according to patient size, and/or use of iterative reconstruction technique. FINDINGS: LOWER THORAX: Trace bilateral pleural effusions. Cardiomegaly without pericardial effusion as visualized. LIVER: Unremarkable. No gross lesion or ductal dilatation. GALLBLADDER AND BILE DUCTS: Unremarkable. PANCREAS: Unremarkable. No gross lesion or ductal dilatation. SPLEEN: Unremarkable. ADRENALS: Unremarkable. No mass. KIDNEYS AND URETERS: Unremarkable. No hydronephrosis. No solid mass. VASCULATURE: No aortic aneurysm. Atherosclerotic calcification and mural plaque present. Findings are seen throughout the aorta BOWEL: Fluid-filled colon and small bowel. No obstruction. No gross mural thickening. APPENDIX: Normal appendix is not visible. No abnormalities to suggest acute appendicitis. No right lower quadrant inflammatory processes identified. PERITONEUM: Trace right upper quadrant ascites.. No free air. LYMPH NODES: Unremarkable. No enlarged lymph nodes. BLADDER: Unremarkable. REPRODUCTIVE: Unremarkable. BONES: No acute fracture. OTHER FINDINGS: Innumerable calcified subcutaneous granuloma both gluteal regions IMPRESSION: Cholelithiasis without CT evidence of acute cholecystitis. Additional benign and/or incidental findings described above.
--- NOTE | 2018-03-27 17:44 | CARD ---
APPROVED REPORT Date of service: 03/27/2018 EXAM: Two-dimensional and M-mode echocardiogram with Doppler and color Doppler. Other Information Quality : GoodRhythm : Pacemaker INDICATION Non STEMI Surgery/Intervention Pacemaker: Date: 2017 2D DIMENSIONS IVSd0.89 (0.7-1.1cm)LVDd3.79 (3.9-5.9cm) LVOT Diameter1.99 (1.8-2.4cm)PWd1.57 (0.7-1.1cm) IVSs1.27 (0.8-1.2cm)LVDs4.06 (2.5-4.0cm) FS (%) 7.2 %PWs1.33 (0.8-1.2cm) M-Mode DIMENSIONS Left Atrium (MM)4.97 (2.5-4.0cm)IVSd1.26 (0.7-1.1cm) Aortic Root3.00 (2.2-3.7cm)LVDd5.15 (4.0-5.6cm) Aortic Cusp Exc.1.56 (1.5-2.0cm)PWd1.24 (0.7-1.1cm) IVSs1.47 cmFS (%) 40 % LVDs3.09 (2.0-3.8cm)PWs1.53 cm Aortic Valve AoV Peak Smbokhhk011.9cm/Koko Peak GR.13mmHgLVOT Peak Nzqrrwpv13.7cm/s AYANNA (VMAX)0.99cm2 Mitral Valve MV E Butgbcvd752.5cm/sMV DECEL [id number] A Lpfjlays19.3cm/s MV WAW31jnM/A ratio1.2MVA (PHT)2.63cm2 TDI E/Lateral E'0.0E/Medial E'0.0 Tricuspid Valve TR Peak Omykopnh948at/sRAP OFQJDDAK25wvNsMR Peak Gr.31mmHg [id number] LEFT VENTRICLE The left ventricle is normal size. There is normal left ventricular wall thickness. The left ventricular systolic function is normal. The estimated ejection fraction is 55-60% No regional wall motion abnormalities noted.. Transmitral Doppler flow pattern is Grade II-pseudonormal filling dynamics. No left ventricle thrombus noted on this study. There is no ventricular septal defect visualized. There is no left ventricular aneurysm. There is no mass noted in the left ventricle. RIGHT VENTRICLE The right ventricle is normal size. There is normal right ventricular wall thickness. The right ventricular systolic function is normal. There is a PPM lead noticed in right ventricle. ATRIA The left atrium is mildly dilated. The right atrium size is normal. The interatrial septum is intact with no evidence for an atrial septal defect. AORTIC VALVE The aortic valve is normal in structure. No aortic regurgitation is present. There is no aortic valvular stenosis. There is no aortic valvular vegetation. MITRAL VALVE The mitral valve is normal in structure. There is no evidence of mitral valve prolapse. There is no mitral valve stenosis. There is mild mitral valve regurgitation noted. TRICUSPID VALVE The tricuspid valve is normal in structure. There is mild tricuspid valve regurgitation noted. RVSP is calculated at 42 mm Hg. There is no tricuspid valve prolapse or vegetation. There is no tricuspid valve stenosis. PULMONIC VALVE The pulmonary valve is normal in structure. There is trace pulmonic valvular regurgitation. There is no pulmonic valvular stenosis. GREAT VESSELS The aortic root is normal in size. The ascending aorta is normal in size. The pulmonary artery is normal. The IVC is normal in size and collapses >50% with inspiration. PERICARDIAL EFFUSION There is no pericardial effusion. There is no pleural effusion. <Conclusion> The estimated ejection fraction is 55-60% Transmitral Doppler flow pattern is Grade II-pseudonormal filling dynamics. There is a PPM lead noticed in right ventricle. The left atrium is mildly dilated. There is mild mitral valve regurgitation noted. There is mild tricuspid valve regurgitation noted. RVSP is calculated at 42 mm Hg.
--- NOTE | 2018-03-28 00:02 | CP.PCM.DIS ---
Provider - Provider Date of Admission: 03/24/18 14:27 Attending physician: Lee Boland MD Time Spent in preparation of Discharge (in minutes): 25 Diagnosis - Discharge Diagnosis (1) Acute on chronic renal failure Status: Acute Priority: High (2) CHF (congestive heart failure) Status: Acute Priority: High (3) NSTEMI (non-ST elevated myocardial infarction) Status: Acute Priority: High Hospital Course - Lab Results Lab Results: Micro Results 03/24/18 12:50 Blood-Venous Blood Culture - Preliminary NO GROWTH AFTER 3 DAYS 03/24/18 11:59 Blood-Venous Blood Culture - Preliminary NO GROWTH AFTER 3 DAYS Most Recent Lab Values WBC 4.9 K/uL (4.8-10.8) 03/27/18 04:30 RBC 3.49 Mil/uL (3.80-5.20) L 03/27/18 04:30 Hgb 10.8 g/dL (12.0-16.0) L 03/27/18 04:30 Hct 33.6 % (34.0-47.0) L 03/27/18 04:30 MCV 96.2 fl (81.0-99.0) D 03/27/18 04:30 MCH 31.0 pg (27.0-31.0) 03/27/18 04:30 MCHC 32.2 g/dL (33.0-37.0) L 03/27/18 04:30 RDW 15.8 % (11.5-14.5) H 03/27/18 04:30 Plt Count 221 K/uL (130-400) 03/27/18 04:30 MPV 8.3 fl (7.2-11.7) 03/27/18 04:30 Neut % (Auto) 57.1 % (50.0-75.0) 03/27/18 04:30 Lymph % (Auto) 23.7 % (20.0-40.0) 03/27/18 04:30 [place] % (Auto) 13.2 % (0.0-10.0) H 03/27/18 04:30 Eos % (Auto) 4.8 % (0.0-4.0) H 03/27/18 04:30 Baso % (Auto) 1.2 % (0.0-2.0) 03/27/18 04:30 Neut # (Auto) 2.8 K/uL (1.8-7.0) 03/27/18 04:30 Lymph # (Auto) 1.2 K/uL (1.0-4.3) 03/27/18 04:30 [place] # (Auto) 0.6 K/uL (0.0-0.8) 03/27/18 04:30 Eos # (Auto) 0.2 K/uL (0.0-0.7) 03/27/18 04:30 Baso # (Auto) 0.1 K/uL (0.0-0.2) 03/27/18 04:30 PT 10.9 Seconds (9.8-13.1) 03/24/18 12:50 INR 1.0 03/24/18 12:50 APTT 43.0 Seconds (25.6-37.1) H 03/25/18 17:07 Sodium 139 mmol/l (132-148) 03/27/18 04:30 Potassium 4.2 MMOL/L (3.6-5.0) 03/27/18 04:30 Chloride 107 mmol/L (98-107) 03/27/18 04:30 Carbon Dioxide 22 mmol/L (22-30) 03/27/18 04:30 Anion Gap 14 (10-20) 03/27/18 04:30 BUN 28 mg/dl (7-17) H 03/27/18 04:30 Creatinine 1.9 mg/dl (0.7-1.2) H 03/27/18 04:30 Est GFR ( Amer) 31 03/27/18 04:30 Est GFR (Non-Af Amer) 26 03/27/18 04:30 POC Glucose (mg/dL) 346 mg/dL (65-110) H 03/27/18 10:53 Random Glucose 129 mg/dL (65-105) H 03/27/18 04:30 Calcium 9.1 mg/dL (8.4-10.2) 03/27/18 04:30 Phosphorus 3.3 mg/dl (2.5-4.5) 03/27/18 04:30 Magnesium 1.6 MG/DL (1.6-2.3) 03/27/18 04:30 Total Bilirubin 0.7 mg/dl (0.2-1.3) 03/27/18 04:30 AST 39 U/L (14-36) H D 03/27/18 04:30 ALT 26 U/L (9-52) 03/27/18 04:30 Alkaline Phosphatase 113 U/L (38-126) 03/27/18 04:30 Troponin I 0.0780 ng/mL (0.00-0.120) 03/26/18 18:14 NT-Pro-B Natriuret Pep 32132 pg/ml (0-900) H 03/24/18 13:51 Total Protein 6.7 G/DL (6.3-8.2) 03/27/18 04:30 Albumin 3.6 g/dL (3.5-5.0) 03/27/18 04:30 Globulin 3.1 gm/dL (2.2-3.9) 03/27/18 04:30 Albumin/Globulin Ratio 1.2 (1.0-2.1) 03/27/18 04:30 Triglycerides 99 mg/DL (0-149) 03/27/18 04:30 Cholesterol 140 mg/dL (0-199) 03/27/18 04:30 LDL Cholesterol Direct 49 mg/dL (0-129) 03/27/18 04:30 HDL Cholesterol 75 MG/DL (30-70) H 03/27/18 04:30 TSH 3rd Generation 1.20 mIU/ML (0.46-4.68) 03/27/18 04:30 Urine Color Yellow (YELLOW) 03/24/18 17:40 Urine Clarity Cloudy (Clear) 03/24/18 17:40 Urine pH 5.0 (5.0-8.0) 03/24/18 17:40 Ur Specific [place] 1.012 (1.003-1.030) 03/24/18 17:40 Urine Protein 30 mg/dL (NEGATIVE) 03/24/18 17:40 Urine Glucose (UA) 50 mg/dL (Normal) 03/24/18 17:40 Urine Ketones Negative mg/dL (NEGATIVE) 03/24/18 17:40 Urine Blood Negative (NEGATIVE) 03/24/18 17:40 Urine Nitrate Negative (NEGATIVE) 03/24/18 17:40 Urine Bilirubin Negative (NEGATIVE) 03/24/18 17:40 Urine Urobilinogen 0.2-1.0 mg/dL (0.2-1.0) 03/24/18 17:40 Ur Leukocyte Esterase Small [place]/uL (Negative) 03/24/18 17:40 Urine RBC (Auto) 2 /hpf (0-3) 03/24/18 17:40 Urine Microscopic WBC 8 /hpf (0-5) H 03/24/18 17:40 Ur Squamous Epith Cells 2 /hpf (0-5) 03/24/18 17:40 Discharge Exam - Head Exam Head Exam: ATRAUMATIC, NORMAL INSPECTION, NORMOCEPHALIC Discharge Plan - Follow Up Plan Condition: GUARDED Disposition: AGAINST MEDICAL ADVICE Instructions: Acute Kidney Failure, Heart Failure, Adult (DC), Heart Attack (DC) Additional Instructions: follow up with on tue04/05/18 at 12pm Referrals: Miko Bryant MD [Staff Provider] - Lee Boland MD [Staff Provider] -
--- NOTE | 2018-03-31 22:42 | PQF ---
PROVIDER RESPONSE TEXT: NSTEMI Ruled In REVIEWER QUERY TEXT: Conflicting Documentation Clarification ER: NSTEMI CARDIOLOGY: Chest pain syndrome, elevated troponin. INCREASED/BORDERLINE TROP DUE TO RENAL DISEASE C P IS REPRODUCIBLE WITH PALP AND IS MSK Please clarify which of the above diagnoses are ruled in and which are ruled out. A single mention or documentation of multiple diagnoses for the same clinical presentation appears in the record. Please clarify the diagnosis/diagnoses. Please also document if the condition is: -- Confirmed and current -- Confirmed, treated and resolved -- Ruled out -- Other, please specify The patient's Clinical Indicators include: Admitted with chest pain and sob. EKG: Sinus rhythm with sinus arrhythmia with occasional premature ventricular complexes Nonspecific ST changes . Troponin x 1 elevated. Rx: Heparin drip then d/c, aspirin, Plavix, trandate Query created by: Rosalva Gibbons on 03/27/2018 8:48 AM Electronically signed by: Lee Boland MD 03/31/2018 10:40 PM
--- NOTE | 2018-03-31 22:43 | PQF ---
PROVIDER RESPONSE TEXT: Acute Renal Failure ( Patient signed out AMA Before treatment Completed) REVIEWER QUERY TEXT: Kidney Disease, Chronic CKD Stage Chronic Kidney Disease (CKD) is documented in the Medical Record. AFTER the acute renal failure is re solved please specify the disease stage (includes probable or suspected) Such as: -- Chronic kidney disease Stage 1 -- Chronic kidney disease Stage 2 -- Chronic kidney disease Stage 3 -- Chronic kidney disease Stage 4 -- Chronic kidney disease Stage 5 -- Chronic kidney disease Stage 5, requiring dialysis -- End Stage Renal Disease -- Other, please specify Stages are defined by the [employer] as follows: CKD Stage I GFR >= 90 ml / min per 1.73 m2 and persistent albuminuria CKD Stage 2 GFR between 60 and 89 with persistent albuminuria CKD Stage 3 GFR between 30 and 59 CKD Stage 4 GFR between 15 and 29 CKD Stage 5 GFR between <15 or End Stage Renal Disease The patient's Clinical Indicators include: BUN 40, 36, 32, 28 Creatinine 4.4, 3.3, 2.7, 1.9 GFR 10, 13, 17, 26 Rx: IVF Query created by: Rosalva Gibbons on 03/27/2018 8:55 AM Electronically signed by: Lee Boland MD 03/31/2018 10:40 PM
--- NOTE | 2018-03-31 22:43 | PQF ---
PROVIDER RESPONSE TEXT: No CHF (Last echo- Normal systolic and diastolic Function) REVIEWER QUERY TEXT: Heart Failure Acuity and Type Congestive Heart Failure is documented in the Medical Record. Please document the type and acuity (in cludes probable or suspected) Such as: Type: -- Combined systolic and diastolic (heart failure with reduced ejection fraction and diastolic) dysfu nction -- Diastolic (HFpEF) -- Systolic (HFrEF) -- Left heart failure -- Right heart failure -- Right heart failure due to left heart failure -- High output failure -- End stage heart failure -- Other, please specify Acuity: -- Acute -- Chronic -- Acute on chronic -- Other, please specify Also please document the underlying cause of the CHF (includes probable or suspected) The patient's Clinical Indicators include: ER: CHF and Lasix IV given Pro BNP 24,200, CXR: Pulmonary vascular congestion ECHO from 12/24/17: EF: 60-65%, dilated LA, mild TR with moderate pulmonary HTN, mild OR Query created by: Rosalva Gibbons on 03/27/2018 8:52 AM Electronically signed by: Lee Boland MD 03/31/2018 10:40 PM
== END 2018-03-27 14:29 | disposition left against medical advice (07) | DRG 281 ==
LOC: H.ER 10:31 → H.ERHOLD 14:27 → H.TEL 19:53
PROVIDERS: ADMIT Internal Medicine; ATTEND Internal Medicine
DX: I21.4 Non-ST elevation (NSTEMI) myocardial infarction (principal); N17.9 Acute kidney failure, unspecified; I12.9 Hypertensive chronic kidney disease with stage 1 through stage 4 chronic kidney disease, or unspecified chronic kidney disease; R07.9 Chest pain, unspecified; I25.10 Atherosclerotic heart disease of native coronary artery without angina pectoris; I49.3 Ventricular premature depolarization; N18.9 Chronic kidney disease, unspecified; Z79.02 Long term (current) use of antithrombotics/antiplatelets; Z95.0 Presence of cardiac pacemaker; Z95.1 Presence of aortocoronary bypass graft; Z79.899 Other long term (current) drug therapy; E11.22 Type 2 diabetes mellitus with diabetic chronic kidney disease; E11.51 Type 2 diabetes mellitus with diabetic peripheral angiopathy without gangrene; H91.90 Unspecified hearing loss, unspecified ear; K80.20 Calculus of gallbladder without cholecystitis without obstruction